=== PATIENT | male | born 1935 | race African-American/Black ===

== ENCOUNTER 2016-06-17 14:54 | Inpatient (IN) | payer OTHER ==
[2016-06-17 16:39] LABS: BASOPHIL 1.1 % (0-2.0); EOSINOPHIL 3.2 % (0-4.5); MCH 24.6 pg (25.7-33.7); MCHC 32.2 g/dl (32.0-35.9); MEAN CELL VOLUME 76.4 fl (80-96); MEAN PLT VOLUME 7.7 fl (7.5-11.1); NEUTROPHILS 73.1 % (42.8-82.8); PLATELET COUNT 545 K/MM3 (134-434); RDW 16.7 % (11.9-15.9); WHITE BLOOD COUNT 8.1 K/mm3 (4.0-10.0)
[2016-06-17 16:54] LABS: INR 1.16 (0.82-1.09); PROTHROMBIN TIME (PATIENT) 12.8 SEC (9.98-11.88)
[2016-06-17 17:12] LABS: ALBUMIN 3.1 g/dl (3.4-5.0); ANION GAP 12 (8-16); BILIRUBIN,TOTAL 0.3 mg/dL (0.2-1.0); CALCIUM 8.7 mg/dL (8.5-10.1); CO2 27 mmol/L (21-32); CREATININE 1.4 mg/dL (0.7-1.3); GLUCOSE,RANDOM 94 mg/dL (74-106); MAGNESIUM 2.4 mg/dL (1.8-2.4); SGOT/AST 18 U/L (15-37); SGPT/ALT 17 U/L (12-78); TOT PROT 7.2 g/dl (6.4-8.2)
[2016-06-17 17:15] LABS: ALK PHOS 63 U/L (45-117); TROPONIN I < 0.02 ng/ml (0.00-0.05)
[2016-06-17 18:20] LABS: URINE APPEARANCE CLEAR; URINE BILIRUBIN NEGATIVE (NEGATIVE); URINE BLOOD NEGATIVE (NEGATIVE); URINE COLOR YELLOW; URINE GLUCOSE (UA) NEGATIVE (NEGATIVE); URINE KETONE NEGATIVE (NEGATIVE); URINE LEUK ESTERASE NEGATIVE (NEGATIVE); URINE NITRITE NEGATIVE (NEGATIVE); URINE UROBILINOGEN NEGATIVE E.U./dl (0.2-1.0)
[2016-06-17 18:21] LABS: URINE PROTEIN 2+ (NEGATIVE)
[2016-06-17 18:22] LABS: URINE HYALINE CAST 46 /lpf; URINE MUCUS RARE; URINE RBC 5 /hpf (0-3); URINE WBC 1 /hpf (3-5)
--- NOTE | 2016-06-17 19:06 | PDOC ---
History of Present Illness - History of Present Illness Initial Comments: 06/17/16 19:21 The patient is an 80 year old male with a past medical hx of HTN who presents to the ED complaining of shortness of breath for a few days. The patient reports his shortness of breath is exacerbated with exertion and laying down. The patient states he was unable to lay down in bed last night secondary to his SOB and reports he felt as if he was suffocating. The patient denies any chest pain, diaphoresis, nausea, vomiting The patient denies any fever, chills, dysuria <Mirta Soliman - Last Filed: 06/17/16 19:44> <Tyra Friedman - Last Filed: 06/18/16 02:22> - General Chief Complaint: Shortness of Breath Stated Complaint: S.O.B. Time Seen by Provider: 06/17/16 16:26 Past History <Mirta Soliman - Last Filed: 06/17/16 19:44> - Past Medical History HTN: Yes Hypercholesterolemia: Yes Other medical history: prostate? - Surgical History Abdominal Surgery: Yes (inguinal hernia) - Psycho/Social/Smoking Cessation Hx Suicidal Ideation: No Smoking History: Former smoker Have you smoked in the past 12 months: Yes Information on smoking cessation initiated: No <Tyra Friedman - Last Filed: 06/18/16 02:22> - Past Medical History Allergies/Adverse Reactions: Allergies Allergy/AdvReac Type Severity Reaction Status Date / Time No Known Allergies Allergy Verified 06/17/16 15:09 Home Medications: Ambulatory Orders Amlodipine Besylate 10 mg PO DAILY 06/17/16 Hydralazine HCl [Apresoline -] 25 mg PO DAILY 06/17/16 Labetalol HCl [Normodyne -] 600 mg PO BID 06/17/16 Lisinopril [Prinivil -] 40 mg PO DAILY 06/17/16 Tamsulosin HCl 0.4 mg PO DAILY 06/17/16 Review of Systems - Review of Systems Able to Perform ROS?: Yes Comments:: 06/17/16 19:39 CONSTITUTIONAL: Absent: fever, chills, diaphoresis, generalized weakness, malaise, loss of appetite HEENT: Absent: rhinorrhea, nasal congestion, throat pain, throat swelling, difficulty swallowing, mouth swelling, ear pain, eye pain, visual Changes CARDIOVASCULAR: Absent: chest pain, syncope, palpitations, irregular heart rate, lightheadedness , peripheral edema RESPIRATORY: +Shortness of breath, dyspnea on exertion, orthopnea. Absent: cough, wheezing, stridor, hemoptysis GASTROINTESTINAL: Absent: abdominal pain, abdominal distension, nausea, vomiting, diarrhea, constipation, melena, hematochezia GENITOURINARY: Absent: dysuria, frequency, urgency, hesitancy, hematuria, flank pain, genital pain MUSCULOSKELETAL: Absent: myalgia, arthralgia, joint swelling SKIN: Absent: rash, itching, pallor HEMATOLOGIC/IMMUNOLOGIC: Absent: easy bleeding, easy bruising, lymphadenopathy, frequent infections ENDOCRINE: Absent: unexplained weight gain, unexplained weight loss, heat intolerance, cold intolerance NEUROLOGIC: Absent: headache, focal weakness or paresthesias, dizziness, unsteady gait, seizure, mental status changes, bladder or bowel incontinence PSYCHIATRIC: Absent: anxiety, depression, suicidal or homicidal ideation, hallucinations. <Mirta Soliman - Last Filed: 06/17/16 19:44> *Physical Exam - Vital Signs Last Vital Signs Temp Pulse Resp BP Pulse Ox 98.3 F 85 17 160/94 98 06/17/16 15:09 06/17/16 18:14 06/17/16 18:14 06/17/16 18:14 06/17/16 18:14 - Physical Exam Comments: 06/17/16 19:39 GENERAL: Well developed, well nourished. Awake and alert. No acute distress. HEENT: Normocephalic, atraumatic. PERRLA, EOMI. No conjunctival pallor. Sclera are non- icteric. Moist mucous membranes. Oropharynx is clear. NECK: Supple. Full ROM. No JVD. Carotid pulses 2+ and symmetric, without bruits. No thyromegaly. No lymphadenopathy. CARDIOVASCULAR: Regular rate and rhythm. No murmurs, rubs, or gallops. Distal pulses are 2+ and symmetric. PULMONARY: No evidence of respiratory distress. Lungs clear to auscultation bilaterally. No wheezing, rales or rhonchi. ABDOMINAL: Soft. Non-tender. Non-distended. No rebound or guarding. No organomegaly. Normoactive bowel sounds. MUSCULOSKELETAL Normal range of motion at all joints. No bony deformities or tenderness. No CVA tenderness. EXTREMITIES: +Minimal bilateral lower extremity pitting edema. No cyanosis. No clubbing. No calf tenderness. SKIN: Warm and dry. Normal capillary refill. No rashes. No jaundice. NEUROLOGICAL: Alert, awake, appropriate. Cranial nerves 2-12 intact. No deficits to light touch and temperature in face, upper extremities and lower extremities. PSYCHIATRIC: Cooperative. Good eye contact. Appropriate mood and affect. <Mirta Soliman - Last Filed: 06/17/16 19:44> - Vital Signs Last Vital Signs Temp Pulse Resp BP Pulse Ox 98.3 F 85 17 160/94 98 06/17/16 15:09 06/17/16 18:14 06/17/16 18:14 06/17/16 18:14 06/17/16 18:14 <Tyra Friedman - Last Filed: 06/18/16 02:22> Heart Score/ECG Review - ECG Impressions Comment:: 06/17/16 19:[address] Friedman NSR at a rate of 89 bpm Normal EKG <Mirta Soliman - Last Filed: 06/17/16 19:44> - History History: Slightly suspicious - Electrocardiogram EKG: Normal - Age Age: >/= 65 - Risk Factors Risk Factors Heart Score: Yes Hx Hypertension, Yes Smoking History Based on the list above the patient has:: 1-2 risk factors - Troponin Troponin: </= normal limit - Score Heart Score - Total: 3 - ECG Intrepretation Rhythm: Regular Rhythm <Tyra Friedman - Last Filed: 06/18/16 02:22> ED Treatment Course - LABORATORY CBC & Chemistry Diagram: 06/17/16 15:56 06/17/16 15:56 - ADDITIONAL ORDERS Additional order review: Laboratory Results 06/17/16 06/17/16 06/17/16 18:00 16:22 15:56 INR 1.16 H Sodium 141 Potassium 3.8 Chloride 102 Carbon Dioxide 27 Anion Gap 12 BUN 21 H Creatinine 1.4 H Creat Clearance w eGFR 48.76 Random Glucose 94 Calcium 8.7 Magnesium 2.4 Total Bilirubin 0.3 AST 18 ALT 17 Alkaline Phosphatase 63 Creatine Kinase 116 Troponin I < 0.02 B-Natriuretic Peptide 96.77 Total Protein 7.2 Albumin 3.1 L Urine Color Yellow Urine Appearance Clear Urine pH 5.0 Ur Specific [place] 1.020 Urine Protein 2+ H Urine Glucose (UA) Negative Urine Ketones Negative Urine Blood Negative Urine Nitrite Negative Urine Bilirubin Negative Urine Urobilinogen Negative Ur Leukocyte Esterase Negative Urine RBC 5 Urine WBC 1 Hyaline Casts 46 Urine Mucus Rare 06/17/16 15:56 RBC 4.23 MCV 76.4 L MCHC 32.2 RDW 16.7 H MPV 7.7 Neutrophils % 73.1 Lymphocytes % 12.1 Monocytes % 10.5 H Eosinophils % 3.2 Basophils % 1.1 - RADIOLOGY Radiograph Interpretation: 06/17/16 19:44 RAD/CHEST X-RAY PORTABLE* Chest: Chest pain. Infiltrate There are no prior studies for comparison. There is a right effusion with right base infiltrate / atelectasis and fluid tracking in the horizontal fissure. There is an elevated right hemidiaphragm. There is a large heart and unfolded aorta. The left lung is clear. There is no sign of infiltrate on the left. There may be a granuloma the left upper lobe. The bones and soft tissues are intact. IMPRESSION: Large heart. Right fluid with infiltrate / atelectasis. Elevated right hemidiaphragm. Reported By: Percy Lui MD 06/17/16 1618 <Mirta Soliman - Last Filed: 06/17/16 19:44> - LABORATORY CBC & Chemistry Diagram: 06/17/16 15:56 06/17/16 15:56 - ADDITIONAL ORDERS Additional order review: Laboratory Results 06/17/16 06/17/16 06/17/16 18:00 16:22 15:56 INR 1.16 H Sodium 141 Potassium 3.8 Chloride 102 Carbon Dioxide 27 Anion Gap 12 BUN 21 H Creatinine 1.4 H Creat Clearance w eGFR 48.76 Random Glucose 94 Calcium 8.7 Magnesium 2.4 Total Bilirubin 0.3 AST 18 ALT 17 Alkaline Phosphatase 63 Creatine Kinase 116 Troponin I < 0.02 B-Natriuretic Peptide 96.77 Total Protein 7.2 Albumin 3.1 L Urine Color Yellow Urine Appearance Clear Urine pH 5.0 Ur Specific [place] 1.020 Urine Protein 2+ H Urine Glucose (UA) Negative Urine Ketones Negative Urine Blood Negative Urine Nitrite Negative Urine Bilirubin Negative Urine Urobilinogen Negative Ur Leukocyte Esterase Negative Urine RBC 5 Urine WBC 1 Hyaline Casts 46 Urine Mucus Rare 06/17/16 15:56 RBC 4.23 MCV 76.4 L MCHC 32.2 RDW 16.7 H MPV 7.7 Neutrophils % 73.1 Lymphocytes % 12.1 Monocytes % 10.5 H Eosinophils % 3.2 Basophils % 1.1 <Tyra Friedman - Last Filed: 06/18/16 02:22> Medical Decision Making - Medical Decision Making 06/17/16 19:[address] Hernandez at 19:12, awaiting call back Dr. Hernandez called back at 19:16, patients case was discussed. He agrees to Tele admission and requests to call Dr. Rooney from Cardiology. Paged Dr. Rooney at 19:20, awaiting call back. Dr. Rooney called back at 19:26. Patients case was discussed. He reports the patient can be admitted to Med Surg. <Mirta Soliman - Last Filed: 06/17/16 19:44> *DC/Admit/Observation/Transfer - Attestations Scribe Attestion: 06/17/16 19:40 Documentation prepared by Mirta Soliman, acting as medical radiation tech for Tyra Friedman MD/DO. <Mirta Soliman - Last Filed: 06/17/16 19:44> - Discharge Dispostion Admit: Yes <Tyra Friedman - Last Filed: 06/18/16 02:22> Diagnosis at time of Disposition: Exertional dyspnea, Pleural effusion, Cardiomegaly Hypertension Qualifiers: Hypertension type: essential hypertension Qualified Code(s): I10 - Essential ( primary) hypertension - Referrals
[2016-06-18] MEDS: LABETALOL HCL 200 MG TABLET (FP) PO SCH ×3 (04:05→23:20)
[2016-06-18] MEDS: amLODIPine BESYLATE 10 MG TABLET (FP) PO SCH ×2 (04:06→10:00)
[2016-06-18 04:54] VITALS: BMI 26.7
--- NOTE | 2016-06-18 08:45 | HP ---
Admitting History and Physical - Primary Care Physician PCP: Shanique Hernandez - Admission Chief Complaint: Exertional dyspnea. History of Present Illness: Progressively worsening exertional dyspnea for past 1-2 months. Unable to walk a flight of stairs without getting short of breath. Also developed pruritic rash over abdomen a month ago, topical creams did not help. History Source: Patient Limitations to Obtaining History: No Limitations - Past Medical History Cardiovascular: Yes: HTN, Hyperlipdemia Gastrointestinal: Yes: Other (colonic polyps on colonosocpy ~2008) Renal/: Yes: BPH - Past Surgical History Past Surgical History: Yes: None - Smoking History Smoking history: Former smoker (Has been a regular smoker, but stopped smoking past week due to dyspnea) Have you smoked in the past 12 months: Yes Aproximately how many cigarettes per day: 2 If you are a former smoker, when did you quit?: last week - Alcohol/Substance Use Hx Alcohol Use: No History of Substance Use: reports: None - Social History Usual Living Arrangement: Yes: Alone ADL: Independent History of Recent Travel: No Home Medications - Allergies Allergies/Adverse Reactions: Allergies Allergy/AdvReac Type Severity Reaction Status Date / Time No Known Allergies Allergy Verified 06/17/16 15:09 - Home Medications Home Medications: Ambulatory Orders Amlodipine Besylate 10 mg PO DAILY 06/17/16 Hydralazine HCl [Apresoline -] 25 mg PO DAILY 06/17/16 Labetalol HCl [Normodyne -] 600 mg PO BID 06/17/16 Lisinopril [Prinivil -] 40 mg PO DAILY 06/17/16 Tamsulosin HCl 0.4 mg PO DAILY 06/17/16 Family Disease History - Family Disease History Family Disease History: Other: Mother (HTN) Review of Systems - Review of Systems Constitutional: denies: No Symptoms Cardiovascular: denies: No Symptoms Respiratory: reports: Cough (dry), Exercise Intolerance, SOB on Exertion. denies: Hemoptysis, Wheezing Gastrointestinal: reports: Bloating. denies: Abdominal Pain, Dysphagia, Nausea , Rectal Bleeding Integumentary: denies: No Symptoms Neurological: denies: No Symptoms Endocrine: denies: No Symptoms Psychiatric: denies: No Symptoms Physical Examination Vital Signs: Vital Signs Temperature 98.4 F 06/18/16 06:00 Pulse Rate 78 06/18/16 06:00 Respiratory Rate 20 06/18/16 06:00 Blood Pressure 140/69 06/18/16 06:00 O2 Sat by Pulse Oximetry (%) 93 L 06/18/16 03:30 Constitutional: Yes: Well Nourished, Mild Distress Eyes: Yes: Conjunctiva Clear HENT: Yes: Normocephalic Neck: Yes: Trachea Midline Cardiovascular: Yes: Regular Rate and Rhythm Respiratory: Yes: Diminished (Decrease BS right side, left is clear) Gastrointestinal: Yes: Normal Bowel Sounds, Soft, Ascites Extremities: Yes: WNL Edema: No Peripheral Pulses WNL: Yes Neurological: Yes: WNL ...Motor Strength: WNL Psychiatric: Yes: WNL Labs: CBC, BMP 06/17/16 15:56 06/17/16 15:56 cardiac enzyme negative EKG wnl renal fnct just about baseline Imaging - Results Chest X-ray: Report Reviewed EKG: Report Reviewed Problem List - Problems (1) Cardiomegaly Code(s): I51.7 - CARDIOMEGALY (2) Exertional dyspnea Code(s): R06.09 - OTHER FORMS OF DYSPNEA (3) Hypertension Code(s): I10 - ESSENTIAL (PRIMARY) HYPERTENSION Qualifiers: Hypertension type: essential hypertension Qualified Code(s): I10 - Essential (primary) hypertension (4) Pleural effusion Code(s): J90 - PLEURAL EFFUSION, NOT ELSEWHERE CLASSIFIED Assessment/Plan Pleural effusion, possible ascites CT chest/abd/pelvis r/o underlying malignancy iv diuresis for now check echo for LVfnct
[2016-06-18] MEDS: TAMSULOSIN HCL 0.4 MG CAP.ER.24H (FP) PO SCH (08:55)
[2016-06-18] MEDS: LISINOPRIL 20 MG TABLET (FP) PO SCH (09:49)
[2016-06-18] MEDS: hydrALAZINE HCL 25 MG TABLET (FP) PO SCH (09:50)
[2016-06-18] MEDS: FUROSEMIDE 40 MG/4 ML INJECTABLE VIAL IVPUSH SCH (09:51)
[2016-06-18] MEDS ORDERED: ENOXAPARIN NA (PORCINE) 40 MG/0.4 ML DISP.SYRIN SQ SCH (10:00)
--- NOTE | 2016-06-18 13:21 | EKG ---
Test Reason : Blood Pressure : / mmHG Vent. Rate : 089 BPM Atrial Rate : 089 BPM P-R Int : 184 ms QRS Dur : 072 ms QT Int : 346 ms P-R-T Axes : 059 011 051 degrees QTc Int : 420 ms NORMAL SINUS RHYTHM NORMAL ECG WHEN COMPARED WITH ECG OF 12-FEB-2003 14:04, VENT. RATE HAS INCREASED BY 34 BPM Confirmed by JULISA CRANE MD ([id number]) on 06/18/2016 1:21:22 PM Referred By: Confirmed By:JULISA CRANE MD
--- NOTE | 2016-06-18 14:11 | CON.PULM ---
Consult Consult Specialty:: PULMONARY Referred by:: PMD - History of Present Illness Chief Complaint: SOB History of Present Illness: The patient is an 80 year old male with a past medical hx of HTN who presents to the ED complaining of shortness of breath beginning end of March. The patient reports his shortness of breath is exacerbated with exertion and laying down. 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 He is an active smoker approx 4-5 cigarettes per day.He served in the [employer] and was stationed [facility]. - History Source History Provided By: Patient, Medical Record Limitations to Obtaining History: No Limitations - Past Medical History [employer]: No: Alzheimer's Cardio/Vascular: Yes: HTN, Hyperlipdemia Pulmonary: No: COPD, O2 Dependent, Pulmonary Embolus Gastrointestinal: Yes: Other (colonic polyps on colonosocpy ~2008). No: Ascites Hepatobiliary: No: Cirrhosis Renal/: Yes: BPH Heme/Onc: Yes: Anemia, Other (has been in fe for 5 years) Infectious Disease: No: AIDS Psych: No: Addictions Rheumatology: No: Fibromyalgia ENT: No: Allergic Rhinitis Endocrine: No: Diabetes Mellitus - Past Surgical History Past Surgical History: Yes: Hernia Repair - Alcohol/Substance Use Hx Alcohol Use: No History of Substance Use: reports: None - Smoking History Smoking history: Current every day smoker (Has been a regular smoker, but stopped smoking past week due to dyspnea) Have you smoked in the past 12 months: Yes Aproximately how many cigarettes per day: 2 If you are a former smoker, when did you quit?: last week - Social History Usual Living Arrangement: With Spouse ADL: Independent Place of : [facility] History of Recent Travel: No Home Medications - Allergies Allergies/Adverse Reactions: Allergies Allergy/AdvReac Type Severity Reaction Status Date / Time No Known Allergies Allergy Verified 06/17/16 15:09 - Home Medications Home Medications: Ambulatory Orders Amlodipine Besylate 10 mg PO DAILY 06/17/16 Hydralazine HCl [Apresoline -] 25 mg PO DAILY 06/17/16 Labetalol HCl [Normodyne -] 600 mg PO BID 06/17/16 Lisinopril [Prinivil -] 40 mg PO DAILY 06/17/16 Tamsulosin HCl 0.4 mg PO DAILY 06/17/16 Family Disease History - Family Disease History Family Disease History: Other: Mother (HTN) Review of Systems - Review of Systems Constitutional: denies: Fever Eyes: denies: Blurred Vision HENT: denies: Difficult Swallowing Neck: denies: Decreased ROM Cardiovascular: denies: Chest Pain Respiratory: reports: Orthopnea, SOB on Exertion Gastrointestinal: reports: Abdominal Pain (lower) Genitourinary: reports: Other (nocturia) Breasts: reports: No Symptoms Reported Musculoskeletal: reports: No Symptoms Integumentary: reports: No Symptoms Neurological: reports: No Symptoms Endocrine: reports: No Symptoms Psychiatric: reports: No Symptoms Physical Exam Vital Sings: Vital Signs Temperature 98.3 F 06/18/16 13:41 Pulse Rate 63 06/18/16 13:41 Respiratory Rate 24 06/18/16 13:41 Blood Pressure 152/76 06/18/16 13:41 O2 Sat by Pulse Oximetry (%) 93 L 06/18/16 03:30 Constitutional: Yes: Calm Eyes: Yes: EOM Intact HENT: Yes: Normocephalic Neck: Yes: Trachea Midline Cardiovascular: Yes: Regular Rate and Rhythm Respiratory: Yes: Diminished (right base) Gastrointestinal: Yes: Soft, Abdomen, Obese Renal/: Yes: WNL Breast(s): Yes: WNL Musculoskeletal: Yes: WNL Extremities: Yes: WNL Edema: No Neurological: Yes: WNL ...Motor Strength: WNL Psychiatric: Yes: WNL Labs: REVIEWED Imaging - Results Chest X-ray: Image Reviewed MRI: Image Reviewed Problem List - Problems (1) Exertional dyspnea Code(s): R06.09 - OTHER FORMS OF DYSPNEA (2) Hypertension Code(s): I10 - ESSENTIAL (PRIMARY) HYPERTENSION Qualifiers: Hypertension type: essential hypertension Qualified Code(s): I10 - Essential (primary) hypertension (3) Pleural effusion Code(s): J90 - PLEURAL EFFUSION, NOT ELSEWHERE CLASSIFIED Assessment/Plan DYSPNEA ON EXERTION AND ORTHOPNEA ETIOLOGY TO BE DETERMINED MILD WEIGHT LOSS/H/O FE DEF ANEMIA AGREE WITH CT CHEST/ABD/PELVIS O2 SUPPLEMENTATION CHECK SPO2 PRE/POST MAY NEED THORACENTESIS WILL FOLLOW THANK YOU Yanci SMITH MD
[2016-06-18] MEDS: ATORVASTATIN CA 10 MG TABLET (FP) PO SCH (23:20)
[2016-06-19 08:03] LABS: EOSINOPHIL 3.6 % (0-4.5); MCH 24.7 pg (25.7-33.7); MCHC 32.4 g/dl (32.0-35.9); MEAN CELL VOLUME 76.3 fl (80-96); MEAN PLT VOLUME 7.4 fl (7.5-11.1); NEUTROPHILS 71.4 % (42.8-82.8); PLATELET COUNT 514 K/MM3 (134-434); RDW 16.4 % (11.9-15.9); WHITE BLOOD COUNT 6.6 K/mm3 (4.0-10.0)
[2016-06-19 08:51] LABS: ALBUMIN 2.8 g/dl (3.4-5.0); ALK PHOS 56 U/L (45-117); ANION GAP 9 (8-16); BILIRUBIN,TOTAL 0.3 mg/dL (0.2-1.0); CALCIUM 8.6 mg/dL (8.5-10.1); CO2 29 mmol/L (21-32); CREATININE 1.1 mg/dL (0.7-1.3); GLUCOSE,RANDOM 96 mg/dL (74-106); SGOT/AST 17 U/L (15-37); SGPT/ALT 17 U/L (12-78); TOT PROT 6.6 g/dl (6.4-8.2)
[2016-06-19] MEDS: TAMSULOSIN HCL 0.4 MG CAP.ER.24H (FP) PO SCH (08:53)
--- NOTE | 2016-06-19 09:58 | PN ---
Progress Note (short form) - Note Progress Note: PULMONARY HAVE REVIEWED CT CHEST/ABD/PELVIS LARGE VOLUME RIGHT PLEURAL EFFUSION WITH COMPRESSIVE ATELECTASIS MULTIPLE B/L NODULES WILL SPEAK WITH IR REGARDING TRANSTHORACIC LUNG BX AND DRAINAGE OF FLUID. HAVE DISCUSSED SAME WITH PHILIP SMITH MD Problem List - Problems (1) Exertional dyspnea Code(s): R06.09 - OTHER FORMS OF DYSPNEA (2) Hypertension Code(s): I10 - ESSENTIAL (PRIMARY) HYPERTENSION Qualifiers: Hypertension type: essential hypertension Qualified Code(s): I10 - Essential (primary) hypertension (3) Pleural effusion Code(s): J90 - PLEURAL EFFUSION, NOT ELSEWHERE CLASSIFIED
[2016-06-19] MEDS: LABETALOL HCL 200 MG TABLET (FP) PO SCH ×2 (10:20→21:49)
[2016-06-19] MEDS: LISINOPRIL 20 MG TABLET (FP) PO SCH (10:20)
[2016-06-19] MEDS: DOCUSATE SODIUM 100 MG CAPSULE (FP) PO SCH (10:20)
[2016-06-19] MEDS: hydrALAZINE HCL 25 MG TABLET (FP) PO SCH (10:20)
[2016-06-19] MEDS: FUROSEMIDE 40 MG/4 ML INJECTABLE VIAL IVPUSH SCH (10:20)
[2016-06-19] MEDS: amLODIPine BESYLATE 10 MG TABLET (FP) PO SCH (10:20)
--- NOTE | 2016-06-19 10:20 | PN ---
Progress Note (short form) - Note Progress Note: No new complaints. 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 Problem List - Problems (1) Cardiomegaly Code(s): I51.7 - CARDIOMEGALY (2) Exertional dyspnea Code(s): R06.09 - OTHER FORMS OF DYSPNEA (3) Hypertension Code(s): I10 - ESSENTIAL (PRIMARY) HYPERTENSION Qualifiers: Hypertension type: essential hypertension Qualified Code(s): I10 - Essential (primary) hypertension (4) Pleural effusion Code(s): J90 - PLEURAL EFFUSION, NOT ELSEWHERE CLASSIFIED
--- NOTE | 2016-06-19 12:03 | PN ---
Progress Note (short form) - Note Progress Note: No CP Or SOB. For biopsy/drainage. No acute events overnight. Intake & Output 06/16/16 06/17/16 06/18/16 06/19/16 23:59 23:59 23:59 23:59 Intake Total 790 435 Output Total 640 Balance 150 435 Weight 210 lb 197 lb 3.2 oz Last Vital Signs Temp Pulse Resp BP Pulse Ox 98.0 F 74 20 148/70 95 06/19/16 09:00 06/19/16 09:00 06/19/16 09:00 06/19/16 09:00 06/18/16 22:00 Active Medications Amlodipine Besylate (Norvasc -) 10 mg PO DAILY [facility] Last Admin: 06/19/16 10:20 Dose: 10 mg Atorvastatin Calcium (Lipitor -) 10 mg PO HS [facility] Last Admin: 06/18/16 23:20 Dose: 10 mg Docusate Sodium (Colace -) 100 mg PO DAILY [facility] Last Admin: 06/19/16 10:20 Dose: 100 mg Furosemide (Lasix Injection -) 40 mg IVPUSH DAILY [facility] Last Admin: 06/19/16 10:20 Dose: 40 mg Hydralazine HCl (Apresoline -) 25 mg PO DAILY [facility] Last Admin: 06/19/16 10:20 Dose: 25 mg Labetalol HCl (Normodyne -) 600 mg PO BID [facility] Last Admin: 06/19/16 10:20 Dose: 600 mg Lisinopril (Prinivil) 20 mg PO DAILY [facility] Last Admin: 06/19/16 10:20 Dose: 20 mg Tamsulosin HCl (Flomax -) 0.4 mg PO DAILY@0830 [facility] Last Admin: 06/19/16 08:53 Dose: 0.4 mg Constitutional: Yes: NAD Eyes: Yes: Conjunctiva Clear HENT: Yes: Normocephalic Neck: Yes: Trachea Midline Cardiovascular: Yes: Regular Rate and Rhythm Respiratory: Yes: Diminished Gastrointestinal: Yes: Normal Bowel Sounds, Soft, Ascites Extremities: Yes: WNL Edema: No Peripheral Pulses WNL: Yes Neurological: Yes: WNL ...Motor Strength: WNL Psychiatric: Yes: WNL Laboratory Results - last 24 hr 06/19/16 06/19/16 05:33 05:33 WBC 6.6 RBC 3.92 L Hgb 9.7 L Hct 29.9 L MCV 76.3 L MCHC 32.4 RDW 16.4 H Plt Count 514 H MPV 7.4 L Neutrophils % 71.4 Lymphocytes % 11.7 Monocytes % 12.3 H Eosinophils % 3.6 Basophils % 1.0 Sodium 141 Potassium 4.5 Chloride 103 Carbon Dioxide 29 Anion Gap 9 BUN 22 H Creatinine 1.1 D Creat Clearance w eGFR > 60 Random Glucose 96 Calcium 8.6 Total Bilirubin 0.3 AST 17 ALT 17 Alkaline Phosphatase 56 Total Protein 6.6 Albumin 2.8 L Problem List - Problems (1) Cardiomegaly Code(s): I51.7 - CARDIOMEGALY (2) Exertional dyspnea Code(s): R06.09 - OTHER FORMS OF DYSPNEA (3) Hypertension Code(s): I10 - ESSENTIAL (PRIMARY) HYPERTENSION Qualifiers: Hypertension type: essential hypertension Qualified Code(s): I10 - Essential (primary) hypertension (4) Pleural effusion Code(s): J90 - PLEURAL EFFUSION, NOT ELSEWHERE CLASSIFIED IMP: 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
[2016-06-19 13:11] LABS: PHOSPHOROUS 3.4 mg/dL (2.5-4.9)
[2016-06-19 13:12] LABS: GLUCOSE,PLEURAL FLUID 109.283; TOTAL PROTEIN,PLEURAL FLUID 4.474
[2016-06-19 13:13] LABS: CHLORIDE PLEURAL FLUID 107
[2016-06-19 16:09] LABS: PLEURAL FLUID SOURCE PLEURAL
[2016-06-19 16:10] LABS: PLEURAL FLUID APPEARANCE CLOUDY; PLEURAL FLUID COLOR PINK; PLEURAL FLUID LYMPHOCYTES 77 %; PLEURAL FLUID MACROPHAGES 6 %; PLEURAL FLUID NEUTROPHIL 13 %
[2016-06-19] MEDS: ATORVASTATIN CA 10 MG TABLET (FP) PO SCH (21:48)
--- NOTE | 2016-06-20 07:19 | PN ---
Progress Note (short form) - Note Progress Note: Feels better after US guided thoracentesis. 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 Tentative dc today after cytology results with close outpt f/up. Problem List - Problems (1) Cardiomegaly Code(s): I51.7 - CARDIOMEGALY (2) Exertional dyspnea Code(s): R06.09 - OTHER FORMS OF DYSPNEA (3) Hypertension Code(s): I10 - ESSENTIAL (PRIMARY) HYPERTENSION Qualifiers: Hypertension type: essential hypertension Qualified Code(s): I10 - Essential (primary) hypertension (4) Pleural effusion Code(s): J90 - PLEURAL EFFUSION, NOT ELSEWHERE CLASSIFIED
[2016-06-20 07:57] LABS: BASOPHIL 0.8 % (0-2.0); EOSINOPHIL 5.5 % (0-4.5); MCH 23.9 pg (25.7-33.7); MCHC 31.6 g/dl (32.0-35.9); MEAN CELL VOLUME 75.7 fl (80-96); MEAN PLT VOLUME 7.2 fl (7.5-11.1); NEUTROPHILS 68.9 % (42.8-82.8); PLATELET COUNT 538 K/MM3 (134-434); RDW 16.6 % (11.9-15.9); WHITE BLOOD COUNT 7.6 K/mm3 (4.0-10.0)
[2016-06-20 08:26] LABS: ALBUMIN 2.7 g/dl (3.4-5.0); CALCIUM 8.5 mg/dL (8.5-10.1); COCKROFT - GAULT 52.16; CREATININE 1.4 mg/dL (0.7-1.3)
[2016-06-20 08:29] LABS: BILIRUBIN,TOTAL 0.3 mg/dL (0.2-1.0); TOT PROT 6.4 g/dl (6.4-8.2)
[2016-06-20] MEDS: TAMSULOSIN HCL 0.4 MG CAP.ER.24H (FP) PO SCH (08:34)
--- NOTE | 2016-06-20 09:18 | CONSULT ---
Consult - text type - Consultation Consultation Note: Cardiology 81 yr old HTN, lipids, admitted with dyspnea for few months PE: vitals stable normal cardio-pulmonary exam, maybe decreased breath sounds right side abdomen soft no leg edema Impression: stable from cardiac standpoint Echocardiogram normal, TR right plural effusion, s/p thoracentesis pulm nodules, malignancy work-up to follow Rec: Further cardiac evaluation to continue as outpatient
[2016-06-20] MEDS: LABETALOL HCL 200 MG TABLET (FP) PO SCH (10:19)
[2016-06-20] MEDS: DOCUSATE SODIUM 100 MG CAPSULE (FP) PO SCH (10:20)
[2016-06-20] MEDS: hydrALAZINE HCL 25 MG TABLET (FP) PO SCH (10:20)
[2016-06-20] MEDS: amLODIPine BESYLATE 10 MG TABLET (FP) PO SCH (10:20)
[2016-06-20] MEDS: LISINOPRIL 20 MG TABLET (FP) PO SCH (10:20)
[2016-06-20] MEDS: FUROSEMIDE 40 MG/4 ML INJECTABLE VIAL IVPUSH SCH (10:20)
--- NOTE | 2016-06-20 13:20 | PATH ---
Cytology Non-Gynecological Report Patient Name: CRISTIAN ABDI [facility]. Rec. #: [id number] /Age/Gender: 1935 (Age: 80) / M Account: [id number] Location: [address] [place] [address] Taken: 06/19/2016 Received: 06/19/2016 Reported: 06/20/2016 Physicians: Shanique Hernandez M.D. Specimen(s) Received RIGHT PLEURAL FLUID Clinical History None given Final Diagnosis PLEURAL FLUID, RIGHT, THORACENTESIS: SATISFACTORY FOR EVALUATION BENIGN (NO MALIGNANT CELLS IDENTIFIED) REACTIVE MESOTHELIAL CELLS, HISTIOCYTES, LYMPHOCYTES AND NEUTROPHILS PRESENT. Comment: Recommend correlation with clinical findings and follow up as clinically indicated. Electronically Signed Kojo Reza M.D. Gross Description A. Approximately 50 cc of bloody fluid received fixed in 50% alcohol. One cytofunnel and one cellblock prepared. B. Approximately 2000 cc of bloody fluid received fresh. One cytofunnel and one cellblock prepared.
[2016-06-20 15:04] VITALS: BP 124/53; PULSE 73; TEMP 98.2
--- NOTE | 2016-06-23 08:33 | DS ---
Physical Examination Vital Signs: Vital Signs Temperature 98.2 F 06/20/16 14:02 Pulse Rate 73 06/20/16 14:02 Respiratory Rate 20 06/20/16 14:02 Blood Pressure 124/53 06/20/16 14:02 O2 Sat by Pulse Oximetry (%) 90 L 06/20/16 09:00 Constitutional: Yes: No Distress, Calm Eyes: Yes: EOM Intact Neck: Yes: Trachea Midline Cardiovascular: Yes: Regular Rate and Rhythm Respiratory: Yes: CTA Bilaterally Gastrointestinal: Yes: Soft Peripheral Pulses WNL: Yes Labs: CBC, BMP 06/20/16 07:15 06/20/16 07:15 Discharge Summary Reason For Visit: DYSPNEA ON EXERTION/CARDIOMEGALY/PLEURAL EFFUSION/ Hospital Course: Admitted for symptomatic right sided pleural effusion. Ct chest,abd,pelvis showed multiple nodules. Pleural effusion was tapped with relief of his symptoms, pathology negative for malignant cell. Mr. Regalado is medically stable to dc home and f/up as oupt for further work up, including PET scan. Condition: Fair - Instructions Diet, Activity, Other Instructions: 9 am Thursday Referrals: Shanique Hernandez MD [Primary Care Provider] - Disposition: HOME - Home Medications Comprehensive Discharge Medication List: Ambulatory Orders Amlodipine Besylate 10 mg PO DAILY 06/17/16 Labetalol HCl [Normodyne -] 600 mg PO BID 06/17/16 Lisinopril [Prinivil -] 40 mg PO DAILY 06/17/16 Tamsulosin HCl 0.4 mg PO DAILY 06/17/16 Docusate Sodium [Colace -] 100 mg PO DAILY 06/18/16 Hydrochlorothiazide [Hctz -] 25 mg PO DAILY 06/18/16 Simvastatin 20 mg PO HS 06/18/16
== END 2016-06-20 15:49 | disposition home or self-care (01) | DRG 187 ==
LOC: JER 14:54 → JERBED 19:22 → J5S 06-18 02:55
PROVIDERS: ADMIT Internal Medicine; ATTEND Internal Medicine
PROC: 0W993ZX Drainage of Right Pleural Cavity, Percutaneous Approach, Diagnostic (ICD-10-PCS; principal; 2016-06-19)
DX: J90 Pleural effusion, not elsewhere classified (principal); J98.11 Atelectasis; I10 Essential (primary) hypertension; K40.90 Unilateral inguinal hernia, without obstruction or gangrene, not specified as recurrent; E78.5 Hyperlipidemia, unspecified; N40.0 Benign prostatic hyperplasia without lower urinary tract symptoms; K63.5 Polyp of colon; I51.7 Cardiomegaly; R06.09 Other forms of dyspnea; D64.9 Anemia, unspecified; R91.8 Other nonspecific abnormal finding of lung field; M89.9 Disorder of bone, unspecified; Z87.891 Personal history of nicotine dependence
CPT/HCPCS: 36415; 71010-TC; 71020-TC; 71250-TC; 74176-TC; 76942; 80053; 81003; 81015; 82042; 82150; 82438; 82550; 82945; 83615; 83735; 83880; 84100; 84153; 84157; 84311; 84450; 84460; 84484; 85025; 85610; 87070; 87075; 87102; 87116; 87205; 87206; 87210; 88108; 88305-TC; 89051; 93005; 93010; 93306-TC; 99284-25; Q9967

== ENCOUNTER 2016-07-29 13:12 | Day surgery (SDC) | payer OTHER ==
[2016-07-28 15:02] VITALS: BMI 27.6
[2016-07-29] MEDS ORDERED: LIDOCAINE HCL/PF 2% SDV 5ML VIAL ONE (14:26)
[2016-07-29] MEDS ORDERED: PROPOFOL 20 ML ONE ×3 (14:26)
[2016-07-29] MEDS ORDERED: ceFAZolin SODIUM 1 GM VIAL ONE (14:29)
[2016-07-29] MEDS ORDERED: GLYCOPYRROLATE 0.2 MG/1 ML VIAL ONE (14:55)
[2016-07-29 15:16] VITALS: TEMP 97.6
[2016-07-29 16:00] VITALS: PULSE 73
[2016-07-29 16:01] VITALS: BP 142/72
--- NOTE | 2016-08-06 11:18 | PATH ---
Surgical Pathology Report Patient Name: CRISTIAN ABDI [facility]. Rec. #: [id number] /Age/Gender: 1935 (Age: 81) / M Account: [id number] Location: ASU-ENDOSCOPY Taken: 07/29/2016 Received: 07/30/2016 Reported: 07/31/2016 Physicians: Ric Bess M.D. Specimen(s) Received A: BX CECAL MASS B: POLYP TRANSVERSE COLON C: DESCENDING COLON POLYP Clinical History Abnormal x-ray, colon mass Severe diverticulosis and left colon, polyps, mass in cecum Final Diagnosis A. 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 Comment: DNA mismatch repair (MMR) protein analysis by IHC standing; result will be reported in an addendum. The case was discussed with Dr. Bess on 07/31/16. B. COLON, TRANSVERSE, POLYP, POLYPECTOMY: FRAGMENTS OF TUBULAR ADENOMA. C. COLON, DESCENDING, POLYP, POLYPECTOMY: FRAGMENTS OF TUBULAR ADENOMA. Electronically Signed Zach Hart M.D. Addendum Reported: 08/05/2016 Addendum Diagnosis Part A: DNA Mismatch Repair (MMR) protein expression analysis by IHC performed at the [place], [place] ([id number]) and interpreted [facility] shows the following: Results: hMLH-1 DNA Mismatch Repair Protein: Loss of nuclear expression hMSH-2 DNA Mismatch Repair Protein: Loss of nuclear expression hMSH-6 DNA Mismatch Repair Protein: Preserved nuclear expression PMS2 DNA Mismatch Repair Protein: Loss of nuclear expression Interpretation: The neoplastic material is scant. Defect in MLH-1, PMS2 and MSH-2 DNA Mismatch Repair (MMR) proteins expression are identified by IHC. This result may be seen in both sporadic MSI-H unstable tumors and in tumors associated with HNPCC (Bryan syndrome). This pattern of expression with the loss of MSH2 protein and preserved MSH6 protein is unusual; considering that the neoplastic material is scant, the test should be repeated on the excisional specimen. The follow up tests, such as BRAF mutation and MLH promoter methylation analysis, should be performed on the excisional specimen. MSH2 gene mutation testing is recommended. Zach Hart M.D. Gross Description A. Received in formalin, labeled "biopsy cecal mass" are 4 patten, irregular portions of soft tissue averaging 0.2 cm in greatest dimension. The specimens are submitted in toto in one cassette. B. Received in formalin labeled "polyp transverse colon," are 3 patten, polypoid portions of soft tissue ranging from 0.2-0.8 cm in greatest dimension. The specimens are entirely submitted in one cassette. C. Received in formalin labeled "descending colon," are 2 patten, irregular to polypoid portions of soft tissue measuring 0.3 and 0.9 cm in greatest dimension. The specimens are entirely submitted in one cassette. 07/30/201607/30/2016
== END 2016-07-29 16:10 | disposition home or self-care (01) ==
LOC: JASU-ENDO 13:12
PROVIDERS: ATTEND Internal Medicine Gastroenterology
PROC: 0DBN8ZX Excision of Sigmoid Colon, Via Natural or Artificial Opening Endoscopic, Diagnostic (ICD-10-PCS; 2016-07-29)
PROC: 0DBK8ZX Excision of Ascending Colon, Via Natural or Artificial Opening Endoscopic, Diagnostic (ICD-10-PCS; 2016-07-29)
PROC: 0DBL8ZX Excision of Transverse Colon, Via Natural or Artificial Opening Endoscopic, Diagnostic (ICD-10-PCS; principal; 2016-07-29 14:00)
DX: D50.9 Iron deficiency anemia, unspecified (principal); D12.5 Benign neoplasm of sigmoid colon; D12.3 Benign neoplasm of transverse colon; K64.8 Other hemorrhoids; D37.4 Neoplasm of uncertain behavior of colon
CPT/HCPCS: 88305-TC

== ENCOUNTER 2016-09-02 07:21 | Emergency (ER) | payer OTHER ==
[2016-09-02 07:37] VITALS: TEMP 98; BMI 27.6
[2016-09-02 08:43] LABS: URINE APPEARANCE CLEAR; URINE BILIRUBIN NEGATIVE (NEGATIVE); URINE COLOR STRAW; URINE GLUCOSE (UA) NEGATIVE (NEGATIVE); URINE KETONE NEGATIVE (NEGATIVE); URINE LEUK ESTERASE NEGATIVE (NEGATIVE); URINE NITRITE NEGATIVE (NEGATIVE); URINE PROTEIN NEGATIVE (NEGATIVE); URINE UROBILINOGEN NEGATIVE E.U./dl (0.2-1.0)
[2016-09-02 08:47] LABS: URINE BLOOD 2+ (NEGATIVE)
[2016-09-02 08:50] LABS: URINE RBC 14 /hpf (0-3); URINE WBC 1 /hpf (3-5)
--- NOTE | 2016-09-02 08:52 | PDOC ---
History of Present Illness - General Chief Complaint: Urinary Problem Stated Complaint: ABD PAIN, URINARY PROBLEM Time Seen by Provider: 09/02/16 08:02 History Source: Patient Exam Limitations: No Limitations - History of Present Illness Travel History: No Initial Comments: 09/02/16 08:47 89-year-old male presents the ED with urinary retention since last night. Patient states had a Garza catheter in until yesterday morning when Dr. Griggs his urologist removed it. Patient states history of BPH and since his colon resection last month he has had difficulty intermittently since requiring him to have a Garza catheter placed. Patient now complaining of suprapubic pressure with urinary dribbling without fever, chills, hematuria, nausea, or difficulty moving his bowels. Timing/Duration: reports: getting worse Quality: reports: moderate, fullness Abdominal Pain Onset Location: reports: suprapubic Pain Radiation: reports: no radiation Activities at Onset: reports: none Aggravating Factors: improves with: None Alleviating Factors: improves with: None Past History - Past Medical History Allergies/Adverse Reactions: Allergies Allergy/AdvReac Type Severity Reaction Status Date / Time No Known Allergies Allergy Verified 09/02/16 07:30 Home Medications: Ambulatory Orders Amlodipine Besylate 10 mg PO DAILY 06/17/16 Labetalol HCl [Normodyne -] 200 mg PO BID 06/17/16 Lisinopril [Prinivil -] 40 mg PO DAILY 06/17/16 Tamsulosin HCl 0.4 mg PO DAILY 06/17/16 Docusate Sodium [Colace -] 100 mg PO DAILY 06/18/16 Hydrochlorothiazide [Hctz -] 25 mg PO DAILY 06/18/16 Simvastatin 20 mg PO HS 06/18/16 Ascorbic Acid [Vitamin C -] 500 mg PO ASDIR 07/29/16 Glucosamine HCl/MSM [Sm Glucosamine & MSM Tablet] 1,500 tab PO BID 07/29/16 Iron 65 mg PO ASDIR 07/29/16 Multivitamins [Multivit ([facility] Formulary)] DAILY 07/29/16 Anemia: Yes Cancer: Yes (colon) COPD: Yes GI Disorders: Yes (H/O ADENOMATOUS POLYP OF COLON) HTN: Yes Hypercholesterolemia: Yes - Surgical History Abdominal Surgery: Yes (inguinal hernia, colon resection) Cholecystectomy: Yes - Psycho/Social/Smoking Cessation Hx Anxiety: No Suicidal Ideation: No Smoking History: Former smoker Have you smoked in the past 12 months: No Number of Cigarettes Smoked Daily: 2 If you are a former smoker, when did you quit?: 2017 Information on smoking cessation initiated: No Hx Alcohol Use: No Drug/Substance Use Hx: No Substance Use Type: None Hx Substance Use Treatment: No Patient Lives Alone: Yes Lives with/in: lives alone Review of Systems - Review of Systems Able to Perform ROS?: Yes Is the patient limited Nicaraguan proficient: No Constitutional: No: Symptoms Reported HEENTM: No: Symptoms Reported Cardiac (ROS): No: Symptoms Reported ABD/GI: Yes: Abdominal Distended : Yes: Frequency, Urgency Integumentary: No: Symptoms Reported Neurological: No: Symptoms reported Hematologic/Lymphatic: No: Symptoms Reported *Physical Exam - Vital Signs Last Vital Signs Temp Pulse Resp BP Pulse Ox 98.0 F 75 18 169/73 98 09/02/16 07:31 09/02/16 07:31 09/02/16 07:31 09/02/16 07:31 09/02/16 07:31 - Physical Exam General Appearance: Yes: Nourished, Appropriately Dressed, Mild Distress Respiratory/Chest: positive: Lungs Clear, Normal Breath Sounds. negative: Respiratory Distress, Accessory Muscle Use Cardiovascular: positive: Regular Rhythm, Regular Rate. negative: Murmur Gastrointestinal/Abdominal: positive: Soft, Distended (suprapubic), Tenderness ( suprapubic). negative: Other (Steri-Strips intact to periumbilical region) Male Genitalia: positive: normal genitalia. negative: testicular tenderness, epididymus tender, hernia Musculoskeletal: negative: CVA Tenderness Extremity: positive: Normal Capillary Refill. negative: Pedal Edema Integumentary: positive: Normal Color, Warm, Moist Neurologic: positive: Motor Strength 5/5 (ambulatory) Medical Decision Making - Medical Decision Making 09/02/16 08:36 Patient with complaints of urinary retention since last night. Patient states had a Garza catheter removal per his urologist Dr. Griggs in the office yesterday afternoon which he states had no difficulty with. Patient states has had Garza catheters and before secondary to BPH patient with recent colon resection positive for malignancy. Patient has an appointment with Dr. Real today at 10. Patient on exam had suprapubic distention and tenderness. Patient with clear yellow urine upon voiding measuring approximately 20 mL. #16 Garza catheter placed by me without difficulty which immediately was successful draining 600 mL of clear yellow urine into the Urine collection bag. Urinalysis urine culture ordered. Patient has no complaints presently of suprapubic pressure. spoke with Dr. Griggs who states patient may follow-up in the office tomorrow. 09/02/16 09:09 Laboratory Tests 09/02/16 08:30 Urine Ketones Negative Urine Blood 2+ H Urine Nitrite Negative Ur Leukocyte Esterase Negative Urine RBC 14 Urine WBC 1 *DC/Admit/Observation/Transfer Diagnosis at time of Disposition: Urinary retention due to benign prostatic hyperplasia, Garza catheter in place - Discharge Dispostion Disposition: HOME Condition at time of disposition: Improved - Referrals Referrals: Corazon Hawley MD [Primary Care Provider] - Percy Griggs MD [Staff Physician] - Hermes Real MD [Staff Physician] - - Patient Instructions Printed Discharge Instructions: How to Care for Your Garza Catheter -- Male, DI for Urinary Retention in Men Additional Instructions: Please keep Garza catheter secure and follow-up with Dr. Real at 10:00 today Please also follow up with Dr. Griggs tomorrow
[2016-09-02 09:25] VITALS: BP 145/68; PULSE 53
== END 2016-09-02 09:25 | disposition home or self-care (01) ==
LOC: JER 07:21
PROC: 0T9B70Z Drainage of Bladder with Drainage Device, Via Natural or Artificial Opening (ICD-10-PCS; principal; 2016-09-02)
DX: N40.1 Benign prostatic hyperplasia with lower urinary tract symptoms (principal); R33.8 Other retention of urine; Z97.8 Presence of other specified devices; I10 Essential (primary) hypertension; E78.00 Pure hypercholesterolemia, unspecified; Z85.038 Personal history of other malignant neoplasm of large intestine; J44.9 Chronic obstructive pulmonary disease, unspecified; Z87.891 Personal history of nicotine dependence
CPT/HCPCS: 51702; 81003; 81015; 87086; 99283-25

== ENCOUNTER 2016-09-09 22:07 | Emergency (ER) | payer OTHER ==
[2016-09-09 22:17] VITALS: BP 149/70; PULSE 74; TEMP 98.7; BMI 26.6
--- NOTE | 2016-09-09 22:35 | PDOC ---
History of Present Illness - General History Source: Patient <IngeMitchel - Last Filed: 09/09/16 22:42> - General History Source: Patient Exam Limitations: No Limitations - History of Present Illness Initial Comments: 09/09/16 22:50 The patient is an 81-year-old male, with a significant past medical history of HTN and hyperlipidemia , who presents to the ED with urinary retention today. Patient has an enlarged prostate and was operated on and had a daniel catheter placed. Pt visited his urologist office today due to abdominal distention and difficulty urinating. Pt was sent to the ED for further evaluation. Upon examination, daniel is not draining urine. The patient denies any dysuria, hematuria, or difficulty passing bowels. Urologist: Dr. Griggs <Geri Caldera - Last Filed: 09/09/16 22:59> - General Chief Complaint: Urinary Catheter Problem Stated Complaint: URINARY CATHATER PROBLEM Time Seen by Provider: 09/09/16 22:29 Past History - Past Medical History Anemia: Yes Cancer: Yes (colon) COPD: Yes GI Disorders: Yes (H/O ADENOMATOUS POLYP OF COLON) HTN: Yes Hypercholesterolemia: Yes - Surgical History Abdominal Surgery: Yes (inguinal hernia, colon resection) Cholecystectomy: Yes - Psycho/Social/Smoking Cessation Hx Anxiety: No Suicidal Ideation: No Smoking History: Former smoker Have you smoked in the past 12 months: No Number of Cigarettes Smoked Daily: 2 If you are a former smoker, when did you quit?: 1 Information on smoking cessation initiated: No Hx Alcohol Use: No Drug/Substance Use Hx: No Substance Use Type: None Hx Substance Use Treatment: No <Mitchel Alcazar - Last Filed: 09/09/16 22:42> <Geri Caldera - Last Filed: 09/09/16 22:59> - Past Medical History Allergies/Adverse Reactions: Allergies Allergy/AdvReac Type Severity Reaction Status Date / Time No Known Allergies Allergy Verified 09/09/16 22:14 Home Medications: Ambulatory Orders Amlodipine Besylate 10 mg PO DAILY 06/17/16 Labetalol HCl [Normodyne -] 200 mg PO BID 06/17/16 Lisinopril [Prinivil -] 40 mg PO DAILY 06/17/16 Tamsulosin HCl 0.4 mg PO DAILY 06/17/16 Docusate Sodium [Colace -] 100 mg PO DAILY 06/18/16 Hydrochlorothiazide [Hctz -] 25 mg PO DAILY 06/18/16 Simvastatin 20 mg PO HS 06/18/16 Ascorbic Acid [Vitamin C -] 500 mg PO ASDIR 07/29/16 Glucosamine HCl/MSM [Sm Glucosamine & MSM Tablet] 1,500 tab PO BID 07/29/16 Multivitamins [Multivit ([facility] Formulary)] 1 tab PO DAILY 07/29/16 Ferrous Sulfate, Dried [Iron] 64 mg PO DAILY 09/09/16 Levofloxacin [Levaquin -] 500 mg PO DAILY #4 tablet 09/09/16 Review of Systems - Review of Systems Able to Perform ROS?: Yes Comments:: 09/09/16 22:55 CONSTITUTIONAL: Absent: fever, chills, diaphoresis, generalized weakness, malaise, loss of appetite HEENT: Absent: rhinorrhea, nasal congestion, throat pain, throat swelling, difficulty swallowing, mouth swelling, ear pain, eye pain, visual Changes CARDIOVASCULAR: Absent: chest pain, syncope, palpitations, irregular heart rate, lightheadedness , peripheral edema RESPIRATORY: Absent: cough, shortness of breath, dyspnea with exertion, orthopnea, wheezing, stridor, hemoptysis GASTROINTESTINAL: Present: abdominal distension, suprapubic tenderness Absent: nausea, vomiting, diarrhea, constipation, melena, hematochezia GENITOURINARY: Present: urinary retention Absent: dysuria, frequency, urgency, hematuria, flank pain, genital pain MUSCULOSKELETAL: Absent: myalgia, arthralgia, joint swelling SKIN: Absent: rash, itching, pallor HEMATOLOGIC/IMMUNOLOGIC: Absent: easy bleeding, easy bruising, lymphadenopathy, frequent infections ENDOCRINE: Absent: unexplained weight gain, unexplained weight loss, heat intolerance, cold intolerance NEUROLOGIC: Absent: headache, focal weakness or paresthesias, dizziness, unsteady gait, seizure, mental status changes, bladder or bowel incontinence PSYCHIATRIC: Absent: anxiety, depression, suicidal or homicidal ideation, hallucinations. <Geri Caldera - Last Filed: 09/09/16 22:59> *Physical Exam - Vital Signs Last Vital Signs Temp Pulse Resp BP Pulse Ox 98.7 F 74 18 149/70 98 09/09/16 22:10 09/09/16 22:10 09/09/16 22:10 09/09/16 22:10 09/09/16 22:10 <Mitchel Alcazar - Last Filed: 09/09/16 22:42> - Vital Signs Last Vital Signs Temp Pulse Resp BP Pulse Ox 98.7 F 74 18 149/70 98 09/09/16 22:10 09/09/16 22:10 09/09/16 22:10 09/09/16 22:10 09/09/16 22:10 - Physical Exam Comments: 09/09/16 22:58 Well developed, well nourished. Awake and alert. No acute distress. HEENT: Normocephalic, atraumatic. PERRLA, EOMI. No conjunctival pallor. Sclera are non- icteric. Moist mucous membranes. Oropharynx is clear. NECK: Supple. Full ROM. No JVD. Carotid pulses 2+ and symmetric, without bruits. No thyromegaly. No lymphadenopathy. CARDIOVASCULAR: Regular rate and rhythm. No murmurs, rubs, or gallops. Distal pulses are 2+ and symmetric. PULMONARY: No evidence of respiratory distress. Lungs clear to auscultation bilaterally. No wheezing, rales or rhonchi. ABDOMINAL: Soft. No rebound or guarding. No organomegaly. Normoactive bowel sounds. + suprapubic distension with mild tenderness MUSCULOSKELETAL Normal range of motion at all joints. No bony deformities or tenderness. No CVA tenderness. EXTREMITIES: No cyanosis. No clubbing. No edema. No calf tenderness. SKIN: Warm and dry. Normal capillary refill. No rashes. No jaundice. NEUROLOGICAL: Alert, awake, appropriate. PSYCHIATRIC: Cooperative. Good eye contact. Appropriate mood and affect. <Geri Caldera - Last Filed: 09/09/16 22:59> Medical Decision Making - Medical Decision Making 09/09/16 22:40 Dr. Alcazar: The scribe's documentation has been prepared under my direction and personally reviewed by me in its entirery. I confirm that the note above accurately reflects all work, treatment, procedures, and medical decision making performed by me. Daniel catheter changes. Pt advised to follow up with Dr. Phelps. <Mitchel Alcazar - Last Filed: 09/09/16 22:42> *DC/Admit/Observation/Transfer - Discharge Dispostion Admit: No <Mitchel Alcazar - Last Filed: 09/09/16 22:42> - Attestations Scribe Attestion: 09/09/16 22:59 Documentation prepared by Geri Caldera, acting as medical center director for Mitchel Alcazar MD. <Geri Caldera - Last Filed: 09/09/16 22:59> Diagnosis at time of Disposition: Urinary retention due to benign prostatic hyperplasia - Discharge Dispostion Disposition: HOME Condition at time of disposition: Stable - Prescriptions Prescriptions: Levofloxacin [Levaquin -] 500 mg PO DAILY #4 tablet - Referrals Referrals: Percy Griggs MD [Primary Care Provider] - - Patient Instructions Printed Discharge Instructions: DI for Urinary Retention in Men Additional Instructions: Please follow up with Dr. Phelps as normally scheduled.
[2016-09-09] MEDS ORDERED: LEVOFLOXACIN 500 MG TABLET (FP) PO ONE (22:45)
[2016-09-09] MEDS ORDERED: LEVOFLOXACIN 500 MG TABLET (FP) ONE (22:59)
== END 2016-09-09 23:34 | disposition home or self-care (01) ==
LOC: JER 22:07 → SUPCPDRO 22:07 → JER 23:34
PROC: 0T2BX0Z Change Drainage Device in Bladder, External Approach (ICD-10-PCS; principal; 2016-09-09)
DX: N40.1 Benign prostatic hyperplasia with lower urinary tract symptoms (principal); R33.8 Other retention of urine; I10 Essential (primary) hypertension; E78.5 Hyperlipidemia, unspecified; J44.9 Chronic obstructive pulmonary disease, unspecified; Z85.46 Personal history of malignant neoplasm of prostate; Z85.038 Personal history of other malignant neoplasm of large intestine
CPT/HCPCS: 51702; 99282-25

== ENCOUNTER 2016-09-14 16:58 | Emergency (ER) | payer OTHER ==
[2016-09-14 17:04] VITALS: BP 143/60; PULSE 60; TEMP 98.2; BMI 25.7
--- NOTE | 2016-09-14 18:22 | PDOC ---
History of Present Illness <Dina Pizarro - Last Filed: 09/14/16 18:22> - General History Source: Patient Exam Limitations: No Limitations - History of Present Illness Initial Comments: 09/14/16 18:23 The patient is an 81-year-old male, with a significant past medical history of HTN and hyperlipidemia , who presents to the ED with a leak in his daniel catheter. Patient states there is a leak around the connection with the bag. Patient had his daniel catheter placed on August 19. He denies any fever, chills, abdominal pain, nausea, vomiting, diarrhea. He denies any dysuria, hematuria, or difficulty passing bowels. Urologist: Dr. Griggs <Singh Mullins - Last Filed: 09/14/16 18:26> - General Chief Complaint: Urinary Catheter Problem Stated Complaint: CATHETER PROBLEM Past History - Past Medical History Anemia: Yes Cancer: Yes (colon) COPD: Yes GI Disorders: Yes (H/O ADENOMATOUS POLYP OF COLON) HTN: Yes Hypercholesterolemia: Yes - Surgical History Abdominal Surgery: Yes (inguinal hernia, colon resection) Cholecystectomy: Yes - Immunization History Immunization Up to Date: No - Psycho/Social/Smoking Cessation Hx Anxiety: No Suicidal Ideation: No Smoking History: Never smoked Have you smoked in the past 12 months: No Number of Cigarettes Smoked Daily: 2 If you are a former smoker, when did you quit?: 1 Hx Alcohol Use: No Drug/Substance Use Hx: No Substance Use Type: None Hx Substance Use Treatment: No <Dina Pizarro - Last Filed: 09/14/16 18:22> <Singh Mullins - Last Filed: 09/14/16 18:26> - Past Medical History Allergies/Adverse Reactions: Allergies Allergy/AdvReac Type Severity Reaction Status Date / Time No Known Allergies Allergy Verified 09/14/16 17:04 Home Medications: Ambulatory Orders Amlodipine Besylate 10 mg PO DAILY 06/17/16 Labetalol HCl [Normodyne -] 200 mg PO BID 06/17/16 Lisinopril [Prinivil -] 40 mg PO DAILY 06/17/16 Tamsulosin HCl 0.4 mg PO DAILY 06/17/16 Docusate Sodium [Colace -] 100 mg PO DAILY 06/18/16 Hydrochlorothiazide [Hctz -] 25 mg PO DAILY 06/18/16 Simvastatin 20 mg PO HS 06/18/16 Ascorbic Acid [Vitamin C -] 500 mg PO ASDIR 07/29/16 Glucosamine HCl/MSM [Sm Glucosamine & MSM Tablet] 1,500 tab PO BID 07/29/16 Multivitamins [Multivit ([facility] Formul[facility])] 1 tab PO DAILY 07/29/16 Ferrous Sulfate, Dried [Iron] 64 mg PO DAILY 09/09/16 Levofloxacin [Levaquin -] 500 mg PO DAILY #4 tablet 09/09/16 Review of Systems - Review of Systems Able to Perform ROS?: Yes Comments:: 09/14/16 18:24 GENERAL/CONSTITUTIONAL: No fever or chills. No weakness. HEAD, EYES, EARS, NOSE AND THROAT: No change in vision. No ear pain or discharge. No sore throat. CARDIOVASCULAR: No chest pain or shortness of breath. RESPIRATORY: No cough, wheezing, or hemoptysis. GASTROINTESTINAL: No nausea, vomiting, diarrhea or constipation. GENITOURINARY: + Connection tube in daniel catheter has a small crack. No dysuria , frequency, or change in urination. MUSCULOSKELETAL: No joint or muscle swelling or pain. No neck or back pain. SKIN: No rash NEUROLOGIC: No headache, vertigo, loss of consciousness, or change in strength/ sensation. ENDOCRINE: No increased thirst. No abnormal weight change. HEMATOLOGIC/LYMPHATIC: No anemia, easy bleeding, or history of blood clots. ALLERGIC/IMMUNOLOGIC: No hives or skin allergy. <Singh Mullins - Last Filed: 09/14/16 18:26> *Physical Exam - Vital Signs Last Vital Signs Temp Pulse Resp BP Pulse Ox 98.2 F 60 20 143/60 99 09/14/16 17:01 09/14/16 17:01 09/14/16 17:01 09/14/16 17:01 09/14/16 17:01 <Dina Pizarro - Last Filed: 09/14/16 18:22> - Vital Signs Last Vital Signs Temp Pulse Resp BP Pulse Ox 98.2 F 60 20 143/60 99 09/14/16 17:01 09/14/16 17:01 09/14/16 17:01 09/14/16 17:01 09/14/16 17:01 - Physical Exam Comments: 09/14/16 18:25 GENERAL: Awake, alert, and fully oriented, in no acute distress HEAD: No signs of trauma EYES: PERRLA, EOMI, sclera anicteric, conjunctiva clear ENT: Auricles normal inspection, hearing grossly normal, nares patent, oropharynx clear without exudates. Moist mucosa NECK: Normal ROM, supple, no lymphadenopathy, JVD, or masses LUNGS: Breath sounds equal, clear to auscultation bilaterally. No wheezes, and no crackles HEART: Regular rate and rhythm, normal S1 and S2, no murmurs, rubs or gallops ABDOMEN: Daniel bag is in place draining clear urine. Connection tube has a small crack. Soft, nontender, normoactive bowel sounds. No guarding, no rebound. No masses. EXTREMITIES: Normal range of motion, no edema. No clubbing or cyanosis. No cords, erythema, or tenderness NEUROLOGICAL: Cranial nerves II through XII grossly intact. Normal speech, normal gait SKIN: Warm, Dry, normal turgor, no rashes or lesions noted. <Singh Mullins - Last Filed: 09/14/16 18:26> Medical Decision Making - Medical Decision Making 09/14/16 18:19 81 yo male with h/o colon surgery, and subsequent retention with indwelling daniel for one month, here today due to leaking around connection to leg bag. no abd pain . no fever. no problems with urine draining. no abd pain. no flank pain. has prostate surgery scheduled for September 22., with Dr. Griggs no other complaints. no hematuria. on exam lungs clear bilaterally, heart regular, abd soft NT. daniel bag in place , draining clear urine. connection tubing has small crack near connection to leg bag. plan: will adjust the connection and replace leg bag. follow up [facility] urologist outpatient. <Dina Pizarro - Last Filed: 09/14/16 18:22> *DC/Admit/Observation/Transfer - Discharge Dispostion Admit: No <Dina Pizarro - Last Filed: 09/14/16 18:22> - Attestations Scribe Attestion: 09/14/16 18:26 Documentation prepared by Singh Mullins, acting as medical research scientist for Dina Pizarro MD, MD. <Singh Mullins - Last Filed: 09/14/16 18:26> Diagnosis at time of Disposition: Daniel catheter problem - Referrals Referrals: Corazon Hawley MD [Primary Care Provider] - Percy Griggs MD [Staff Physician] - - Patient Instructions Printed Discharge Instructions: How to Care for Your Daniel Catheter -- Male Additional Instructions: follow up with Dr Griggs, call to schedule. return for any problems or concerns.
== END 2016-09-14 18:35 | disposition home or self-care (01) ==
LOC: JER 16:58
PROC: 0T2BX0Z Change Drainage Device in Bladder, External Approach (ICD-10-PCS; principal; 2016-09-14)
DX: T83.038A Leakage of other urinary catheter, initial encounter (principal); I10 Essential (primary) hypertension; E78.00 Pure hypercholesterolemia, unspecified; Z85.038 Personal history of other malignant neoplasm of large intestine
CPT/HCPCS: 51702; 99281-25

== ENCOUNTER 2016-09-18 06:00 | Day surgery (SDC) | payer OTHER ==
[2016-09-17 14:32] VITALS: BMI 26.2
[2016-09-18] MEDS ORDERED: PROPOFOL 20 ML ONE (07:45)
[2016-09-18] MEDS ORDERED: SUCCINYLCHOLINE CHLORIDE 200 MG/10 ML VIAL ONE (07:46)
[2016-09-18] MEDS ORDERED: ceFAZolin SODIUM 1 GM VIAL IVPB ONE (07:55)
[2016-09-18] MEDS ORDERED: ePHEDrine SULFATE 50 MG/1 ML AMPULE ONE (07:58)
[2016-09-18] MEDS ORDERED: GENTAMICIN SO4 80 MG/2 ML VIAL ONE (08:04)
[2016-09-18] MEDS ORDERED: GENTAMICIN SO4 80 MG/2 ML VIAL IVPB ONE (08:05)
[2016-09-18] MEDS ORDERED: ONDANSETRON 4 MG/2 ML VIAL IVPUSH PRN (09:00)
[2016-09-18] MEDS ORDERED: oxyCODONE HCL 5 MG TABLET PO PRN (09:06)
--- NOTE | 2016-09-18 09:07 | OP ---
Operative Note - Note: Operative Date: 09/18/16 Pre-Operative Diagnosis: BPH/retention Operation: cysto/bipolar TURVP Post-Operative Diagnosis: Same as Pre-op Surgeon: Percy Griggs Anesthesia: Spinal Estimated Blood Loss (mls): 10 Operative Report Dictated: Yes
[2016-09-18] MEDS ORDERED: ACETAMINOPHEN 1000 MG/100 ML VIAL (NON FORMULARY) IVPB ONE (09:13)
[2016-09-18] MEDS ORDERED: ELECTROLYTE-148 SOLN 1,000 ML IV SCH (09:15)
--- NOTE | 2016-09-18 09:50 | OP ---
DATE OF OPERATION: 09/18/2016 PREOPERATIVE DIAGNOSIS: Benign prostatic hypertrophy with urinary retention. POSTOPERATIVE DIAGNOSIS: Benign prostatic hypertrophy with urinary retention. PROCEDURE: Cystoscopy, bipolar transurethral vaporization of the prostate. SURGEON: Marbella Brumfield MD INDICATION: Patient is an 81-year-old male with history of BPH who developed recent urinary retention after colon surgery. Despite maximum medical therapy, he failed to void on his own. After reviewing treatment options, he elected to undergo TURVP, understanding the risks of bleeding, infection, impotence, incontinence, stricture formation, potential persistent urinary retention, potential need for additional procedures. DESCRIPTION OF PROCEDURE: After informed consent, the patient was taken to the OR, placed supine on the operating table. Spinal anesthetic was then given. He was prepped and draped in dorsal lithotomy position. A 26-sheath resectoscope was inserted into the urethra with the visual obturator. Anterior urethra was normal. Prostatic urethra was 4 cm and visibly occlusive with trilobar hyperplasia. The bladder was visualized. No tumors or stones noted in the bladder. Using a mushroom electrode, the median was taken down first until it was flat with the bladder neck, and then the lateral tissue was vaporized as well, creating a wide open channel. There was no vaporization within 1 cm of the verumontanum to minimize incontinence. With just past the verumontanum going towards the bladder, a wide open channel was noted. Resectoscope was then removed and 22-Danish Garza was then placed to straight drainage. [place]-tinged urine was retrieved. Patient was awoken from anesthesia and transferred to recovery room in stable condition. There were no complications. ESTIMATED BLOOD LOSS: Minimal. MARBELLA BRUMFIELD M.D. [id number]
[2016-09-18 14:04] VITALS: BP 128/63; PULSE 53; TEMP 98
== END 2016-09-18 14:09 | disposition home or self-care (01) ==
LOC: JASU-SURG 06:00
PROVIDERS: ATTEND Urology
PROC: 0V507ZZ Destruction of Prostate, Via Natural or Artificial Opening (ICD-10-PCS; principal; 2016-09-18 09:00)
DX: C67.8 Malignant neoplasm of overlapping sites of bladder (principal); N40.1 Benign prostatic hyperplasia with lower urinary tract symptoms; R33.8 Other retention of urine; I10 Essential (primary) hypertension; E78.00 Pure hypercholesterolemia, unspecified; C78.5 Secondary malignant neoplasm of large intestine and rectum
CPT/HCPCS: 94760

== ENCOUNTER 2016-11-03 09:21 | Day surgery (SDC) | payer OTHER ==
[2016-11-03 10:39] VITALS: PULSE 55
[2016-11-03 11:01] LABS: BASOPHIL 1.3 % (0-2.0); EOSINOPHIL 3.5 % (0-4.5); MCH 22.9 pg (25.7-33.7); MCHC 32.5 g/dl (32.0-35.9); MEAN CELL VOLUME 70.3 fl (80-96); MEAN PLT VOLUME 7.1 fl (7.5-11.1); NEUTROPHILS 72.2 % (42.8-82.8); PLATELET COUNT 591 K/MM3 (134-434); RDW 20.7 % (11.9-15.9); WHITE BLOOD COUNT 6.1 K/mm3 (4.0-10.0)
[2016-11-03 11:30] LABS: ALBUMIN 2.8 g/dl (3.4-5.0); ALK PHOS 70 U/L (45-117); ANION GAP 5 (8-16); BILIRUBIN,TOTAL 0.2 mg/dL (0.2-1.0); CO2 30 mmol/L (21-32); CREATININE 1.2 mg/dL (0.7-1.3); GLUCOSE,RANDOM 84 mg/dL (74-106); MAGNESIUM 2.6 mg/dL (1.8-2.4); SGOT/AST 19 U/L (15-37); SGPT/ALT 26 U/L (12-78); TOT PROT 7.2 g/dl (6.4-8.2)
[2016-11-03 11:33] LABS: BILIRUBIN,DIRECT < 0.2 mg/dL (0.0-0.2)
[2016-11-03] MEDS ORDERED: DEXAMETHASONE INJECTION 10 MG in SODIUM CHLORIDE 50 ML IVPB ONE (12:00)
[2016-11-03] MEDS ORDERED: PALONOSETRON HCL 0.25 MG in SODIUM CHLORIDE 50 ML IVPB ONE (12:00)
[2016-11-03] MEDS ORDERED: LEUCOVORIN INJECTION - 832 MG in DEXTROSE 5%-WATER - 250 ML IVPB ONE (12:30)
[2016-11-03] MEDS ORDERED: DEXTROSE 5% IV ONE (12:30)
[2016-11-03] MEDS ORDERED: WATER IV ONE (12:30)
[2016-11-03] MEDS ORDERED: OXALIPLATIN IV ONE (12:30)
[2016-11-03 12:51] LABS: ANISOCYTOSIS 1+; HYPOCHROMIA 1+; MICROCYTOSIS FEW
[2016-11-03] MEDS ORDERED: FLUOROURACIL CP ONE (14:30)
[2016-11-03] MEDS ORDERED: SODIUM CHLORIDE CP ONE (14:30)
[2016-11-03] MEDS ORDERED: PORTA CATH FLUSH 10 ML IVPUSH ONE (16:05)
[2016-11-03 19:18] VITALS: BP 167/82; TEMP 98.3
== END 2016-11-03 19:23 | disposition home or self-care (01) ==
LOC: JONCCHEMO 09:21 → J7W 12:21 → JONCCHEMO 19:23
PROVIDERS: ATTEND Internal Medicine Hematology & Oncology
DX: Z51.11 Encounter for antineoplastic chemotherapy (principal); C18.2 Malignant neoplasm of ascending colon
CPT/HCPCS: 36415; 80053; 80076; 82378; 83735; 85025; 96375; 96413; 96415; 96417; G0498; J2469; J9263

== ENCOUNTER 2016-11-05 07:42 | Day surgery (SDC) | payer OTHER | END 2016-11-05 16:03 | disposition home or self-care (01) | LOC: JONCNONCHE 07:42 → J7W 13:54 → JONCNONCHE 16:03 | PROVIDERS: ATTEND Internal Medicine Hematology & Oncology | PROC: 0JPVXVZ Removal of Infusion Pump from Upper Extremity Subcutaneous Tissue and Fascia, External Approach (ICD-10-PCS; principal; 2016-11-05) | DX: Z53.8 Procedure and treatment not carried out for other reasons (principal) ==

== ENCOUNTER 2016-11-24 07:41 | Day surgery (SDC) | payer OTHER ==
[2016-11-24] MEDS ORDERED: DEXAMETHASONE INJECTION 10 MG in SODIUM CHLORIDE 50 ML IVPB ONE (09:00)
[2016-11-24] MEDS ORDERED: PALONOSETRON HCL 0.25 MG in SODIUM CHLORIDE 50 ML IVPB ONE (09:00)
[2016-11-24] MEDS ORDERED: OXALIPLATIN IV ONE (09:30)
[2016-11-24] MEDS ORDERED: DEXTROSE 5% IV ONE (09:30)
[2016-11-24] MEDS ORDERED: WATER IV ONE (09:30)
[2016-11-24] MEDS ORDERED: LEUCOVORIN INJECTION - 832 MG in DEXTROSE 5%-WATER - 250 ML IVPB ONE (09:30)
[2016-11-24] MEDS ORDERED: SODIUM CHLORIDE CP ONE (11:30)
[2016-11-24] MEDS ORDERED: FLUOROURACIL CP ONE (11:30)
[2016-11-24 18:46] VITALS: BP 146/74; PULSE 60; TEMP 98.5
== END 2016-11-24 18:15 | disposition home or self-care (01) ==
LOC: JONCCHEMO 07:41 → J7W 14:01 → JONCCHEMO 18:15
PROVIDERS: ATTEND Internal Medicine Hematology & Oncology
DX: Z51.11 Encounter for antineoplastic chemotherapy (principal); C18.2 Malignant neoplasm of ascending colon
CPT/HCPCS: 96375; 96413; 96415; 96417; G0498; J2469; J9263

== ENCOUNTER 2016-11-26 07:41 | Day surgery (SDC) | payer OTHER ==
[2016-11-26 16:26] VITALS: TEMP 98.2
[2016-11-26 16:28] VITALS: BP 137/81; PULSE 54
== END 2016-11-26 15:15 | disposition home or self-care (01) ==
LOC: JONCCHEMO 07:41 → J7W 13:53 → JONCCHEMO 15:15
PROVIDERS: ATTEND Internal Medicine Hematology & Oncology

== ENCOUNTER 2016-12-08 07:41 | Day surgery (SDC) | payer OTHER ==
[2016-12-08] MEDS ORDERED: DEXAMETHASONE INJECTION 10 MG in SODIUM CHLORIDE 50 ML IVPB ONE (08:00)
[2016-12-08] MEDS ORDERED: PALONOSETRON HCL 0.25 MG in SODIUM CHLORIDE 50 ML IVPB ONE (08:00)
[2016-12-08] MEDS ORDERED: OXALIPLATIN IV ONE (08:30)
[2016-12-08] MEDS ORDERED: DEXTROSE 5% IV ONE (08:30)
[2016-12-08] MEDS ORDERED: LEUCOVORIN INJECTION - 832 MG in DEXTROSE 5%-WATER - 250 ML IVPB ONE (08:30)
[2016-12-08] MEDS ORDERED: WATER IV ONE (08:30)
[2016-12-08 09:24] LABS: BASOPHIL 0.8 % (0-2.0); EOSINOPHIL 3.5 % (0-4.5); MCH 23.4 pg (25.7-33.7); MCHC 32.7 g/dl (32.0-35.9); MEAN CELL VOLUME 71.8 fl (80-96); MEAN PLT VOLUME 6.9 fl (7.5-11.1); NEUTROPHILS 72.4 % (42.8-82.8); PLATELET COUNT 330 K/MM3 (134-434); RDW 25.2 % (11.9-15.9); WHITE BLOOD COUNT 6.5 K/mm3 (4.0-10.0)
[2016-12-08 09:53] LABS: ALBUMIN 2.8 g/dl (3.4-5.0); ANION GAP 4 (8-16); BILIRUBIN,DIRECT < 0.1 mg/dL (0.0-0.2); BILIRUBIN,TOTAL 0.3 mg/dL (0.2-1.0); CALCIUM 8.7 mg/dL (8.5-10.1); CO2 30 mmol/L (21-32); CREATININE 1.3 mg/dL (0.7-1.3); GLUCOSE,RANDOM 125 mg/dL (74-106); MAGNESIUM 2.4 mg/dL (1.8-2.4); SGOT/AST 24 U/L (15-37); SGPT/ALT 26 U/L (12-78); TOT PROT 6.7 g/dl (6.4-8.2)
[2016-12-08 09:54] LABS: ALK PHOS 62 U/L (45-117)
[2016-12-08 10:05] VITALS: TEMP 97.7
[2016-12-08] MEDS ORDERED: SODIUM CHLORIDE IV ONE (10:30)
[2016-12-08] MEDS ORDERED: FLUOROURACIL IV ONE (10:30)
[2016-12-08 17:41] VITALS: BP 149/79; PULSE 60
== END 2016-12-08 19:04 | disposition home or self-care (01) ==
LOC: JONCCHEMO 07:41 → J7W 10:00 → JONCCHEMO 19:04
PROVIDERS: ATTEND Internal Medicine Hematology & Oncology
DX: Z51.11 Encounter for antineoplastic chemotherapy (principal); C18.2 Malignant neoplasm of ascending colon
CPT/HCPCS: 36415; 80053; 80076; 83735; 85025; 96375; 96413; 96415; 96417; G0498; J2469; J9263

== ENCOUNTER 2016-12-10 07:38 | Day surgery (SDC) | payer OTHER ==
[2016-12-10 13:31] VITALS: BP 151/77; PULSE 55; TEMP 97.8
== END 2016-12-10 11:30 | disposition home or self-care (01) ==
LOC: JONCCHEMO 07:38 → J7W 10:51 → JONCCHEMO 11:30
PROVIDERS: ATTEND Internal Medicine Hematology & Oncology
PROC: 0JPVXVZ Removal of Infusion Pump from Upper Extremity Subcutaneous Tissue and Fascia, External Approach (ICD-10-PCS; principal; 2016-12-10)
DX: Z53.8 Procedure and treatment not carried out for other reasons (principal)

== ENCOUNTER 2016-12-22 07:28 | Day surgery (SDC) | payer OTHER ==
[2016-12-22] MEDS ORDERED: DEXAMETHASONE INJECTION 10 MG in SODIUM CHLORIDE 50 ML IVPB ONE (08:00)
[2016-12-22] MEDS ORDERED: PALONOSETRON HCL 0.25 MG in SODIUM CHLORIDE 50 ML IVPB ONE (08:00)
[2016-12-22] MEDS ORDERED: OXALIPLATIN IV ONE (08:30)
[2016-12-22] MEDS ORDERED: LEUCOVORIN INJECTION - 832 MG in DEXTROSE 5%-WATER - 250 ML IVPB ONE (08:30)
[2016-12-22] MEDS ORDERED: DEXTROSE 5% IV ONE (08:30)
[2016-12-22] MEDS ORDERED: WATER IV ONE (08:30)
[2016-12-22] MEDS ORDERED: SODIUM CHLORIDE CP ONE (10:35)
[2016-12-22] MEDS ORDERED: FLUOROURACIL CP ONE (10:35)
[2016-12-22 10:50] LABS: BASOPHIL 1.6 % (0-2.0); MCH 23.7 pg (25.7-33.7); MEAN PLT VOLUME 8.3 fl (7.5-11.1); NEUTROPHILS 67.6 % (42.8-82.8); PLATELET COUNT 300 K/MM3 (134-434); WHITE BLOOD COUNT 5.7 K/mm3 (4.0-10.0)
[2016-12-22 11:12] LABS: ALBUMIN 2.9 g/dl (3.4-5.0); ALK PHOS 65 U/L (45-117); ANION GAP 7 (8-16); BILIRUBIN,DIRECT < 0.1 mg/dL (0.0-0.2); BILIRUBIN,TOTAL 0.3 mg/dL (0.2-1.0); CALCIUM 8.6 mg/dL (8.5-10.1); CO2 29 mmol/L (21-32); CREATININE 1.3 mg/dL (0.7-1.3); GLUCOSE,RANDOM 93 mg/dL (74-106); MAGNESIUM 2.6 mg/dL (1.8-2.4); SGOT/AST 31 U/L (15-37); SGPT/ALT 36 U/L (12-78); TOT PROT 6.9 g/dl (6.4-8.2)
[2016-12-22 13:08] VITALS: TEMP 97.7
[2016-12-22 15:36] VITALS: BP 144/76; PULSE 59
== END 2016-12-22 14:55 | disposition home or self-care (01) ==
LOC: JONCCHEMO 07:28 → J7W 11:48 → JONCCHEMO 14:55
PROVIDERS: ATTEND Internal Medicine Hematology & Oncology
DX: Z51.11 Encounter for antineoplastic chemotherapy (principal); C18.2 Malignant neoplasm of ascending colon
CPT/HCPCS: 36415; 80053; 80076; 83735; 85025; 96375; 96413; 96415; 96417; G0498; J2469; J9263

== ENCOUNTER 2016-12-24 07:35 | Day surgery (SDC) | payer OTHER ==
[2016-12-24 17:33] VITALS: BP 128/70; PULSE 66; TEMP 97.9
== END 2016-12-24 14:10 | disposition home or self-care (01) ==
LOC: JONCCHEMO 07:35 → J7W 13:46 → JONCCHEMO 14:10
PROVIDERS: ATTEND Internal Medicine Hematology & Oncology

== ENCOUNTER 2017-01-12 07:05 | Day surgery (SDC) | payer OTHER ==
[2017-01-12 09:55] LABS: BASOPHIL 2.1 % (0-2.0); EOSINOPHIL 6.6 % (0-4.5); MCH 24.7 pg (25.7-33.7); MCHC 32.8 g/dl (32.0-35.9); MEAN CELL VOLUME 75.5 fl (80-96); MEAN PLT VOLUME 7.4 fl (7.5-11.1); NEUTROPHILS 56.4 % (42.8-82.8); PLATELET COUNT 360 K/MM3 (134-434); RDW 28.7 % (11.9-15.9); WHITE BLOOD COUNT 3.5 K/mm3 (4.0-10.0)
[2017-01-12] MEDS ORDERED: PALONOSETRON HCL 0.25 MG in SODIUM CHLORIDE 50 ML IVPB ONE (10:00)
[2017-01-12] MEDS ORDERED: DEXAMETHASONE INJECTION 10 MG in SODIUM CHLORIDE 50 ML IVPB ONE (10:00)
[2017-01-12 10:20] LABS: ALBUMIN 2.9 g/dl (3.4-5.0); ALK PHOS 65 U/L (45-117); ANION GAP 5 (8-16); BILIRUBIN,DIRECT < 0.1 mg/dL (0.0-0.2); BILIRUBIN,TOTAL 0.4 mg/dL (0.2-1.0); CALCIUM 8.5 mg/dL (8.5-10.1); CO2 30 mmol/L (21-32); CREATININE 1.2 mg/dL (0.7-1.3); GLUCOSE,RANDOM 89 mg/dL (74-106); MAGNESIUM 2.5 mg/dL (1.8-2.4); SGOT/AST 35 U/L (15-37); SGPT/ALT 41 U/L (12-78); TOT PROT 6.8 g/dl (6.4-8.2)
[2017-01-12] MEDS ORDERED: OXALIPLATIN IV ONE (10:30)
[2017-01-12] MEDS ORDERED: DEXTROSE 5% IV ONE (10:30)
[2017-01-12] MEDS ORDERED: WATER IV ONE (10:30)
[2017-01-12] MEDS ORDERED: LEUCOVORIN INJECTION - 832 MG in DEXTROSE 5%-WATER - 250 ML IVPB ONE (10:30)
[2017-01-12 11:58] LABS: ANISOCYTOSIS 2+; MACROCYTOSIS FEW; MICROCYTOSIS 1+
[2017-01-12 11:59] LABS: SCHISTOCYTES 3+; TARGET CELLS 2+; TEAR DROP CELLS 1+
[2017-01-12 12:15] VITALS: TEMP 97.4
[2017-01-12] MEDS ORDERED: SODIUM CHLORIDE CP ONE (12:30)
[2017-01-12] MEDS ORDERED: FLUOROURACIL CP ONE (12:30)
[2017-01-12 13:37] VITALS: BP 165/77; PULSE 58
== END 2017-01-12 13:40 | disposition home or self-care (01) ==
LOC: JONCCHEMO 07:05 → J7W 10:08 → JONCCHEMO 13:40
PROVIDERS: ATTEND Internal Medicine Hematology & Oncology
DX: Z51.11 Encounter for antineoplastic chemotherapy (principal); C18.2 Malignant neoplasm of ascending colon
CPT/HCPCS: 36415; 80048; 80076; 83735; 85025; 96375; 96413; 96415; 96417; G0498; J2469; J9263

== ENCOUNTER 2017-01-14 06:57 | Day surgery (SDC) | payer OTHER ==
[2017-01-14 13:48] VITALS: BP 155/85; PULSE 55; TEMP 97.9
[2017-01-14] MEDS ORDERED: PORTA CATH FLUSH 10 ML IVPUSH PRN (13:53)
== END 2017-01-14 12:10 | disposition home or self-care (01) ==
LOC: JONCCHEMO 06:57 → J7W 11:38 → JONCCHEMO 12:10
PROVIDERS: ATTEND Internal Medicine Hematology & Oncology
PROC: 3E033GC Introduction of Other Therapeutic Substance into Peripheral Vein, Percutaneous Approach (ICD-10-PCS; principal; 2017-01-14)
DX: Z53.8 Procedure and treatment not carried out for other reasons (principal)

== ENCOUNTER 2017-02-09 07:29 | Day surgery (SDC) | payer OTHER ==
[2017-02-09] MEDS ORDERED: DEXAMETHASONE INJECTION 10 MG in SODIUM CHLORIDE 50 ML IVPB ONE (08:00)
[2017-02-09] MEDS ORDERED: PALONOSETRON HCL 0.25 MG in SODIUM CHLORIDE 50 ML IVPB ONE (08:00)
[2017-02-09] MEDS ORDERED: LEUCOVORIN INJECTION - 832 MG in DEXTROSE 5%-WATER - 250 ML IVPB ONE (08:30)
[2017-02-09] MEDS ORDERED: OXALIPLATIN IV ONE (08:30)
[2017-02-09] MEDS ORDERED: WATER IV ONE (08:30)
[2017-02-09] MEDS ORDERED: DEXTROSE 5% IV ONE (08:30)
[2017-02-09 10:10] LABS: EOSINOPHIL 5.2 % (0-4.5); MCH 25.8 pg (25.7-33.7); MCHC 32.3 g/dl (32.0-35.9); MEAN CELL VOLUME 80.1 fl (80-96); NEUTROPHILS 58.6 % (42.8-82.8); PLATELET COUNT 316 K/MM3 (134-434); RDW 27.5 % (11.9-15.9); WHITE BLOOD COUNT 5.1 K/mm3 (4.0-10.0)
[2017-02-09] MEDS ORDERED: FLUOROURACIL IV ONE (10:30)
[2017-02-09] MEDS ORDERED: SODIUM CHLORIDE IV ONE (10:30)
[2017-02-09 10:44] LABS: ALBUMIN 2.9 g/dl (3.4-5.0); ANION GAP 4 (8-16); BILIRUBIN,DIRECT < 0.2 mg/dL (0.0-0.2); BILIRUBIN,TOTAL 0.3 mg/dL (0.2-1.0); CALCIUM 8.2 mg/dL (8.5-10.1); CO2 31 mmol/L (21-32); CREATININE 1.4 mg/dL (0.7-1.3); GLUCOSE,RANDOM 94 mg/dL (74-106); MAGNESIUM 2.3 mg/dL (1.8-2.4); SGOT/AST 41 U/L (15-37); SGPT/ALT 52 U/L (12-78); TOT PROT 6.5 g/dl (6.4-8.2)
[2017-02-09 10:45] LABS: ALK PHOS 61 U/L (45-117)
[2017-02-09 14:26] LABS: ANISOCYTOSIS 2+; HYPOCHROMIA 1+
[2017-02-09 18:33] VITALS: BP 105/64; PULSE 87; TEMP 97.6
== END 2017-02-09 14:45 | disposition home or self-care (01) ==
LOC: JONCCHEMO 07:29 → J7W 11:33 → JONCCHEMO 14:45
PROVIDERS: ATTEND Internal Medicine Hematology & Oncology
DX: Z51.11 Encounter for antineoplastic chemotherapy (principal); C18.2 Malignant neoplasm of ascending colon
CPT/HCPCS: 36415; 80053; 80076; 83735; 85025; 96375; 96413; 96415; 96417; G0498; J2469; J9263

== ENCOUNTER 2017-02-12 07:24 | Day surgery (SDC) | payer OTHER ==
[2017-02-12 12:02] VITALS: BP 145/78; PULSE 53; TEMP 98.1
[2017-02-12] MEDS ORDERED: PORTA CATH FLUSH 10 ML IVPUSH ONE (12:06)
== END 2017-02-12 10:00 | disposition home or self-care (01) ==
LOC: JONCNONCHE 07:24 → J7W 11:50
PROVIDERS: ATTEND Internal Medicine Hematology & Oncology
PROC: 0JPVXVZ Removal of Infusion Pump from Upper Extremity Subcutaneous Tissue and Fascia, External Approach (ICD-10-PCS; principal; 2017-02-12)
DX: Z53.8 Procedure and treatment not carried out for other reasons (principal)

== ENCOUNTER 2017-03-02 07:26 | Day surgery (SDC) | payer OTHER ==
[2017-03-02] MEDS ORDERED: PALONOSETRON HCL 0.25 MG in SODIUM CHLORIDE 50 ML IVPB ONE (08:00)
[2017-03-02] MEDS ORDERED: DEXAMETHASONE INJECTION 10 MG in SODIUM CHLORIDE 50 ML IVPB ONE (08:00)
[2017-03-02] MEDS ORDERED: LEUCOVORIN INJECTION - 832 MG in DEXTROSE 5%-WATER - 250 ML IVPB ONE (08:30)
[2017-03-02] MEDS ORDERED: OXALIPLATIN IV ONE (08:30)
[2017-03-02] MEDS ORDERED: DEXTROSE 5% IV ONE (08:30)
[2017-03-02] MEDS ORDERED: WATER IV ONE (08:30)
[2017-03-02] MEDS ORDERED: SODIUM CHLORIDE CP ONE (10:30)
[2017-03-02] MEDS ORDERED: FLUOROURACIL CP ONE (10:30)
[2017-03-02 10:34] LABS: BASO % 1.9 % (0-2.0); MCH 26.5 pg (25.7-33.7); MCHC 32.2 g/dl (32.0-35.9); MEAN CELL VOLUME 82.3 fl (80-96); MEAN PLT VOLUME 6.5 fl (7.5-11.1); NEUT % 55.2 % (42.8-82.8); PLATELET COUNT 330 K/MM3 (134-434); RDW 25.1 % (11.9-15.9); WHITE BLOOD COUNT 3.8 K/mm3 (4.0-10.0)
[2017-03-02 11:00] LABS: ANION GAP 6 (8-16); BILIRUBIN,DIRECT < 0.2 mg/dL (0.0-0.2); BILIRUBIN,TOTAL 0.2 mg/dL (0.2-1.0); CALCIUM 8.5 mg/dL (8.5-10.1); CO2 28 mmol/L (21-32); CREATININE 1.3 mg/dL (0.7-1.3); GLUCOSE,RANDOM 99 mg/dL (74-106); MAGNESIUM 2.5 mg/dL (1.8-2.4); SGOT/AST 39 U/L (15-37); SGPT/ALT 47 U/L (12-78); TOT PROT 6.6 g/dl (6.4-8.2)
[2017-03-02 11:01] LABS: ALK PHOS 57 U/L (45-117)
[2017-03-02 16:09] VITALS: BP 125/72; PULSE 51; TEMP 97.5
[2017-03-02] MEDS ORDERED: PORTA CATH FLUSH 10 ML IVPUSH ONE (16:09)
== END 2017-03-02 16:00 | disposition home or self-care (01) ==
LOC: JONCCHEMO 07:26 → J7W 15:02 → JONCCHEMO 16:00
PROVIDERS: ATTEND Internal Medicine Hematology & Oncology
DX: Z51.11 Encounter for antineoplastic chemotherapy (principal); C18.2 Malignant neoplasm of ascending colon
CPT/HCPCS: 36415; 80053; 80076; 83735; 85025; 96375; 96413; 96415; 96417; G0498; J2469; J9263

== ENCOUNTER 2017-03-04 07:48 | Day surgery (SDC) | payer OTHER ==
[2017-03-04 16:26] VITALS: BP 137/77; PULSE 50; TEMP 97.7
[2017-03-04] MEDS ORDERED: PORTA CATH FLUSH 10 ML IVPUSH ONE (16:32)
== END 2017-03-04 16:30 | disposition home or self-care (01) ==
LOC: JONCNONCHE 07:48 → J7W 16:00 → JONCNONCHE 16:30
PROVIDERS: ATTEND Internal Medicine Hematology & Oncology
PROC: 0JPVXVZ Removal of Infusion Pump from Upper Extremity Subcutaneous Tissue and Fascia, External Approach (ICD-10-PCS; principal; 2017-03-04)
DX: Z53.8 Procedure and treatment not carried out for other reasons (principal)

== ENCOUNTER 2017-03-05 07:28 | Day surgery (SDC) | payer OTHER ==
[2017-03-05] MEDS ORDERED: PEGFILGRASTIM 6 MG/0.6 ML DISP.SYRIN SQ ONE (09:00)
[2017-03-05 13:07] VITALS: BP 152/82; PULSE 53; TEMP 97.4
== END 2017-03-05 11:45 | disposition home or self-care (01) ==
LOC: JONCNONCHE 07:28 → J7W 11:17 → JONCNONCHE 11:45
PROVIDERS: ATTEND Internal Medicine Hematology & Oncology
PROC: 3E013GC Introduction of Other Therapeutic Substance into Subcutaneous Tissue, Percutaneous Approach (ICD-10-PCS; principal; 2017-03-05)
DX: C18.2 Malignant neoplasm of ascending colon (principal)
CPT/HCPCS: 96372; J2505

== ENCOUNTER 2017-05-11 07:26 | Day surgery (SDC) | payer OTHER ==
[2017-05-11 09:12] LABS: BASO % 1.2 % (0-2.0); EOS % 3.8 % (0-4.5); HEMATOCRIT 37.2 % (35.4-49); HEMOGLOBIN 11.8 GM/dL (11.7-16.9); LYMPH % 18.2 % (8-40); MCH 27.2 pg (25.7-33.7); MCHC 31.6 g/dl (32.0-35.9); MEAN CELL VOLUME 86.1 fl (80-96); MONO % 14.2 % (3.8-10.2); NEUT % 62.6 % (42.8-82.8); PLATELET COUNT 303 K/MM3 (134-434); RBC 4.32 M/mm3 (4.00-5.60); RDW 15.6 % (11.9-15.9); WHITE BLOOD COUNT 5.3 K/mm3 (4.0-10.0)
[2017-05-11 09:30] LABS: ALBUMIN 3.2 g/dl (3.4-5.0); ALK PHOS 64 U/L (45-117); ANION GAP 5 (8-16); BILIRUBIN,DIRECT < 0.2 mg/dL (0.0-0.2); BILIRUBIN,TOTAL 0.3 mg/dL (0.2-1.0); BLOOD UREA NITROGEN 19 mg/dL (7-18); CALCIUM 8.1 mg/dL (8.5-10.1); CHLORIDE 107 mmol/L (98-107); CO2 28 mmol/L (21-32); CREATININE 1.3 mg/dL (0.7-1.3); GLUCOSE,RANDOM 98 mg/dL (74-106); MAGNESIUM 2.3 mg/dL (1.8-2.4); POTASSIUM 4.2 mmol/L (3.5-5.1); SGOT/AST 45 U/L (15-37); SGPT/ALT 66 U/L (12-78); SODIUM 140 mmol/L (136-145); TOT PROT 6.9 g/dl (6.4-8.2)
[2017-05-11] MEDS ORDERED: DEXAMETHASONE SOD PHOSPHATE 10 MG/1 ML VIAL IVPUSH ONE (10:00)
[2017-05-11] MEDS ORDERED: PALONOSETRON HCL 0.25 MG/5 ML VIAL IVPUSH ONE (10:00)
[2017-05-11] MEDS ORDERED: BEVACIZUMAB IV ONE (10:30)
[2017-05-11] MEDS ORDERED: SODIUM CHLORIDE IV ONE (10:30)
[2017-05-11] MEDS ORDERED: DEXTROSE 5% IV ONE (11:00)
[2017-05-11] MEDS ORDERED: WATER IV ONE (11:00)
[2017-05-11] MEDS ORDERED: OXALIPLATIN IV ONE (11:00)
[2017-05-11] MEDS ORDERED: LEUCOVORIN INJECTION - 832 MG in DEXTROSE 5%-WATER - 250 ML IVPB ONE (11:00)
[2017-05-11] MEDS ORDERED: SODIUM CHLORIDE CP ONE (13:00)
[2017-05-11] MEDS ORDERED: FLUOROURACIL CP ONE (13:00)
[2017-05-11 14:59] VITALS: PULSE 52
[2017-05-11 15:35] VITALS: BP 150/76
[2017-05-11] MEDS ORDERED: PORTA CATH FLUSH 10 ML IVPUSH ONE (15:35)
[2017-05-11 15:36] VITALS: TEMP 98.1
== END 2017-05-11 15:00 | disposition home or self-care (01) ==
LOC: JONCCHEMO 07:26 → J7W 10:13 → JONCCHEMO 15:00
PROVIDERS: ATTEND Internal Medicine Hematology & Oncology
DX: Z51.11 Encounter for antineoplastic chemotherapy (principal); C18.2 Malignant neoplasm of ascending colon
CPT/HCPCS: 36415; 80053; 80076; 83735; 85025; 96367; 96375; 96413; 96415; 96417; G0498; J1100; J2469; J9035; J9263

== ENCOUNTER 2017-05-13 07:35 | Day surgery (SDC) | payer OTHER ==
[2017-05-13 19:09] VITALS: BP 147/72; PULSE 54; TEMP 97.9
[2017-05-13] MEDS ORDERED: PORTA CATH FLUSH 10 ML IVPUSH ONE (19:11)
== END 2017-05-13 11:00 | disposition home or self-care (01) ==
LOC: JONCNONCHE 07:35
PROVIDERS: ATTEND Internal Medicine Hematology & Oncology
PROC: 0JPVXVZ Removal of Infusion Pump from Upper Extremity Subcutaneous Tissue and Fascia, External Approach (ICD-10-PCS; principal; 2017-05-13)
DX: Z53.8 Procedure and treatment not carried out for other reasons (principal)

== ENCOUNTER 2017-06-01 07:20 | Day surgery (SDC) | payer OTHER ==
[2017-06-01] MEDS ORDERED: PALONOSETRON HCL 0.25 MG/5 ML VIAL IVPUSH ONE (08:00)
[2017-06-01] MEDS ORDERED: DEXAMETHASONE SOD PHOSPHATE 10 MG/1 ML VIAL IVPUSH ONE (08:00)
[2017-06-01] MEDS ORDERED: BEVACIZUMAB IV ONE (08:30)
[2017-06-01] MEDS ORDERED: SODIUM CHLORIDE IV ONE ×2 (08:30→11:00)
[2017-06-01] MEDS ORDERED: LEUCOVORIN INJECTION - 832 MG in DEXTROSE 5%-WATER - 250 ML IVPB ONE (09:00)
[2017-06-01] MEDS ORDERED: WATER IV ONE (09:00)
[2017-06-01] MEDS ORDERED: OXALIPLATIN IV ONE (09:00)
[2017-06-01] MEDS ORDERED: DEXTROSE 5% IV ONE (09:00)
[2017-06-01 10:56] LABS: BASO % 1.1 % (0-2.0); HEMATOCRIT 36.4 % (35.4-49); HEMOGLOBIN 11.8 GM/dL (11.7-16.9); LYMPH % 20.6 % (8-40); MCH 27.7 pg (25.7-33.7); MCHC 32.5 g/dl (32.0-35.9); MEAN CELL VOLUME 85.2 fl (80-96); MEAN PLT VOLUME 7.5 fl (7.5-11.1); MONO % 15.3 % (3.8-10.2); PLATELET COUNT 312 K/MM3 (134-434); RBC 4.27 M/mm3 (4.00-5.60); RDW 15.1 % (11.9-15.9); WHITE BLOOD COUNT 4.6 K/mm3 (4.0-10.0)
[2017-06-01] MEDS ORDERED: FLUOROURACIL IV ONE (11:00)
[2017-06-01 11:18] LABS: ALBUMIN 3.2 g/dl (3.4-5.0); ALK PHOS 62 U/L (45-117); ANION GAP 5 (8-16); BILIRUBIN,TOTAL 0.2 mg/dL (0.2-1.0); BLOOD UREA NITROGEN 26 mg/dL (7-18); CALCIUM 8.2 mg/dL (8.5-10.1); CHLORIDE 106 mmol/L (98-107); CO2 30 mmol/L (21-32); CREATININE 1.2 mg/dL (0.7-1.3); GLUCOSE,RANDOM 90 mg/dL (74-106); POTASSIUM 4.1 mmol/L (3.5-5.1); SGOT/AST 57 U/L (15-37); SGPT/ALT 74 U/L (12-78); SODIUM 141 mmol/L (136-145); TOT PROT 6.7 g/dl (6.4-8.2)
[2017-06-01 12:06] LABS: BILIRUBIN,DIRECT < 0.2 mg/dL (0.0-0.2); MAGNESIUM 2.3 mg/dL (1.8-2.4)
[2017-06-01] MEDS ORDERED: amLODIPine BESYLATE 5 MG TABLET (FP) PO ONE (13:30)
[2017-06-01 18:59] VITALS: BP 162/76; PULSE 76; TEMP 97.9
== END 2017-06-01 16:45 | disposition home or self-care (01) ==
LOC: JONCCHEMO 07:20 → J7W 11:51 → JONCCHEMO 16:45
PROVIDERS: ATTEND Internal Medicine Hematology & Oncology
DX: Z51.11 Encounter for antineoplastic chemotherapy (principal); C18.2 Malignant neoplasm of ascending colon
CPT/HCPCS: 36415; 80053; 80076; 83735; 85025; 96366; 96367; 96375; 96413; 96415; 96417; G0498; J1100; J2469; J9035; J9263

== ENCOUNTER 2017-06-03 07:06 | Day surgery (SDC) | payer OTHER ==
[2017-06-03 14:45] VITALS: BP 160/84; PULSE 48; TEMP 97.8
[2017-06-03] MEDS ORDERED: PORTA CATH FLUSH 10 ML IVPUSH ONE (14:47)
== END 2017-06-03 13:25 | disposition home or self-care (01) ==
LOC: JONCNONCHE 07:06
PROVIDERS: ATTEND Internal Medicine Hematology & Oncology
PROC: 0JPVXVZ Removal of Infusion Pump from Upper Extremity Subcutaneous Tissue and Fascia, External Approach (ICD-10-PCS; principal; 2017-06-03)
DX: Z53.8 Procedure and treatment not carried out for other reasons (principal)

== ENCOUNTER 2017-06-22 07:14 | Day surgery (SDC) | payer OTHER ==
[2017-06-22] MEDS ORDERED: PALONOSETRON HCL 0.25 MG/5 ML VIAL IVPUSH ONE (08:00)
[2017-06-22] MEDS ORDERED: DEXAMETHASONE SOD PHOSPHATE 10 MG/1 ML VIAL IVPUSH ONE (08:00)
[2017-06-22] MEDS ORDERED: BEVACIZUMAB IV ONE (08:30)
[2017-06-22] MEDS ORDERED: SODIUM CHLORIDE IV ONE ×2 (08:30→11:00)
[2017-06-22] MEDS ORDERED: LEUCOVORIN INJECTION - 832 MG in DEXTROSE 5%-WATER - 250 ML IVPB ONE (09:00)
[2017-06-22] MEDS ORDERED: WATER IV ONE (09:00)
[2017-06-22] MEDS ORDERED: OXALIPLATIN IV ONE (09:00)
[2017-06-22] MEDS ORDERED: DEXTROSE 5% IV ONE (09:00)
[2017-06-22 10:28] LABS: BASO % 1.3 % (0-2.0); HEMATOCRIT 36.6 % (35.4-49); HEMOGLOBIN 12.2 GM/dL (11.7-16.9); LYMPH % 20.1 % (8-40); MCH 28.1 pg (25.7-33.7); MCHC 33.2 g/dl (32.0-35.9); MEAN CELL VOLUME 84.7 fl (80-96); MEAN PLT VOLUME 7.3 fl (7.5-11.1); MONO % 17.2 % (3.8-10.2); NEUT % 56.4 % (42.8-82.8); PLATELET COUNT 303 K/MM3 (134-434); RBC 4.32 M/mm3 (4.00-5.60); RDW 15.6 % (11.9-15.9)
[2017-06-22 10:49] LABS: ALBUMIN 3.1 g/dl (3.4-5.0); ANION GAP 6 (8-16); BILIRUBIN,DIRECT < 0.2 mg/dL (0.0-0.2); BLOOD UREA NITROGEN 23 mg/dL (7-18); CALCIUM 8.8 mg/dL (8.5-10.1); CHLORIDE 107 mmol/L (98-107); CO2 30 mmol/L (21-32); GLUCOSE,RANDOM 95 mg/dL (74-106); MAGNESIUM 2.3 mg/dL (1.8-2.4); POTASSIUM 4.1 mmol/L (3.5-5.1); SODIUM 143 mmol/L (136-145)
[2017-06-22 10:52] LABS: ALK PHOS 61 U/L (45-117); BILIRUBIN,TOTAL 0.3 mg/dL (0.2-1.0); CREATININE 1.2 mg/dL (0.7-1.3); SGOT/AST 58 U/L (15-37); SGPT/ALT 79 U/L (12-78); TOT PROT 6.8 g/dl (6.4-8.2)
[2017-06-22] MEDS ORDERED: FLUOROURACIL IV ONE (11:00)
[2017-06-22 16:06] VITALS: TEMP 97.9
[2017-06-22 16:12] VITALS: BP 187/89; PULSE 53
== END 2017-06-22 14:45 | disposition home or self-care (01) ==
LOC: JONCCHEMO 07:14 → J7W 10:45 → JONCCHEMO 14:45
PROVIDERS: ATTEND Internal Medicine Hematology & Oncology
DX: Z51.11 Encounter for antineoplastic chemotherapy (principal); C18.2 Malignant neoplasm of ascending colon
CPT/HCPCS: 36415; 80053; 80076; 83735; 85025; 96366; 96367; 96375; 96413; 96415; 96417; G0498; J1100; J2469; J9035; J9263

== ENCOUNTER 2017-07-13 07:37 | Day surgery (SDC) | payer OTHER ==
[2017-07-13] MEDS ORDERED: DEXAMETHASONE INJECTION 10 MG in SODIUM CHLORIDE 50 ML IVPB ONE (10:00)
[2017-07-13] MEDS ORDERED: PALONOSETRON HCL 0.25 MG/5 ML VIAL IVPUSH ONE (10:00)
[2017-07-13] MEDS ORDERED: BEVACIZUMAB IV ONE (10:30)
[2017-07-13] MEDS ORDERED: SODIUM CHLORIDE IV ONE ×2 (10:30→13:00)
[2017-07-13] MEDS ORDERED: OXALIPLATIN IV ONE (11:00)
[2017-07-13] MEDS ORDERED: WATER IV ONE (11:00)
[2017-07-13] MEDS ORDERED: LEUCOVORIN INJECTION - 832 MG in DEXTROSE 5%-WATER - 250 ML IVPB ONE (11:00)
[2017-07-13] MEDS ORDERED: DEXTROSE 5% IV ONE (11:00)
[2017-07-13 11:08] LABS: BASO % 3.6 % (0-2.0); EOS % 5.7 % (0-4.5); HEMATOCRIT 35.1 % (35.4-49); HEMOGLOBIN 11.7 GM/dL (11.7-16.9); LYMPH % 22.2 % (8-40); MCH 28.4 pg (25.7-33.7); MCHC 33.5 g/dl (32.0-35.9); MEAN CELL VOLUME 84.7 fl (80-96); MEAN PLT VOLUME 7.6 fl (7.5-11.1); MONO % 19.3 % (3.8-10.2); NEUT % 49.2 % (42.8-82.8); PLATELET COUNT 307 K/MM3 (134-434); RBC 4.14 M/mm3 (4.00-5.60); WHITE BLOOD COUNT 3.7 K/mm3 (4.0-10.0)
[2017-07-13 11:43] LABS: ALBUMIN 3.1 g/dl (3.4-5.0); ANION GAP 6 (8-16); BILIRUBIN,DIRECT < 0.2 mg/dL (0.0-0.2); BLOOD UREA NITROGEN 23 mg/dL (7-18); CALCIUM 8.6 mg/dL (8.5-10.1); CHLORIDE 104 mmol/L (98-107); CO2 31 mmol/L (21-32); CREATININE 1.2 mg/dL (0.7-1.3); GLUCOSE,RANDOM 92 mg/dL (74-106); MAGNESIUM 2.4 mg/dL (1.8-2.4); POTASSIUM 4.4 mmol/L (3.5-5.1); SGOT/AST 62 U/L (15-37); SGPT/ALT 78 U/L (12-78); SODIUM 141 mmol/L (136-145)
[2017-07-13 11:45] LABS: ALK PHOS 54 U/L (45-117); BILIRUBIN,TOTAL 0.4 mg/dL (0.2-1.0); TOT PROT 6.6 g/dl (6.4-8.2)
[2017-07-13] MEDS ORDERED: FLUOROURACIL IV ONE (13:00)
[2017-07-13 17:19] VITALS: BP 160/80; PULSE 50; TEMP 98.2
== END 2017-07-13 15:40 | disposition home or self-care (01) ==
LOC: JONCCHEMO 07:37 → J7W 11:44 → JONCCHEMO 15:40
PROVIDERS: ATTEND Internal Medicine Hematology & Oncology
DX: Z51.11 Encounter for antineoplastic chemotherapy (principal); C18.2 Malignant neoplasm of ascending colon
CPT/HCPCS: 36415; 80048; 80076; 82378; 83735; 85025; 96366; 96367; 96375; 96413; 96415; 96417; G0498; J1100; J2469; J9035; J9263

== ENCOUNTER 2017-07-15 07:28 | Day surgery (SDC) | payer OTHER ==
[2017-07-15 16:41] VITALS: BP 137/81; PULSE 52; TEMP 97.9
[2017-07-15] MEDS ORDERED: PORTA CATH FLUSH 10 ML IVPUSH ONE (16:45)
== END 2017-07-15 13:30 | disposition home or self-care (01) ==
LOC: JONCNONCHE 07:28
PROVIDERS: ATTEND Internal Medicine Hematology & Oncology
DX: Z51.11 Encounter for antineoplastic chemotherapy (principal); C18.2 Malignant neoplasm of ascending colon; I10 Essential (primary) hypertension; E78.00 Pure hypercholesterolemia, unspecified; N40.0 Benign prostatic hyperplasia without lower urinary tract symptoms

== ENCOUNTER 2017-07-16 09:17 | Day surgery (SDC) | payer OTHER ==
[2017-07-16] MEDS ORDERED: TBO-FILGRASTIM 480 MCG/0.8 ML DISP.SYRIN SQ ONE (10:00)
[2017-07-16 18:32] VITALS: BP 153/97; PULSE 59; TEMP 97.7
== END 2017-07-16 12:15 | disposition home or self-care (01) ==
LOC: JONCNONCHE 09:17 → J7W 11:42 → JONCNONCHE 12:15
PROVIDERS: ATTEND Internal Medicine Hematology & Oncology
PROC: 3E013GC Introduction of Other Therapeutic Substance into Subcutaneous Tissue, Percutaneous Approach (ICD-10-PCS; principal; 2017-07-16)
DX: C18.2 Malignant neoplasm of ascending colon (principal); I10 Essential (primary) hypertension; N40.0 Benign prostatic hyperplasia without lower urinary tract symptoms; E78.00 Pure hypercholesterolemia, unspecified
CPT/HCPCS: 96372; J1447

== ENCOUNTER 2017-08-24 07:24 | Day surgery (SDC) | payer OTHER ==
[2017-08-24] MEDS ORDERED: DEXAMETHASONE INJECTION 10 MG in SODIUM CHLORIDE 50 ML IVPB ONE (10:00)
[2017-08-24] MEDS ORDERED: PALONOSETRON HCL 0.25 MG/5 ML VIAL IVPUSH ONE (10:00)
[2017-08-24 10:05] LABS: BASO % 1.1 % (0-2.0); HEMATOCRIT 36.8 % (35.4-49); HEMOGLOBIN 12.2 GM/dL (11.7-16.9); LYMPH % 15.6 % (8-40); MCH 28.2 pg (25.7-33.7); MCHC 33.2 g/dl (32.0-35.9); MEAN CELL VOLUME 84.8 fl (80-96); MONO % 13.8 % (3.8-10.2); NEUT % 61.5 % (42.8-82.8); PLATELET COUNT 264 K/MM3 (134-434); RBC 4.34 M/mm3 (4.00-5.60); RDW 17.6 % (11.9-15.9); WHITE BLOOD COUNT 5.3 K/mm3 (4.0-10.0)
[2017-08-24] MEDS ORDERED: SODIUM CHLORIDE IV ONE (10:30)
[2017-08-24] MEDS ORDERED: BEVACIZUMAB IV ONE (10:30)
[2017-08-24 10:58] LABS: ALBUMIN 3.2 g/dl (3.4-5.0); ANION GAP 5 (8-16); BLOOD UREA NITROGEN 25 mg/dL (7-18); CALCIUM 8.7 mg/dL (8.5-10.1); CHLORIDE 104 mmol/L (98-107); CO2 31 mmol/L (21-32); GLUCOSE,RANDOM 91 mg/dL (74-106); MAGNESIUM 2.5 mg/dL (1.8-2.4); POTASSIUM 4.4 mmol/L (3.5-5.1); SODIUM 140 mmol/L (136-145)
[2017-08-24] MEDS ORDERED: OXALIPLATIN 175 MG in DEXTROSE 5%-WATER - 500 ML IV ONE (11:00)
[2017-08-24] MEDS ORDERED: LEUCOVORIN INJECTION - 832 MG in DEXTROSE 5%-WATER - 250 ML IVPB ONE (11:00)
[2017-08-24 11:02] LABS: ALK PHOS 62 U/L (45-117); BILIRUBIN,DIRECT < 0.2 mg/dL (0.0-0.2); BILIRUBIN,TOTAL 0.4 mg/dL (0.2-1.0); CREATININE 1.4 mg/dL (0.7-1.3); SGOT/AST 82 U/L (15-37); SGPT/ALT 95 U/L (12-78)
[2017-08-24] MEDS ORDERED: SODIUM CHLORIDE CP ONE (13:00)
[2017-08-24] MEDS ORDERED: FLUOROURACIL CP ONE (13:00)
[2017-08-24 16:22] VITALS: TEMP 97.4
[2017-08-24 16:26] VITALS: BP 157/67; PULSE 46
== END 2017-08-24 15:30 | disposition home or self-care (01) ==
LOC: JONCCHEMO 07:24 → J7W 11:31 → JONCCHEMO 15:30
PROVIDERS: ATTEND Internal Medicine Hematology & Oncology
DX: Z51.11 Encounter for antineoplastic chemotherapy (principal); C18.2 Malignant neoplasm of ascending colon
CPT/HCPCS: 36415; 80048; 80076; 83735; 85025; 96366; 96367; 96375; 96413; 96415; 96417; G0498; J1100; J2469; J9035; J9263

== ENCOUNTER 2017-09-23 07:38 | Day surgery (SDC) | payer OTHER ==
[2017-09-23] MEDS ORDERED: PORTA CATH FLUSH 10 ML IVPUSH ONE (14:22)
[2017-09-23 14:23] VITALS: BP 149/85; PULSE 62; TEMP 97.9
== END 2017-09-23 11:50 | disposition home or self-care (01) ==
LOC: JONCCHEMO 07:38
PROVIDERS: ATTEND Internal Medicine Hematology & Oncology
PROC: 0JPVXVZ Removal of Infusion Pump from Upper Extremity Subcutaneous Tissue and Fascia, External Approach (ICD-10-PCS; principal; 2017-09-23)
DX: Z53.8 Procedure and treatment not carried out for other reasons (principal)

== ENCOUNTER 2017-11-02 07:27 | Day surgery (SDC) | payer OTHER ==
[2017-11-02 08:50] LABS: BASO % 0.5 % (0-2.0); EOS % 7.6 % (0-4.5); HEMATOCRIT 34.5 % (35.4-49); HEMOGLOBIN 11.8 GM/dL (11.7-16.9); LYMPH % 15.5 % (8-40); MCH 29.6 pg (25.7-33.7); MCHC 34.2 g/dl (32.0-35.9); MEAN CELL VOLUME 86.6 fl (80-96); MEAN PLT VOLUME 7.5 fl (7.5-11.1); MONO % 4.3 % (3.8-10.2); NEUT % 72.1 % (42.8-82.8); PLATELET COUNT 221 K/MM3 (134-434); RBC 3.98 M/mm3 (4.00-5.60); WHITE BLOOD COUNT 4.7 K/mm3 (4.0-10.0)
[2017-11-02 09:18] LABS: ALBUMIN 3.5 g/dl (3.4-5.0); ANION GAP 4 (8-16); BILIRUBIN,DIRECT < 0.2 mg/dL (0.0-0.2); BILIRUBIN,TOTAL 0.4 mg/dL (0.2-1.0); BLOOD UREA NITROGEN 25 mg/dL (7-18); CALCIUM 8.5 mg/dL (8.5-10.1); CHLORIDE 106 mmol/L (98-107); CO2 31 mmol/L (21-32); CREATININE 1.2 mg/dL (0.7-1.3); GLUCOSE,RANDOM 102 mg/dL (74-106); MAGNESIUM 2.1 mg/dL (1.8-2.4); POTASSIUM 4.1 mmol/L (3.5-5.1); SGOT/AST 80 U/L (15-37); SGPT/ALT 123 U/L (12-78); SODIUM 141 mmol/L (136-145); TOT PROT 7.1 g/dl (6.4-8.2)
[2017-11-02 09:19] LABS: ALK PHOS 55 U/L (45-117)
[2017-11-02] MEDS ORDERED: DEXAMETHASONE INJECTION 10 MG, ONDANSETRON INJECTION 8 MG in SODIUM CHLORIDE 100 ML IVPB ONE (10:00)
[2017-11-02] MEDS ORDERED: SODIUM CHLORIDE IV ONE (10:30)
[2017-11-02] MEDS ORDERED: BEVACIZUMAB IV ONE (10:30)
[2017-11-02] MEDS ORDERED: amLODIPine BESYLATE 5 MG TABLET (FP) PO ONE (10:45)
[2017-11-02] MEDS ORDERED: LEUCOVORIN IVPB ONE (11:00)
[2017-11-02] MEDS ORDERED: WATER IVPB ONE (11:00)
[2017-11-02] MEDS ORDERED: DEXTROSE 5% IVPB ONE (11:00)
[2017-11-02 11:22] LABS: URINE APPEARANCE SLCLOUDY; URINE BILIRUBIN NEGATIVE (<2.0 mg/dL); URINE COLOR YELLOW; URINE GLUCOSE (UA) NEGATIVE (NEGATIVE); URINE KETONE NEGATIVE (NEGATIVE); URINE LEUK ESTERASE NEGATIVE (NEGATIVE); URINE NITRITE NEGATIVE (NEGATIVE); URINE UROBILINOGEN NEGATIVE mg/dL (0.2-1.0)
[2017-11-02 11:25] LABS: URINE PROTEIN 2+ (NEGATIVE)
[2017-11-02 11:46] LABS: EPI CELLS RARE /HPF (FEW); URINE HYALINE CAST 5 /lpf; URINE MUCUS RARE
[2017-11-02] MEDS ORDERED: FLUOROURACIL 500 MG/10 ML VIAL IVPUSH ONE (12:00)
[2017-11-02] MEDS ORDERED: SODIUM CHLORIDE 250 ML IV ONE (13:00)
[2017-11-02 16:42] VITALS: TEMP 98
[2017-11-02] MEDS ORDERED: PORTA CATH FLUSH 10 ML IVPUSH ONE (16:42)
[2017-11-02 16:45] VITALS: BP 152/76; PULSE 52
== END 2017-11-02 15:20 | disposition home or self-care (01) ==
LOC: JONCCHEMO 07:27 → J7W 10:18 → JONCCHEMO 15:20
PROVIDERS: ATTEND Internal Medicine Hematology & Oncology
DX: Z51.11 Encounter for antineoplastic chemotherapy (principal); C18.2 Malignant neoplasm of ascending colon
CPT/HCPCS: 36415; 80048; 80076; 81003; 81015; 83735; 85025; 96361; 96367; 96375; 96409; 96413; 96415; 96417; J1100; J9035; J9190

== ENCOUNTER 2017-11-14 21:52 | Observation (INO) | payer OTHER ==
[2017-11-14] MEDS ORDERED: SODIUM CHLORIDE 1,000 ML IV STA (22:51)
[2017-11-14] MEDS ORDERED: DEXTROSE 5%-NORMAL SALINE 1,000 ML IV ONE (22:52)
[2017-11-14] MEDS ORDERED: PANTOPRAZOLE 40 MG TABLET (FP) PO ONE (22:52)
[2017-11-14] MEDS ORDERED: ONDANSETRON 4 MG/2 ML VIAL IVPB ONE (22:52)
--- NOTE | 2017-11-14 22:53 | PDOC ---
Attending Attestation - HPI HPI: 11/14/17 23:24 The patient is a 82 year old male with a significant PMH of colon ca (2016), metastatic colon ca (2017)who presents to the emergency department with weakness for several days. The patient reports that he started a new luis schedule where he has been going everyday for the past 3 days. He reports decrease in PO intake and some associated diarrhea. The patient states that he has 4-5 bowel movements a day. He denies any blood in his stool or urine. He states that he is only able to intake liquids. He denies any other symptoms. He denies any fever, chills, nausea, vomit, constipation or urinary symptoms. He denies any chest pain, shortness of breath, headache and dizziness. The patient denies any other complaints. PCP: Dr. Rush - Physicial Exam PE: 11/14/17 23:24 GENERAL: Awake, alert, and fully oriented, in no acute distress HEAD: No signs of trauma EYES: PERRLA, EOMI, sclera anicteric, conjunctiva clear ENT: Auricles normal inspection, hearing grossly normal, nares patent, oropharynx clear without exudates. Moist mucosa NECK: Normal ROM, supple, no lymphadenopathy, JVD, or masses LUNGS: Breath sounds equal, clear to auscultation bilaterally. No wheezes, and no crackles HEART: Regular rate and rhythm, normal S1 and S2, no murmurs, rubs or gallops ABDOMEN: Soft, nontender, normoactive bowel sounds. No guarding, no rebound. No masses EXTREMITIES: Normal range of motion, no edema. No clubbing or cyanosis. No cords, erythema, or tenderness NEUROLOGICAL: Cranial nerves II through XII grossly intact. Normal speech, normal gait SKIN: Warm, Dry, normal turgor, no rashes or lesions noted. Documentation prepared by Lorena Patton, acting as medical office receptionist assistant for Carolyn Bustillo MD. <Lorena Patton - Last Filed: 11/14/17 23:24> - Resident Resident Name: Gigi Bailey - ED Attending Attestation I have performed the following: I have examined & evaluated the patient, The case was reviewed & discussed with the resident, I agree w/resident's findings & plan - Medical Decision Making 11/15/17 00:36 CXR pleural effusion on the right. Cardiomegaly EKG sinus bradycardia 11/15/17 00:[address] Ortega Real, oncology who wants pt admitted to obs for his neutropenia. Pt will be admitted to his PMD Vish <Carolyn Bustillo - Last Filed: 11/15/17 00:38> Heart Score/ECG Review - ECG Intrepretation Rhythm: Regular Rhythm - Secretary Secretary: Normal - ST and T Early Repolarization: No Non Specific ST-T Wave changes: No Flattened T Waves: No Prolonged Q-T Interval: No - ECG Impressions Normal ECG: Yes Non-specific ST Elevation: No Bradycardia: Yes <Carolyn Bustillo - Last Filed: 11/15/17 00:38>
--- NOTE | 2017-11-14 22:56 | PDOC ---
History of Present Illness - General Chief Complaint: Weakness Stated Complaint: Weakness Time Seen by Provider: 11/14/17 22:24 History Source: Patient Exam Limitations: No Limitations - History of Present Illness Initial Comments: 11/14/17 22:54 82 y/o male with PMH of metastatic ca colon s/p resection in september 2016 came to hospital because of generalize weakness, dizziness and poor oral intake. patient states that he got chemo on november 02 and since the he is feeling weak and is unable to eat because of nausea. He also states that he feels lightheaded. Patient also states that he has diarrhoea from last 2 days, has 4- 5 movements every day, no blood and mucus in stool. Denies eating from outside, no sick contact. No recent use of antibiotics. Denies headache, chest pain, sob , palpitations, cough, fever, chills, burning micturation and change in frequency of micturation. He states that his chemo has been changed 3 week ago and he is getting chemo every week. Since he is on new chemo he started feeling week and its gradually progressing. 11/14/17 23:15 Past History - Past Medical History Allergies/Adverse Reactions: Allergies Allergy/AdvReac Type Severity Reaction Status Date / Time No Known Allergies Allergy Verified 11/14/17 21:59 Home Medications: Ambulatory Orders Amlodipine Besylate 10 mg PO DAILY 06/17/16 Labetalol HCl [Normodyne -] 200 mg PO BID 06/17/16 Lisinopril [Prinivil -] 40 mg PO DAILY 06/17/16 Tamsulosin HCl 0.4 mg PO HS 06/17/16 Docusate Sodium [Colace -] 100 mg PO DAILY 06/18/16 Hydrochlorothiazide [Hctz -] 25 mg PO DAILY 06/18/16 Simvastatin 20 mg PO HS 06/18/16 Ascorbic Acid [Vitamin C -] 500 mg PO ASDIR 07/29/16 Glucosamine/Methylsulfonylmeth [Sm Glucosamine & MSM Tablet] 1,500 tab PO BID Multivitamins [Multivit ([facility] Formul[facility])] 1 tab PO DAILY 07/29/16 Ferrous Sulfate, Dried [Iron] 64 mg PO DAILY 09/09/16 Aspirin Coated [Ecotrin -] 81 mg PO DAILY 09/17/16 Loperamide HCl [Imodium -] 2 mg PO Q6H PRN capsule 11/17/17 Anemia: Yes Cancer: Yes (colon) COPD: Yes GI Disorders: Yes (H/O ADENOMATOUS POLYP OF COLON) HTN: Yes Hypercholesterolemia: Yes - Surgical History Abdominal Surgery: Yes (inguinal hernia, colon resection) Cholecystectomy: Yes - Immunization History Immunization Up to Date: No - Suicide/Smoking/Psychosocial Hx Smoking History: Never smoked Have you smoked in the past 12 months: Yes Number of Cigarettes Smoked Daily: 2 If you are a former smoker, when did you quit?: 5MONTHS AGO Information on smoking cessation initiated: No Hx Alcohol Use: No Drug/Substance Use Hx: No Substance Use Type: Alcohol Hx Substance Use Treatment: No Review of Systems - Review of Systems Constitutional: Yes: Loss of Appetite, Weakness. No: Chills, Diaphoresis, Fever HEENTM: No: Blurred Vision, Double Vision, Tinnitus Respiratory: No: Cough, Shortness of Breath, SOB at Rest, Wheezing, Productive cough Cardiac (ROS): Yes: Lightheadedness. No: Chest Pain, Irregular Heart Rate, Palpitations, Syncope, Chest Tightness ABD/GI: Yes: Diarrhea, Nausea, Indigestion. No: Abdominal Distended, Constipated, Rectal Bleeding, Vomiting : No: Burning, Dysuria, Discharge, Frequency Musculoskeletal: No: Back Pain Neurological: No: Headache, Numbness *Physical Exam - Vital Signs Last Vital Signs Temp Pulse Resp BP Pulse Ox 98.1 F 60 20 128/57 99 11/14/17 21:57 11/14/17 21:57 11/14/17 21:57 11/14/17 21:57 11/14/17 21:57 - Physical Exam General Appearance: Yes: Appropriately Dressed HEENT: positive: EOMI, Normal Voice, Symmetrical. negative: Pharyngeal Erythema , Thrush Neck: positive: Supple. negative: Tender, Lymphadenopathy (R) Respiratory/Chest: positive: Lungs Clear, Normal Breath Sounds, Other (chemo port present). negative: Respiratory Distress, Accessory Muscle Use, Rhonchi, Stridor, Wheezing Cardiovascular: positive: Regular Rhythm, Regular Rate, S1, S2. negative: Edema , Murmur Gastrointestinal/Abdominal: positive: Normal Bowel Sounds, Flat, Soft, Other ( mid line scar melissa present ). negative: Tender, Distended, Rebound, Tenderness , Mass Male Genitalia: negative: testicular tenderness, testicular mass Lymphatic: negative: Adenopathy Extremity: positive: Other (dry skin ). negative: Pedal Edema Neurologic: positive: Fully Oriented, Alert, Normal Mood/Affect ED Treatment Course - LABORATORY CBC & Chemistry Diagram: 11/17/17 06:00 11/17/17 06:00 - RADIOLOGY Radiology Studies Ordered: Category Date Time Status CHEST - PA [RAD] Stat Radiology 11/14/17 22:34 Ordered Medical Decision Making - Medical Decision Making 11/14/17 23:07 82 y/o male with PMH of metastatic ca colon s/p resection in september 2016 came to hospital because of generalize weakness, dizziness and poor oral intake. Also reports diarrhoea from 2 days. Received chemo on november 02 we will get cbc, cmp, mag, phos, cxr , ekg and ua We will get stool for ova and parasite, wbc and gram stain, culture We will him IV fluid D%NS. Labs done on 11/11 shows Na of 146 and cr i 1.6. We will give him one time zofran and pantoprazole. 11/14/17 23:14 11/14/17 23:52 Labs reviewed absolute neutrophil 1497. 11/15/17 00:03 CMP reviewed; creatinine improved, Na 144. 11/15/17 00:[address] dong, we will send blood culture and urine culture. And keep him for observation we will him imodium for diarrhoea 11/15/17 00:[address] Hawley Discussed with dr vila we will keep him for observation. *DC/Admit/Observation/Transfer Diagnosis at time of Disposition: Acute diarrhea - Discharge Dispostion Disposition: HOME Condition at time of disposition: Fair - Referrals - Patient Instructions - Post Discharge Activity
[2017-11-14] MEDS ORDERED: DEXTROSE 5%-0.45% SALINE 1,000 ML IV SCH (23:00)
[2017-11-14] MEDS ORDERED: PANTOPRAZOLE 40 MG TABLET (FP) ONE (23:35)
[2017-11-14] MEDS ORDERED: ONDANSETRON 4 MG/2 ML VIAL ONE (23:35)
[2017-11-14 23:39] LABS: BASO % 1.4 % (0-2.0); EOS % 8.9 % (0-4.5); HEMATOCRIT 31.4 % (35.4-49); HEMOGLOBIN 10.5 GM/dL (11.7-16.9); LYMPH % 21.9 % (8-40); MCH 29.1 pg (25.7-33.7); MCHC 33.4 g/dl (32.0-35.9); MEAN PLT VOLUME 7.8 fl (7.5-11.1); MONO % 19.5 % (3.8-10.2); NEUT % 48.3 % (42.8-82.8); PLATELET COUNT 246 K/MM3 (134-434); RBC 3.61 M/mm3 (4.00-5.60); RDW 15.2 % (11.9-15.9); WHITE BLOOD COUNT 3.1 K/mm3 (4.0-10.0)
[2017-11-14 23:59] LABS: ALBUMIN 2.8 g/dl (3.4-5.0); ALK PHOS 42 U/L (45-117); ANION GAP 9 MMOL/L (8-16); BILIRUBIN,TOTAL 0.2 mg/dL (0.2-1.0); BLOOD UREA NITROGEN 37 mg/dL (7-18); CHLORIDE 111 mmol/L (98-107); CO2 24 mmol/L (21-32); CREATININE 1.6 mg/dL (0.7-1.3); GLUCOSE,RANDOM 94 mg/dL (74-106); PHOSPHOROUS 3.6 mg/dL (2.5-4.9); POTASSIUM 4.1 mmol/L (3.5-5.1); SGOT/AST 34 U/L (15-37); SGPT/ALT 42 U/L (12-78); SODIUM 144 mmol/L (136-145); TOT PROT 6.2 g/dl (6.4-8.2)
[2017-11-15] MEDS ORDERED: LOPERAMIDE HCL 2 MG CAPSULE PO ONE (00:22)
[2017-11-15] MEDS ORDERED: DEXTROSE 5%-NORMAL SALINE 1,000 ML IV SCH (00:45)
[2017-11-15] MEDS ORDERED: LOPERAMIDE HCL 2 MG CAPSULE ONE (01:48)
[2017-11-15] MEDS: SODIUM CHLORIDE 1,000 ML IV SCH (02:27)
[2017-11-15 03:03] LABS: URINE APPEARANCE CLEAR; URINE BILIRUBIN NEGATIVE (<2.0 mg/dL); URINE COLOR LTYELLOW; URINE GLUCOSE (UA) NEGATIVE (NEGATIVE); URINE KETONE NEGATIVE (NEGATIVE); URINE LEUK ESTERASE NEGATIVE (NEGATIVE); URINE NITRITE NEGATIVE (NEGATIVE); URINE UROBILINOGEN NEGATIVE mg/dL (0.2-1.0)
[2017-11-15 03:06] LABS: URINE PROTEIN 1+ (NEGATIVE)
[2017-11-15 03:09] LABS: EPI CELLS RARE /HPF (FEW); URINE HYALINE CAST 1 /lpf
[2017-11-15 04:04] VITALS: BMI 23.1
[2017-11-15 07:48] LABS: HEMATOCRIT 28.4 % (35.4-49); HEMOGLOBIN 9.5 GM/dL (11.7-16.9); MCH 29.1 pg (25.7-33.7); MCHC 33.5 g/dl (32.0-35.9); MEAN CELL VOLUME 86.8 fl (80-96); MEAN PLT VOLUME 7.8 fl (7.5-11.1); PLATELET COUNT 213 K/MM3 (134-434); RBC 3.27 M/mm3 (4.00-5.60); RDW 14.7 % (11.9-15.9); WHITE BLOOD COUNT 3.1 K/mm3 (4.0-10.0)
[2017-11-15 08:35] LABS: ANION GAP 10 MMOL/L (8-16); BLOOD UREA NITROGEN 29 mg/dL (7-18); CHLORIDE 112 mmol/L (98-107); CO2 24 mmol/L (21-32); CREATININE 1.3 mg/dL (0.7-1.3); GLUCOSE,RANDOM 76 mg/dL (74-106); POTASSIUM 3.5 mmol/L (3.5-5.1); SODIUM 146 mmol/L (136-145)
[2017-11-15] MEDS: MULTIVITAMINS (DAILY MVI) TABLET (FP) PO SCH (09:44)
[2017-11-15] MEDS: FERROUS SO4 325 MG TABLET (FP) PO SCH (09:44)
[2017-11-15] MEDS: amLODIPine BESYLATE 10 MG TABLET (FP) PO SCH (09:44)
[2017-11-15] MEDS: ASCORBIC ACID 500 MG TABLET (FP) PO SCH (09:44)
[2017-11-15] MEDS: LABETALOL HCL 200 MG TABLET (FP) PO SCH ×2 (09:44→22:05)
[2017-11-15] MEDS: ASPIRIN COATED 81 MG TABLET.EC PO SCH (09:44)
[2017-11-15] MEDS: LISINOPRIL 20 MG TABLET (FP) PO SCH (09:45)
--- NOTE | 2017-11-15 12:18 | HP ---
DATE OF ADMISSION: 11/15/2017 CHIEF COMPLAINT: Diarrhea. This 82-year-old male with a past medical history of metastatic colon cancer who recently started a different chemotherapy regimen and has been receiving this chemotherapy with increasing incidence of diarrhea over the last 3 to 4 days. The patient has 5 to 6 loose stools daily. The patient also reports decreased appetite, no other associated complaints. The symptoms worsened with food and are relieved somewhat by an empty stomach. PAST MEDICAL HISTORY: Hypertension, colon cancer with metastases, hyperlipidemia, COPD, BPH, and anemia. PAST SURGICAL HISTORY: Colectomy, inguinal hernia repair, and cholecystectomy. FAMILY HISTORY: Unremarkable. SOCIAL HISTORY: Past smoker. No significant alcohol or drug use. REVIEW OF SYSTEMS: Unremarkable except for presenting complaints. PHYSICAL EXAMINATION: General: This is an elderly male in no acute distress. Vital Signs: Temperature on admission 98.1 degrees Fahrenheit, pulse 60/min and regular, respiratory rate 18 per minute, blood pressure 148/57, and oxygen saturation 99%. HEENT: Within normal limits. Neck: Supple with no JVD. Chest: Clear to auscultation. Heart: Rate and rhythm regular. S1, S2 heard. Abdomen: Soft, nontender and nondistended with hyperactive bowel sounds. No rebound or rigidity. Extremities: No edema. Neurologic: The patient is awake, alert, and oriented x2 with no gross focal neurological deficits. LABORATORY EXAMINATION: WBC count 3.1, hemoglobin 10.5, hematocrit 31.4, and platelet count 246. Sodium 144, potassium 4.1, BUN 37, and creatinine 1.6. Bedside glucose was 94. A chest x-ray did not show any acute infiltrates or effusions. IMPRESSION: 1. Diarrhea. 2. History of colon cancer with metastases. 3. History of hypertension, 4. Chronic obstructive pulmonary disease. 5. Hyperlipidemia. 6. Anemia. 7. Dehydration and acute renal failure on this admission. PLAN: The patient will be admitted and will be hydrated. He will be treated symptomatically. Stool studies and cultures have been sent. The patient will be seen by Oncology and Gastroenterology consultation will be requested if necessary. Further management will be according to the results of these interventions. Nidhi [id number]
--- NOTE | 2017-11-15 21:34 | CONSULT ---
Consult - text type - Consultation Consultation Note: 82 y/o male with PMH of metastatic ca colon s/p resection in September 2016 came to hospital because of generalized weakness, dizziness and poor oral intake. patient received 5- FU/bevacizumab on november 02 and comes in with diarrhefor 3 days. No bleeding/cramping/fever/vomiting. Currently with weakness and bloating. No pain. Passing gas. No diarrhea today. Denies headache, chest pain, sob, palpitations, cough, fever, chills, burning micturation and change in frequency of micturation. - Past Medical History Allergies/Adverse Reactions: Allergies Allergy/AdvReac Type Severity Reaction Status Date / Time No Known Allergies Allergy Verified 11/14/17 21:59 Home Medications: Ambulatory Orders Amlodipine Besylate 10 mg PO DAILY 06/17/16 Labetalol HCl [Normodyne -] 200 mg PO BID 06/17/16 Lisinopril [Prinivil -] 40 mg PO DAILY 06/17/16 Tamsulosin HCl 0.4 mg PO HS 06/17/16 Docusate Sodium [Colace -] 100 mg PO DAILY 06/18/16 Hydrochlorothiazide [Hctz -] 25 mg PO DAILY 06/18/16 Simvastatin 20 mg PO HS 06/18/16 Ascorbic Acid [Vitamin C -] 500 mg PO ASDIR 07/29/16 Glucosamine/Methylsulfonylmeth [Sm Glucosamine & MSM Tablet] 1,500 tab PO BID Multivitamins [Multivit ([facility] Formul[facility])] 1 tab PO DAILY 07/29/16 Ferrous Sulfate, Dried [Iron] 64 mg PO DAILY 09/09/16 Aspirin Coated [Ecotrin -] 81 mg PO DAILY 09/17/16 PMH Anemia: Yes Cancer: Yes (colon) COPD: Yes GI Disorders: Yes (H/O ADENOMATOUS POLYP OF COLON) HTN: Yes Hypercholesterolemia: Yes - Surgical History Abdominal Surgery: Yes (inguinal hernia, colon resection) Cholecystectomy: Yes - Suicide/Smoking/Psychosocial Hx Smoking History: Never smoked Have you smoked in the past 12 months: Yes - Vital Signs Last Vital Signs Temp Pulse Resp BP Pulse Ox 98.1 F 60 20 128/57 99 11/14/17 21:57 11/14/17 21:57 11/14/17 21:57 11/14/17 21:57 11/14/17 21:57 - Physical Exam HEENT: AMBER, EOM Intact Oropharynx: No thrush, No mucositis Cor: RSR, No murmurs, No gallops Lungs: Clear to P&A Abd: Soft, Normal bowel sounds, No organomegaly Ext:No significant edema A/P 82 y/o male with PMH of metastatic ca colon s/p resection in september 2016 came to hospital because of generalized weakness, dizziness and poor oral intake. Last received 5-FU/avastin comes in with diarrhe for 2-3 days last week. Now with bloating and passing gas. Feels weak . Will check stool for c.diff/o and P check bloodurine cultures IV fluid hydration immodium follow clinical course
[2017-11-15] MEDS ORDERED: LOPERAMIDE HCL 2 MG CAPSULE PO PRN (21:37)
[2017-11-15] MEDS: ATORVASTATIN CA 10 MG TABLET (FP) PO SCH (22:05)
[2017-11-15] MEDS: TAMSULOSIN HCL 0.4 MG CAP.ER.24H (FP) PO SCH (22:05)
[2017-11-16] MEDS: SODIUM CHLORIDE 1,000 ML IV SCH (04:19)
[2017-11-16 08:41] LABS: HEMOGLOBIN 9.3 GM/dL (11.7-16.9); MCH 28.6 pg (25.7-33.7); MCHC 33.1 g/dl (32.0-35.9); MEAN CELL VOLUME 86.4 fl (80-96); MEAN PLT VOLUME 7.5 fl (7.5-11.1); PLATELET COUNT 217 K/MM3 (134-434); RBC 3.24 M/mm3 (4.00-5.60); RDW 14.9 % (11.9-15.9); WHITE BLOOD COUNT 2.9 K/mm3 (4.0-10.0)
[2017-11-16 08:52] LABS: ANION GAP 7 MMOL/L (8-16); BLOOD UREA NITROGEN 18 mg/dL (7-18); CALCIUM 7.8 mg/dL (8.5-10.1); CHLORIDE 110 mmol/L (98-107); CO2 26 mmol/L (21-32); CREATININE 0.9 mg/dL (0.7-1.3); GLUCOSE,RANDOM 83 mg/dL (74-106); POTASSIUM 3.6 mmol/L (3.5-5.1); SODIUM 143 mmol/L (136-145)
[2017-11-16] MEDS: MULTIVITAMINS (DAILY MVI) TABLET (FP) PO SCH (09:54)
[2017-11-16] MEDS: ASPIRIN COATED 81 MG TABLET.EC PO SCH (09:55)
[2017-11-16] MEDS: FERROUS SO4 325 MG TABLET (FP) PO SCH (09:55)
[2017-11-16] MEDS: amLODIPine BESYLATE 10 MG TABLET (FP) PO SCH (09:55)
[2017-11-16] MEDS: ASCORBIC ACID 500 MG TABLET (FP) PO SCH (09:55)
[2017-11-16] MEDS: LISINOPRIL 20 MG TABLET (FP) PO SCH (09:55)
[2017-11-16] MEDS: LABETALOL HCL 200 MG TABLET (FP) PO SCH ×2 (09:55→23:08)
--- NOTE | 2017-11-16 12:03 | PN ---
Progress Note, Physician Chief Complaint: No diarrhea - Current Medication List Current Medications: Active Medications Amlodipine Besylate (Norvasc -) 10 mg PO DAILY [facility] Last Admin: 11/16/17 09:55 Dose: 10 mg Ascorbic Acid (Vitamin C -) 500 mg PO DAILY [facility] Last Admin: 11/16/17 09:55 Dose: 500 mg Aspirin (Ecotrin -) 81 mg PO DAILY [facility] Last Admin: 11/16/17 09:55 Dose: 81 mg Atorvastatin Calcium (Lipitor -) 10 mg PO [facility] Last Admin: 11/15/17 22:05 Dose: 10 mg Ferrous Sulfate (Feosol -) 325 mg PO DAILY [facility] Last Admin: 11/16/17 09:55 Dose: 325 mg Sodium Chloride (Normal Saline -) 1,000 mls @ 75 mls/hr IV ASDIR [facility] Last Admin: 11/16/17 04:19 Dose: 75 mls/hr Labetalol HCl (Normodyne -) 200 mg PO BID [facility] Last Admin: 11/16/17 09:55 Dose: 200 mg Lisinopril (Prinivil) 40 mg PO DAILY [facility] Last Admin: 11/16/17 09:55 Dose: 40 mg Loperamide HCl (Imodium -) 2 mg PO Q6H PRN PRN Reason: DIARRHEA Multivitamins/Minerals/Vitamin C (Tab-A-Vit -) 1 tab PO DAILY [facility] Last Admin: 11/16/17 09:54 Dose: 1 tab Tamsulosin HCl (Flomax -) 0.4 mg PO [facility] Last Admin: 11/15/17 22:05 Dose: 0.4 mg - Objective Vital Signs: Vital Signs Temperature 98.4 F 11/16/17 09:23 Pulse Rate 53 L 11/16/17 09:23 Respiratory Rate 18 11/16/17 09:23 Blood Pressure 141/69 11/16/17 09:23 O2 Sat by Pulse Oximetry (%) 99 11/16/17 09:00 Constitutional: Yes: No Distress Neck: Yes: Supple Cardiovascular: Yes: Regular Rate and Rhythm, S1, S2 Respiratory: Yes: CTA Bilaterally Gastrointestinal: Yes: Soft, Hyperactive Bowel Sounds Neurological: Yes: Alert, Oriented. No: Loss of Sensation Labs: CBC, BMP 11/16/17 07:45 11/16/17 07:45 Problem List - Problems (1) Diarrhea Assessment/Plan: Symptoms better. C. diff negative, culture pending. Code(s): R19.7 - DIARRHEA, UNSPECIFIED Qualifiers: Diarrhea type: unspecified type Qualified Code(s): R19.7 - Diarrhea, unspecified (2) ARF (acute renal failure) Assessment/Plan: Resolved with hydration, will stop IV fluids. Code(s): N17.9 - ACUTE KIDNEY FAILURE, UNSPECIFIED Qualifiers: Acute renal failure type: unspecified Qualified Code(s): N17.9 - Acute kidney failure, unspecified
--- NOTE | 2017-11-16 13:38 | EKG ---
Test Reason : Blood Pressure : / mmHG Vent. Rate : 052 BPM Atrial Rate : 052 BPM P-R Int : 202 ms QRS Dur : 088 ms QT Int : 442 ms P-R-T Axes : 071 039 055 degrees QTc Int : 411 ms SINUS BRADYCARDIA OTHERWISE NORMAL ECG WHEN COMPARED WITH ECG OF 17-JUN-2016 16:19, VENT. RATE HAS DECREASED BY 37 BPM Confirmed by ESTEVAN ARANA MD ([id number]) on 11/16/2017 1:38:23 PM Referred By: Confirmed By:ESTEVAN ARANA MD
--- NOTE | 2017-11-16 20:58 | PN ---
Progress Note (short form) - Note Progress Note: Patient seen and examined feels better 1 regular BM today Last Vital Signs Temp Pulse Resp BP Pulse Ox 98.3 F 58 L 18 150/74 99 11/16/17 17:04 11/16/17 17:04 11/16/17 17:04 11/16/17 17:04 11/16/17 09:00 Cor: RSR, No murmurs, No gallops Lungs: Clear to P&A Abd: Soft, Normal bowel sounds, No organomegaly Ext:No significant edema Abnormal Lab Results 11/16/17 11/16/17 07:45 07:45 WBC 2.9 L RBC 3.24 L Hgb 9.3 L Hct 28.0 L Chloride 110 H Anion Gap 7 L Calcium 7.8 L Abnormal Lab Results 11/16/17 11/16/17 07:45 07:45 WBC 2.9 L RBC 3.24 L Hgb 9.3 L Hct 28.0 L Chloride 110 H Anion Gap 7 L Calcium 7.8 L A/P 82 y/o male with PMH of metastatic ca colon s/p resection in september 2016 came to hospital because of generalized weakness, dizziness and poor oral intake. Last received 5-FU/avastin comes in with diarrhe for 2-3 days last week. Now with bloating and passing gas. Feels weak . f/u stool for c.diff/o and P f/u blood/urine cultures IV fluid hydration immodium follow CBC, course
[2017-11-16] MEDS: ATORVASTATIN CA 10 MG TABLET (FP) PO SCH (23:08)
[2017-11-16] MEDS: TAMSULOSIN HCL 0.4 MG CAP.ER.24H (FP) PO SCH (23:08)
[2017-11-17 07:31] LABS: HEMOGLOBIN 10.1 GM/dL (11.7-16.9); MCH 28.9 pg (25.7-33.7); MCHC 33.7 g/dl (32.0-35.9); MEAN CELL VOLUME 85.8 fl (80-96); MEAN PLT VOLUME 7.7 fl (7.5-11.1); PLATELET COUNT 246 K/MM3 (134-434); RBC 3.49 M/mm3 (4.00-5.60); RDW 15.6 % (11.9-15.9); WHITE BLOOD COUNT 4.1 K/mm3 (4.0-10.0)
[2017-11-17 07:49] LABS: ANION GAP 11 MMOL/L (8-16); BLOOD UREA NITROGEN 13 mg/dL (7-18); CALCIUM 7.9 mg/dL (8.5-10.1); CHLORIDE 107 mmol/L (98-107); CO2 25 mmol/L (21-32); GLUCOSE,RANDOM 87 mg/dL (74-106); POTASSIUM 3.6 mmol/L (3.5-5.1); SODIUM 143 mmol/L (136-145)
[2017-11-17 07:51] LABS: CREATININE 0.9 mg/dL (0.7-1.3)
[2017-11-17] MEDS: amLODIPine BESYLATE 10 MG TABLET (FP) PO SCH (09:24)
[2017-11-17] MEDS: ASCORBIC ACID 500 MG TABLET (FP) PO SCH (09:24)
[2017-11-17] MEDS: LISINOPRIL 20 MG TABLET (FP) PO SCH (09:24)
[2017-11-17] MEDS: LABETALOL HCL 200 MG TABLET (FP) PO SCH (09:24)
[2017-11-17] MEDS: FERROUS SO4 325 MG TABLET (FP) PO SCH (09:24)
[2017-11-17] MEDS: ASPIRIN COATED 81 MG TABLET.EC PO SCH (09:24)
[2017-11-17] MEDS: MULTIVITAMINS (DAILY MVI) TABLET (FP) PO SCH (10:03)
--- NOTE | 2017-11-17 11:11 | DS ---
Physical Examination Vital Signs: Vital Signs Temperature 98.3 F 11/17/17 10:00 Pulse Rate 78 11/17/17 10:00 Respiratory Rate 18 11/17/17 10:00 Blood Pressure 151/76 11/17/17 10:00 O2 Sat by Pulse Oximetry (%) 99 11/17/17 09:00 Constitutional: Yes: No Distress, Calm Eyes: Yes: EOM Intact HENT: Yes: Normocephalic Neck: Yes: Trachea Midline Cardiovascular: Yes: Regular Rate and Rhythm Respiratory: Yes: CTA Bilaterally Gastrointestinal: Yes: Normal Bowel Sounds, Soft. No: Ascites, Distention, Tenderness Musculoskeletal: Yes: WNL Edema: No Peripheral Pulses WNL: Yes Neurological: Yes: WNL Labs: CBC, BMP 11/17/17 06:00 11/17/17 06:00 Discharge Summary Reason For Visit: ACUTE DIARRHEA Current Active Problems ARF (acute renal failure) (Acute) Diarrhea (Acute) Hospital Course: admitted for diarrhea 5-6 times daily for 3 days following recenlty changed chemo regimen. diarrhea resolved after admission, iv hydrtaion and supportive care. c.diff, blood cultures negative, vital signs and labs are within normal medically stable to sc home with outpt oncology follow up. Will follow stool cultures. Condition: Fair - Instructions Referrals: Corazon Hawley MD [Primary Care Provider] - Hermes Real MD [Staff Physician] - Disposition: HOME - Home Medications Comprehensive Discharge Medication List: Ambulatory Orders Amlodipine Besylate 10 mg PO DAILY 06/17/16 Labetalol HCl [Normodyne -] 200 mg PO BID 06/17/16 Lisinopril [Prinivil -] 40 mg PO DAILY 06/17/16 Tamsulosin HCl 0.4 mg PO HS 06/17/16 Docusate Sodium [Colace -] 100 mg PO DAILY 06/18/16 Hydrochlorothiazide [Hctz -] 25 mg PO DAILY 06/18/16 Simvastatin 20 mg PO HS 06/18/16 Ascorbic Acid [Vitamin C -] 500 mg PO ASDIR 07/29/16 Glucosamine/Methylsulfonylmeth [Sm Glucosamine & MSM Tablet] 1,500 tab PO BID Multivitamins [Multivit ([facility] Formul[facility])] 1 tab PO DAILY 07/29/16 Ferrous Sulfate, Dried [Iron] 64 mg PO DAILY 09/09/16 Aspirin Coated [Ecotrin -] 81 mg PO DAILY 09/17/16
[2017-11-17 14:27] VITALS: BP 135/69; PULSE 87; TEMP 98.4
--- NOTE | 2017-11-17 15:38 | PN ---
Progress Note (short form) - Note Progress Note: Patient seen and examined No diarrhea x 36 hours. No bowel movements today C. diff cultures- negative . Salmonella and shigella cultures pending Last Vital Signs Temp Pulse Resp BP Pulse Ox 98.4 F 87 18 135/69 99 11/17/17 14:26 11/17/17 14:26 11/17/17 14:26 11/17/17 14:26 11/17/17 09:00 HEENT: AMBER, EOM Intact Oropharynx: No thrush, No mucositis Cor: RSR, No murmurs, No gallops Lungs: Clear to P&A Abd: Soft, Normal bowel sounds, No organomegaly Ext:No significant edema Skin: No rashes, Integument intact CBC, BMP 11/17/17 06:00 11/17/17 06:00 Current Medications Generic Name Dose Route Start Last Admin Trade Name Freq PRN Reason Stop Dose Admin Amlodipine Besylate 10 mg 11/15/17 10:00 11/17/17 09:24 Norvasc - PO 10 mg DAILY [facility] Administration Ascorbic Acid 500 mg 11/15/17 10:00 11/17/17 09:24 Vitamin C - PO 500 mg DAILY SYDNEY Administration Aspirin 81 mg 11/15/17 10:00 11/17/17 09:24 Ecotrin - PO 81 mg DAILY YSDNEY Administration Atorvastatin Calcium 10 mg 11/15/17 22:00 11/16/17 23:08 Lipitor - PO 10 mg HS SYDNEY Administration Ferrous Sulfate 325 mg 11/15/17 10:00 11/17/17 09:24 Feosol - PO 325 mg DAILY SYDNEY Administration Labetalol HCl 200 mg 11/15/17 10:00 11/17/17 09:24 Normodyne - PO 200 mg BID SYDNEY Administration Lisinopril 40 mg 11/15/17 10:00 11/17/17 09:24 Prinivil PO 40 mg DAILY SYDNEY Administration Loperamide HCl 2 mg 11/15/17 21:37 Imodium - PO Q6H PRN DIARRHEA Multivitamins/Minerals/Vitamin C 1 tab 11/15/17 10:00 11/17/17 10:03 Tab-A-Vit - PO 1 tab DAILY [facility] Administration Tamsulosin HCl 0.4 mg 11/15/17 22:00 11/16/17 23:08 Flomax - PO 0.4 mg HS SYDNEY Administration Impression: Metastatic colon ca to lungs diarrhea- resolved Cultures for salmonella and shigella pending Pending above - for discharge -with out patient follow up.
--- NOTE | 2017-11-17 15:49 | PN ---
Progress Note (short form) - Note Progress Note: Spoke with I.D. - in view of improved state - can follow up stool as outpatient Spoke with PCP.
== END 2017-11-17 16:41 | disposition home or self-care (01) ==
LOC: JER 21:52 → UNDOADMOB 11-15 00:33 → JERBED 11-15 00:33 → INTOOBSV 11-15 01:49 → OBSVTOIN 11-15 01:49 → JERBED 11-15 03:13 → J7W 11-15 03:13
PROVIDERS: ADMIT Internal Medicine; ATTEND Internal Medicine
PROC: 3E0337Z Introduction of Electrolytic and Water Balance Substance into Peripheral Vein, Percutaneous Approach (ICD-10-PCS; principal; 2017-11-15)
PROC: 3E033GC Introduction of Other Therapeutic Substance into Peripheral Vein, Percutaneous Approach (ICD-10-PCS; 2017-11-15)
DX: R19.7 Diarrhea, unspecified (principal); N17.9 Acute kidney failure, unspecified; E86.0 Dehydration; I10 Essential (primary) hypertension; E78.5 Hyperlipidemia, unspecified; D64.9 Anemia, unspecified; J44.9 Chronic obstructive pulmonary disease, unspecified; N40.0 Benign prostatic hyperplasia without lower urinary tract symptoms; C18.9 Malignant neoplasm of colon, unspecified; C78.00 Secondary malignant neoplasm of unspecified lung; Z92.21 Personal history of antineoplastic chemotherapy; Z87.891 Personal history of nicotine dependence
CPT/HCPCS: 36415; 71045-TC-FY; 80048; 80053; 81003; 81015; 83735; 84100; 85025; 85027; 87040; 87045; 87046; 87086; 87177; 87186; 87209; 87324; 87449; 93005; 93010; 96361; 96374; 99284-25; G0378; J7030

== ENCOUNTER 2017-11-24 07:28 | Day surgery (SDC) | payer OTHER ==
[2017-11-24] MEDS ORDERED: DEXAMETHASONE INJECTION 10 MG, ONDANSETRON INJECTION 8 MG in SODIUM CHLORIDE 100 ML IVPB ONE (08:00)
[2017-11-24] MEDS ORDERED: WATER IVPB ONE (08:30)
[2017-11-24] MEDS ORDERED: DEXTROSE 5% IVPB ONE (08:30)
[2017-11-24] MEDS ORDERED: LEUCOVORIN IVPB ONE (08:30)
[2017-11-24 09:16] VITALS: BP 134/65; PULSE 50; TEMP 98
[2017-11-24] MEDS ORDERED: FLUOROURACIL 2,500 MG/50 ML VIAL IVPUSH ONE (09:30)
[2017-11-24 09:32] LABS: BASO % 1.7 % (0-2.0); EOS % 2.8 % (0-4.5); HEMATOCRIT 31.9 % (35.4-49); HEMOGLOBIN 10.3 GM/dL (11.7-16.9); LYMPH % 15.2 % (8-40); MCH 28.1 pg (25.7-33.7); MCHC 32.4 g/dl (32.0-35.9); MEAN CELL VOLUME 86.7 fl (80-96); MEAN PLT VOLUME 7.2 fl (7.5-11.1); NEUT % 67.3 % (42.8-82.8); PLATELET COUNT 361 K/MM3 (134-434); RBC 3.68 M/mm3 (4.00-5.60); RDW 16.4 % (11.9-15.9); WHITE BLOOD COUNT 5.3 K/mm3 (4.0-10.0)
[2017-11-24 10:10] LABS: ALBUMIN 2.9 g/dl (3.4-5.0); ANION GAP 5 MMOL/L (8-16); BILIRUBIN,TOTAL 0.2 mg/dL (0.2-1.0); BLOOD UREA NITROGEN 23 mg/dL (7-18); CALCIUM 8.9 mg/dL (8.5-10.1); CHLORIDE 107 mmol/L (98-107); CO2 28 mmol/L (21-32); CREATININE 1.3 mg/dL (0.7-1.3); GLUCOSE,RANDOM 82 mg/dL (74-106); POTASSIUM 4.6 mmol/L (3.5-5.1); SGOT/AST 27 U/L (15-37); SGPT/ALT 32 U/L (12-78); SODIUM 140 mmol/L (136-145)
[2017-11-24 10:11] LABS: ALK PHOS 47 U/L (45-117)
[2017-11-24 10:23] LABS: ALBUMIN 2.8 g/dl (3.4-5.0); BILIRUBIN,DIRECT < 0.2 mg/dL (0.0-0.2); BILIRUBIN,TOTAL 0.2 mg/dL (0.2-1.0); MAGNESIUM 2.1 mg/dL (1.8-2.4); SGOT/AST 31 U/L (15-37); SGPT/ALT 31 U/L (12-78)
[2017-11-24 10:24] LABS: ALK PHOS 46 U/L (45-117)
[2017-11-24] MEDS ORDERED: SODIUM CHLORIDE 250 ML IV ONE (10:30)
== END 2017-11-24 10:16 | disposition home or self-care (01) ==
LOC: JONCCHEMO 07:28
PROVIDERS: ATTEND Internal Medicine Hematology & Oncology
PROC: 3E033GC Introduction of Other Therapeutic Substance into Peripheral Vein, Percutaneous Approach (ICD-10-PCS; principal; 2017-11-24)
DX: Z53.8 Procedure and treatment not carried out for other reasons (principal)
CPT/HCPCS: 36415; 80053; 80076; 83735; 85025

== ENCOUNTER 2017-12-01 07:31 | Day surgery (SDC) | payer OTHER ==
[2017-12-01] MEDS ORDERED: DEXAMETHASONE INJECTION 10 MG, ONDANSETRON INJECTION 8 MG in SODIUM CHLORIDE 100 ML IVPB ONE (08:00)
[2017-12-01] MEDS ORDERED: BEVACIZUMAB IV ONE (08:30)
[2017-12-01] MEDS ORDERED: SODIUM CHLORIDE IV ONE (08:30)
[2017-12-01] MEDS ORDERED: WATER IVPB ONE (09:00)
[2017-12-01] MEDS ORDERED: DEXTROSE 5% IVPB ONE (09:00)
[2017-12-01] MEDS ORDERED: LEUCOVORIN IVPB ONE (09:00)
[2017-12-01 09:13] LABS: BASO % 1.9 % (0-2.0); EOS % 2.7 % (0-4.5); HEMATOCRIT 31.3 % (35.4-49); HEMOGLOBIN 10.3 GM/dL (11.7-16.9); LYMPH % 18.8 % (8-40); MCH 28.4 pg (25.7-33.7); MCHC 32.8 g/dl (32.0-35.9); MEAN CELL VOLUME 86.5 fl (80-96); MEAN PLT VOLUME 7.6 fl (7.5-11.1); MONO % 12.5 % (3.8-10.2); NEUT % 64.1 % (42.8-82.8); PLATELET COUNT 308 K/MM3 (134-434); RBC 3.62 M/mm3 (4.00-5.60); WHITE BLOOD COUNT 4.6 K/mm3 (4.0-10.0)
[2017-12-01 09:43] LABS: ALBUMIN 2.8 g/dl (3.4-5.0); ANION GAP 8 MMOL/L (8-16); BILIRUBIN,TOTAL 0.3 mg/dL (0.2-1); BLOOD UREA NITROGEN 26 mg/dL (7-18); CALCIUM 8.7 mg/dL (8.5-10.1); CHLORIDE 108 mmol/L (98-107); CO2 28 mmol/L (21-32); CREATININE 1.3 mg/dL (0.55-1.3); GLUCOSE,RANDOM 94 mg/dL (74-106); POTASSIUM 4.3 mmol/L (3.5-5.1); SGOT/AST 40 U/L (15-37); SGPT/ALT 44 U/L (13-61); SODIUM 144 mmol/L (136-145); TOT PROT 6.3 g/dl (6.4-8.2)
[2017-12-01 09:44] LABS: ALK PHOS 49 U/L (45-117); BILIRUBIN,DIRECT < 0.2 mg/dL (0.0-0.2); BILIRUBIN,TOTAL 0.3 mg/dL (0.2-1); MAGNESIUM 2.1 mg/dL (1.8-2.4); SGOT/AST 41 U/L (15-37); SGPT/ALT 43 U/L (13-61)
[2017-12-01 09:45] LABS: ALK PHOS 46 U/L (45-117); TOT PROT 6.2 g/dl (6.4-8.2)
[2017-12-01] MEDS ORDERED: FLUOROURACIL 2,500 MG/50 ML VIAL IVPUSH ONE (10:00)
[2017-12-01] MEDS ORDERED: SODIUM CHLORIDE 250 ML IV ONE (11:00)
[2017-12-01 13:01] LABS: URINE APPEARANCE CLEAR; URINE BILIRUBIN NEGATIVE (<2.0 mg/dL); URINE COLOR YELLOW; URINE GLUCOSE (UA) NEGATIVE (NEGATIVE); URINE KETONE NEGATIVE (NEGATIVE); URINE LEUK ESTERASE NEGATIVE (NEGATIVE); URINE NITRITE NEGATIVE (NEGATIVE); URINE UROBILINOGEN NEGATIVE mg/dL (0.2-1.0)
[2017-12-01 13:12] LABS: URINE PROTEIN 2+ (NEGATIVE)
[2017-12-01 13:19] LABS: EPI CELLS RARE /HPF (FEW); URINE HYALINE CAST 21 /lpf; URINE MUCUS RARE
[2017-12-01 13:30] LABS: RATIO URIN PROTEIN/URIN CREAT 0.33 MG/DL
[2017-12-01 14:48] VITALS: TEMP 97.5
[2017-12-01] MEDS ORDERED: PORTA CATH FLUSH 10 ML IVPUSH ONE ×2 (14:48→16:45)
[2017-12-01 16:45] VITALS: BP 150/80; PULSE 76
== END 2017-12-01 15:30 | disposition home or self-care (01) ==
LOC: JONCCHEMO 07:31 → J7W 10:09 → JONCCHEMO 15:30
PROVIDERS: ATTEND Internal Medicine Hematology & Oncology
DX: Z51.11 Encounter for antineoplastic chemotherapy (principal); C18.2 Malignant neoplasm of ascending colon
CPT/HCPCS: 36415; 80053; 80076; 81003; 81015; 82570; 83735; 84156; 85025; 96361; 96366; 96367; 96375; 96409; 96411; 96413; 96415; 96417; J1100; J2405; J9035

== ENCOUNTER 2017-12-08 07:44 | Day surgery (SDC) | payer OTHER ==
[2017-12-08] MEDS ORDERED: DEXAMETHASONE INJECTION 10 MG, ONDANSETRON INJECTION 8 MG in SODIUM CHLORIDE 100 ML IVPB ONE (08:00)
[2017-12-08] MEDS ORDERED: LEUCOVORIN IVPB ONE (08:30)
[2017-12-08] MEDS ORDERED: DEXTROSE 5% IVPB ONE (08:30)
[2017-12-08] MEDS ORDERED: WATER IVPB ONE (08:30)
[2017-12-08] MEDS ORDERED: FLUOROURACIL 2,500 MG/50 ML VIAL IVPUSH ONE (09:30)
[2017-12-08 09:32] LABS: BASO % 1.2 % (0-2.0); EOS % 5.6 % (0-4.5); HEMATOCRIT 33.4 % (35.4-49); HEMOGLOBIN 10.8 GM/dL (11.7-16.9); MCHC 32.4 g/dl (32.0-35.9); MEAN CELL VOLUME 86.3 fl (80-96); MEAN PLT VOLUME 7.6 fl (7.5-11.1); MONO % 10.8 % (3.8-10.2); NEUT % 64.4 % (42.8-82.8); PLATELET COUNT 277 K/MM3 (134-434); RBC 3.86 M/mm3 (4.00-5.60); RDW 17.7 % (11.9-15.9); WHITE BLOOD COUNT 6.3 K/mm3 (4.0-10.0)
[2017-12-08 10:14] LABS: ALBUMIN 3.2 g/dl (3.4-5.0); ALK PHOS 47 U/L (45-117); ANION GAP 8 MMOL/L (8-16); BILIRUBIN,TOTAL 0.3 mg/dL (0.2-1); BLOOD UREA NITROGEN 23 mg/dL (7-18); CALCIUM 9.2 mg/dL (8.5-10.1); CHLORIDE 107 mmol/L (98-107); CO2 27 mmol/L (21-32); CREATININE 1.3 mg/dL (0.55-1.3); GLUCOSE,RANDOM 105 mg/dL (74-106); POTASSIUM 4.6 mmol/L (3.5-5.1); SGOT/AST 44 U/L (15-37); SGPT/ALT 58 U/L (13-61); SODIUM 141 mmol/L (136-145); TOT PROT 6.5 g/dl (6.4-8.2)
[2017-12-08 10:16] LABS: ALBUMIN 3.2 g/dl (3.4-5.0); ALK PHOS 47 U/L (45-117); BILIRUBIN,DIRECT < 0.2 mg/dL (0.0-0.2); BILIRUBIN,TOTAL 0.3 mg/dL (0.2-1); MAGNESIUM 2.1 mg/dL (1.8-2.4); SGOT/AST 45 U/L (15-37); SGPT/ALT 59 U/L (13-61); TOT PROT 6.5 g/dl (6.4-8.2)
[2017-12-08] MEDS ORDERED: SODIUM CHLORIDE 250 ML IV ONE (10:30)
[2017-12-08 17:54] VITALS: BP 185/83; PULSE 58; TEMP 97.7
[2017-12-08] MEDS ORDERED: PORTA CATH FLUSH 10 ML IVPUSH ONE (17:54)
== END 2017-12-08 15:48 | disposition home or self-care (01) ==
LOC: JONCCHEMO 07:44 → J7W 10:09 → JONCCHEMO 15:48
PROVIDERS: ATTEND Internal Medicine Hematology & Oncology
PROC: 3E04305 Introduction of Other Antineoplastic into Central Vein, Percutaneous Approach (ICD-10-PCS; principal; 2017-12-08)
PROC: 3E043GC Introduction of Other Therapeutic Substance into Central Vein, Percutaneous Approach (ICD-10-PCS; 2017-12-08)
PROC: 3E0437Z Introduction of Electrolytic and Water Balance Substance into Central Vein, Percutaneous Approach (ICD-10-PCS; 2017-12-08)
DX: Z51.11 Encounter for antineoplastic chemotherapy (principal); C18.2 Malignant neoplasm of ascending colon
CPT/HCPCS: 36415; 80053; 80076; 83735; 85025; 96361; 96365; 96366; 96367; 96375; 96409; 96415; 96417; J1100; J2405

== ENCOUNTER 2017-12-15 07:26 | Day surgery (SDC) | payer OTHER ==
[2017-12-15 09:58] LABS: BASO % 1.1 % (0-2.0); EOS % 4.9 % (0-4.5); HEMATOCRIT 30.7 % (35.4-49); HEMOGLOBIN 10.1 GM/dL (11.7-16.9); LYMPH % 14.5 % (8-40); MCH 28.6 pg (25.7-33.7); MCHC 32.9 g/dl (32.0-35.9); MEAN PLT VOLUME 8.3 fl (7.5-11.1); MONO % 7.7 % (3.8-10.2); NEUT % 71.8 % (42.8-82.8); PLATELET COUNT 261 K/MM3 (134-434); RBC 3.53 M/mm3 (4.00-5.60); RDW 18.2 % (11.9-15.9); WHITE BLOOD COUNT 6.1 K/mm3 (4.0-10.0)
[2017-12-15] MEDS ORDERED: DEXAMETHASONE INJECTION 10 MG, ONDANSETRON INJECTION 8 MG in SODIUM CHLORIDE 100 ML IVPB ONE (10:00)
[2017-12-15 10:15] LABS: ALK PHOS 43 U/L (45-117); BILIRUBIN,DIRECT < 0.2 mg/dL (0.0-0.2); BILIRUBIN,TOTAL 0.4 mg/dL (0.2-1); MAGNESIUM 1.9 mg/dL (1.8-2.4); SGOT/AST 38 U/L (15-37); SGPT/ALT 66 U/L (13-61); TOT PROT 6.1 g/dl (6.4-8.2)
[2017-12-15 10:16] LABS: ALBUMIN 3.1 g/dl (3.4-5.0); ALK PHOS 41 U/L (45-117); ANION GAP 8 MMOL/L (8-16); BILIRUBIN,TOTAL 0.4 mg/dL (0.2-1); BLOOD UREA NITROGEN 27 mg/dL (7-18); CALCIUM 8.8 mg/dL (8.5-10.1); CHLORIDE 108 mmol/L (98-107); CO2 26 mmol/L (21-32); CREATININE 1.2 mg/dL (0.55-1.3); GLUCOSE,RANDOM 90 mg/dL (74-106); POTASSIUM 4.1 mmol/L (3.5-5.1); SGOT/AST 40 U/L (15-37); SGPT/ALT 66 U/L (13-61); SODIUM 141 mmol/L (136-145); TOT PROT 6.2 g/dl (6.4-8.2)
[2017-12-15] MEDS ORDERED: BEVACIZUMAB IV ONE (10:30)
[2017-12-15] MEDS ORDERED: SODIUM CHLORIDE IV ONE (10:30)
[2017-12-15] MEDS ORDERED: WATER IVPB ONE (11:00)
[2017-12-15] MEDS ORDERED: DEXTROSE 5% IVPB ONE (11:00)
[2017-12-15] MEDS ORDERED: LEUCOVORIN IVPB ONE (11:00)
[2017-12-15] MEDS ORDERED: FLUOROURACIL 500 MG/10 ML VIAL IVPUSH ONE (12:00)
[2017-12-15] MEDS ORDERED: SODIUM CHLORIDE 250 ML IV ONE (13:00)
[2017-12-15 15:22] VITALS: TEMP 98.1
[2017-12-15] MEDS ORDERED: PORTA CATH FLUSH 10 ML IVPUSH ONE ×2 (15:22→15:51)
[2017-12-15 15:51] VITALS: BP 132/72; PULSE 55
== END 2017-12-15 15:52 | disposition home or self-care (01) ==
LOC: JONCCHEMO 07:26 → J7W 11:03 → JONCCHEMO 15:52
PROVIDERS: ATTEND Internal Medicine Hematology & Oncology
PROC: 3E033GC Introduction of Other Therapeutic Substance into Peripheral Vein, Percutaneous Approach (ICD-10-PCS; principal; 2017-12-15)
PROC: 3E0337Z Introduction of Electrolytic and Water Balance Substance into Peripheral Vein, Percutaneous Approach (ICD-10-PCS; 2017-12-15)
DX: Z76.89 Persons encountering health services in other specified circumstances (principal); C18.2 Malignant neoplasm of ascending colon; I10 Essential (primary) hypertension; N40.0 Benign prostatic hyperplasia without lower urinary tract symptoms; E78.00 Pure hypercholesterolemia, unspecified
CPT/HCPCS: 36415; 80053; 80076; 83735; 85025; 96361; 96365; 96366; 96367; 96375; 96409; 96413; 96415; 96417; J1100; J9035; J9190

== ENCOUNTER 2017-12-29 07:44 | Day surgery (SDC) | payer OTHER ==
[2017-12-29] MEDS ORDERED: DEXAMETHASONE INJECTION 20 MG, ONDANSETRON INJECTION 8 MG in SODIUM CHLORIDE 100 ML IVPB ONE (08:00)
[2017-12-29] MEDS ORDERED: BEVACIZUMAB IV ONE (08:30)
[2017-12-29] MEDS ORDERED: SODIUM CHLORIDE IV ONE (08:30)
[2017-12-29] MEDS ORDERED: LEUCOVORIN IVPB ONE (09:00)
[2017-12-29] MEDS ORDERED: DEXTROSE 5% IVPB ONE (09:00)
[2017-12-29] MEDS ORDERED: WATER IVPB ONE (09:00)
[2017-12-29] MEDS ORDERED: FLUOROURACIL 2,500 MG/50 ML VIAL IVPUSH ONE (10:00)
[2017-12-29 10:51] LABS: BASO % 1.7 % (0-2.0); EOS % 6.8 % (0-4.5); HEMATOCRIT 31.9 % (35.4-49); HEMOGLOBIN 10.8 GM/dL (11.7-16.9); LYMPH % 22.6 % (8-40); MCH 29.8 pg (25.7-33.7); MCHC 33.9 g/dl (32.0-35.9); MEAN CELL VOLUME 87.9 fl (80-96); MEAN PLT VOLUME 7.7 fl (7.5-11.1); MONO % 12.3 % (3.8-10.2); NEUT % 56.6 % (42.8-82.8); PLATELET COUNT 232 K/MM3 (134-434); RBC 3.63 M/mm3 (4.00-5.60); RDW 20.9 % (11.9-15.9)
[2017-12-29] MEDS ORDERED: SODIUM CHLORIDE 250 ML IV ONE (11:00)
[2017-12-29 11:15] LABS: ALBUMIN 3.2 g/dl (3.4-5.0); BILIRUBIN,DIRECT 0.1 mg/dL (0.0-0.2); BILIRUBIN,TOTAL 0.3 mg/dL (0.2-1); TOT PROT 6.5 g/dl (6.4-8.2)
[2017-12-29 11:19] LABS: ALBUMIN 3.2 g/dl (3.4-5.0); ALK PHOS 49 U/L (45-117); ANION GAP 3 MMOL/L (8-16); BILIRUBIN,TOTAL 0.4 mg/dL (0.2-1); BLOOD UREA NITROGEN 26 mg/dL (7-18); CALCIUM 8.7 mg/dL (8.5-10.1); CHLORIDE 108 mmol/L (98-107); CO2 27 mmol/L (21-32); CREATININE 1.3 mg/dL (0.55-1.3); GLUCOSE,RANDOM 82 mg/dL (74-106); POTASSIUM 4.1 mmol/L (3.5-5.1); SGOT/AST 25 U/L (15-37); SGPT/ALT 36 U/L (13-61); SODIUM 139 mmol/L (136-145); TOT PROT 6.5 g/dl (6.4-8.2)
[2017-12-29 12:09] LABS: ANISOCYTOSIS 1+; MACROCYTOSIS 1+; OVALOCYTE 1+; TARGET CELLS 1+
[2017-12-29 16:52] LABS: URINE APPEARANCE CLEAR; URINE BILIRUBIN NEGATIVE (<2.0 mg/dL); URINE COLOR YELLOW; URINE GLUCOSE (UA) NEGATIVE (NEGATIVE); URINE KETONE NEGATIVE (NEGATIVE); URINE LEUK ESTERASE NEGATIVE (NEGATIVE); URINE NITRITE NEGATIVE (NEGATIVE); URINE PROTEIN 2+ (NEGATIVE); URINE UROBILINOGEN NEGATIVE mg/dL (0.2-1.0)
[2017-12-29 17:17] LABS: EPI CELLS RARE /HPF (FEW)
[2017-12-29 18:10] VITALS: PULSE 49; TEMP 97
[2017-12-29] MEDS ORDERED: PORTA CATH FLUSH 10 ML IVPUSH ONE (18:10)
[2017-12-29 18:30] VITALS: BP 140/50
== END 2017-12-29 17:30 | disposition home or self-care (01) ==
LOC: JONCCHEMO 07:44 → J7W 12:28 → JONCCHEMO 17:30
PROVIDERS: ATTEND Internal Medicine Hematology & Oncology
DX: Z51.11 Encounter for antineoplastic chemotherapy (principal); C18.2 Malignant neoplasm of ascending colon
CPT/HCPCS: 36415; 80053; 80076; 81003; 81015; 83735; 85025; 96361; 96366; 96367; 96375; 96413; 96415; 96417; J1100; J2405; J9035

== ENCOUNTER 2018-01-05 07:14 | Day surgery (SDC) | payer OTHER ==
[2018-01-05] MEDS ORDERED: DEXAMETHASONE INJECTION 10 MG, ONDANSETRON INJECTION 8 MG in SODIUM CHLORIDE 100 ML IVPB ONE (10:00)
[2018-01-05] MEDS ORDERED: WATER IVPB ONE (10:30)
[2018-01-05] MEDS ORDERED: LEUCOVORIN IVPB ONE (10:30)
[2018-01-05] MEDS ORDERED: DEXTROSE 5% IVPB ONE (10:30)
[2018-01-05 10:31] LABS: BASO % 1.4 % (0-2.0); EOS % 5.2 % (0-4.5); HEMATOCRIT 32.2 % (35.4-49); HEMOGLOBIN 10.7 GM/dL (11.7-16.9); LYMPH % 16.9 % (8-40); MCH 29.4 pg (25.7-33.7); MCHC 33.2 g/dl (32.0-35.9); MEAN CELL VOLUME 88.4 fl (80-96); MEAN PLT VOLUME 8.1 fl (7.5-11.1); MONO % 10.8 % (3.8-10.2); NEUT % 65.7 % (42.8-82.8); PLATELET COUNT 251 K/MM3 (134-434); RBC 3.64 M/mm3 (4.00-5.60); RDW 20.6 % (11.9-15.9); WHITE BLOOD COUNT 4.6 K/mm3 (4.0-10.0)
[2018-01-05 11:13] LABS: ALBUMIN 3.3 g/dl (3.4-5.0); ALK PHOS 51 U/L (45-117); ANION GAP 6 MMOL/L (8-16); BILIRUBIN,DIRECT 0.1 mg/dL (0.0-0.2); BILIRUBIN,TOTAL 0.3 mg/dL (0.2-1); BLOOD UREA NITROGEN 30 mg/dL (7-18); CALCIUM 8.3 mg/dL (8.5-10.1); CHLORIDE 108 mmol/L (98-107); CO2 28 mmol/L (21-32); CREATININE 1.5 mg/dL (0.55-1.3); GLUCOSE,RANDOM 90 mg/dL (74-106); MAGNESIUM 1.9 mg/dL (1.8-2.4); POTASSIUM 4.1 mmol/L (3.5-5.1); SGOT/AST 27 U/L (15-37); SGPT/ALT 37 U/L (13-61); SODIUM 143 mmol/L (136-145); TOT PROT 6.5 g/dl (6.4-8.2)
[2018-01-05] MEDS ORDERED: FLUOROURACIL 500 MG/10 ML VIAL IVPUSH ONE (11:30)
[2018-01-05 12:15] LABS: ANISOCYTOSIS 2+; HELMET CELLS 1+; MACROCYTOSIS 0; PLATELET ESTIMATE NORMAL; TARGET CELLS 1+
[2018-01-05] MEDS ORDERED: SODIUM CHLORIDE 500 ML IV STA (14:01)
[2018-01-05] MEDS: SODIUM CHLORIDE 250 ML IV ONE ×2 (14:31→15:38)
[2018-01-05 14:39] VITALS: TEMP 97.4
[2018-01-05] MEDS ORDERED: PORTA CATH FLUSH 10 ML IVPUSH ONE (14:39)
[2018-01-05 16:29] VITALS: BP 143/55; PULSE 55
== END 2018-01-05 16:40 | disposition home or self-care (01) ==
LOC: JONCCHEMO 07:14 → J7W 11:12 → JONCCHEMO 16:40
PROVIDERS: ATTEND Internal Medicine Hematology & Oncology
PROC: 3E04305 Introduction of Other Antineoplastic into Central Vein, Percutaneous Approach (ICD-10-PCS; principal; 2018-01-05)
PROC: 3E043GC Introduction of Other Therapeutic Substance into Central Vein, Percutaneous Approach (ICD-10-PCS; 2018-01-05)
PROC: 3E043GC Introduction of Other Therapeutic Substance into Central Vein, Percutaneous Approach (ICD-10-PCS; 2018-01-05)
DX: Z51.11 Encounter for antineoplastic chemotherapy (principal); C18.2 Malignant neoplasm of ascending colon
CPT/HCPCS: 36415; 80053; 80076; 83735; 85025; 96361; 96365; 96366; 96367; 96375; 96409; 96415; 96417; J1100; J9190

== ENCOUNTER 2018-01-12 07:48 | Day surgery (SDC) | payer OTHER ==
[2018-01-12] MEDS ORDERED: DEXAMETHASONE INJECTION 10 MG, ONDANSETRON INJECTION 8 MG in SODIUM CHLORIDE 100 ML IVPB ONE (08:00)
[2018-01-12] MEDS ORDERED: BEVACIZUMAB IV ONE (08:30)
[2018-01-12] MEDS ORDERED: SODIUM CHLORIDE IV ONE (08:30)
[2018-01-12] MEDS ORDERED: DEXTROSE 5% IVPB ONE (09:00)
[2018-01-12] MEDS ORDERED: WATER IVPB ONE (09:00)
[2018-01-12] MEDS ORDERED: LEUCOVORIN IVPB ONE (09:00)
[2018-01-12] MEDS ORDERED: FLUOROURACIL 2,500 MG/50 ML VIAL IVPUSH ONE (10:00)
[2018-01-12 10:26] LABS: EOS % 4.7 % (0-4.5); LYMPH % 14.8 % (8-40); MCH 29.4 pg (25.7-33.7); MCHC 33.3 g/dl (32.0-35.9); MEAN CELL VOLUME 88.4 fl (80-96); MEAN PLT VOLUME 8.3 fl (7.5-11.1); MONO % 8.2 % (3.8-10.2); NEUT % 71.3 % (42.8-82.8); PLATELET COUNT 237 K/MM3 (134-434); WHITE BLOOD COUNT 5.3 K/mm3 (4.0-10.0)
[2018-01-12 10:52] LABS: ALBUMIN 3.2 g/dl (3.4-5.0); ALK PHOS 50 U/L (45-117); ANION GAP 9 MMOL/L (8-16); BILIRUBIN,DIRECT 0.1 mg/dL (0.0-0.2); BILIRUBIN,TOTAL 0.4 mg/dL (0.2-1); BLOOD UREA NITROGEN 28 mg/dL (7-18); CHLORIDE 109 mmol/L (98-107); CO2 28 mmol/L (21-32); CREATININE 1.2 mg/dL (0.55-1.3); GLUCOSE,RANDOM 77 mg/dL (74-106); MAGNESIUM 1.8 mg/dL (1.8-2.4); POTASSIUM 4.4 mmol/L (3.5-5.1); SGOT/AST 24 U/L (15-37); SGPT/ALT 39 U/L (13-61); SODIUM 146 mmol/L (136-145); TOT PROT 6.3 g/dl (6.4-8.2)
[2018-01-12] MEDS ORDERED: SODIUM CHLORIDE 250 ML IV ONE (11:00)
[2018-01-12] MEDS ORDERED: amLODIPine BESYLATE 5 MG TABLET (FP) PO ONE (11:45)
[2018-01-12 11:54] LABS: ANISOCYTOSIS 1+; MACROCYTOSIS 1+; OVALOCYTE 1+; PLATELET ESTIMATE NORMAL; TARGET CELLS 1+
[2018-01-12] MEDS ORDERED: SODIUM CHLORIDE 0.45% 250 ML IVPB SCH (13:15)
[2018-01-12 16:23] VITALS: TEMP 97.3
[2018-01-12] MEDS ORDERED: PORTA CATH FLUSH 10 ML IVPUSH ONE (16:31)
[2018-01-12 16:32] VITALS: BP 125/73; PULSE 61
== END 2018-01-12 16:15 | disposition home or self-care (01) ==
LOC: JONCCHEMO 07:48 → J7W 11:14 → JONCCHEMO 16:15
PROVIDERS: ATTEND Internal Medicine Hematology & Oncology
DX: Z51.11 Encounter for antineoplastic chemotherapy (principal); C18.2 Malignant neoplasm of ascending colon
CPT/HCPCS: 36415; 80053; 80076; 83735; 85025; 96361; 96367; 96375; 96409; 96411; 96413; 96415; 96417; J1100; J2405

== ENCOUNTER 2018-02-02 07:33 | Day surgery (SDC) | payer OTHER ==
[2018-02-02 09:36] LABS: BASO % 1.4 % (0-2.0); EOS % 7.6 % (0-4.5); HEMATOCRIT 30.3 % (35.4-49); HEMOGLOBIN 10.3 GM/dL (11.7-16.9); LYMPH % 16.2 % (8-40); MCH 30.2 pg (25.7-33.7); MCHC 34.1 g/dl (32.0-35.9); MEAN CELL VOLUME 88.6 fl (80-96); MEAN PLT VOLUME 7.8 fl (7.5-11.1); MONO % 16.5 % (3.8-10.2); NEUT % 58.3 % (42.8-82.8); PLATELET COUNT 289 K/MM3 (134-434); RBC 3.42 M/mm3 (4.00-5.60); RDW 22.1 % (11.9-15.9); WHITE BLOOD COUNT 5.1 K/mm3 (4.0-10.0)
[2018-02-02] MEDS ORDERED: DEXAMETHASONE INJECTION 10 MG, ONDANSETRON INJECTION 8 MG in SODIUM CHLORIDE 100 ML IVPB ONE (10:00)
[2018-02-02 10:08] LABS: ALBUMIN 3.1 g/dl (3.4-5.0); ALK PHOS 59 U/L (45-117); ANION GAP 7 MMOL/L (8-16); BILIRUBIN,DIRECT 0.1 mg/dL (0.0-0.2); BILIRUBIN,TOTAL 0.3 mg/dL (0.2-1); BLOOD UREA NITROGEN 30 mg/dL (7-18); CALCIUM 8.4 mg/dL (8.5-10.1); CHLORIDE 106 mmol/L (98-107); CO2 28 mmol/L (21-32); CREATININE 1.4 mg/dL (0.55-1.3); GLUCOSE,RANDOM 108 mg/dL (74-106); MAGNESIUM 2.3 mg/dL (1.8-2.4); POTASSIUM 4.3 mmol/L (3.5-5.1); SGOT/AST 27 U/L (15-37); SGPT/ALT 27 U/L (13-61); SODIUM 141 mmol/L (136-145); TOT PROT 6.4 g/dl (6.4-8.2)
[2018-02-02] MEDS ORDERED: BEVACIZUMAB IV ONE (10:30)
[2018-02-02] MEDS ORDERED: SODIUM CHLORIDE IV ONE (10:30)
[2018-02-02] MEDS ORDERED: DEXTROSE 5% IVPB ONE (11:00)
[2018-02-02] MEDS ORDERED: LEUCOVORIN IVPB ONE (11:00)
[2018-02-02] MEDS ORDERED: WATER IVPB ONE (11:00)
[2018-02-02] MEDS ORDERED: FLUOROURACIL 500 MG/10 ML VIAL IVPUSH ONE (12:00)
[2018-02-02] MEDS ORDERED: SODIUM CHLORIDE 250 ML IV ONE (13:00)
[2018-02-02 16:56] VITALS: TEMP 98
[2018-02-02 17:11] VITALS: BP 129/64; PULSE 56
[2018-02-02] MEDS ORDERED: PORTA CATH FLUSH 10 ML IVPUSH ONE (17:11)
== END 2018-02-02 14:30 | disposition home or self-care (01) ==
LOC: JONCCHEMO 07:33 → J7W 10:26 → JONCCHEMO 14:30
PROVIDERS: ATTEND Internal Medicine Hematology & Oncology
DX: Z51.11 Encounter for antineoplastic chemotherapy (principal); C18.2 Malignant neoplasm of ascending colon
CPT/HCPCS: 36415; 80053; 80076; 82378; 83735; 85025; 96361; 96409; 96411; 96415; 96417; J1100; J9190

== ENCOUNTER 2018-02-09 07:23 | Day surgery (SDC) | payer OTHER ==
[2018-02-09 09:31] LABS: EOS % 5.9 % (0-4.5); HEMATOCRIT 29.9 % (35.4-49); HEMOGLOBIN 10.5 GM/dL (11.7-16.9); LYMPH % 13.4 % (8-40); MCH 30.8 pg (25.7-33.7); MEAN PLT VOLUME 7.6 fl (7.5-11.1); MONO % 11.8 % (3.8-10.2); NEUT % 67.9 % (42.8-82.8); PLATELET COUNT 268 K/MM3 (134-434); RDW 21.3 % (11.9-15.9); WHITE BLOOD COUNT 7.3 K/mm3 (4.0-10.0)
[2018-02-09] MEDS ORDERED: DEXAMETHASONE INJECTION 10 MG, ONDANSETRON INJECTION 8 MG in SODIUM CHLORIDE 100 ML IVPB ONE (10:00)
[2018-02-09 10:02] LABS: ALBUMIN 3.2 g/dl (3.4-5.0); ALK PHOS 57 U/L (45-117); ANION GAP 7 MMOL/L (8-16); BILIRUBIN,DIRECT 0.1 mg/dL (0.0-0.2); BILIRUBIN,TOTAL 0.3 mg/dL (0.2-1); BLOOD UREA NITROGEN 28 mg/dL (7-18); CALCIUM 8.9 mg/dL (8.5-10.1); CHLORIDE 105 mmol/L (98-107); CO2 29 mmol/L (21-32); CREATININE 1.4 mg/dL (0.55-1.3); GLUCOSE,RANDOM 92 mg/dL (74-106); MAGNESIUM 2.1 mg/dL (1.8-2.4); POTASSIUM 4.3 mmol/L (3.5-5.1); SGOT/AST 28 U/L (15-37); SGPT/ALT 35 U/L (13-61); SODIUM 141 mmol/L (136-145); TOT PROT 6.6 g/dl (6.4-8.2)
[2018-02-09] MEDS ORDERED: LEUCOVORIN IVPB ONE (10:30)
[2018-02-09] MEDS ORDERED: DEXTROSE 5% IVPB ONE (10:30)
[2018-02-09] MEDS ORDERED: WATER IVPB ONE (10:30)
[2018-02-09] MEDS ORDERED: FLUOROURACIL 500 MG/10 ML VIAL IVPUSH ONE (11:30)
[2018-02-09] MEDS ORDERED: SODIUM CHLORIDE 250 ML IV ONE (12:30)
[2018-02-09 15:48] VITALS: TEMP 97.7
[2018-02-09 15:57] VITALS: BP 168/75; PULSE 51
== END 2018-02-09 14:10 | disposition home or self-care (01) ==
LOC: JONCCHEMO 07:23 → J7W 10:19 → JONCCHEMO 14:10
PROVIDERS: ATTEND Internal Medicine Hematology & Oncology
PROC: 3E04305 Introduction of Other Antineoplastic into Central Vein, Percutaneous Approach (ICD-10-PCS; principal; 2018-02-09)
PROC: 3E043GC Introduction of Other Therapeutic Substance into Central Vein, Percutaneous Approach (ICD-10-PCS; 2018-02-09)
PROC: 3E0437Z Introduction of Electrolytic and Water Balance Substance into Central Vein, Percutaneous Approach (ICD-10-PCS; 2018-02-09)
DX: Z51.11 Encounter for antineoplastic chemotherapy (principal); C18.2 Malignant neoplasm of ascending colon; I10 Essential (primary) hypertension; E78.00 Pure hypercholesterolemia, unspecified; N40.0 Benign prostatic hyperplasia without lower urinary tract symptoms
CPT/HCPCS: 36415; 80053; 80076; 83735; 85025; 96361; 96367; 96375; 96409; 96413; 96415; 96417; J1100; J9190

== ENCOUNTER 2018-02-16 07:26 | Day surgery (SDC) | payer OTHER ==
[2018-02-16 08:40] VITALS: TEMP 97.7
[2018-02-16 08:55] LABS: BASO % 0.8 % (0-2.0); EOS % 4.1 % (0-4.5); HEMATOCRIT 31.1 % (35.4-49); HEMOGLOBIN 10.7 GM/dL (11.7-16.9); LYMPH % 11.1 % (8-40); MCH 30.6 pg (25.7-33.7); MCHC 34.5 g/dl (32.0-35.9); MEAN CELL VOLUME 88.6 fl (80-96); MEAN PLT VOLUME 7.6 fl (7.5-11.1); MONO % 8.4 % (3.8-10.2); NEUT % 75.6 % (42.8-82.8); PLATELET COUNT 259 K/MM3 (134-434); RBC 3.51 M/mm3 (4.00-5.60); RDW 21.8 % (11.9-15.9); WHITE BLOOD COUNT 8.6 K/mm3 (4.0-10.0)
[2018-02-16 09:23] LABS: ALBUMIN 3.3 g/dl (3.4-5.0); ALK PHOS 53 U/L (45-117); ANION GAP 9 MMOL/L (8-16); BILIRUBIN,DIRECT 0.1 mg/dL (0.0-0.2); BILIRUBIN,TOTAL 0.4 mg/dL (0.2-1); BLOOD UREA NITROGEN 30 mg/dL (7-18); CALCIUM 8.3 mg/dL (8.5-10.1); CHLORIDE 106 mmol/L (98-107); CO2 28 mmol/L (21-32); CREATININE 1.4 mg/dL (0.55-1.3); GLUCOSE,RANDOM 103 mg/dL (74-106); MAGNESIUM 1.8 mg/dL (1.8-2.4); POTASSIUM 3.8 mmol/L (3.5-5.1); SGOT/AST 21 U/L (15-37); SGPT/ALT 32 U/L (13-61); SODIUM 143 mmol/L (136-145); TOT PROT 6.5 g/dl (6.4-8.2)
[2018-02-16] MEDS ORDERED: DEXAMETHASONE SODIUM PHOSPHATE 10 MG, ONDANSETRON INJECTION 8 MG in SODIUM CHLORIDE 100 ML IVPB ONE (10:00)
[2018-02-16] MEDS ORDERED: DEXTROSE 5% IVPB ONE (10:30)
[2018-02-16] MEDS ORDERED: LEUCOVORIN IVPB ONE (10:30)
[2018-02-16] MEDS ORDERED: WATER IVPB ONE (10:30)
[2018-02-16] MEDS ORDERED: FLUOROURACIL 500 MG/10 ML VIAL IVPUSH ONE (11:30)
[2018-02-16] MEDS ORDERED: SODIUM CHLORIDE 250 ML IV ONE (12:30)
[2018-02-16] MEDS ORDERED: PORTA CATH FLUSH 10 ML IVPUSH ONE (12:43)
[2018-02-16 13:06] LABS: ANISOCYTOSIS 1+; MACROCYTOSIS 1+; OVALOCYTE 1+; TARGET CELLS 1+
[2018-02-16 16:00] VITALS: BP 123/66; PULSE 61
== END 2018-02-16 14:15 | disposition home or self-care (01) ==
LOC: JONCCHEMO 07:26 → J7W 09:52 → JONCCHEMO 14:15
PROVIDERS: ATTEND Internal Medicine Hematology & Oncology
DX: Z51.11 Encounter for antineoplastic chemotherapy (principal); C18.2 Malignant neoplasm of ascending colon
CPT/HCPCS: 36415; 80053; 80076; 83735; 85025; 96361; 96366; 96367; 96375; 96409; 96411; 96413; 96415; 96417; J9190

== ENCOUNTER 2018-03-02 05:37 | Day surgery (SDC) | payer OTHER ==
[2018-03-02 09:00] LABS: EOS % 5.3 % (0-4.5); HEMATOCRIT 30.9 % (35.4-49); HEMOGLOBIN 10.6 GM/dL (11.7-16.9); LYMPH % 16.3 % (8-40); MCHC 34.2 g/dl (32.0-35.9); MEAN CELL VOLUME 90.5 fl (80-96); MEAN PLT VOLUME 7.8 fl (7.5-11.1); MONO % 14.7 % (3.8-10.2); NEUT % 61.7 % (42.8-82.8); PLATELET COUNT 286 K/MM3 (134-434); RBC 3.42 M/mm3 (4.00-5.60); RDW 21.6 % (11.9-15.9); WHITE BLOOD COUNT 4.5 K/mm3 (4.0-10.0)
[2018-03-02 09:28] LABS: ALBUMIN 3.2 g/dl (3.4-5.0); BILIRUBIN,DIRECT 0.1 mg/dL (0.0-0.2); BILIRUBIN,TOTAL 0.4 mg/dL (0.2-1); TOT PROT 6.4 g/dl (6.4-8.2)
[2018-03-02 09:42] LABS: ALBUMIN 3.2 g/dl (3.4-5.0); ALK PHOS 50 U/L (45-117); ANION GAP 5 MMOL/L (8-16); BILIRUBIN,TOTAL 0.4 mg/dL (0.2-1); BLOOD UREA NITROGEN 27 mg/dL (7-18); CALCIUM 8.5 mg/dL (8.5-10.1); CHLORIDE 113 mmol/L (98-107); CO2 25 mmol/L (21-32); CREATININE 1.4 mg/dL (0.55-1.3); GLUCOSE,RANDOM 93 mg/dL (74-106); SGOT/AST 19 U/L (15-37); SGPT/ALT 28 U/L (13-61); SODIUM 143 mmol/L (136-145); TOT PROT 6.3 g/dl (6.4-8.2)
[2018-03-02] MEDS ORDERED: SODIUM CHLORIDE IV ONE (10:00)
[2018-03-02] MEDS ORDERED: DEXAMETHASONE SODIUM PHOSPHATE 20 MG, ONDANSETRON INJECTION 8 MG in SODIUM CHLORIDE 100 ML IVPB ONE (10:00)
[2018-03-02] MEDS ORDERED: BEVACIZUMAB IV ONE (10:00)
[2018-03-02] MEDS ORDERED: LEUCOVORIN IVPB ONE (10:30)
[2018-03-02] MEDS ORDERED: DEXTROSE 5% IVPB ONE (10:30)
[2018-03-02] MEDS ORDERED: WATER IVPB ONE (10:30)
[2018-03-02 11:06] LABS: ANISOCYTOSIS 1+; MACROCYTOSIS 0; PLATELET ESTIMATE NORMAL; TARGET CELLS 1+
[2018-03-02] MEDS ORDERED: FLUOROURACIL 500 MG/10 ML VIAL IVPUSH ONE (11:30)
[2018-03-02 11:40] LABS: OVALOCYTE 1+
[2018-03-02] MEDS ORDERED: SODIUM CHLORIDE 250 ML IV ONE (12:30)
[2018-03-02 14:15] VITALS: BP 147/69; PULSE 52; TEMP 97.7
== END 2018-03-02 14:17 | disposition home or self-care (01) ==
LOC: JONCCHEMO 05:37 → J7W 09:17 → JONCCHEMO 14:17
PROVIDERS: ATTEND Internal Medicine Hematology & Oncology
PROC: 3E04305 Introduction of Other Antineoplastic into Central Vein, Percutaneous Approach (ICD-10-PCS; principal; 2018-03-02)
PROC: 3E043GC Introduction of Other Therapeutic Substance into Central Vein, Percutaneous Approach (ICD-10-PCS; 2018-03-02)
PROC: 3E0437Z Introduction of Electrolytic and Water Balance Substance into Central Vein, Percutaneous Approach (ICD-10-PCS; 2018-03-02)
DX: Z51.11 Encounter for antineoplastic chemotherapy (principal); C18.2 Malignant neoplasm of ascending colon; I10 Essential (primary) hypertension; E78.00 Pure hypercholesterolemia, unspecified; N40.0 Benign prostatic hyperplasia without lower urinary tract symptoms
CPT/HCPCS: 36415; 80053; 80076; 82378; 83735; 85025; 96361; 96367; 96368; 96375; 96409; 96413; 96415; 96417; J9035; J9190

== ENCOUNTER 2018-03-18 07:20 | Day surgery (SDC) | payer OTHER ==
[2018-03-18] MEDS ORDERED: DEXAMETHASONE SODIUM PHOSPHATE 10 MG, ONDANSETRON INJECTION 8 MG in SODIUM CHLORIDE 100 ML IVPB ONE (08:00)
[2018-03-18] MEDS ORDERED: LEUCOVORIN IVPB ONE (09:00)
[2018-03-18] MEDS ORDERED: DEXTROSE 5% IVPB ONE (09:00)
[2018-03-18] MEDS ORDERED: WATER IVPB ONE (09:00)
[2018-03-18 09:29] LABS: BASO % 1.5 % (0-2.0); EOS % 3.6 % (0-4.5); HEMATOCRIT 32.1 % (35.4-49); HEMOGLOBIN 11.1 GM/dL (11.7-16.9); LYMPH % 17.9 % (8-40); MCH 30.9 pg (25.7-33.7); MCHC 34.6 g/dl (32.0-35.9); MEAN CELL VOLUME 89.2 fl (80-96); MEAN PLT VOLUME 8.1 fl (7.5-11.1); MONO % 13.1 % (3.8-10.2); NEUT % 63.9 % (42.8-82.8); PLATELET COUNT 242 K/MM3 (134-434); RDW 20.5 % (11.9-15.9); WHITE BLOOD COUNT 5.2 K/mm3 (4.0-10.0)
[2018-03-18 09:56] LABS: ALBUMIN 3.2 g/dl (3.4-5.0); ALK PHOS 53 U/L (45-117); ANION GAP 7 MMOL/L (8-16); BILIRUBIN,DIRECT 0.1 mg/dL (0.0-0.2); BILIRUBIN,TOTAL 0.3 mg/dL (0.2-1); BLOOD UREA NITROGEN 31 mg/dL (7-18); CALCIUM 8.4 mg/dL (8.5-10.1); CHLORIDE 108 mmol/L (98-107); CO2 26 mmol/L (21-32); CREATININE 1.5 mg/dL (0.55-1.3); GLUCOSE,RANDOM 94 mg/dL (74-106); MAGNESIUM 2.3 mg/dL (1.8-2.4); SGOT/AST 35 U/L (15-37); SGPT/ALT 40 U/L (13-61); SODIUM 142 mmol/L (136-145); TOT PROT 6.3 g/dl (6.4-8.2)
[2018-03-18] MEDS ORDERED: FLUOROURACIL 2,500 MG/50 ML VIAL IVPUSH ONE (10:00)
[2018-03-18] MEDS ORDERED: SODIUM CHLORIDE 250 ML IV ONE (11:00)
[2018-03-18 11:24] VITALS: TEMP 97.3
[2018-03-18] MEDS ORDERED: PORTA CATH FLUSH 10 ML IVPUSH ONE ×2 (11:25→14:35)
[2018-03-18 11:42] LABS: ANISOCYTOSIS 1+; MACROCYTOSIS 1+; PLATELET ESTIMATE NORMAL; TARGET CELLS 1+
[2018-03-18 14:44] VITALS: BP 105/69; PULSE 50
== END 2018-03-18 14:45 | disposition home or self-care (01) ==
LOC: JONCCHEMO 07:20 → J7W 10:50 → JONCCHEMO 14:45
PROVIDERS: ATTEND Internal Medicine Hematology & Oncology
PROC: 3E04305 Introduction of Other Antineoplastic into Central Vein, Percutaneous Approach (ICD-10-PCS; principal; 2018-03-18)
PROC: 3E043GC Introduction of Other Therapeutic Substance into Central Vein, Percutaneous Approach (ICD-10-PCS; 2018-03-18)
PROC: 3E043GC Introduction of Other Therapeutic Substance into Central Vein, Percutaneous Approach (ICD-10-PCS; 2018-03-18)
DX: Z51.11 Encounter for antineoplastic chemotherapy (principal); C18.2 Malignant neoplasm of ascending colon
CPT/HCPCS: 36415; 80048; 80076; 82378; 83735; 85025; 96361; 96365; 96366; 96367; 96375; 96409; 96415; 96417; J2405

== ENCOUNTER 2018-03-25 05:17 | Day surgery (SDC) | payer OTHER ==
[2018-03-25] MEDS ORDERED: DEXAMETHASONE SODIUM PHOSPHATE 10 MG, ONDANSETRON INJECTION 8 MG in SODIUM CHLORIDE 100 ML IVPB ONE (08:00)
[2018-03-25] MEDS ORDERED: SODIUM CHLORIDE IV ONE (08:30)
[2018-03-25] MEDS ORDERED: BEVACIZUMAB IV ONE (08:30)
[2018-03-25] MEDS ORDERED: WATER IVPB ONE (09:00)
[2018-03-25] MEDS ORDERED: DEXTROSE 5% IVPB ONE (09:00)
[2018-03-25] MEDS ORDERED: LEUCOVORIN IVPB ONE (09:00)
[2018-03-25] MEDS ORDERED: FLUOROURACIL 2,500 MG/50 ML VIAL IVPUSH ONE (10:00)
[2018-03-25 10:48] LABS: BASO % 0.9 % (0-2.0); EOS % 3.5 % (0-4.5); HEMATOCRIT 34.3 % (35.4-49); HEMOGLOBIN 10.8 GM/dL (11.7-16.9); LYMPH % 17.9 % (8-40); MCH 28.7 pg (25.7-33.7); MCHC 31.6 g/dl (32.0-35.9); MEAN CELL VOLUME 90.9 fl (80-96); MEAN PLT VOLUME 8.1 fl (7.5-11.1); NEUT % 66.7 % (42.8-82.8); PLATELET COUNT 264 K/MM3 (134-434); RBC 3.78 M/mm3 (4.00-5.60); RDW 19.7 % (11.9-15.9); WHITE BLOOD COUNT 5.4 K/mm3 (4.0-10.0)
[2018-03-25] MEDS ORDERED: SODIUM CHLORIDE 250 ML IV ONE (11:00)
[2018-03-25 11:34] LABS: ALBUMIN 3.3 g/dl (3.4-5.0); ALK PHOS 49 U/L (45-117); ANION GAP 7 MMOL/L (8-16); BILIRUBIN,DIRECT 0.1 mg/dL (0.0-0.2); BILIRUBIN,TOTAL 0.4 mg/dL (0.2-1); BLOOD UREA NITROGEN 31 mg/dL (7-18); CALCIUM 8.8 mg/dL (8.5-10.1); CHLORIDE 104 mmol/L (98-107); CO2 27 mmol/L (21-32); CREATININE 1.5 mg/dL (0.55-1.3); GLUCOSE,RANDOM 88 mg/dL (74-106); MAGNESIUM 2.3 mg/dL (1.8-2.4); POTASSIUM 4.2 mmol/L (3.5-5.1); SGOT/AST 23 U/L (15-37); SGPT/ALT 38 U/L (13-61); SODIUM 138 mmol/L (136-145); TOT PROT 6.3 g/dl (6.4-8.2)
[2018-03-25 16:23] VITALS: TEMP 97.6
[2018-03-25] MEDS ORDERED: PORTA CATH FLUSH 10 ML IVPUSH ONE (16:23)
[2018-03-25 16:24] VITALS: BP 138/70; PULSE 55
== END 2018-03-25 15:30 | disposition home or self-care (01) ==
LOC: JONCCHEMO 05:17 → J7W 10:58 → JONCCHEMO 15:30
PROVIDERS: ATTEND Internal Medicine Hematology & Oncology
DX: Z51.11 Encounter for antineoplastic chemotherapy (principal); C18.2 Malignant neoplasm of ascending colon
CPT/HCPCS: 36415; 80048; 80076; 83735; 85025; 96361; 96366; 96367; 96375; 96409; 96413; 96415; 96417; J2405; J9035

== ENCOUNTER 2018-04-06 07:08 | Day surgery (SDC) | payer OTHER ==
[2018-04-06 09:13] LABS: BASO % 1.4 % (0-2.0); EOS % 4.1 % (0-4.5); HEMATOCRIT 34.4 % (35.4-49); HEMOGLOBIN 11.3 GM/dL (11.7-16.9); LYMPH % 17.4 % (8-40); MCH 29.7 pg (25.7-33.7); MEAN CELL VOLUME 89.9 fl (80-96); MEAN PLT VOLUME 7.7 fl (7.5-11.1); MONO % 11.9 % (3.8-10.2); NEUT % 65.2 % (42.8-82.8); PLATELET COUNT 314 K/MM3 (134-434); RBC 3.82 M/mm3 (4.00-5.60); RDW 20.4 % (11.9-15.9); WHITE BLOOD COUNT 4.7 K/mm3 (4.0-10.0)
[2018-04-06 09:48] LABS: ALBUMIN 3.1 g/dl (3.4-5.0); ALK PHOS 49 U/L (45-117); ANION GAP 9 MMOL/L (8-16); BILIRUBIN,DIRECT 0.1 mg/dL (0.0-0.2); BILIRUBIN,TOTAL 0.2 mg/dL (0.2-1); BLOOD UREA NITROGEN 37 mg/dL (7-18); CALCIUM 8.6 mg/dL (8.5-10.1); CHLORIDE 106 mmol/L (98-107); CO2 27 mmol/L (21-32); CREATININE 1.5 mg/dL (0.55-1.3); GLUCOSE,RANDOM 121 mg/dL (74-106); MAGNESIUM 1.9 mg/dL (1.8-2.4); SGOT/AST 23 U/L (15-37); SGPT/ALT 30 U/L (13-61); SODIUM 142 mmol/L (136-145); TOT PROT 6.3 g/dl (6.4-8.2)
[2018-04-06] MEDS ORDERED: DEXAMETHASONE SODIUM PHOSPHATE 10 MG, ONDANSETRON INJECTION 8 MG in SODIUM CHLORIDE 100 ML IVPB ONE (10:00)
[2018-04-06] MEDS ORDERED: BEVACIZUMAB IV ONE (10:30)
[2018-04-06] MEDS ORDERED: SODIUM CHLORIDE IV ONE (10:30)
[2018-04-06] MEDS ORDERED: LEUCOVORIN IVPB ONE (11:00)
[2018-04-06] MEDS ORDERED: WATER IVPB ONE (11:00)
[2018-04-06] MEDS ORDERED: DEXTROSE 5% IVPB ONE (11:00)
[2018-04-06] MEDS ORDERED: FLUOROURACIL 2,500 MG/50 ML VIAL IVPUSH ONE (11:30)
[2018-04-06] MEDS ORDERED: SODIUM CHLORIDE 250 ML IV ONE (12:30)
[2018-04-06 15:40] VITALS: TEMP 97.6
[2018-04-06 16:10] VITALS: BP 138/68; PULSE 54
[2018-04-06] MEDS ORDERED: PORTA CATH FLUSH 10 ML IVPUSH ONE (16:10)
== END 2018-04-06 15:00 | disposition home or self-care (01) ==
LOC: JONCCHEMO 07:08 → J7W 09:58 → JONCCHEMO 15:00
PROVIDERS: ATTEND Internal Medicine Hematology & Oncology
DX: Z51.11 Encounter for antineoplastic chemotherapy (principal); C18.2 Malignant neoplasm of ascending colon
CPT/HCPCS: 36415; 80048; 80076; 83735; 85025; 96361; 96366; 96367; 96375; 96409; 96411; 96413; 96415; 96417; J2405; J9035

== ENCOUNTER 2018-04-13 07:05 | Day surgery (SDC) | payer OTHER ==
[2018-04-13 09:17] LABS: BASO % 1.6 % (0-2.0); EOS % 5.1 % (0-4.5); HEMATOCRIT 33.8 % (35.4-49); HEMOGLOBIN 11.2 GM/dL (11.7-16.9); LYMPH % 19.3 % (8-40); MCH 30.1 pg (25.7-33.7); MCHC 33.2 g/dl (32.0-35.9); MEAN CELL VOLUME 90.5 fl (80-96); MEAN PLT VOLUME 7.3 fl (7.5-11.1); MONO % 10.4 % (3.8-10.2); NEUT % 63.6 % (42.8-82.8); PLATELET COUNT 273 K/MM3 (134-434); RBC 3.73 M/mm3 (4.00-5.60); RDW 20.5 % (11.9-15.9); WHITE BLOOD COUNT 4.9 K/mm3 (4.0-10.0)
[2018-04-13 09:54] LABS: ALBUMIN 3.2 g/dl (3.4-5.0); ALK PHOS 47 U/L (45-117); ANION GAP 4 MMOL/L (8-16); BILIRUBIN,DIRECT 0.1 mg/dL (0.0-0.2); BILIRUBIN,TOTAL 0.2 mg/dL (0.2-1); BLOOD UREA NITROGEN 29 mg/dL (7-18); CALCIUM 8.2 mg/dL (8.5-10.1); CHLORIDE 107 mmol/L (98-107); CO2 30 mmol/L (21-32); CREATININE 1.3 mg/dL (0.55-1.3); GLUCOSE,RANDOM 90 mg/dL (74-106); MAGNESIUM 2.2 mg/dL (1.8-2.4); POTASSIUM 4.2 mmol/L (3.5-5.1); SGOT/AST 36 U/L (15-37); SGPT/ALT 46 U/L (13-61); SODIUM 141 mmol/L (136-145); TOT PROT 6.4 g/dl (6.4-8.2)
[2018-04-13] MEDS ORDERED: DEXAMETHASONE SODIUM PHOSPHATE 10 MG, ONDANSETRON INJECTION 8 MG in SODIUM CHLORIDE 100 ML IVPB ONE (10:00)
[2018-04-13] MEDS ORDERED: DEXTROSE 5% IVPB ONE (10:30)
[2018-04-13] MEDS ORDERED: WATER IVPB ONE (10:30)
[2018-04-13] MEDS ORDERED: LEUCOVORIN IVPB ONE (10:30)
[2018-04-13 11:25] LABS: ANISOCYTOSIS 1+; MACROCYTOSIS 0; PLATELET ESTIMATE NORMAL
[2018-04-13] MEDS ORDERED: FLUOROURACIL 2,500 MG/50 ML VIAL IVPUSH ONE (11:30)
[2018-04-13] MEDS ORDERED: SODIUM CHLORIDE 250 ML IV ONE (12:30)
[2018-04-13 15:58] VITALS: TEMP 97.4
[2018-04-13 16:05] VITALS: BP 121/85; PULSE 72
[2018-04-13] MEDS ORDERED: PORTA CATH FLUSH 10 ML IVPUSH ONE (16:05)
== END 2018-04-13 14:30 | disposition home or self-care (01) ==
LOC: JONCCHEMO 07:05 → J7W 08:16 → JONCCHEMO 14:30
PROVIDERS: ATTEND Internal Medicine Hematology & Oncology
PROC: 3E04305 Introduction of Other Antineoplastic into Central Vein, Percutaneous Approach (ICD-10-PCS; principal; 2018-04-13)
PROC: 3E043GC Introduction of Other Therapeutic Substance into Central Vein, Percutaneous Approach (ICD-10-PCS; 2018-04-13)
PROC: 3E043GC Introduction of Other Therapeutic Substance into Central Vein, Percutaneous Approach (ICD-10-PCS; 2018-04-13)
DX: Z51.11 Encounter for antineoplastic chemotherapy (principal); C18.2 Malignant neoplasm of ascending colon
CPT/HCPCS: 36415; 80048; 80076; 83735; 85025; 96361; 96365; 96366; 96367; 96375; 96409; 96415; 96417

== ENCOUNTER 2018-04-20 06:25 | Day surgery (SDC) | payer OTHER ==
[2018-04-20 08:54] LABS: BASO % 1.6 % (0-2.0); EOS % 4.2 % (0-4.5); HEMATOCRIT 32.1 % (35.4-49); HEMOGLOBIN 10.9 GM/dL (11.7-16.9); LYMPH % 13.5 % (8-40); MEAN PLT VOLUME 7.7 fl (7.5-11.1); MONO % 7.8 % (3.8-10.2); NEUT % 72.9 % (42.8-82.8); PLATELET COUNT 229 K/MM3 (134-434); RBC 3.52 M/mm3 (4.00-5.60); RDW 20.7 % (11.9-15.9); WHITE BLOOD COUNT 5.9 K/mm3 (4.0-10.0)
[2018-04-20 09:30] LABS: ALK PHOS 41 U/L (45-117); ANION GAP 4 MMOL/L (8-16); BILIRUBIN,DIRECT 0.1 mg/dL (0.0-0.2); BILIRUBIN,TOTAL 0.3 mg/dL (0.2-1); BLOOD UREA NITROGEN 30 mg/dL (7-18); CALCIUM 7.8 mg/dL (8.5-10.1); CHLORIDE 109 mmol/L (98-107); CO2 30 mmol/L (21-32); CREATININE 1.6 mg/dL (0.55-1.3); GLUCOSE,RANDOM 106 mg/dL (74-106); MAGNESIUM 1.8 mg/dL (1.8-2.4); POTASSIUM 3.8 mmol/L (3.5-5.1); SGOT/AST 29 U/L (15-37); SGPT/ALT 37 U/L (13-61); SODIUM 142 mmol/L (136-145); TOT PROT 5.8 g/dl (6.4-8.2)
[2018-04-20] MEDS ORDERED: DEXAMETHASONE SODIUM PHOSPHATE 10 MG, ONDANSETRON INJECTION 8 MG in SODIUM CHLORIDE 100 ML IVPB ONE (10:00)
[2018-04-20] MEDS ORDERED: LEUCOVORIN IVPB ONE (10:30)
[2018-04-20] MEDS ORDERED: DEXTROSE 5% IVPB ONE (10:30)
[2018-04-20] MEDS ORDERED: WATER IVPB ONE (10:30)
[2018-04-20] MEDS ORDERED: FLUOROURACIL 2,500 MG/50 ML VIAL IVPUSH ONE (11:30)
[2018-04-20] MEDS ORDERED: SODIUM CHLORIDE 250 ML IV ONE (12:30)
[2018-04-20 14:39] VITALS: PULSE 52; TEMP 97
[2018-04-20] MEDS ORDERED: PORTA CATH FLUSH 10 ML IVPUSH ONE (14:41)
[2018-04-20 15:20] LABS: ANISOCYTOSIS 1+; MACROCYTOSIS 1+
[2018-04-20 15:30] VITALS: BP 140/68
== END 2018-04-20 15:35 | disposition home or self-care (01) ==
LOC: JONCCHEMO 06:25 → J7W 10:16 → JONCCHEMO 15:35
PROVIDERS: ATTEND Internal Medicine Hematology & Oncology
PROC: 3E04305 Introduction of Other Antineoplastic into Central Vein, Percutaneous Approach (ICD-10-PCS; principal; 2018-04-20)
PROC: 3E043GC Introduction of Other Therapeutic Substance into Central Vein, Percutaneous Approach (ICD-10-PCS; 2018-04-20)
PROC: 3E013GC Introduction of Other Therapeutic Substance into Subcutaneous Tissue, Percutaneous Approach (ICD-10-PCS; 2018-04-20)
DX: Z51.11 Encounter for antineoplastic chemotherapy (principal); C18.2 Malignant neoplasm of ascending colon
CPT/HCPCS: 36415; 80048; 80076; 83735; 85025; 96361; 96365; 96366; 96367; 96375; 96409; 96415; 96417; J2405

== ENCOUNTER 2018-05-11 07:20 | Day surgery (SDC) | payer OTHER ==
[2018-05-11] MEDS ORDERED: DEXAMETHASONE SODIUM PHOSPHATE 20 MG, ONDANSETRON INJECTION 8 MG in SODIUM CHLORIDE 100 ML IVPB ONE (08:00)
[2018-05-11] MEDS ORDERED: SODIUM CHLORIDE IV ONE (08:30)
[2018-05-11] MEDS ORDERED: BEVACIZUMAB IV ONE (08:30)
[2018-05-11] MEDS ORDERED: WATER IVPB ONE (09:00)
[2018-05-11] MEDS ORDERED: LEUCOVORIN IVPB ONE (09:00)
[2018-05-11] MEDS ORDERED: DEXTROSE 5% IVPB ONE (09:00)
[2018-05-11 09:28] LABS: BASO % 1.6 % (0-2.0); EOS % 5.9 % (0-4.5); HEMOGLOBIN 11.8 GM/dL (11.7-16.9); LYMPH % 19.9 % (8-40); MCH 30.9 pg (25.7-33.7); MCHC 33.8 g/dl (32.0-35.9); MEAN CELL VOLUME 91.3 fl (80-96); MEAN PLT VOLUME 7.8 fl (7.5-11.1); MONO % 14.3 % (3.8-10.2); NEUT % 58.3 % (42.8-82.8); PLATELET COUNT 239 K/MM3 (134-434); RBC 3.83 M/mm3 (4.00-5.60); RDW 20.3 % (11.9-15.9); WHITE BLOOD COUNT 4.6 K/mm3 (4.0-10.0)
[2018-05-11 09:55] LABS: ALBUMIN 3.2 g/dl (3.4-5.0); ALK PHOS 47 U/L (45-117); ANION GAP 7 MMOL/L (8-16); BILIRUBIN,TOTAL 0.3 mg/dL (0.2-1); BLOOD UREA NITROGEN 24 mg/dL (7-18); CALCIUM 8.3 mg/dL (8.5-10.1); CHLORIDE 105 mmol/L (98-107); CO2 30 mmol/L (21-32); CREATININE 1.5 mg/dL (0.55-1.3); GLUCOSE,RANDOM 116 mg/dL (74-106); POTASSIUM 4.3 mmol/L (3.5-5.1); SGOT/AST 28 U/L (15-37); SGPT/ALT 32 U/L (13-61); SODIUM 141 mmol/L (136-145); TOT PROT 6.4 g/dl (6.4-8.2)
[2018-05-11 09:56] LABS: ALBUMIN 3.2 g/dl (3.4-5.0); BILIRUBIN,DIRECT 0.1 mg/dL (0.0-0.2); BILIRUBIN,TOTAL 0.4 mg/dL (0.2-1); MAGNESIUM 2.3 mg/dL (1.8-2.4); TOT PROT 6.4 g/dl (6.4-8.2)
[2018-05-11] MEDS ORDERED: FLUOROURACIL 2,500 MG/50 ML VIAL IVPUSH ONE (10:00)
[2018-05-11] MEDS ORDERED: SODIUM CHLORIDE 250 ML IV ONE (11:00)
[2018-05-11 16:24] VITALS: TEMP 97.6
[2018-05-11] MEDS ORDERED: PORTA CATH FLUSH 10 ML IVPUSH ONE (16:24)
[2018-05-11 16:26] VITALS: BP 136/88; PULSE 48
== END 2018-05-11 16:00 | disposition home or self-care (01) ==
LOC: JONCCHEMO 07:20 → J7W 11:13 → JONCCHEMO 16:00
PROVIDERS: ATTEND Internal Medicine Hematology & Oncology
DX: Z51.11 Encounter for antineoplastic chemotherapy (principal); C18.2 Malignant neoplasm of ascending colon
CPT/HCPCS: 36415; 80053; 80076; 82378; 83735; 85025; 96361; 96366; 96367; 96375; 96409; 96413; 96415; 96417; J2405; J9035

== ENCOUNTER 2018-05-18 07:11 | Day surgery (SDC) | payer OTHER ==
[2018-05-18] MEDS ORDERED: DEXAMETHASONE SODIUM PHOSPHATE 10 MG, ONDANSETRON INJECTION 8 MG in SODIUM CHLORIDE 100 ML IVPB ONE (08:00)
[2018-05-18] MEDS ORDERED: WATER IVPB ONE (08:30)
[2018-05-18] MEDS ORDERED: LEUCOVORIN IVPB ONE (08:30)
[2018-05-18] MEDS ORDERED: DEXTROSE 5% IVPB ONE (08:30)
[2018-05-18 09:18] VITALS: PULSE 51
[2018-05-18] MEDS ORDERED: FLUOROURACIL 2,500 MG/50 ML VIAL IVPUSH ONE (09:30)
[2018-05-18 09:41] LABS: BASO % 1.3 % (0-2.0); EOS % 5.1 % (0-4.5); HEMATOCRIT 34.7 % (35.4-49); HEMOGLOBIN 11.8 GM/dL (11.7-16.9); LYMPH % 15.6 % (8-40); MCH 30.7 pg (25.7-33.7); MCHC 33.9 g/dl (32.0-35.9); MEAN CELL VOLUME 90.5 fl (80-96); MEAN PLT VOLUME 7.7 fl (7.5-11.1); PLATELET COUNT 237 K/MM3 (134-434); RBC 3.83 M/mm3 (4.00-5.60); RDW 19.9 % (11.9-15.9); WHITE BLOOD COUNT 6.2 K/mm3 (4.0-10.0)
[2018-05-18 10:10] LABS: ALBUMIN 3.2 g/dl (3.4-5.0); ALK PHOS 48 U/L (45-117); ANION GAP 5 MMOL/L (8-16); BILIRUBIN,TOTAL 0.3 mg/dL (0.2-1); BLOOD UREA NITROGEN 25 mg/dL (7-18); CALCIUM 8.8 mg/dL (8.5-10.1); CHLORIDE 104 mmol/L (98-107); CO2 31 mmol/L (21-32); CREATININE 1.5 mg/dL (0.55-1.3); GLUCOSE,RANDOM 119 mg/dL (74-106); POTASSIUM 4.2 mmol/L (3.5-5.1); SGOT/AST 30 U/L (15-37); SGPT/ALT 41 U/L (13-61); SODIUM 139 mmol/L (136-145); TOT PROT 6.3 g/dl (6.4-8.2)
[2018-05-18 10:28] LABS: BILIRUBIN,DIRECT 0.1 mg/dL (0.0-0.2); BILIRUBIN,TOTAL 0.3 mg/dL (0.2-1); TOT PROT 5.1 g/dl (6.4-8.2)
[2018-05-18] MEDS ORDERED: SODIUM CHLORIDE 250 ML IV ONE (10:30)
[2018-05-18 15:51] VITALS: TEMP 97.3
[2018-05-18] MEDS ORDERED: PORTA CATH FLUSH 10 ML IVPUSH ONE (15:51)
[2018-05-18 15:55] VITALS: BP 121/59
== END 2018-05-18 15:10 | disposition home or self-care (01) ==
LOC: JONCCHEMO 07:11 → J7W 10:50 → JONCCHEMO 15:10
PROVIDERS: ATTEND Internal Medicine Hematology & Oncology
PROC: 3E04305 Introduction of Other Antineoplastic into Central Vein, Percutaneous Approach (ICD-10-PCS; principal; 2018-05-18)
PROC: 3E0437Z Introduction of Electrolytic and Water Balance Substance into Central Vein, Percutaneous Approach (ICD-10-PCS; 2018-05-18)
PROC: 3E043GC Introduction of Other Therapeutic Substance into Central Vein, Percutaneous Approach (ICD-10-PCS; 2018-05-18)
DX: Z51.11 Encounter for antineoplastic chemotherapy (principal); C18.2 Malignant neoplasm of ascending colon
CPT/HCPCS: 36415; 80053; 80076; 83735; 85025; 96361; 96365; 96366; 96367; 96375; 96409; 96415; 96417; J2405

== ENCOUNTER → 2018-06-01 | Day surgery (SDC) | payer OTHER | LOC: JONCCHEMO 06:00 ==

== ENCOUNTER 2018-06-08 07:10 | Day surgery (SDC) | payer OTHER ==
[2018-06-08 08:55] LABS: BASO % 1.3 % (0-2.0); EOS % 5.1 % (0-4.5); HEMATOCRIT 33.9 % (35.4-49); HEMOGLOBIN 11.3 GM/dL (11.7-16.9); LYMPH % 20.1 % (8-40); MCH 29.8 pg (25.7-33.7); MCHC 33.4 g/dl (32.0-35.9); MEAN CELL VOLUME 89.3 fl (80-96); MEAN PLT VOLUME 7.4 fl (7.5-11.1); MONO % 13.3 % (3.8-10.2); NEUT % 60.2 % (42.8-82.8); PLATELET COUNT 291 K/MM3 (134-434); WHITE BLOOD COUNT 4.7 K/mm3 (4.0-10.0)
[2018-06-08 09:33] LABS: ALK PHOS 49 U/L (45-117); ANION GAP 6 MMOL/L (8-16); BILIRUBIN,DIRECT 0.1 mg/dL (0.0-0.2); BILIRUBIN,TOTAL 0.2 mg/dL (0.2-1); BLOOD UREA NITROGEN 26 mg/dL (7-18); CALCIUM 8.2 mg/dL (8.5-10.1); CHLORIDE 107 mmol/L (98-107); CO2 28 mmol/L (21-32); CREATININE 1.4 mg/dL (0.55-1.3); GLUCOSE,RANDOM 103 mg/dL (74-106); POTASSIUM 4.1 mmol/L (3.5-5.1); SGOT/AST 28 U/L (15-37); SGPT/ALT 38 U/L (13-61); SODIUM 140 mmol/L (136-145); TOT PROT 6.1 g/dl (6.4-8.2)
[2018-06-08] MEDS ORDERED: DEXAMETHASONE SODIUM PHOSPHATE 10 MG, ONDANSETRON INJECTION 8 MG in SODIUM CHLORIDE 100 ML IVPB ONE (10:00)
[2018-06-08] MEDS ORDERED: SODIUM CHLORIDE IV ONE (10:30)
[2018-06-08] MEDS ORDERED: BEVACIZUMAB IV ONE (10:30)
[2018-06-08] MEDS ORDERED: LEUCOVORIN IVPB ONE (11:00)
[2018-06-08] MEDS ORDERED: DEXTROSE 5% IVPB ONE (11:00)
[2018-06-08] MEDS ORDERED: WATER IVPB ONE (11:00)
[2018-06-08] MEDS ORDERED: FLUOROURACIL 2,500 MG/50 ML VIAL IVPUSH ONE (12:00)
[2018-06-08] MEDS ORDERED: SODIUM CHLORIDE 250 ML IV ONE (13:00)
[2018-06-08 15:40] VITALS: BP 136/74; PULSE 60; TEMP 97.8
== END 2018-06-08 15:20 | disposition home or self-care (01) ==
LOC: JONCCHEMO 07:10 → J7W 09:46 → JONCCHEMO 15:20
PROVIDERS: ATTEND Internal Medicine Hematology & Oncology
DX: Z51.11 Encounter for antineoplastic chemotherapy (principal); C18.2 Malignant neoplasm of ascending colon
CPT/HCPCS: 36415; 80053; 80076; 82378; 85025; 96361; 96366; 96367; 96375; 96409; 96411; 96413; 96415; 96417; J2405; J9035

== ENCOUNTER 2018-06-15 07:09 | Day surgery (SDC) | payer OTHER ==
[2018-06-15 08:52] LABS: BASO % 1.7 % (0-2.0); HEMATOCRIT 36.4 % (35.4-49); HEMOGLOBIN 11.9 GM/dL (11.7-16.9); LYMPH % 17.1 % (8-40); MCH 29.6 pg (25.7-33.7); MCHC 32.8 g/dl (32.0-35.9); MEAN CELL VOLUME 90.4 fl (80-96); MEAN PLT VOLUME 7.7 fl (7.5-11.1); MONO % 9.4 % (3.8-10.2); NEUT % 66.8 % (42.8-82.8); PLATELET COUNT 308 K/MM3 (134-434); RBC 4.02 M/mm3 (4.00-5.60); RDW 19.6 % (11.9-15.9); WHITE BLOOD COUNT 6.8 K/mm3 (4.0-10.0)
[2018-06-15 09:27] LABS: ALBUMIN 3.1 g/dl (3.4-5.0); BILIRUBIN,DIRECT 0.1 mg/dL (0.0-0.2); BILIRUBIN,TOTAL 0.3 mg/dL (0.2-1); MAGNESIUM 2.2 mg/dL (1.8-2.4); TOT PROT 6.4 g/dl (6.4-8.2)
[2018-06-15 09:28] LABS: ALBUMIN 3.1 g/dl (3.4-5.0); ALK PHOS 52 U/L (45-117); ANION GAP 4 MMOL/L (8-16); BILIRUBIN,TOTAL 0.4 mg/dL (0.2-1); BLOOD UREA NITROGEN 29 mg/dL (7-18); CALCIUM 8.6 mg/dL (8.5-10.1); CHLORIDE 104 mmol/L (98-107); CO2 30 mmol/L (21-32); CREATININE 1.4 mg/dL (0.55-1.3); GLUCOSE,RANDOM 122 mg/dL (74-106); SGOT/AST 35 U/L (15-37); SGPT/ALT 44 U/L (13-61); SODIUM 138 mmol/L (136-145); TOT PROT 6.5 g/dl (6.4-8.2)
[2018-06-15] MEDS ORDERED: DEXAMETHASONE SODIUM PHOSPHATE 10 MG, ONDANSETRON INJECTION 8 MG in SODIUM CHLORIDE 100 ML IVPB ONE (10:00)
[2018-06-15] MEDS ORDERED: LEUCOVORIN IVPB ONE (10:30)
[2018-06-15] MEDS ORDERED: WATER IVPB ONE (10:30)
[2018-06-15] MEDS ORDERED: DEXTROSE 5% IVPB ONE (10:30)
[2018-06-15] MEDS ORDERED: FLUOROURACIL 2,500 MG/50 ML VIAL IVPUSH ONE (11:30)
[2018-06-15] MEDS ORDERED: SODIUM CHLORIDE 250 ML IV ONE (12:30)
[2018-06-15 16:09] VITALS: PULSE 54
[2018-06-15] MEDS ORDERED: PORTA CATH FLUSH 10 ML IVPUSH ONE (16:09)
[2018-06-15 16:17] VITALS: BP 134/75; TEMP 98
== END 2018-06-15 15:30 | disposition home or self-care (01) ==
LOC: JONCCHEMO 07:09 → J7W 10:13 → JONCCHEMO 15:30
PROVIDERS: ATTEND Internal Medicine Hematology & Oncology
PROC: 3E04305 Introduction of Other Antineoplastic into Central Vein, Percutaneous Approach (ICD-10-PCS; principal; 2018-06-15)
PROC: 3E043GC Introduction of Other Therapeutic Substance into Central Vein, Percutaneous Approach (ICD-10-PCS; 2018-06-15)
PROC: 3E043GC Introduction of Other Therapeutic Substance into Central Vein, Percutaneous Approach (ICD-10-PCS; 2018-06-15)
DX: Z51.11 Encounter for antineoplastic chemotherapy (principal); C18.2 Malignant neoplasm of ascending colon
CPT/HCPCS: 36415; 80053; 80076; 82140; 83735; 85025; 96361; 96365; 96366; 96367; 96375; 96409; 96415; 96417

== ENCOUNTER 2018-06-29 07:08 | Day surgery (SDC) | payer OTHER ==
[2018-06-29] MEDS ORDERED: DEXAMETHASONE SODIUM PHOSPHATE 10 MG, ONDANSETRON INJECTION 8 MG in SODIUM CHLORIDE 100 ML IVPB ONE (08:00)
[2018-06-29] MEDS ORDERED: BEVACIZUMAB IV ONE (08:30)
[2018-06-29] MEDS ORDERED: SODIUM CHLORIDE IV ONE (08:30)
[2018-06-29 08:57] LABS: BASO % 1.2 % (0-2.0); EOS % 5.7 % (0-4.5); HEMATOCRIT 31.9 % (35.4-49); HEMOGLOBIN 10.7 GM/dL (11.7-16.9); LYMPH % 15.2 % (8-40); MCHC 33.5 g/dl (32.0-35.9); MEAN CELL VOLUME 89.7 fl (80-96); MEAN PLT VOLUME 7.7 fl (7.5-11.1); MONO % 10.3 % (3.8-10.2); NEUT % 67.6 % (42.8-82.8); PLATELET COUNT 264 K/MM3 (134-434); RBC 3.56 M/mm3 (4.00-5.60); RDW 19.8 % (11.9-15.9); WHITE BLOOD COUNT 5.7 K/mm3 (4.0-10.0)
[2018-06-29] MEDS ORDERED: LEUCOVORIN IVPB ONE (09:00)
[2018-06-29] MEDS ORDERED: WATER IVPB ONE (09:00)
[2018-06-29] MEDS ORDERED: DEXTROSE 5% IVPB ONE (09:00)
[2018-06-29 09:57] LABS: ALBUMIN 2.8 g/dl (3.4-5.0); ALK PHOS 56 U/L (45-117); ANION GAP 3 MMOL/L (8-16); BILIRUBIN,DIRECT 0.1 mg/dL (0.0-0.2); BILIRUBIN,TOTAL 0.2 mg/dL (0.2-1); BLOOD UREA NITROGEN 24 mg/dL (7-18); CALCIUM 8.1 mg/dL (8.5-10.1); CHLORIDE 108 mmol/L (98-107); CO2 28 mmol/L (21-32); CREATININE 1.3 mg/dL (0.55-1.3); GLUCOSE,RANDOM 121 mg/dL (74-106); MAGNESIUM 1.9 mg/dL (1.8-2.4); POTASSIUM 4.1 mmol/L (3.5-5.1); SGOT/AST 40 U/L (15-37); SGPT/ALT 48 U/L (13-61); SODIUM 138 mmol/L (136-145); TOT PROT 6.1 g/dl (6.4-8.2)
[2018-06-29] MEDS ORDERED: FLUOROURACIL 2,500 MG/50 ML VIAL IVPUSH ONE (10:00)
[2018-06-29] MEDS ORDERED: amLODIPine BESYLATE 5 MG TABLET (FP) PO ONE (10:45)
[2018-06-29] MEDS ORDERED: SODIUM CHLORIDE 250 ML IV ONE (11:00)
[2018-06-29 18:07] VITALS: BP 143/91; PULSE 75
[2018-06-29] MEDS ORDERED: PORTA CATH FLUSH 10 ML IVPUSH ONE (18:07)
[2018-06-29 18:08] VITALS: TEMP 98.3
== END 2018-06-29 16:10 | disposition home or self-care (01) ==
LOC: JONCCHEMO 07:08 → J7W 10:24 → JONCCHEMO 16:10
PROVIDERS: ATTEND Internal Medicine Hematology & Oncology
DX: Z51.11 Encounter for antineoplastic chemotherapy (principal); C18.2 Malignant neoplasm of ascending colon
CPT/HCPCS: 36415; 80048; 80076; 83735; 85025; 96361; 96366; 96367; 96375; 96409; 96411; 96413; 96415; 96417; J2405; J9035

== ENCOUNTER 2018-07-06 07:03 | Day surgery (SDC) | payer OTHER ==
[2018-07-06] MEDS ORDERED: DEXAMETHASONE SODIUM PHOSPHATE 10 MG, ONDANSETRON INJECTION 8 MG in SODIUM CHLORIDE 100 ML IVPB ONE (08:00)
[2018-07-06] MEDS ORDERED: WATER IVPB ONE (08:30)
[2018-07-06] MEDS ORDERED: DEXTROSE 5% IVPB ONE (08:30)
[2018-07-06] MEDS ORDERED: LEUCOVORIN IVPB ONE (08:30)
[2018-07-06] MEDS ORDERED: FLUOROURACIL 2,500 MG/50 ML VIAL IVPUSH ONE (09:30)
[2018-07-06 09:38] LABS: BASO % 1.1 % (0-2.0); EOS % 4.8 % (0-4.5); HEMATOCRIT 32.7 % (35.4-49); LYMPH % 14.2 % (8-40); MCH 30.1 pg (25.7-33.7); MCHC 33.6 g/dl (32.0-35.9); MEAN CELL VOLUME 89.4 fl (80-96); MEAN PLT VOLUME 7.9 fl (7.5-11.1); MONO % 12.2 % (3.8-10.2); NEUT % 67.7 % (42.8-82.8); PLATELET COUNT 279 K/MM3 (134-434); RBC 3.66 M/mm3 (4.00-5.60); RDW 19.3 % (11.9-15.9); WHITE BLOOD COUNT 5.8 K/mm3 (4.0-10.0)
[2018-07-06 10:11] LABS: ALK PHOS 47 U/L (45-117); ANION GAP 7 MMOL/L (8-16); BILIRUBIN,DIRECT 0.1 mg/dL (0.0-0.2); BILIRUBIN,TOTAL 0.3 mg/dL (0.2-1); BLOOD UREA NITROGEN 32 mg/dL (7-18); CALCIUM 8.8 mg/dL (8.5-10.1); CHLORIDE 107 mmol/L (98-107); CO2 28 mmol/L (21-32); CREATININE 1.4 mg/dL (0.55-1.3); GLUCOSE,RANDOM 131 mg/dL (74-106); MAGNESIUM 1.8 mg/dL (1.8-2.4); SGOT/AST 31 U/L (15-37); SGPT/ALT 36 U/L (13-61); SODIUM 142 mmol/L (136-145)
[2018-07-06] MEDS ORDERED: SODIUM CHLORIDE 250 ML IV ONE (10:30)
[2018-07-06 15:51] VITALS: TEMP 97.9
[2018-07-06 16:03] VITALS: BP 166/81; PULSE 80
[2018-07-06] MEDS ORDERED: PORTA CATH FLUSH 10 ML IVPUSH ONE (16:03)
== END 2018-07-06 14:40 | disposition home or self-care (01) ==
LOC: JONCCHEMO 07:03 → J7W 10:19 → JONCCHEMO 14:40
PROVIDERS: ATTEND Internal Medicine Hematology & Oncology
DX: Z51.11 Encounter for antineoplastic chemotherapy (principal); C18.2 Malignant neoplasm of ascending colon
CPT/HCPCS: 36415; 80048; 80076; 83735; 85025; 96361; 96367; 96375; 96409; 96411; 96413; 96415; 96417; J2405

== ENCOUNTER 2018-07-13 07:07 | Day surgery (SDC) | payer OTHER ==
[2018-07-13] MEDS ORDERED: DEXAMETHASONE SODIUM PHOSPHATE 10 MG, ONDANSETRON INJECTION 8 MG in SODIUM CHLORIDE 100 ML IVPB ONE (08:00)
[2018-07-13] MEDS ORDERED: SODIUM CHLORIDE IV ONE (08:30)
[2018-07-13] MEDS ORDERED: BEVACIZUMAB IV ONE (08:30)
[2018-07-13] MEDS ORDERED: LEUCOVORIN IVPB ONE (09:00)
[2018-07-13] MEDS ORDERED: WATER IVPB ONE (09:00)
[2018-07-13] MEDS ORDERED: DEXTROSE 5% IVPB ONE (09:00)
[2018-07-13] MEDS ORDERED: FLUOROURACIL 2,500 MG/50 ML VIAL IVPUSH ONE (10:00)
[2018-07-13 10:09] LABS: BASO % 1.2 % (0-2.0); EOS % 4.3 % (0-4.5); HEMATOCRIT 33.7 % (35.4-49); HEMOGLOBIN 11.1 GM/dL (11.7-16.9); MCH 29.5 pg (25.7-33.7); MCHC 32.9 g/dl (32.0-35.9); MEAN CELL VOLUME 89.9 fl (80-96); MEAN PLT VOLUME 7.6 fl (7.5-11.1); MONO % 8.4 % (3.8-10.2); NEUT % 71.1 % (42.8-82.8); PLATELET COUNT 256 K/MM3 (134-434); RBC 3.75 M/mm3 (4.00-5.60); RDW 20.1 % (11.9-15.9)
[2018-07-13] MEDS ORDERED: SODIUM CHLORIDE 250 ML IV ONE (11:00)
[2018-07-13 11:38] LABS: ALK PHOS 47 U/L (45-117); ANION GAP 7 MMOL/L (8-16); BILIRUBIN,DIRECT 0.1 mg/dL (0.0-0.2); BILIRUBIN,TOTAL 0.2 mg/dL (0.2-1); BLOOD UREA NITROGEN 28 mg/dL (7-18); CHLORIDE 108 mmol/L (98-107); CO2 27 mmol/L (21-32); CREATININE 1.4 mg/dL (0.55-1.3); GLUCOSE,RANDOM 92 mg/dL (74-106); MAGNESIUM 1.9 mg/dL (1.8-2.4); POTASSIUM 4.2 mmol/L (3.5-5.1); SGOT/AST 36 U/L (15-37); SGPT/ALT 42 U/L (13-61); SODIUM 141 mmol/L (136-145); TOT PROT 5.9 g/dl (6.4-8.2)
[2018-07-13 12:08] LABS: PREALBUMIN 29.6 mg/dl (20-40)
[2018-07-13 16:27] VITALS: TEMP 98.1
[2018-07-13 16:33] VITALS: BP 138/71; PULSE 60
[2018-07-13] MEDS ORDERED: PORTA CATH FLUSH 10 ML IVPUSH ONE (16:33)
== END 2018-07-13 16:10 | disposition home or self-care (01) ==
LOC: JONCCHEMO 07:07 → J7W 08:40 → JONCCHEMO 16:10
PROVIDERS: ATTEND Internal Medicine Hematology & Oncology
DX: Z51.11 Encounter for antineoplastic chemotherapy (principal); C18.2 Malignant neoplasm of ascending colon
CPT/HCPCS: 36415; 80048; 80053; 80076; 83735; 84134; 85025; 96361; 96366; 96367; 96375; 96409; 96411; 96413; 96415; 96417; J2405; J9035

== ENCOUNTER 2018-07-27 07:12 | Day surgery (SDC) | payer OTHER ==
[2018-07-27 08:55] LABS: BASO % 1.4 % (0-2.0); EOS % 4.5 % (0-4.5); HEMATOCRIT 34.2 % (35.4-49); HEMOGLOBIN 11.1 GM/dL (11.7-16.9); LYMPH % 16.5 % (8-40); MCH 29.6 pg (25.7-33.7); MCHC 32.3 g/dl (32.0-35.9); MEAN CELL VOLUME 91.4 fl (80-96); MEAN PLT VOLUME 7.9 fl (7.5-11.1); MONO % 12.7 % (3.8-10.2); NEUT % 64.9 % (42.8-82.8); PLATELET COUNT 280 K/MM3 (134-434); RBC 3.74 M/mm3 (4.00-5.60); RDW 20.3 % (11.9-15.9); WHITE BLOOD COUNT 4.8 K/mm3 (4.0-10.0)
[2018-07-27 09:22] LABS: BILIRUBIN,TOTAL 0.3 mg/dL (0.2-1); CALCIUM 8.6 mg/dL (8.5-10.1); CREATININE 1.3 mg/dL (0.55-1.3); MAGNESIUM 2.1 mg/dL (1.8-2.4)
[2018-07-27] MEDS ORDERED: DEXAMETHASONE SODIUM PHOSPHATE 20 MG, ONDANSETRON INJECTION 8 MG in SODIUM CHLORIDE 100 ML IVPB ONE (10:00)
[2018-07-27] MEDS ORDERED: BEVACIZUMAB IV ONE (10:30)
[2018-07-27] MEDS ORDERED: SODIUM CHLORIDE IV ONE (10:30)
[2018-07-27] MEDS ORDERED: LEUCOVORIN IVPB ONE (11:00)
[2018-07-27] MEDS ORDERED: DEXTROSE 5% IVPB ONE (11:00)
[2018-07-27] MEDS ORDERED: WATER IVPB ONE (11:00)
[2018-07-27] MEDS ORDERED: FLUOROURACIL 500 MG/10 ML VIAL IVPUSH ONE (12:00)
[2018-07-27] MEDS ORDERED: SODIUM CHLORIDE 250 ML IV ONE (13:00)
[2018-07-27 17:20] VITALS: BP 158/56; PULSE 79; TEMP 97.5
[2018-07-27] MEDS ORDERED: PORTA CATH FLUSH 10 ML IVPUSH ONE (17:20)
[2018-07-30 15:14] LABS: TOTAL PROTEIN, URINE 224.7 mg/dL (Not Estab.)
== END 2018-07-27 15:15 | disposition home or self-care (01) ==
LOC: JONCCHEMO 07:12 → J7W 10:21 → JONCCHEMO 15:15
PROVIDERS: ATTEND Internal Medicine Hematology & Oncology
PROC: 3E04305 Introduction of Other Antineoplastic into Central Vein, Percutaneous Approach (ICD-10-PCS; principal; 2018-07-27)
PROC: 3E043GC Introduction of Other Therapeutic Substance into Central Vein, Percutaneous Approach (ICD-10-PCS; 2018-07-27)
PROC: 3E0437Z Introduction of Electrolytic and Water Balance Substance into Central Vein, Percutaneous Approach (ICD-10-PCS; 2018-07-27)
DX: Z51.11 Encounter for antineoplastic chemotherapy (principal); C18.2 Malignant neoplasm of ascending colon; I10 Essential (primary) hypertension
CPT/HCPCS: 36415; 80053; 83735; 84156; 84157; 85025; 96361; 96366; 96367; 96375; 96409; 96413; 96415; 96417; J2405; J9035; J9190

== ENCOUNTER 2018-08-03 07:16 | Day surgery (SDC) | payer OTHER ==
[2018-08-03 09:00] LABS: BASO % 1.6 % (0-2.0); EOS % 4.3 % (0-4.5); HEMOGLOBIN 11.1 GM/dL (11.7-16.9); LYMPH % 16.9 % (8-40); MCH 29.8 pg (25.7-33.7); MCHC 32.6 g/dl (32.0-35.9); MEAN CELL VOLUME 91.3 fl (80-96); MEAN PLT VOLUME 7.7 fl (7.5-11.1); MONO % 12.9 % (3.8-10.2); NEUT % 64.3 % (42.8-82.8); PLATELET COUNT 263 K/MM3 (134-434); RBC 3.73 M/mm3 (4.00-5.60); RDW 19.3 % (11.9-15.9); WHITE BLOOD COUNT 5.1 K/mm3 (4.0-10.0)
[2018-08-03 09:24] LABS: ALBUMIN 3.1 g/dl (3.4-5.0); BILIRUBIN,DIRECT 0.1 mg/dL (0.0-0.2); BILIRUBIN,TOTAL 0.3 mg/dL (0.2-1); CALCIUM 8.3 mg/dL (8.5-10.1); CREATININE 1.6 mg/dL (0.55-1.3); MAGNESIUM 2.2 mg/dL (1.8-2.4); POTASSIUM 4.4 mmol/L (3.5-5.1); TOT PROT 5.9 g/dl (6.4-8.2)
[2018-08-03] MEDS ORDERED: DEXAMETHASONE SODIUM PHOSPHATE 10 MG, ONDANSETRON INJECTION 8 MG in SODIUM CHLORIDE 100 ML IVPB ONE (10:00)
[2018-08-03] MEDS ORDERED: DEXTROSE 5% IVPB ONE (10:30)
[2018-08-03] MEDS ORDERED: WATER IVPB ONE (10:30)
[2018-08-03] MEDS ORDERED: LEUCOVORIN IVPB ONE (10:30)
[2018-08-03] MEDS ORDERED: FLUOROURACIL 2,500 MG/50 ML VIAL IVPUSH ONE (11:30)
[2018-08-03] MEDS ORDERED: SODIUM CHLORIDE 250 ML IV ONE ×2 (12:30→17:00)
[2018-08-03 16:36] VITALS: TEMP 97.5
[2018-08-03 16:49] VITALS: BP 134/77; PULSE 64
[2018-08-03] MEDS ORDERED: PORTA CATH FLUSH 10 ML IVPUSH ONE (16:49)
== END 2018-08-03 15:20 | disposition home or self-care (01) ==
LOC: JONCCHEMO 07:16 → J7W 10:20 → JONCCHEMO 15:20
PROVIDERS: ATTEND Internal Medicine Hematology & Oncology
PROC: 3E033GC Introduction of Other Therapeutic Substance into Peripheral Vein, Percutaneous Approach (ICD-10-PCS; principal; 2018-08-03)
PROC: 3E0337Z Introduction of Electrolytic and Water Balance Substance into Peripheral Vein, Percutaneous Approach (ICD-10-PCS; 2018-08-03)
DX: C18.2 Malignant neoplasm of ascending colon (principal); I10 Essential (primary) hypertension; E78.00 Pure hypercholesterolemia, unspecified; N40.0 Benign prostatic hyperplasia without lower urinary tract symptoms
CPT/HCPCS: 36415; 80048; 80076; 83735; 85025; 96361; 96365; 96366; 96367; 96375; 96409; 96415; 96417; J2405

== ENCOUNTER 2018-08-10 07:24 | Day surgery (SDC) | payer OTHER ==
[2018-08-10 08:58] LABS: BASO % 0.8 % (0-2.0); EOS % 3.9 % (0-4.5); HEMATOCRIT 33.6 % (35.4-49); HEMOGLOBIN 10.8 GM/dL (11.7-16.9); LYMPH % 12.9 % (8-40); MCH 29.4 pg (25.7-33.7); MCHC 32.1 g/dl (32.0-35.9); MEAN CELL VOLUME 91.7 fl (80-96); MEAN PLT VOLUME 7.5 fl (7.5-11.1); MONO % 9.8 % (3.8-10.2); NEUT % 72.6 % (42.8-82.8); PLATELET COUNT 242 K/MM3 (134-434); RBC 3.67 M/mm3 (4.00-5.60); RDW 20.4 % (11.9-15.9)
[2018-08-10 09:18] LABS: BILIRUBIN,DIRECT 0.1 mg/dL (0.0-0.2); BILIRUBIN,TOTAL 0.4 mg/dL (0.2-1); CALCIUM 8.3 mg/dL (8.5-10.1); CREATININE 1.5 mg/dL (0.55-1.3); MAGNESIUM 1.9 mg/dL (1.8-2.4); POTASSIUM 4.1 mmol/L (3.5-5.1); TOT PROT 5.9 g/dl (6.4-8.2)
[2018-08-10] MEDS ORDERED: DEXAMETHASONE SODIUM PHOSPHATE 10 MG, ONDANSETRON INJECTION 8 MG in SODIUM CHLORIDE 100 ML IVPB ONE (10:00)
[2018-08-10] MEDS ORDERED: SODIUM CHLORIDE IV ONE (10:30)
[2018-08-10] MEDS ORDERED: BEVACIZUMAB IV ONE (10:30)
[2018-08-10] MEDS ORDERED: amLODIPine BESYLATE 5 MG TABLET (FP) PO ONE (10:45)
[2018-08-10] MEDS ORDERED: LEUCOVORIN IVPB ONE (11:00)
[2018-08-10] MEDS ORDERED: WATER IVPB ONE (11:00)
[2018-08-10] MEDS ORDERED: DEXTROSE 5% IVPB ONE (11:00)
[2018-08-10] MEDS ORDERED: FLUOROURACIL 2,500 MG/50 ML VIAL IVPUSH ONE (12:00)
[2018-08-10] MEDS ORDERED: SODIUM CHLORIDE 250 ML IV ONE (13:00)
[2018-08-10 18:06] VITALS: TEMP 97.4
[2018-08-10] MEDS ORDERED: PORTA CATH FLUSH 10 ML IVPUSH ONE (18:06)
[2018-08-10 18:07] VITALS: BP 159/67; PULSE 72
[2018-08-10 19:00] LABS: EPI CELLS 0.4 /HPF (0-5/HPF); HYALINE CASTS 2 /lpf (0-8); URINE APPEARANCE CLEAR; URINE BACTERIA 1.5 /hpf (NEGATIVE); URINE BILIRUBIN NEGATIVE (NEGATIVE); URINE COLOR YELLOW; URINE GLUCOSE (UA) NEGATIVE (NEGATIVE); URINE KETONE NEGATIVE (NEGATIVE); URINE LEUK ESTERASE NEGATIVE (NEGATIVE); URINE NITRITE NEGATIVE (NEGATIVE); URINE PROTEIN 3+ (NEGATIVE); URINE RBC 1 /hpf (0-4); URINE UROBILINOGEN 0.2 mg/dL (0.2-1.0); URINE WBC 1 /hpf (0-5)
== END 2018-08-10 15:10 | disposition home or self-care (01) ==
LOC: JONCCHEMO 07:24 → J7W 10:30 → JONCCHEMO 15:10
PROVIDERS: ATTEND Internal Medicine Hematology & Oncology
DX: Z51.11 Encounter for antineoplastic chemotherapy (principal); C18.2 Malignant neoplasm of ascending colon
CPT/HCPCS: 36415; 80048; 80076; 81003; 83735; 84156; 84157; 85025; 96361; 96367; 96375; 96409; 96411; 96413; 96415; 96417; J2405; J9035

== ENCOUNTER 2018-08-14 11:49 | Emergency (ER) | payer OTHER ==
[2018-08-14 12:06] VITALS: TEMP 98.1; BMI 25.1
--- NOTE | 2018-08-14 12:09 | PDOC ---
History of Present Illness - General Chief Complaint: Diarrhea Stated Complaint: DEHYDRATION - History of Present Illness Initial Comments: The pt is an 83M w/ a history of HTN, HLD, and metastatic colon cancer, last CTX 08/10/18, who presents for evaluation of three days of NBNB diarrhea w/o associated N/V or abdominal pain. He states that 3 days ago he began to have 3 episodes of NBNB per night, he does not usually have any noticeable s/p CTX, but his also noted that he appeared to be a little shaky when getting in to the car and encouraged him to present for evaluation. He denies blood in his stool, dysuria, hematuria, lethargy, lightheadedness/ dizziness, fevers/chills, new/suspicious foods, or sick contacts 08/14/18 12:28 Past History - Past Medical History Allergies/Adverse Reactions: Allergies Allergy/AdvReac Type Severity Reaction Status Date / Time No Known Allergies Allergy Verified 08/14/18 11:55 Home Medications: Ambulatory Orders Amlodipine Besylate 10 mg PO DAILY 06/17/16 Labetalol HCl [Normodyne -] 200 mg PO BID 06/17/16 Lisinopril [Prinivil -] 40 mg PO DAILY 06/17/16 Tamsulosin HCl 0.4 mg PO HS 06/17/16 Docusate Sodium [Colace -] 100 mg PO DAILY 06/18/16 Hydrochlorothiazide [Hctz -] 25 mg PO DAILY 06/18/16 Simvastatin 20 mg PO HS 06/18/16 Ascorbic Acid [Vitamin C -] 500 mg PO ASDIR 07/29/16 Glucosamine/Methylsulfonylmeth [Sm Glucosamine & MSM Tablet] 1,500 tab PO BID Multivitamins [Multivit ([facility] Formul[facility])] 1 tab PO DAILY 07/29/16 Ferrous Sulfate, Dried [Iron] 64 mg PO DAILY 09/09/16 Aspirin Coated [Ecotrin -] 81 mg PO DAILY 09/17/16 Anemia: Yes Cancer: Yes (colon) COPD: Yes GI Disorders: Yes (H/O ADENOMATOUS POLYP OF COLON) HTN: Yes Hypercholesterolemia: Yes - Surgical History Abdominal Surgery: Yes (inguinal hernia, colon resection) Cholecystectomy: Yes - Immunization History Immunization Up to Date: No - Suicide/Smoking/Psychosocial Hx Smoking History: Unknown if ever smoked Have you smoked in the past 12 months: Yes Number of Cigarettes Smoked Daily: 2 If you are a former smoker, when did you quit?: 5MONTHS AGO Hx Alcohol Use: No Drug/Substance Use Hx: No Substance Use Type: Alcohol Hx Substance Use Treatment: No Review of Systems - Review of Systems Able to Perform ROS?: Yes Comments:: GENERAL/CONSTITUTIONAL: No fever or chills. No weakness HEAD, EYES, EARS, NOSE AND THROAT: No change in vision. No ear pain or discharge. No sore throat CARDIOVASCULAR: No chest pain or shortness of breath RESPIRATORY: Denies cough, hemoptysis GASTROINTESTINAL: Denies nausea, vomiting, or blood in his stool GENITOURINARY: No dysuria, frequency, or change in urination MUSCULOSKELETAL: No joint or muscle swelling or pain. No neck or back pain SKIN: No rash NEUROLOGIC: No headache, vertigo, loss of consciousness, or change in strength/ sensation ENDOCRINE: No increased thirst. No recent unintentional weight change HEMATOLOGIC/LYMPHATIC: No easy bleeding or history of blood clots ALLERGIC/IMMUNOLOGIC: No hives or skin allergy 08/14/18 12:08 Is the patient limited Greenlandic proficient: No *Physical Exam - Vital Signs Last Vital Signs Temp Pulse Resp BP Pulse Ox 98.1 F 59 L 16 142/62 100 08/14/18 11:58 08/14/18 11:58 08/14/18 11:58 08/14/18 11:58 08/14/18 11:58 - Physical Exam Comments: GENERAL: Awake, alert, and oriented to person/place/time, in no acute distress HEAD: No signs of trauma, normocephalic, atraumatic EYES: PERRLA, EOMI, sclera anicteric, conjunctiva clear ENT: Hearing grossly normal, nares patent, oropharynx clear without exudates LUNGS: No distress, speaks full sentences, clear to auscultation bilaterally HEART: Regular rate and rhythm, normal S1 and S2, no murmurs appreciated, peripheral pulses normal and equal bilaterally ABDOMEN: Soft, nontender, normoactive bowel sounds. No guarding, no rebound EXTREMITIES: Normal inspection, Normal range of motion, no edema. No clubbing or cyanosis NEUROLOGICAL: Cranial nerves II through XII grossly intact. Normal speech, normal gait, no focal sensorimotor deficits SKIN: Warm, Dry 08/14/18 12:08 ED Treatment Course - LABORATORY CBC & Chemistry Diagram: 08/14/18 12:25 08/14/18 13:22 Medical Decision Making - Medical Decision Making The pt is an 83M w/ a history of HTN, HLD, colon cancer w/ mets on CTX, last on 08/10/18, who presents with 3 days of NBNB diarrhea Ddx: medication side affects, enteritis, infection ED Course CMP, CBC 1L NS 08/14/18 12:47 No leukocytosis Mild anemia, at baseline 08/14/18 13:40 Lytes wnl LFTs unremarkable Cr at baseline Pt reports feeling at his baseline. He is ambulating with steady gait Case discussed w/ Oncology group Plan for D/C w/ PCP/Onc f/u Discharge instructions and return precautions given Pt in agreement and verbalized understanding Dispo: home 08/14/18 17:50 *DC/Admit/Observation/Transfer Diagnosis at time of Disposition: Diarrhea Qualifiers: Diarrhea type: unspecified type Qualified Code(s): R19.7 - Diarrhea, unspecified Colon cancer Qualifiers: Colon location: ascending Qualified Code(s): C18.2 - Malignant neoplasm of ascending colon Hypertension Qualifiers: Hypertension type: unspecified Qualified Code(s): I10 - Essential (primary) hypertension - Discharge Dispostion Disposition: HOME Condition at time of disposition: Stable Decision to Admit order: No - Referrals Referrals: Corazon Hawley MD [Primary Care Provider] - Hermes Real MD [Staff Physician] - - Patient Instructions Printed Discharge Instructions: Diarrhea Additional Instructions: You were seen in the Emergency Department for evaluation of diarrhea. Your labs were unremarkable and you were given a liter of IV fluid. Review the handout provided at discharge. For the duration of your diarrhea, you should increase your fluid intake. You may drink gatorade mixed with water to approximate how much your are losing. Maintain your follow up with Dr. Real and your primary care provider Return to the Emergency Department if you develop fevers/chills, nausea/vomiting , abdominal pain, blood in your stool, worsening symptoms, lightheadedness/ dizziness, or any new/concerning symptoms. - Post Discharge Activity
[2018-08-14] MEDS ORDERED: SODIUM CHLORIDE 0.9% 500 ML INFUS.BAG IV ONE (12:28)
[2018-08-14 13:00] LABS: BASO % 1.1 % (0-2.0); EOS % 2.7 % (0-4.5); HEMATOCRIT 33.1 % (35.4-49); HEMOGLOBIN 10.7 GM/dL (11.7-16.9); LYMPH % 13.2 % (8-40); MCH 29.8 pg (25.7-33.7); MCHC 32.3 g/dl (32.0-35.9); MEAN CELL VOLUME 92.4 fl (80-96); MEAN PLT VOLUME 8.1 fl (7.5-11.1); MONO % 10.7 % (3.8-10.2); NEUT % 72.3 % (42.8-82.8); PLATELET COUNT 240 K/MM3 (134-434); RBC 3.59 M/mm3 (4.00-5.60); RDW 20.6 % (11.9-15.9); WHITE BLOOD COUNT 5.2 K/mm3 (4.0-10.0)
--- NOTE | 2018-08-14 13:12 | PDOC ---
Documentation entered by Kirti Arriaga SCRIBE, acting as scribe for Carmen Simpson MD. Carmen Simpson MD: This documentation has been prepared by the scribe, Kirti Arriaga SCRIBE, under my direction and personally reviewed by me in its entirety. I confirm that the documentation accurately reflects all work, treatment, procedures, and medical decision making performed by me. Attending Attestation - Resident Resident Name: LaurajeradGui - ED Attending Attestation I have performed the following: I have examined & evaluated the patient, The case was reviewed & discussed with the resident, I agree w/resident's findings & plan, Exceptions are as noted - HPI HPI: 08/14/18 13:00 The patient is an 83-year-old male with a past medical history significant for HTN, HLD, and Metastatic Colon Ca (on chemo, last chemo 08/[address] Real) presents to the emergency department with diarrhea. The patient reports since , hes been having 3 episodes of soft, watery diarrhea, every day since. Denies hematochezia or melena. Denies abdominal pain or malaise. The patient reports he usually doesnt have side effects following chemo. Per niece at the bedside, she noticed the patient was shaking while trying to get in the car, and decided to bring the patient in for evaluation. Denies fever, chills. Denies sick contact or intake of unusual food. Allergies: NKDA Social history: Former smoker, no alcohol or recreational drug use reported Surgical history: TURVP, colon resection and inguinal hernia. PCP: Dr. Rush Oncologist: Dr. Real Urologist: Dr. Griggs. - Physicial Exam PE: GENERAL: Awake, alert, and fully oriented, in no acute distress HEAD: No signs of trauma EYES: PERRLA, EOMI, sclera anicteric, conjunctiva clear ENT: Auricles normal inspection, hearing grossly normal, nares patent, oropharynx clear without exudates. Dry mucosa NECK: Normal ROM, supple, no lymphadenopathy, JVD, or masses LUNGS: Breath sounds equal, clear to auscultation bilaterally. No wheezes, and no crackles HEART: Regular rate and rhythm, normal S1 and S2, no murmurs, rubs or gallops ABDOMEN: Soft, nontender, normoactive bowel sounds. No guarding, no rebound. No masses EXTREMITIES: Normal range of motion, no edema. No clubbing or cyanosis. No cords, erythema, or tenderness NEUROLOGICAL: Cranial nerves II through XII grossly intact. Normal speech, normal gait. Motor and sensation intact SKIN: Warm, Dry, normal turgor, no rashes or lesions noted. - Medical Decision Making Pt appears well, nontoxic. Meds reviewed, and 2 of his chemo medications can cause severe diarrhea and dehydration. Will check labs to check electrolytes, will d/w Dr. Real. IV fluids in the meantime to rehydrate.
[2018-08-14 14:21] LABS: ALBUMIN 2.7 g/dl (3.4-5.0); BILIRUBIN,TOTAL 0.5 mg/dL (0.2-1); CALCIUM 8.4 mg/dL (8.5-10.1); CREATININE 1.4 mg/dL (0.55-1.3); POTASSIUM 3.7 mmol/L (3.5-5.1); TOT PROT 5.1 g/dl (6.4-8.2)
[2018-08-14 15:12] LABS: ANISOCYTOSIS 1+; MACROCYTOSIS 1+; OVALOCYTE 1+; TARGET CELLS 1+
[2018-08-14 15:26] VITALS: BP 168/79; PULSE 64
== END 2018-08-14 15:29 | disposition home or self-care (01) ==
LOC: JER 11:49
PROC: 3E0337Z Introduction of Electrolytic and Water Balance Substance into Peripheral Vein, Percutaneous Approach (ICD-10-PCS; principal; 2018-08-14)
DX: R19.7 Diarrhea, unspecified (principal); C18.2 Malignant neoplasm of ascending colon; I11.0 Hypertensive heart disease with heart failure; E78.5 Hyperlipidemia, unspecified
CPT/HCPCS: 36415; 80053; 85025; 96360; 99283-25

== ENCOUNTER 2018-08-24 07:05 | Day surgery (SDC) | payer OTHER | END 2018-08-24 14:30 | disposition home or self-care (01) | LOC: JONCCHEMO 07:05 → J7W 09:34 → JONCCHEMO 14:30 ==

== ENCOUNTER 2018-09-07 07:06 | Day surgery (SDC) | payer OTHER ==
[2018-09-07 08:55] LABS: BASO % 1.4 % (0-2.0); EOS % 4.2 % (0-4.5); HEMATOCRIT 32.4 % (35.4-49); HEMOGLOBIN 10.6 GM/dL (11.7-16.9); LYMPH % 15.8 % (8-40); MCHC 32.8 g/dl (32.0-35.9); MEAN CELL VOLUME 91.3 fl (80-96); MEAN PLT VOLUME 7.3 fl (7.5-11.1); MONO % 12.5 % (3.8-10.2); NEUT % 66.1 % (42.8-82.8); PLATELET COUNT 266 K/MM3 (134-434); RBC 3.55 M/mm3 (4.00-5.60); WHITE BLOOD COUNT 5.4 K/mm3 (4.0-10.0)
[2018-09-07] MEDS ORDERED: DEXAMETHASONE SODIUM PHOSPHATE 10 MG, ONDANSETRON INJECTION 8 MG in SODIUM CHLORIDE 100 ML IVPB ONE (09:00)
[2018-09-07 09:29] LABS: BILIRUBIN,DIRECT 0.1 mg/dL (0.0-0.2); BILIRUBIN,TOTAL 0.3 mg/dL (0.2-1); BLOOD UREA NITROGEN 22.2 mg/dL (7-18); CALCIUM 8.6 mg/dL (8.5-10.1); CREATININE 1.7 mg/dL (0.55-1.3); MAGNESIUM 2.1 mg/dL (1.8-2.4); POTASSIUM 4.6 mmol/L (3.5-5.1); TOT PROT 5.9 g/dl (6.4-8.2)
[2018-09-07] MEDS ORDERED: WATER IVPB ONE (09:30)
[2018-09-07] MEDS ORDERED: LEUCOVORIN IVPB ONE (09:30)
[2018-09-07] MEDS ORDERED: DEXTROSE 5% IVPB ONE (09:30)
[2018-09-07] MEDS ORDERED: FLUOROURACIL 2,500 MG/50 ML VIAL IVPUSH ONE (10:30)
[2018-09-07] MEDS ORDERED: SODIUM CHLORIDE 250 ML IV ONE (11:30)
[2018-09-07 13:14] LABS: ANISOCYTOSIS 2+; MACROCYTOSIS 0; PLATELET ESTIMATE NORMAL; TARGET CELLS 1+
[2018-09-07 16:49] VITALS: TEMP 97.9
[2018-09-07] MEDS ORDERED: PORTA CATH FLUSH 10 ML IVPUSH ONE (16:49)
[2018-09-07 16:50] VITALS: BP 121/61; PULSE 49
== END 2018-09-07 13:30 | disposition home or self-care (01) ==
LOC: JONCCHEMO 07:06 → J7W 09:52 → JONCCHEMO 13:30
PROVIDERS: ATTEND Internal Medicine Hematology & Oncology
PROC: 3E04305 Introduction of Other Antineoplastic into Central Vein, Percutaneous Approach (ICD-10-PCS; principal; 2018-09-07)
PROC: 3E043GC Introduction of Other Therapeutic Substance into Central Vein, Percutaneous Approach (ICD-10-PCS; 2018-09-07)
PROC: 3E043GC Introduction of Other Therapeutic Substance into Central Vein, Percutaneous Approach (ICD-10-PCS; 2018-09-07)
DX: Z51.11 Encounter for antineoplastic chemotherapy (principal); C18.2 Malignant neoplasm of ascending colon
CPT/HCPCS: 36415; 80048; 80076; 83735; 85025; 96361; 96365; 96366; 96367; 96375; 96409; 96415; 96417; J2405

== ENCOUNTER 2018-09-14 06:04 | Day surgery (SDC) | payer OTHER ==
[2018-09-14 08:52] LABS: BASO % 1.4 % (0-2.0); EOS % 5.8 % (0-4.5); HEMATOCRIT 32.2 % (35.4-49); HEMOGLOBIN 10.6 GM/dL (11.7-16.9); LYMPH % 19.8 % (8-40); MCHC 32.8 g/dl (32.0-35.9); MEAN CELL VOLUME 91.3 fl (80-96); MEAN PLT VOLUME 7.4 fl (7.5-11.1); MONO % 12.2 % (3.8-10.2); NEUT % 60.8 % (42.8-82.8); PLATELET COUNT 244 K/MM3 (134-434); RBC 3.52 M/mm3 (4.00-5.60); RDW 20.5 % (11.9-15.9); WHITE BLOOD COUNT 5.1 K/mm3 (4.0-10.0)
[2018-09-14] MEDS ORDERED: DEXAMETHASONE SODIUM PHOSPHATE 10 MG, ONDANSETRON INJECTION 8 MG in SODIUM CHLORIDE 100 ML IVPB ONE (09:00)
[2018-09-14 09:29] LABS: ALBUMIN 2.9 g/dl (3.4-5.0); BILIRUBIN,DIRECT 0.1 mg/dL (0.0-0.2); BILIRUBIN,TOTAL 0.3 mg/dL (0.2-1); BLOOD UREA NITROGEN 31.4 mg/dL (7-18); CREATININE 1.8 mg/dL (0.55-1.3); MAGNESIUM 1.9 mg/dL (1.8-2.4); POTASSIUM 4.1 mmol/L (3.5-5.1); TOT PROT 5.7 g/dl (6.4-8.2)
[2018-09-14] MEDS ORDERED: WATER IVPB ONE (09:30)
[2018-09-14] MEDS ORDERED: DEXTROSE 5% IVPB ONE (09:30)
[2018-09-14] MEDS ORDERED: LEUCOVORIN IVPB ONE (09:30)
[2018-09-14] MEDS ORDERED: FLUOROURACIL 2,500 MG/50 ML VIAL IVPUSH ONE (10:30)
[2018-09-14] MEDS ORDERED: SODIUM CHLORIDE IV ONE (11:30)
[2018-09-14] MEDS ORDERED: BEVACIZUMAB IV ONE (11:30)
[2018-09-14] MEDS ORDERED: SODIUM CHLORIDE 250 ML IV ONE (12:00)
[2018-09-14 13:24] LABS: ANISOCYTOSIS 1+; MACROCYTOSIS 1+; PLATELET ESTIMATE NORMAL
[2018-09-14 17:51] VITALS: TEMP 97.9
[2018-09-14 18:07] VITALS: BP 139/73; PULSE 53
[2018-09-14] MEDS ORDERED: PORTA CATH FLUSH 10 ML IVPUSH ONE (18:20)
== END 2018-09-14 17:00 | disposition home or self-care (01) ==
LOC: JONCCHEMO 06:04 → J7W 10:17 → JONCCHEMO 17:00
PROVIDERS: ATTEND Internal Medicine Hematology & Oncology
PROC: 3E04305 Introduction of Other Antineoplastic into Central Vein, Percutaneous Approach (ICD-10-PCS; principal; 2018-09-14)
PROC: 3E043GC Introduction of Other Therapeutic Substance into Central Vein, Percutaneous Approach (ICD-10-PCS; 2018-09-14)
PROC: 3E043GC Introduction of Other Therapeutic Substance into Central Vein, Percutaneous Approach (ICD-10-PCS; 2018-09-14)
DX: Z51.11 Encounter for antineoplastic chemotherapy (principal); C18.2 Malignant neoplasm of ascending colon
CPT/HCPCS: 36415; 80048; 80076; 83735; 85025; 96361; 96365; 96366; 96367; 96375; 96409; 96415; 96417; J2405

== ENCOUNTER 2018-09-28 07:05 | Day surgery (SDC) | payer OTHER ==
[~2018-09-28 07:05] MED LIST: BEVACIZUMAB IV ONE; SODIUM CHLORIDE 250 ML IV ONE; SODIUM CHLORIDE IV ONE
[2018-09-28 08:42] LABS: BASO % 1.2 % (0-2.0); EOS % 4.6 % (0-4.5); HEMATOCRIT 31.8 % (35.4-49); HEMOGLOBIN 10.5 GM/dL (11.7-16.9); LYMPH % 19.2 % (8-40); MCH 30.2 pg (25.7-33.7); MCHC 33.1 g/dl (32.0-35.9); MEAN CELL VOLUME 91.3 fl (80-96); MEAN PLT VOLUME 7.3 fl (7.5-11.1); MONO % 12.2 % (3.8-10.2); NEUT % 62.8 % (42.8-82.8); PLATELET COUNT 261 K/MM3 (134-434); RBC 3.48 M/mm3 (4.00-5.60); RDW 21.4 % (11.9-15.9); WHITE BLOOD COUNT 4.4 K/mm3 (4.0-10.0)
[2018-09-28 09:15] LABS: ALBUMIN 3.1 g/dl (3.4-5.0); BILIRUBIN,DIRECT 0.1 mg/dL (0.0-0.2); BILIRUBIN,TOTAL 0.3 mg/dL (0.2-1); BLOOD UREA NITROGEN 26.1 mg/dL (7-18); CALCIUM 8.6 mg/dL (8.5-10.1); CREATININE 1.7 mg/dL (0.55-1.3)
[2018-09-28] MEDS ORDERED: DEXAMETHASONE SODIUM PHOSPHATE 20 MG, ONDANSETRON INJECTION 8 MG in SODIUM CHLORIDE 100 ML IVPB ONE (10:00)
[2018-09-28 10:03] LABS: ANISOCYTOSIS 0; MACROCYTOSIS 0; PLATELET ESTIMATE NORMAL; TARGET CELLS 1+
[2018-09-28] MEDS ORDERED: SODIUM CHLORIDE 250 ML IV ONE ×2 (10:30→11:00)
[2018-09-28] MEDS ORDERED: BEVACIZUMAB IV ONE (10:30)
[2018-09-28] MEDS ORDERED: SODIUM CHLORIDE IV ONE (10:30)
[2018-09-28] MEDS ORDERED: LEUCOVORIN IVPB ONE (11:00)
[2018-09-28] MEDS ORDERED: WATER IVPB ONE (11:00)
[2018-09-28] MEDS ORDERED: DEXTROSE 5% IVPB ONE (11:00)
[2018-09-28] MEDS ORDERED: FLUOROURACIL 500 MG/10 ML VIAL IVPUSH ONE (12:00)
[2018-09-28] MEDS ORDERED: PORTA CATH FLUSH 10 ML IVPUSH ONE (15:30)
[2018-09-28 15:31] VITALS: PULSE 74
[2018-09-28 15:36] VITALS: BP 141/70; TEMP 97
== END 2018-09-28 15:30 | disposition home or self-care (01) ==
LOC: JONCCHEMO 07:05 → J7W 10:10 → JONCCHEMO 15:30
PROVIDERS: ATTEND Internal Medicine Hematology & Oncology
DX: Z51.11 Encounter for antineoplastic chemotherapy (principal); C18.2 Malignant neoplasm of ascending colon
CPT/HCPCS: 36415; 80048; 80076; 83735; 84156; 85025; 96361; 96366; 96367; 96375; 96409; 96411; 96413; 96415; 96417; J9035; J9190

== ENCOUNTER 2018-10-05 06:50 | Day surgery (SDC) | payer OTHER ==
[2018-10-05 08:46] LABS: BASO % 0.9 % (0-2.0); EOS % 5.8 % (0-4.5); HEMATOCRIT 32.2 % (35.4-49); HEMOGLOBIN 10.6 GM/dL (11.7-16.9); LYMPH % 16.7 % (8-40); MCHC 32.8 g/dl (32.0-35.9); MEAN CELL VOLUME 91.5 fl (80-96); MEAN PLT VOLUME 7.5 fl (7.5-11.1); NEUT % 63.6 % (42.8-82.8); PLATELET COUNT 258 K/MM3 (134-434); RBC 3.52 M/mm3 (4.00-5.60); RDW 20.6 % (11.9-15.9); WHITE BLOOD COUNT 4.5 K/mm3 (4.0-10.0)
[2018-10-05 09:07] LABS: BILIRUBIN,DIRECT 0.1 mg/dL (0.0-0.2); BILIRUBIN,TOTAL 0.4 mg/dL (0.2-1); BLOOD UREA NITROGEN 29.7 mg/dL (7-18); CALCIUM 8.5 mg/dL (8.5-10.1); CREATININE 1.5 mg/dL (0.55-1.3); POTASSIUM 4.2 mmol/L (3.5-5.1); TOT PROT 5.8 g/dl (6.4-8.2)
[2018-10-05] MEDS ORDERED: SODIUM CHLORIDE 250 ML IV ONE (10:00)
[2018-10-05] MEDS ORDERED: DEXAMETHASONE SODIUM PHOSPHATE 10 MG, ONDANSETRON INJECTION 8 MG in SODIUM CHLORIDE 100 ML IVPB ONE (10:00)
[2018-10-05] MEDS ORDERED: DEXTROSE 5% IVPB ONE (10:30)
[2018-10-05] MEDS ORDERED: LEUCOVORIN IVPB ONE (10:30)
[2018-10-05] MEDS ORDERED: WATER IVPB ONE (10:30)
[2018-10-05] MEDS ORDERED: FLUOROURACIL 500 MG/10 ML VIAL IVPUSH ONE (11:30)
[2018-10-05 12:52] LABS: ANISOCYTOSIS 1+; MACROCYTOSIS 1+; OVALOCYTE 1+
[2018-10-05] MEDS ORDERED: PORTA CATH FLUSH 10 ML IVPUSH ONE (14:30)
[2018-10-05 17:18] VITALS: TEMP 98.3
[2018-10-05 17:27] VITALS: BP 144/77; PULSE 70
== END 2018-10-05 14:30 | disposition home or self-care (01) ==
LOC: JONCCHEMO 06:50 → J7W 09:40 → JONCCHEMO 14:30
PROVIDERS: ATTEND Internal Medicine Hematology & Oncology
PROC: 3E04305 Introduction of Other Antineoplastic into Central Vein, Percutaneous Approach (ICD-10-PCS; principal; 2018-10-05)
PROC: 3E043GC Introduction of Other Therapeutic Substance into Central Vein, Percutaneous Approach (ICD-10-PCS; 2018-10-05)
PROC: 3E043GC Introduction of Other Therapeutic Substance into Central Vein, Percutaneous Approach (ICD-10-PCS; 2018-10-05)
DX: Z51.11 Encounter for antineoplastic chemotherapy (principal); C18.2 Malignant neoplasm of ascending colon
CPT/HCPCS: 36415; 80048; 80076; 83735; 85025; 96361; 96367; 96375; 96409; 96415; 96417; J9190

== ENCOUNTER 2018-10-12 05:49 | Day surgery (SDC) | payer OTHER ==
[2018-10-12 09:18] LABS: BASO % 1.2 % (0-2.0); EOS % 4.1 % (0-4.5); HEMATOCRIT 31.4 % (35.4-49); HEMOGLOBIN 10.4 GM/dL (11.7-16.9); LYMPH % 15.2 % (8-40); MCH 30.6 pg (25.7-33.7); MCHC 33.3 g/dl (32.0-35.9); MEAN PLT VOLUME 7.5 fl (7.5-11.1); MONO % 9.5 % (3.8-10.2); PLATELET COUNT 253 K/MM3 (134-434); RBC 3.41 M/mm3 (4.00-5.60); WHITE BLOOD COUNT 6.2 K/mm3 (4.0-10.0)
[2018-10-12 09:53] LABS: ALBUMIN 3.1 g/dl (3.4-5.0); BILIRUBIN,DIRECT 0.1 mg/dL (0.0-0.2); BILIRUBIN,TOTAL 0.3 mg/dL (0.2-1); BLOOD UREA NITROGEN 32.3 mg/dL (7-18); CALCIUM 8.4 mg/dL (8.5-10.1); CREATININE 1.7 mg/dL (0.55-1.3); MAGNESIUM 1.8 mg/dL (1.8-2.4); TOT PROT 5.8 g/dl (6.4-8.2)
[2018-10-12] MEDS ORDERED: DEXAMETHASONE SODIUM PHOSPHATE 10 MG, ONDANSETRON INJECTION 8 MG in SODIUM CHLORIDE 100 ML IVPB ONE (10:00)
[2018-10-12] MEDS ORDERED: WATER IVPB ONE (10:30)
[2018-10-12] MEDS ORDERED: DEXTROSE 5% IVPB ONE (10:30)
[2018-10-12] MEDS ORDERED: LEUCOVORIN IVPB ONE (10:30)
[2018-10-12] MEDS ORDERED: FLUOROURACIL 2,500 MG/50 ML VIAL IVPUSH ONE (11:30)
[2018-10-12 12:24] LABS: ANISOCYTOSIS 1+; MACROCYTOSIS 1+; OVALOCYTE 1+; PLATELET ESTIMATE NORMAL; TARGET CELLS 1+
[2018-10-12] MEDS ORDERED: SODIUM CHLORIDE 250 ML IV ONE (12:30)
[2018-10-12 17:12] VITALS: BP 138/69; PULSE 53; TEMP 97.8
[2018-10-12] MEDS ORDERED: PORTA CATH FLUSH 10 ML IVPUSH ONE (17:12)
== END 2018-10-12 16:15 | disposition home or self-care (01) ==
LOC: JONCCHEMO 05:49 → J7W 10:36 → JONCCHEMO 16:15
PROVIDERS: ATTEND Internal Medicine Hematology & Oncology
PROC: 3E043GC Introduction of Other Therapeutic Substance into Central Vein, Percutaneous Approach (ICD-10-PCS; principal; 2018-10-12)
PROC: 3E0437Z Introduction of Electrolytic and Water Balance Substance into Central Vein, Percutaneous Approach (ICD-10-PCS; 2018-10-12)
DX: C18.2 Malignant neoplasm of ascending colon (principal); Z76.89 Persons encountering health services in other specified circumstances; I10 Essential (primary) hypertension; E78.00 Pure hypercholesterolemia, unspecified; N40.0 Benign prostatic hyperplasia without lower urinary tract symptoms
CPT/HCPCS: 36415; 80048; 80076; 83735; 85025; 96361; 96365; 96366; 96367; 96375; 96409; 96415; 96417

== ENCOUNTER 2018-10-26 07:13 | Day surgery (SDC) | payer OTHER ==
[2018-10-26 08:46] LABS: BASO % 0.6 % (0-2.0); EOS % 6.6 % (0-4.5); HEMATOCRIT 31.3 % (35.4-49); HEMOGLOBIN 10.3 GM/dL (11.7-16.9); LYMPH % 19.4 % (8-40); MCH 30.6 pg (25.7-33.7); MCHC 32.9 g/dl (32.0-35.9); MEAN PLT VOLUME 7.6 fl (7.5-11.1); MONO % 13.2 % (3.8-10.2); NEUT % 60.2 % (42.8-82.8); PLATELET COUNT 251 K/MM3 (134-434); RBC 3.36 M/mm3 (4.00-5.60); RDW 21.5 % (11.9-15.9); WHITE BLOOD COUNT 4.9 K/mm3 (4.0-10.0)
[2018-10-26 09:07] LABS: ALBUMIN 3.1 g/dl (3.4-5.0); BILIRUBIN,DIRECT 0.2 mg/dL (0.0-0.2); BILIRUBIN,TOTAL 0.4 mg/dL (0.2-1); BLOOD UREA NITROGEN 26.2 mg/dL (7-18); CALCIUM 8.7 mg/dL (8.5-10.1); CREATININE 1.8 mg/dL (0.55-1.3); MAGNESIUM 1.9 mg/dL (1.8-2.4); POTASSIUM 4.1 mmol/L (3.5-5.1)
[2018-10-26] MEDS ORDERED: DEXAMETHASONE SODIUM PHOSPHATE 10 MG, ONDANSETRON INJECTION 8 MG in SODIUM CHLORIDE 100 ML IVPB ONE (09:30)
[2018-10-26] MEDS ORDERED: WATER IVPB ONE (10:00)
[2018-10-26] MEDS ORDERED: LEUCOVORIN IVPB ONE (10:00)
[2018-10-26] MEDS ORDERED: DEXTROSE 5% IVPB ONE (10:00)
[2018-10-26] MEDS ORDERED: FLUOROURACIL 500 MG/10 ML VIAL IVPUSH ONE (11:00)
[2018-10-26] MEDS ORDERED: SODIUM CHLORIDE 250 ML IV ONE (12:00)
[2018-10-26 13:58] LABS: ANISOCYTOSIS 1+; MACROCYTOSIS 1+; OVALOCYTE 1+; PLATELET ESTIMATE NORMAL; TARGET CELLS 1+
[2018-10-26 16:10] VITALS: BP 132/64; TEMP 98
[2018-10-26] MEDS ORDERED: PORTA CATH FLUSH 10 ML IVPUSH ONE (16:10)
[2018-10-26 16:12] VITALS: PULSE 52
== END 2018-10-26 15:17 | disposition home or self-care (01) ==
LOC: JONCCHEMO 07:13 → J7W 10:38 → JONCCHEMO 15:17
PROVIDERS: ATTEND Internal Medicine Hematology & Oncology
PROC: 3E04305 Introduction of Other Antineoplastic into Central Vein, Percutaneous Approach (ICD-10-PCS; principal; 2018-10-26)
PROC: 3E043GC Introduction of Other Therapeutic Substance into Central Vein, Percutaneous Approach (ICD-10-PCS; 2018-10-26)
PROC: 3E043GC Introduction of Other Therapeutic Substance into Central Vein, Percutaneous Approach (ICD-10-PCS; 2018-10-26)
DX: Z51.11 Encounter for antineoplastic chemotherapy (principal); C18.2 Malignant neoplasm of ascending colon
CPT/HCPCS: 36415; 80048; 80076; 83735; 85025; 96361; 96365; 96366; 96367; 96375; 96409; 96415; 96417; J2405; J9190

== ENCOUNTER 2018-11-02 07:03 | Day surgery (SDC) | payer OTHER ==
[2018-11-02 09:13] LABS: HEMATOCRIT 30.8 % (35.4-49); HEMOGLOBIN 10.2 GM/dL (11.7-16.9); MCH 30.7 pg (25.7-33.7); MCHC 33.3 g/dl (32.0-35.9); MEAN CELL VOLUME 92.1 fl (80-96); MEAN PLT VOLUME 7.6 fl (7.5-11.1); PLATELET COUNT 274 K/MM3 (134-434); RBC 3.34 M/mm3 (4.00-5.60); RDW 20.6 % (11.9-15.9)
[2018-11-02] MEDS ORDERED: DEXAMETHASONE SODIUM PHOSPHATE 10 MG, ONDANSETRON INJECTION 8 MG in SODIUM CHLORIDE 100 ML IVPB ONE (09:30)
[2018-11-02 09:46] LABS: ALBUMIN 3.2 g/dl (3.4-5.0); BILIRUBIN,DIRECT 0.1 mg/dL (0.0-0.2); BILIRUBIN,TOTAL 0.4 mg/dL (0.2-1); BLOOD UREA NITROGEN 36.1 mg/dL (7-18); CALCIUM 8.4 mg/dL (8.5-10.1); CREATININE 1.9 mg/dL (0.55-1.3)
[2018-11-02] MEDS ORDERED: DEXTROSE 5% IVPB ONE (10:00)
[2018-11-02] MEDS ORDERED: LEUCOVORIN IVPB ONE (10:00)
[2018-11-02] MEDS ORDERED: WATER IVPB ONE (10:00)
[2018-11-02] MEDS ORDERED: FLUOROURACIL 2,500 MG/50 ML VIAL IVPUSH ONE (11:00)
[2018-11-02] MEDS ORDERED: SODIUM CHLORIDE 250 ML IV ONE (12:00)
[2018-11-02 15:58] LABS: TARGET CELLS 1+
[2018-11-02 18:22] VITALS: TEMP 97.9
[2018-11-02 18:56] VITALS: BP 136/54; PULSE 52
[2018-11-02] MEDS ORDERED: PORTA CATH FLUSH 10 ML IVPUSH ONE (18:56)
== END 2018-11-02 15:55 | disposition home or self-care (01) ==
LOC: JONCCHEMO 07:03 → J7W 10:32 → JONCCHEMO 15:55
PROVIDERS: ATTEND Internal Medicine Hematology & Oncology
PROC: 3E04305 Introduction of Other Antineoplastic into Central Vein, Percutaneous Approach (ICD-10-PCS; principal; 2018-11-02)
PROC: 3E043GC Introduction of Other Therapeutic Substance into Central Vein, Percutaneous Approach (ICD-10-PCS; 2018-11-02)
PROC: 3E043GC Introduction of Other Therapeutic Substance into Central Vein, Percutaneous Approach (ICD-10-PCS; 2018-11-02)
DX: Z51.11 Encounter for antineoplastic chemotherapy (principal); C18.2 Malignant neoplasm of ascending colon
CPT/HCPCS: 36415; 80048; 80076; 83735; 85025; 96361; 96365; 96366; 96367; 96375; 96409; 96415; 96417; J2405

== ENCOUNTER 2018-11-09 07:08 | Day surgery (SDC) | payer OTHER ==
[2018-11-09 08:57] LABS: BASO % 0.7 % (0-2.0); EOS % 3.6 % (0-4.5); HEMATOCRIT 32.7 % (35.4-49); HEMOGLOBIN 10.9 GM/dL (11.7-16.9); LYMPH % 20.7 % (8-40); MCHC 33.4 g/dl (32.0-35.9); MEAN CELL VOLUME 92.8 fl (80-96); MEAN PLT VOLUME 7.7 fl (7.5-11.1); MONO % 7.2 % (3.8-10.2); NEUT % 67.8 % (42.8-82.8); PLATELET COUNT 266 K/MM3 (134-434); RBC 3.52 M/mm3 (4.00-5.60); RDW 20.9 % (11.9-15.9); WHITE BLOOD COUNT 6.2 K/mm3 (4.0-10.0)
[2018-11-09 09:27] LABS: ALBUMIN 3.3 g/dl (3.4-5.0); BILIRUBIN,DIRECT 0.1 mg/dL (0.0-0.2); BILIRUBIN,TOTAL 0.5 mg/dL (0.2-1); BLOOD UREA NITROGEN 30.3 mg/dL (7-18); CALCIUM 8.6 mg/dL (8.5-10.1); CREATININE 1.5 mg/dL (0.55-1.3); MAGNESIUM 1.8 mg/dL (1.8-2.4); POTASSIUM 4.2 mmol/L (3.5-5.1); TOT PROT 6.2 g/dl (6.4-8.2)
[2018-11-09] MEDS ORDERED: DEXAMETHASONE SODIUM PHOSPHATE 10 MG, ONDANSETRON INJECTION 8 MG in SODIUM CHLORIDE 100 ML IVPB ONE (09:30)
[2018-11-09] MEDS ORDERED: DEXTROSE 5% IVPB ONE (10:00)
[2018-11-09] MEDS ORDERED: LEUCOVORIN IVPB ONE (10:00)
[2018-11-09] MEDS ORDERED: WATER IVPB ONE (10:00)
[2018-11-09] MEDS ORDERED: FLUOROURACIL 500 MG/10 ML VIAL IVPUSH ONE (11:00)
[2018-11-09] MEDS ORDERED: SODIUM CHLORIDE 250 ML IV ONE (12:00)
[2018-11-09 14:28] LABS: ANISOCYTOSIS 1+; MACROCYTOSIS 1+; OVALOCYTE 1+; PLATELET ESTIMATE NORMAL; TARGET CELLS 1+
[2018-11-09 17:15] VITALS: BP 144/79; PULSE 58; TEMP 97.7
[2018-11-09] MEDS ORDERED: PORTA CATH FLUSH 10 ML IVPUSH ONE (17:15)
== END 2018-11-09 15:50 | disposition home or self-care (01) ==
LOC: JONCCHEMO 07:08 → JERBED 11:04 → J7W 11:09 → JONCCHEMO 15:50
PROVIDERS: ATTEND Internal Medicine Hematology & Oncology
PROC: 3E04305 Introduction of Other Antineoplastic into Central Vein, Percutaneous Approach (ICD-10-PCS; principal; 2018-11-09)
PROC: 3E043GC Introduction of Other Therapeutic Substance into Central Vein, Percutaneous Approach (ICD-10-PCS; 2018-11-09)
PROC: 3E043GC Introduction of Other Therapeutic Substance into Central Vein, Percutaneous Approach (ICD-10-PCS; 2018-11-09)
DX: Z51.11 Encounter for antineoplastic chemotherapy (principal); C18.2 Malignant neoplasm of ascending colon
CPT/HCPCS: 36415; 80048; 80076; 83735; 85025; 96361; 96365; 96366; 96367; 96375; 96409; 96415; 96417; J2405; J9190

== ENCOUNTER 2018-11-16 21:56 | Inpatient (IN) | payer OTHER ==
[2018-11-16 22:10] VITALS: BMI 27.2
--- NOTE | 2018-11-16 22:34 | PDOC ---
Attending Attestation - Resident Resident Name: Bethany Giraldo - ED Attending Attestation I have performed the following: I have examined & evaluated the patient, The case was reviewed & discussed with the resident, I agree w/resident's findings & plan - HPI HPI: 11/17/18 03:01 see resident hpi - Physicial Exam PE: 11/17/18 03:02 agree with resident exam - Medical Decision Making 11/17/18 03:02 83 yo male currently on chemotherapy for colon cancer with dyspnea troponin mildly elevated plan for CTA, admit for further eval to medical service
--- NOTE | 2018-11-16 22:57 | PDOC ---
History of Present Illness - General Chief Complaint: Shortness of Breath Stated Complaint: SOB Time Seen by Provider: 11/16/18 22:33 - History of Present Illness Initial Comments: 11/16/18 22:56 83 y/o male with a PMH of Colon CA (currently undergoing chemotherapy, last treatment last week), HTN, HLD presents with weakness and increasing shortness of breath. Niece @ bedside assists in history. States patient has c/o increasing PADILLA for the last one month and his PMD, Dr. Craven sent him for an echocardiogram last Thursday. Patient denies any chest pain, lightheadedness, palpitation, nausea, diaphoresis. NKDA Surgical: Colescetomy Social: 63 pack year history of cigarettes (quit 3 years previous) PMD: Dr. Bryson Past History - Past Medical History Allergies/Adverse Reactions: Allergies Allergy/AdvReac Type Severity Reaction Status Date / Time No Known Allergies Allergy Verified 08/14/18 11:55 Home Medications: Ambulatory Orders Amlodipine Besylate 10 mg PO DAILY 06/17/16 Labetalol HCl [Normodyne -] 200 mg PO BID 06/17/16 Lisinopril [Prinivil -] 40 mg PO DAILY 06/17/16 Tamsulosin HCl 0.4 mg PO HS 06/17/16 Docusate Sodium [Colace -] 100 mg PO DAILY 06/18/16 Hydrochlorothiazide [Hctz -] 25 mg PO DAILY 06/18/16 Simvastatin 20 mg PO HS 06/18/16 Ascorbic Acid [Vitamin C -] 500 mg PO ASDIR 07/29/16 Glucosamine/Methylsulfonylmeth [Sm Glucosamine & MSM Tablet] 1,500 tab PO BID Multivitamins [Multivit ([facility] Formul[facility])] 1 tab PO DAILY 07/29/16 Ferrous Sulfate, Dried [Iron] 64 mg PO DAILY 09/09/16 Anemia: Yes Cancer: Yes (colon) COPD: Yes GI Disorders: Yes (H/O ADENOMATOUS POLYP OF COLON) HTN: Yes Hypercholesterolemia: Yes - Surgical History Abdominal Surgery: Yes (inguinal hernia, colon resection) Cholecystectomy: Yes - Immunization History Immunization Up to Date: No - Suicide/Smoking/Psychosocial Hx Smoking History: Unknown if ever smoked Have you smoked in the past 12 months: No Number of Cigarettes Smoked Daily: 2 If you are a former smoker, when did you quit?: 5MONTHS AGO Information on smoking cessation initiated: No Hx Alcohol Use: No Drug/Substance Use Hx: No Substance Use Type: Alcohol Hx Substance Use Treatment: No Review of Systems - Review of Systems Constitutional: No: Chills, Fever Respiratory: Yes: Shortness of Breath. No: Wheezing, Productive cough Cardiac (ROS): No: Chest Pain, Lightheadedness, Palpitations, Syncope ABD/GI: No: Constipated, Diarrhea : No: Burning, Dysuria *Physical Exam - Vital Signs Last Vital Signs Temp Pulse Resp BP Pulse Ox 97.8 F 62 16 106/48 L 90 L 11/16/18 22:08 11/16/18 22:08 11/16/18 22:08 11/16/18 22:08 11/16/18 22:08 - Physical Exam Comments: 11/17/18 22:58 Triage VS reviewed General: awake, alert, mild intercostal muscle use, speaking full sentences, overall non-toxic appearing Respiratory: bibasilar crackles, expiratory wheezes CV: S1, S2, RRR Abdomen: soft, non-tender (+) bowel sounds Neuro: A&O x3, CN II-XII intact Heart Score/ECG Review - ECG Impressions Comment:: 11/18/18 01:48 Sinus Rhythm w/1st AV block ED Treatment Course - LABORATORY CBC & Chemistry Diagram: 11/17/18 09:55 11/17/18 09:55 - RADIOLOGY Radiology Studies Ordered: Category Date Time Status CHEST CTA [CT] Stat CT Scan 11/16/18 22:54 Ordered Medical Decision Making - Medical Decision Making 11/16/18 22:57 83 y/o male with PADILLA. Hypoxic (SpO2 85% on RA) at presentation. Other VS unremarkable Alert, speaking full sentences. NC --> NRB H/o malignancy and current chemo CTA to r/o PE, also consider COPD exacerbation, PNA, r/o ACS 11/17/18 01:35 CTA pending Patient breathing comfortably on NRB 11/17/18 03:31 Call received from Michael Fraser, Imaging field application engineer: Multiple PE, no saddle embolus LL infiltrate R heart Strain 11/17/18 03:43 PT/PTT INR pending Patient on Heparin Drip, admitted to inpatient Med/Surg. Clinical Impression: Pulmonary Embolism *DC/Admit/Observation/Transfer Diagnosis at time of Disposition: Pulmonary embolism - Discharge Dispostion Condition at time of disposition: Fair Decision to Admit order: Yes - Referrals - Patient Instructions - Post Discharge Activity
[2018-11-16 23:29] LABS: BASO % 1.4 % (0-2.0); EOS % 2.9 % (0-4.5); HEMATOCRIT 31.8 % (35.4-49); HEMOGLOBIN 10.4 GM/dL (11.7-16.9); MCH 30.8 pg (25.7-33.7); MCHC 32.8 g/dl (32.0-35.9); MEAN CELL VOLUME 93.9 fl (80-96); MEAN PLT VOLUME 7.9 fl (7.5-11.1); MONO % 10.5 % (3.8-10.2); NEUT % 77.2 % (42.8-82.8); PLATELET COUNT 210 K/MM3 (134-434); RBC 3.39 M/mm3 (4.00-5.60); RDW 21.7 % (11.9-15.9); WHITE BLOOD COUNT 9.5 K/mm3 (4.0-10.0)
[2018-11-16] MEDS ORDERED: ALBUTEROL SO4 2.5/IPRATROPIUM 0.5 INH SOL 3 ML VIAL.NEB. NEB ONE (23:39)
[2018-11-17 00:07] LABS: BILIRUBIN,TOTAL 0.5 mg/dL (0.2-1); CALCIUM 8.2 mg/dL (8.5-10.1); CREATININE 1.4 mg/dL (0.55-1.3); POTASSIUM 4.2 mmol/L (3.5-5.1)
[2018-11-17] MEDS ORDERED: ALBUTEROL SO4 2.5/IPRATROPIUM 0.5 INH SOL 3 ML VIAL.NEB. NEB ONE (00:08)
[2018-11-17 04:38] LABS: INR 1.36 (0.83-1.09); PROTHROMBIN TIME (PATIENT) 16.1 SEC (9.7-13.0)
[2018-11-17] MEDS ORDERED: HEPARIN NA (PORCINE) 5,000 UNITS/ML 1ML VIAL IVPUSH ONE (05:07)
[2018-11-17] MEDS ORDERED: HEPARIN NA (PORCINE) 5,000 UNITS/ML 1ML VIAL IVPUSH PRN ×2 (05:11)
--- NOTE | 2018-11-17 05:13 | PN ---
Teaching Attending Note Name of Resident: Gloria Georges ATTENDING PHYSICIAN STATEMENT I saw and evaluated the patient. I reviewed the resident's note and discussed the case with the resident. I agree with the resident's findings and plan as documented. SUBJECTIVE: Patient is an 83 year old man with a PMH of Colon cancer (currently undergoing chemotherapy, got treatment last week), HTN, HLD and BPH who presents with weakness and increasing shortness of breath. Niece at bedside assists in history. States patient has complaint of increasing PADILLA for the last one month and his PCP sent him for an Echocardiogram last Thursday. Patient denies any chest pain, lightheadedness, palpitation, nausea, diaphoresis, vomiting, dysuria or hematuria. Denies recent travel or sick contacts. Ex heavy smoker. Denies illicit drug use or alcohol abuse. OBJECTIVE: Alert Vital Signs Period Temp Pulse Resp BP Sys/Rodriguez Pulse Ox Last 24 Hr 97.8 F 62 16 106/48 90 HEENT: No Jaundice, eye redness or discharge, PERRLA, EOMI. Normocephalic, atraumatic. External ears are normal and hearing is grossly intact. No nasal discharge. Neck: Supple, nontender. No palpable adenopathy or thyromegaly. No JVD Chest: Good effort. Clear to auscultation and percussion. Heart: Regular. No S3, rub or murmur Abdomen: Not distended, soft, nontender and no HSM. No rebound or guarding. Normal bowel sounds. Ext: Peripheral pulses intact. No leg edema. Skin: Warm and dry. No petechiae, rash or ecchymosis. Neuro: Alert. Oriented x3. CN 2-12 grossly intact. Sensation grossly intact in all four extremities and DTR are symmetric. Psych: Appropriate mood and affect. Good insight. Current Medications Generic Name Dose Route Start Last Admin Trade Name Freq PRN Reason Stop Dose Admin Heparin Sodium (Porcine) 1,000 unit 11/17/18 05:11 Heparin - IVPUSH PRN PRN Heparin Heparin Sodium (Porcine) 5,000 unit 11/17/18 05:11 Heparin - IVPUSH PRN PRN Heparin Heparin Sodium (Porcine) 25, 500 mls @ 20 mls/hr 11/17/18 05:15 000 unit/ Sodium Chloride IV TITR SYDNEY Protocol 1,000 UNIT/HR Home Medications Medication Instructions Recorded Amlodipine Besylate 10 mg PO DAILY 06/17/16 Labetalol HCl [Normodyne -] 200 mg PO BID 06/17/16 Lisinopril [Prinivil -] 40 mg PO DAILY 06/17/16 Tamsulosin HCl 0.4 mg PO HS 06/17/16 Docusate Sodium [Colace -] 100 mg PO DAILY 06/18/16 Hydrochlorothiazide [Hctz -] 25 mg PO DAILY 06/18/16 Simvastatin 20 mg PO HS 06/18/16 Ascorbic Acid [Vitamin C -] 500 mg PO ASDIR 07/29/16 Glucosamine/Methylsulfonylmeth [Sm 1,500 tab PO BID 07/29/16 Glucosamine & MSM Tablet] Multivitamins [Multivit ([facility] 1 tab PO DAILY 07/29/16 Formulary)] Ferrous Sulfate, Dried [Iron] 64 mg PO DAILY 09/09/16 Abnormal Lab Results 11/16/18 11/16/18 11/17/18 23:20 23:20 03:45 RBC 3.39 L Hgb 10.4 L Hct 31.8 L RDW 21.7 H Monocytes % 10.5 H PT with INR 16.10 H INR 1.36 H Sodium 147 H Chloride 109 H BUN 23.0 H Creatinine 1.4 H Random Glucose 116 H Calcium 8.2 L Alkaline Phosphatase 40 L Troponin I 0.06 H Total Protein 6.0 L Albumin 3.0 L ASSESSMENT AND PLAN: 1. Pulmonary embolism - Chest CTA revealed LLL and RLL infiltrates and bilateral pumonary emboli. He was started on IV heparin drip in the ER. Will get ECHO. Consult Pulmonary and oncology and switch to a DOAC tomorrow. Elevated troponin is likely due to demand ischemia. EKG shows NSR with 1o Av block and PACs. Will trend troponin to rule out ACS. Will continue comprehensive care of all his comorbid conditions. Liaise with his oncologist for colon cancer management. 2. Hypoalbuminemia - Possibly due to combined effects of malnutrition and inflammation associated with comorbid chronic conditions. Will ensure adequate dietary protein intake and also consult neon light installer. 3. CKD - Has risk factors for CKD. Will encourage liberal fluids to correct any superimposed dehydration. Will consult nephrology and avoid nephrotoxic agents such as NSAIDS, aminoglycosides, contrast dyes and certain Alternative medicine products. 4. Anemia -Do basic anemia work up including serial stool guaiacs, reticulocyte count and iron studies. Would benefit from Procrit therapy once iron replete. 5. Hypertension - BP is low normal. Will restart suitable outpatient antihypertensive drugs only when clinically appropriate. Nonpharmacologic measures to control hypertension like weight loss, salt restriction and exercise discussed. Importance of adherence to treatment regimen and attainment of normotension emphasized. 6. DVT prophylaxis - On full dose heparin drip for PE. 7. Advance directives - Full code
[2018-11-17] MEDS ORDERED: HEPARIN - 25,000 UNIT in SODIUM CHLORIDE 495 ML IV SCH (05:15)
[2018-11-17] MEDS ORDERED: HEPARIN INFUSION - 25,000 UNITS/500 ML INFUS.BAG IVPB ONE (05:17)
[2018-11-17] MEDS ORDERED: HEPARIN NA (PORCINE) 5,000 UNITS/ML 1ML VIAL ONE (05:23)
--- NOTE | 2018-11-17 05:41 | HP ---
CHIEF COMPLAINT: shortness of breath PCP: Dr. 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 The patient stated that the shortness of breath was over the course of a month and was mainly dyspnea on exertion however has gotten progressively worse over the last 4 days. Additionally, the patient stated that he has been experiencing weakness over the last 4 days as well. His regular chemotherapy session was 1 week ago. The patient recently had an echocardiogram done here at [place] showing EF 60- 65%, normal LV function, elevated RV systolic pressures, impaired LV relaxation. The patient had more weakness and shortness of breath on this current day of admission which prompted him to present to the emergency room. Currently denies chest pain, fever, chills, peripheral edema, calf pain, pain while walking, numbness, tingling, headaches, syncope, falls, abdominal pain, nausea, vomiting, dysuria, hematuria, frequency. Denies history of PE/DVT. Upon presentation had O2 sats at 85% on RA and placed on NC and later non- rebreather with good effect. CTA done at the hospital showed multiple bilateral acute emboli involving vessels to all lobes, questionable pulmonary infarct in the LLL, RLL infiltrates with mass like appearance present, 1.5cm pulmonary mass in RML. ER course was notable for: (1) CTA results as above (2) given Duonebs (3) troponins 0.06, CRE 1.4 (at baseline), anemia 10.4 (at baseline) Recent Travel: denies PAST MEDICAL HISTORY: as above PAST SURGICAL HISTORY: colon surgery inguinal hernia repair Social History: Smoking: former smoker 30 pack year history, quit 4 years ago Alcohol: socially Drugs: denies Family History: denies significant family history Allergies No Known Allergies Allergy (Verified 08/14/18 11:55) HOME MEDICATIONS: Home Medications Medication Instructions Recorded Amlodipine Besylate 10 mg PO DAILY 06/17/16 Labetalol HCl [Normodyne -] 200 mg PO BID 06/17/16 Lisinopril [Prinivil -] 40 mg PO DAILY 06/17/16 Tamsulosin HCl 0.4 mg PO HS 06/17/16 Docusate Sodium [Colace -] 100 mg PO DAILY 06/18/16 Hydrochlorothiazide [Hctz -] 25 mg PO DAILY 06/18/16 Simvastatin 20 mg PO HS 06/18/16 Ascorbic Acid [Vitamin C -] 500 mg PO ASDIR 07/29/16 Glucosamine/Methylsulfonylmeth [Sm 1,500 tab PO BID 07/29/16 Glucosamine & MSM Tablet] Multivitamins [Multivit ([facility] 1 tab PO DAILY 07/29/16 Formulary)] Ferrous Sulfate, Dried [Iron] 64 mg PO DAILY 09/09/16 REVIEW OF SYSTEMS CONSTITUTIONAL: generalized weakness Absent: fever, chills, diaphoresis, malaise, loss of appetite, weight change HEENT: Absent: rhinorrhea, nasal congestion, throat pain, throat swelling, visual changes CARDIOVASCULAR: Absent: chest pain, syncope, palpitations, irregular heart rate, lightheadedness , peripheral edema RESPIRATORY: shortness of breath, dyspnea with exertion, orthopnea Absent: cough, wheezing, stridor, hemoptysis GASTROINTESTINAL: Absent: abdominal pain, abdominal distension, nausea, vomiting, diarrhea, constipation, melena, hematochezia GENITOURINARY: Absent: dysuria, frequency, urgency, hesitancy, hematuria, flank pain, genital pain MUSCULOSKELETAL: Absent: myalgia, arthralgia, joint swelling, back pain, neck pain SKIN: Absent: rash, itching, pallor HEMATOLOGIC/IMMUNOLOGIC: Absent: easy bleeding, easy bruising, lymphadenopathy, frequent infections ENDOCRINE: Absent: unexplained weight gain, unexplained weight loss, heat intolerance, cold intolerance NEUROLOGIC: Absent: headache, focal weakness or paresthesias, dizziness, unsteady gait, seizure, mental status changes, bladder or bowel incontinence PSYCHIATRIC: Absent: anxiety, depression, suicidal or homicidal ideation, hallucinations. PHYSICAL EXAMINATION Vital Signs - 24 hr 11/16/18 22:08 Temperature 97.8 F Pulse Rate 62 Respiratory 16 Rate Blood Pressure 106/48 L O2 Sat by Pulse 90 L Oximetry (%) GENERAL: Awake, alert, and fully oriented, in no acute distress. HEAD: Normal with no signs of trauma. EYES: Pupils equal, round and reactive to light, extraocular movements intact, conjunctival injection. EARS, NOSE, THROAT: Ears normal, nares patent, oropharynx clear without exudates. Moist mucous membranes. NECK: Normal range of motion, supple without lymphadenopathy, JVD, or masses. LUNGS: Breath sounds equal, crackles heard in L lower lobe and R lower lobe. Expiratory wheezing heard throughout. No accessory muscle use. HEART: Regular rate and rhythm, normal S1 and S2 without murmur, rub or gallop. ABDOMEN: Soft, nontender, not distended, normoactive bowel sounds, no guarding, no rebound, no masses. MUSCULOSKELETAL: Normal range of motion at all joints. No bony deformities or tenderness. UPPER EXTREMITIES: 2+ pulses, warm, well-perfused. No cyanosis. No clubbing. No peripheral edema. LOWER EXTREMITIES: 2+ pulses, warm, well-perfused. No calf tenderness. No peripheral edema. NEUROLOGICAL: Cranial nerves II-XII intact. 5/5 muscle strength bilaterally upper and lower extremities. PSYCHIATRIC: Cooperative. Good eye contact. Appropriate mood and affect. SKIN: Warm, dry, normal turgor, no rashes or lesions noted, normal capillary refill. Laboratory Results - last 24 hr 11/16/18 11/16/18 11/16/18 23:20 23:20 23:20 WBC 9.5 RBC 3.39 L Hgb 10.4 L Hct 31.8 L MCV 93.9 MCH 30.8 MCHC 32.8 RDW 21.7 H Plt Count 210 D MPV 7.9 Absolute Neuts (auto) 7.3 Neutrophils % 77.2 Lymphocytes % 8.0 D Monocytes % 10.5 H Eosinophils % 2.9 Basophils % 1.4 Nucleated RBC % 0 PT with INR INR PTT (Actin FS) Sodium 147 H Potassium 4.2 Chloride 109 H Carbon Dioxide 26 Anion Gap 12 BUN 23.0 H Creatinine 1.4 H Est GFR (CKD-EPI)AfAm 53.47 Est GFR (CKD-EPI)NonAf 46.13 Random Glucose 116 H Calcium 8.2 L Total Bilirubin 0.5 AST 25 ALT 17 Alkaline Phosphatase 40 L Creatine Kinase 108 Troponin I 0.06 H B-Natriuretic Peptide 350.6 Total Protein 6.0 L Albumin 3.0 L 11/17/18 11/17/18 03:45 03:45 WBC RBC Hgb Hct MCV MCH MCHC RDW Plt Count MPV Absolute Neuts (auto) Neutrophils % Lymphocytes % Monocytes % Eosinophils % Basophils % Nucleated RBC % PT with INR 16.10 H INR 1.36 H PTT (Actin FS) 33.2 Sodium Potassium Chloride Carbon Dioxide Anion Gap BUN Creatinine Est GFR (CKD-EPI)AfAm Est GFR (CKD-EPI)NonAf Random Glucose Calcium Total Bilirubin AST ALT Alkaline Phosphatase Creatine Kinase Troponin I B-Natriuretic Peptide Total Protein Albumin EKG--> sinus with 1st degree AV block and premature atrial complexes, no ST segment changes, QTc 431 ASSESSMENT/PLAN: Juan Regalado is an 83 year old male with a past medical history of 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 Pulmonary Emboli Troponemia HTN Anemia CKD Pulmonary Emboli - presenting with emboli and has major risk factor of malignancy, no prior history of DVT/PE, risk factor of inactivity or recent surgery - CT results as above - continuous cardiac monitoring - vitals q2h - O2 as needed, titrate down as tolerated - heparin drip protocol started - monitor PTT and fibrinogen - no standing fluids, can start if becomes hypotensive - will require transitioning to oral AC, may start Eliquis as patient has renal function impairment, currently CRE 1.4 at baseline - Pulmonology and oncology consulted Troponemia - elevated at 0.06 - repeat troponin - likely demand ischemia, must r/o ACS - no EKG changes - recent echo as above HTN - can hold antihypertensive in setting of low to normal BP - can resume when BP improves and upon discharge Anemia - Hgb 10.4, chronic - likely in setting of malignancy and impaired renal function - iron studies can be considered - may benefit from iron supplementation CKD - encourage PO intake - if TIM develops, can start fluids FEN - no standing fluids, can consider if patient becomes hypotensive - continue to monitor electrolytes and replete as necessary - sodium/cholesterol controlled diet Prophylaxis - on heparin drip, can transition to oral AC Code - full code MARBELLA KELSEY DO - PGY-1 Visit type - Emergency Visit Emergency Visit: Yes ED Registration Date: 11/17/18 Care time: The patient presented to the Emergency Department on the above date and was hospitalized for further evaluation of their emergent condition. - New Patient This patient is new to me today: Yes Date on this admission: 11/17/18 - Critical Care Critical Care patient: No
--- NOTE | 2018-11-17 09:01 | EKG ---
Test Reason : Blood Pressure : / mmHG Vent. Rate : 066 BPM Atrial Rate : 066 BPM P-R Int : 226 ms QRS Dur : 082 ms QT Int : 412 ms P-R-T Axes : 060 052 071 degrees QTc Int : 431 ms SINUS RHYTHM WITH 1ST DEGREE A-V BLOCK WITH PREMATURE ATRIAL COMPLEXES IN A PATTERN OF BIGEMINY OTHERWISE NORMAL ECG WHEN COMPARED WITH ECG OF 14-NOV-2017 23:35, PREMATURE ATRIAL COMPLEXES ARE NOW PRESENT Confirmed by ROSA MARIA DAO, JULISA ([id number]) on 11/17/2018 9:01:28 AM Referred By: Confirmed By:JULISA CRANE MD
--- NOTE | 2018-11-17 09:42 | CONSULT ---
Consultation: Hematology/Oncology Consultation REQUESTING PROVIDER: Dr. Ortega CONSULT REQUEST: We have been asked to medically evaluate this patient for pulmonary embolism, anticoagulation HISTORY OF PRESENT ILLNESS: 83 year old male with a history of metastatic colon cancer to liver, lung and paraortic lymph nodes, on active chemotherapy, COPD, hypertension, hyperlipidemia, and iron-deficiency anemia presented to the hospital for 4 days of dyspnea on exertion and weakness. Reports that for the past several days, he was having difficulty standing up from a sitting position and walking without becoming short of breath. Endorses generalized shortness of breath worse than baseline for the past month. Reports that this has never happened to him in the past. Denied chest pain, cough, fevers, chills, dyspnea at rest, peripheral edema, calf pain/tenderness, bowel or bladder problems. Denies any recent travel or sick contacts. Last chemo appointment was last week with Dr. Real. In the ED, a CTA was performed that revealed bilateral pulmonary segmental pulmonary emboli. 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 Family History: denies any family history of cancer, bleeding or clotting disorders Oncologic History -07/29/16: colonoscopy for abnormal PET scan of ascending colon/hepatic flexure : half circumferential mass in ascending colon, severe diverticulosis, several polyps were noted s/p polypectomy -07/31/16: pathology of mass: 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; Defect in MLH-1, PMS-2, and MSH-2 DNA mismatch repair (MMR) proteins; consistent with MSI instability -08/19/16: R colectomy at [facility], CEA [id number] -10/31/16: port placed in R chest wall -11/03/16: began FOLFOX, received 8 cycles until 03/02/17 -04/2017: PET scan showed persistent disease in R lung and pleural surface -05/11/2017: Resumed FOLFOX and added bevacizumab, received 14 cycles until 2017 -10/20/2017: Changed to 5FU + Leucovorin + bevacizumab -08/2018: bevacizumab held due to proteinuria, continued on 5FU and Leucovorin -11/09/2018: latest dose of 5FU and leucovorin -11/17/2018: hospital admission for b/l upper and lower lobe pulmonary emboli, masslike opacity in the right lower lobe (2.7 x 2.5 x 4.8cm), 1.5cm R middle lobe nodules with additional left upper lobe nodules REVIEW OF SYSTEMS: CONSTITUTIONAL: generalized weakness Absent: fever, chills, diaphoresis, malaise, loss of appetite, weight change HEENT: Absent: rhinorrhea, nasal congestion, throat pain, throat swelling, difficulty swallowing, mouth swelling, ear pain, eye pain, visual changes CARDIOVASCULAR: Absent: chest pain, syncope, palpitations, irregular heart rate, lightheadedness , peripheral edema RESPIRATORY: Absent: cough, shortness of breath, dyspnea with exertion, orthopnea, wheezing, stridor, hemoptysis GASTROINTESTINAL: Absent: abdominal pain, abdominal distension, nausea, vomiting, diarrhea, constipation, melena, hematochezia GENITOURINARY: Absent: dysuria, frequency, urgency, hesitancy, hematuria, flank pain, genital pain MUSCULOSKELETAL: Absent: myalgia, arthralgia, joint swelling, back pain, neck pain SKIN: Absent: rash, itching, pallor HEMATOLOGIC/IMMUNOLOGIC: Absent: easy bleeding, easy bruising, lymphadenopathy, frequent infections ENDOCRINE: Absent: unexplained weight gain, unexplained weight loss, heat intolerance, cold intolerance NEUROLOGIC: Absent: headache, focal weakness or paresthesias, dizziness, unsteady gait, seizure, mental status changes, bladder or bowel incontinence PSYCHIATRIC: Absent: anxiety, depression, suicidal or homicidal ideation, hallucinations. PHYSICAL EXAMINATION Vital Signs - 24 hr 11/16/18 11/16/18 11/17/18 22:08 22:30 05:50 Temperature 97.8 F Pulse Rate 62 Pulse Rate [ 76 Apical] Respiratory 16 20 Rate Blood Pressure 106/48 L Blood Pressure 139/83 [Left Arm] O2 Sat by Pulse 90 L 100 100 Oximetry (%) GENERAL: A&Ox3, no acute distress EYES: PERRLA, EOMI ENT: Moist mucus membranes NECK: No JVD, no lymphadenopathy LUNGS: CTA, no wheezes BREAST: no masses or nodules noted CHEST: R port in place HEART: RRR, no murmurs ABDOMEN: Soft, nontender, BS present, well-healed surgical scars noted MUSCULOSKELETAL: No CVA Tenderness EXTREMITIES: 2+ pulses, no edema. No calf tenderness. NEUROLOGICAL: Cranial nerves II-XII intact. No focal deficits. GENITOURINARY: no nodules of masses noted on testicular exam Laboratory Results - last 24 hr 11/16/18 11/16/18 11/16/18 23:20 23:20 23:20 WBC 9.5 RBC 3.39 L Hgb 10.4 L Hct 31.8 L MCV 93.9 MCH 30.8 MCHC 32.8 RDW 21.7 H Plt Count 210 D MPV 7.9 Absolute Neuts (auto) 7.3 Neutrophils % 77.2 Lymphocytes % 8.0 D Monocytes % 10.5 H Eosinophils % 2.9 Basophils % 1.4 Nucleated RBC % 0 PT with INR INR PTT (Actin FS) Sodium 147 H Potassium 4.2 Chloride 109 H Carbon Dioxide 26 Anion Gap 12 BUN 23.0 H Creatinine 1.4 H Est GFR (CKD-EPI)AfAm 53.47 Est GFR (CKD-EPI)NonAf 46.13 Random Glucose 116 H Calcium 8.2 L Total Bilirubin 0.5 AST 25 ALT 17 Alkaline Phosphatase 40 L Creatine Kinase 108 Troponin I 0.06 H B-Natriuretic Peptide 350.6 Total Protein 6.0 L Albumin 3.0 L 11/17/18 11/17/18 03:45 03:45 WBC RBC Hgb Hct MCV MCH MCHC RDW Plt Count MPV Absolute Neuts (auto) Neutrophils % Lymphocytes % Monocytes % Eosinophils % Basophils % Nucleated RBC % PT with INR 16.10 H INR 1.36 H PTT (Actin FS) 33.2 Sodium Potassium Chloride Carbon Dioxide Anion Gap BUN Creatinine Est GFR (CKD-EPI)AfAm Est GFR (CKD-EPI)NonAf Random Glucose Calcium Total Bilirubin AST ALT Alkaline Phosphatase Creatine Kinase Troponin I B-Natriuretic Peptide Total Protein Albumin Active Medications Generic Name Dose Route Start Last Admin Trade Name Freq PRN Reason Stop Dose Admin Heparin Sodium (Porcine) 1,000 unit 11/17/18 05:11 Heparin - IVPUSH PRN PRN Heparin Heparin Sodium (Porcine) 5,000 unit 11/17/18 05:11 Heparin - IVPUSH PRN PRN Heparin Heparin Sodium (Porcine) 25, 500 mls @ 20 mls/hr 11/17/18 05:15 11/17/18 05: 36 000 unit/ Sodium Chloride IV 1,000 unit/hr TITR SYDNEY 20 mls/hr Administration Protocol 1,000 UNIT/HR ASSESSMENT/PLAN: 83 year old male with a history of metastatic colon cancer to liver, lung and paraortic lymph nodes, on active chemotherapy, COPD, hypertension, hyperlipidemia, and iron-deficiency anemia presented to the hospital for 4 days of dyspnea on exertion and weakness, found to have multiple bilateral pulmonary emboli #Bilateral Pulmonary Emboli: patient is hemodynamically stable and in no acute distress, currently on heparin ggt, PESI score 133 = very high risk (10-24% 30- day mortality) -due to this being a high-risk pulmonary embolism in the setting of malignancy and active chemotherapy, would recommend to observe this patient in the inpatient setting -will assess duplex US b/l lower extremities to assess additional peripheral clot burden -in patients with VTE and malignancy, first-line initial anticoagulation therapy is therapeutic lovenox, will start weight-based lovenox 90mg subq BID in place of heparin infusion. Should be continued for 5 days in the acute setting. -following 5 days of initial lovenox therapy, if creatinine clearance is > 30 can continue either lovenox (preferred in gastrointestinal cancers) or start the DOAC edoxaban for outpatient treatment -recurrence rate for pulmonary embolism in patients with active cancer is 10-20% , and thus a longer duration of continued anticoagulation is preferred, will need to re-assess benefits vs risks in the office after 6 months to 1 year of treatment #Troponinemia: likely related to pulmonary embolism, increased from 0.06 to 0.9 , will add CK-MB to morning labs -trend trops -repeat an EKG -on therapeutic lovenox -consult cardiology Percy Bustillos D.O., PGY-[address] Real Visit type - Emergency Visit Emergency Visit: Yes ED Registration Date: 11/17/18 Care time: The patient presented to the Emergency Department on the above date and was hospitalized for further evaluation of their emergent condition. - New Patient This patient is new to me today: Yes Date on this admission: 11/17/18 - Critical Care Critical Care patient: No ATTENDING PHYSICIAN STATEMENT I saw and evaluated the patient. I reviewed the resident's note and discussed the case with the resident. I agree with the resident's findings and plan as documented. SUBJECTIVE: OBJECTIVE: ASSESSMENT AND PLAN:
--- NOTE | 2018-11-17 10:00 | ECHO ---
Name: CRISTIAN ABDI Exam:Adult Echocardiogram Study Date: 11/17/2018 07:50 AM Age: 83 yrs Reason For Study: pulmonary emboli Height: 70 in Weight: 190 lb BSA: 2.0 m2 Procedure The study was technically difficult with many images being suboptimal in quality. A limited two-dimen sional transthoracic echocardiogram was performed (2D). Left Ventricle The left ventricular size, thickness and function are normal. The left ventricle is not well visualiz ed. The left ventricular ejection fraction is normal. E/A reversal consistent with but not diagnostic of poor LV compliance. Regional wall motion abnormalities cannot be excluded due to limited visualization. Right Ventricle The right ventricle is not well visualized. The right ventricle is moderately dilated. The right vent ricular systolic function is mild to moderately reduced. Atria Normal left and right atrial size and function. Mitral Valve The mitral valve is not well visualized. There is no mitral valve stenosis. There is mild mitral regurgitation. Tricuspid Valve There is mild tricuspid valve thickening. There is no tricuspid stenosis. There is Trace to mild tric uspid regurgitation. Right ventricular systolic pressure is elevated at 50-60mmHg. Aortic Valve The aortic valve is not well visualized. No hemodynamically significant valvular aortic stenosis. No aortic regurgitation is present. Pulmonic Valve The pulmonic valve is not well visualized. Great Vessels The aortic root is not well visualized. Pericardium/Pleura There is no pericardial effusion. Interpretation Summary The study was technically difficult with many images being suboptimal in quality. A limited two-dimensional transthoracic echocardiogram was performed (2D). The left ventricular size, thickness and function are normal The left ventricular ejection fraction is normal. There is Trace to mild tricuspid regurgitation. The left ventricle is not well visualized. Regional wall motion abnormalities cannot be excluded due to limited visualization. The right ventricle is not well visualized. The right ventricle is moderately dilated. The right ventricular systolic function is mild to moderately reduced. Right ventricular systolic pressure is elevated at 50-60mmHg. E/A reversal consistent with but not diagnostic of poor LV compliance There is mild mitral regurgitation. MD Dustin Bradley 11/17/2018 10:00 AM
[2018-11-17 10:16] LABS: BASO % 1.1 % (0-2.0); EOS % 1.2 % (0-4.5); HEMATOCRIT 33.1 % (35.4-49); LYMPH % 12.3 % (8-40); MCHC 33.2 g/dl (32.0-35.9); MEAN CELL VOLUME 93.3 fl (80-96); MEAN PLT VOLUME 8.3 fl (7.5-11.1); MONO % 7.7 % (3.8-10.2); NEUT % 77.7 % (42.8-82.8); PLATELET COUNT 223 K/MM3 (134-434); RBC 3.55 M/mm3 (4.00-5.60); RDW 20.8 % (11.9-15.9); WHITE BLOOD COUNT 8.9 K/mm3 (4.0-10.0)
[2018-11-17 10:57] LABS: ALBUMIN 3.1 g/dl (3.4-5.0); BILIRUBIN,TOTAL 0.5 mg/dL (0.2-1); CALCIUM 8.5 mg/dL (8.5-10.1); CREATININE 1.1 mg/dL (0.55-1.3); MAGNESIUM 1.7 mg/dL (1.8-2.4); POTASSIUM 3.8 mmol/L (3.5-5.1); TOT PROT 6.3 g/dl (6.4-8.2)
[2018-11-17] MEDS: ENOXAPARIN NA (PORCINE) 100 MG/1 ML DISP.SYRIN SQ SCH ×2 (13:03→21:27)
--- NOTE | 2018-11-17 13:11 | CON.PULM ---
Consult Consult Specialty:: PULMONARY Referred by:: Dr Harden Reason for Consultation:: PE - History of Present Illness Chief Complaint: shortness of breath History of Present Illness: 83yo male with h/o HTN, hyperlipidemia, COPD, metastatic colon ca s/p resection , last chemotherapy with known lung mets last week who was admitted with acute onset of shortness of breath x 3 days. Denies chest pain or palpitations. No fevers, chills or sweats. No cough or wheezing. Found to have multiple bilateral pulmonary emboli, started on heparin gtt. - History Source History Provided By: Patient, Family Member, Medical Record Limitations to Obtaining History: No Limitations - Past Medical History Cardio/Vascular: Yes: HTN, Hyperlipdemia Gastrointestinal: Yes: Other (colonic polyps on colonosocpy ~2008). No: Ascites Renal/: Yes: BPH - Past Surgical History Past Surgical History: Yes: Hernia Repair - Alcohol/Substance Use Hx Alcohol Use: No History of Substance Use: reports: None - Smoking History Smoking history: Unknown if ever smoked Have you smoked in the past 12 months: No Aproximately how many cigarettes per day: 2 If you are a former smoker, when did you quit?: 5MONTHS AGO - Social History Usual Living Arrangement: With Spouse ADL: Independent History of Recent Travel: No Home Medications - Allergies Allergies/Adverse Reactions: Allergies Allergy/AdvReac Type Severity Reaction Status Date / Time No Known Allergies Allergy Verified 08/14/18 11:55 - Home Medications Home Medications: Ambulatory Orders Amlodipine Besylate 10 mg PO DAILY 06/17/16 Labetalol HCl [Normodyne -] 200 mg PO BID 06/17/16 Lisinopril [Prinivil -] 40 mg PO DAILY 06/17/16 Tamsulosin HCl 0.4 mg PO HS 06/17/16 Docusate Sodium [Colace -] 100 mg PO DAILY 06/18/16 Hydrochlorothiazide [Hctz -] 25 mg PO DAILY 06/18/16 Simvastatin 20 mg PO HS 06/18/16 Ascorbic Acid [Vitamin C -] 500 mg PO ASDIR 07/29/16 Glucosamine/Methylsulfonylmeth [Sm Glucosamine & MSM Tablet] 1,500 tab PO BID Multivitamins [Multivit ([facility] Formulary)] 1 tab PO DAILY 07/29/16 Ferrous Sulfate, Dried [Iron] 64 mg PO DAILY 09/09/16 Family Disease History - Family Disease History Family Disease History: Other: Mother (HTN) Review of Systems - Review of Systems Constitutional: reports: Weakness. denies: Chills, Fever Eyes: denies: Recent Change in Vision HENT: denies: Nasal Congestion, Throat Pain Neck: denies: Stiffness, Tenderness Cardiovascular: reports: Shortness of Breath. denies: Chest Pain, Edema, Palpitations Respiratory: reports: Exercise Intolerance, SOB, SOB on Exertion. denies: Cough , Hemoptysis, Wheezing Gastrointestinal: denies: Abdominal Pain, Nausea, Vomiting Genitourinary: denies: Dysuria, Hematuria Neurological: denies: Dizziness, Headache Endocrine: denies: Unexplained Weight Loss Physical Exam Vital Sings: Vital Signs Temperature 97.1 F L 11/17/18 12:40 Pulse Rate 73 11/17/18 12:40 Respiratory Rate 20 11/17/18 12:40 Blood Pressure 147/81 11/17/18 12:40 O2 Sat by Pulse Oximetry (%) 100 11/17/18 05:50 Constitutional: Yes: Mild Distress Eyes: Yes: Conjunctiva Clear, EOM Intact HENT: Yes: Atraumatic, Normocephalic Neck: Yes: Supple, Trachea Midline Cardiovascular: Yes: Regular Rate and Rhythm Respiratory: Yes: Diminished (decreased breath sounds at the bases) ...Clubbing: No Gastrointestinal: Yes: Normal Bowel Sounds, Soft. No: Tenderness Edema: No Neurological: Yes: Alert, Oriented Labs: CBC, BMP 11/17/18 09:55 11/17/18 09:55 Imaging - Results Chest X-ray: Report Reviewed, Image Reviewed Cat Scan: Report Reviewed, Image Reviewed (bilateral PE, RLL mass, RML nodule, LLL infiltrate) Assessment/Plan Acute Pulmonary Emboli Metastatic Colon Ca with known lung mets +Troponins likely from above HTN Anemia Acute on CKD - continue anticoagulation, agree with LMWH - pt prefers DOAC, will d/w hematology given current clinical trials - O2 to keep SpO2 >90% - echocardiogram to assess RV - trend cardiac enzymes until peak - LE dopplers to assess residual clot burden Thank you for this consult Kojo Juárez MD
--- NOTE | 2018-11-17 14:37 | PN ---
Progress Note (short form) - Note Progress Note: 1 month h/o mild dyspnea and edema, better with BP control and salt restriction. now with 3 days of progressively worsening severe dyspnea CTA chest showing blateral upper and lower lobe PE with rll, rml mass and several nodules suspicious for metastatic ds. CBC, BMP 11/17/18 09:55 11/17/18 09:55 Vital Signs Period Temp Pulse Resp BP Sys/Rodriguez Pulse Ox Last 24 Hr 97.1 F-98.3 F 62-76 16-20 106-147/48-83 90-100 s1s2 rrr lungs cta abd soft nt tr ankle edema aaox3 nonfocal acute pulmonary embolism metastatic adenoca of colon since 2017, s/p debulking and still on chemotherapy htn controlled LMWH O2 us negatiove for DVT +troponin likely cardiac strain due to acute pe-will trend consults greatly appreciated
--- NOTE | 2018-11-17 15:29 | CON.CARD ---
Consult Consult Specialty:: Cardiology Referred by:: nini Ortega Reason for Consultation:: +troponin - History of Present Illness Chief Complaint: SOB History of Present Illness: 83 year old male with a pmhx of htn, hld, copd, metastatic colon ca s/p resection on chemo with known lung mets presents with sob and dizziness for 4 days. No chest pain or palpitations. No le edema. No pnd, orthopnea, or edema. CT chest with multiple b/l PE EKG: sinus rhythm at 66bpm, pac's, nl st segments Echocardiogram: nl lvef, mod RV dil/hypo, RVSP 50-60 - History Source History Provided By: Patient, Medical Record - Past Medical History Cardio/Vascular: Yes: HTN, Hyperlipdemia Gastrointestinal: Yes: Other (colonic polyps on colonosocpy ~2008). No: Ascites Renal/: Yes: BPH - Past Surgical History Past Surgical History: Yes: Hernia Repair - Alcohol/Substance Use Hx Alcohol Use: No History of Substance Use: reports: None - Smoking History Smoking history: Unknown if ever smoked Have you smoked in the past 12 months: No Aproximately how many cigarettes per day: 2 If you are a former smoker, when did you quit?: 5MONTHS AGO - Social History Usual Living Arrangement: With Spouse ADL: Independent History of Recent Travel: No Home Medications - Allergies Allergies/Adverse Reactions: Allergies Allergy/AdvReac Type Severity Reaction Status Date / Time No Known Allergies Allergy Verified 08/14/18 11:55 - Home Medications Home Medications: Ambulatory Orders Amlodipine Besylate 10 mg PO DAILY 06/17/16 Labetalol HCl [Normodyne -] 200 mg PO BID 06/17/16 Lisinopril [Prinivil -] 40 mg PO DAILY 06/17/16 Tamsulosin HCl 0.4 mg PO HS 06/17/16 Docusate Sodium [Colace -] 100 mg PO DAILY 06/18/16 Hydrochlorothiazide [Hctz -] 25 mg PO DAILY 06/18/16 Simvastatin 20 mg PO HS 06/18/16 Ascorbic Acid [Vitamin C -] 500 mg PO ASDIR 07/29/16 Glucosamine/Methylsulfonylmeth [Sm Glucosamine & MSM Tablet] 1,500 tab PO BID Multivitamins [Multivit ([facility] Formulary)] 1 tab PO DAILY 07/29/16 Ferrous Sulfate, Dried [Iron] 64 mg PO DAILY 09/09/16 Family Disease History - Family Disease History Family Disease History: Other: Mother (HTN) Vital Signs: Vital Signs Temperature 97.1 F L 11/17/18 12:40 Pulse Rate 73 11/17/18 12:40 Respiratory Rate 20 11/17/18 12:40 Blood Pressure 147/81 11/17/18 12:40 O2 Sat by Pulse Oximetry (%) 100 11/17/18 05:50 Constitutional: Yes: No Distress Neck: Yes: Supple Respiratory: Yes: Rales Gastrointestinal: Yes: Soft Cardiovascular: Yes: Regular Rate and Rhythm JVD: No Carotid Bruit: No PMI: Non-Displaced Heart Sounds: Yes: S1, S2 Murmur: No: Systolic Murmur Edema: No - Other Data Labs, Other Data: CBC, BMP 11/17/18 09:55 11/17/18 09:55 INR, PTT INR 1.36 (0.83-1.09) H 11/17/18 03:45 Fibrinogen 453.0 mg/dL (238-498) 11/17/18 11:51 Troponin, BNP 11/16/18 11/16/18 11/17/18 23:20 23:20 09:55 Troponin I 0.06 H 0.95 H* B-Natriuretic Peptide 350.6 Troponin, BNP 11/16/18 11/16/18 11/17/18 23:20 23:20 09:55 Troponin I 0.06 H 0.95 H* B-Natriuretic Peptide 350.6 Imaging - Results Cat Scan: Report Reviewed EKG: Image Reviewed Problem List - Problems (1) Pulmonary embolism Code(s): I26.99 - OTHER PULMONARY EMBOLISM WITHOUT ACUTE COR PULMONALE Assessment/Plan 83 year old male with a pmhx of htn, hld, copd, metastatic colon ca s/p resection on chemo with known lung mets presents with sob and dizziness for 4 days. No chest pain or palpitations. No le edema. No pnd, orthopnea, or edema. CT chest with multiple b/l PE EKG: sinus rhythm at 66bpm, pac's, nl st segments Echocardiogram: nl lvef, mod RV dil/hypo, RVSP 50-60 1) PE -SOB due to b/l PE in setting of metastatic cancer. Troponin leak likely due to PE and right heart strain. No chest pain and no ischemic ekg changes. Treat for PE with anticoagulation. Currently on LMWH. F/u with heme regarding oral agents in setting of malignancy. -If sats decrease or clinical course changes at all low threshold to contact ICU team.
--- NOTE | 2018-11-17 20:09 | PN ---
Teaching Attending Note Name of Resident: Percy Bustillos ATTENDING PHYSICIAN STATEMENT I saw and evaluated the patient. I reviewed the resident's note and discussed the case with the resident. I agree with the resident's findings and plan as documented. SUBJECTIVE: Patient seen and examined 83 year old with metastatic colon ca on chemotherapy. S/P colon resection followed by FOLFOX chemotherapy and then FOLFOX + Avastin for lung, liver and loretta mets. 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 Switched to [place] regimen of infusional 5FU/ leucovorum. Tolerating well to date. Developed rather acute progressive SOB and dyspnea and presented with bilateral segmental pulmonary emboli. Last Vital Signs Temp Pulse Resp BP Pulse Ox 98.5 F 73 20 160/72 100 11/17/18 18:55 11/17/18 18:55 11/17/18 18:55 11/17/18 18:55 11/17/18 05:50 HEENT: AMBER, EOM Intact Oropharynx: No thrush, No mucositis, dentures Neck: Supple Cor: RSR, No murmurs, No gallops Lungs: Clear to P&A Abd: Soft, Normal bowel sounds, No organomegaly Ext:No significant edema Skin: No rashes, Integument intact CBC, BMP 11/17/18 09:55 11/17/18 09:55 Current Medications Generic Name Dose Route Start Last Admin Trade Name Freq PRN Reason Stop Dose Admin Atorvastatin Calcium 10 mg 11/17/18 22:00 Lipitor - PO HS SYDNEY Enoxaparin Sodium 90 mg 11/17/18 11:30 11/17/18 13:03 Lovenox - SQ 90 mg BID SYDNEY Administration Labetalol HCl 200 mg 11/17/18 22:00 Normodyne - PO BID SYDNEY Tamsulosin HCl 0.4 mg 11/17/18 22:00 Flomax - PO HS SYDNEY impression: Bilateral segmental pulmonary emboli Metastatic colon ca undergoing chemotherapy with 5FU/leucovorum. CLOT study suggests lovenox better than coumadin for malignancy related VTE . [place] study involving 1050 patient showed benefit of initial 5 days of lovenox followed by DOAC - edoxaban at 1 year. This would be a reasonable approach if drug and costs are not prohibitive. OBJECTIVE: ASSESSMENT AND PLAN:
[2018-11-17] MEDS: LABETALOL HCL 200 MG TABLET (FP) PO SCH (21:28)
[2018-11-17] MEDS: TAMSULOSIN HCL 0.4 MG CAP PO SCH (21:28)
[2018-11-17] MEDS: ATORVASTATIN CA 10 MG TABLET (FP) PO SCH (21:28)
[2018-11-18 07:38] LABS: BASO % 0.6 % (0-2.0); EOS % 3.4 % (0-4.5); HEMATOCRIT 29.4 % (35.4-49); HEMOGLOBIN 9.9 GM/dL (11.7-16.9); LYMPH % 15.6 % (8-40); MCH 31.3 pg (25.7-33.7); MCHC 33.5 g/dl (32.0-35.9); MEAN CELL VOLUME 93.3 fl (80-96); MEAN PLT VOLUME 8.6 fl (7.5-11.1); MONO % 12.6 % (3.8-10.2); NEUT % 67.8 % (42.8-82.8); PLATELET COUNT 213 K/MM3 (134-434); RBC 3.15 M/mm3 (4.00-5.60); WHITE BLOOD COUNT 8.1 K/mm3 (4.0-10.0)
[2018-11-18 08:12] LABS: ALBUMIN 2.7 g/dl (3.4-5.0); BILIRUBIN,TOTAL 0.4 mg/dL (0.2-1); CALCIUM 8.2 mg/dL (8.5-10.1); CREATININE 1.2 mg/dL (0.55-1.3); POTASSIUM 3.6 mmol/L (3.5-5.1); TOT PROT 5.2 g/dl (6.4-8.2)
--- NOTE | 2018-11-18 08:24 | PN ---
Progress Note (short form) - Note Progress Note: no events overnight walked to bathroom off of o2 without issues CBC, BMP 11/18/18 05:18 11/18/18 05:18 3rd trop 0.8 downward trend Vital Signs Period Temp Pulse Resp BP Sys/Rodriguez Pulse Ox Last 24 Hr 97.1 F-98.5 F 69-85 18-20 135-160/72-82 100 s1s2 rrr lungs cta abd soft nt no edema aaox3 nonfocal acute pulmonary embolism metastatic adenoca of colon since 2016, s/p debulking and still on chemotherapy htn controlled LMWHx5 days will call pharmacy for drug coverage for edoxaban pt eval pre and post o2 eval resume lowered dose amlodipine for bp
[2018-11-18] MEDS ORDERED: amLODIPine BESYLATE 10 MG TABLET (FP) PO SCH ×2 (10:00)
--- NOTE | 2018-11-18 11:05 | PN ---
Progress Note, Physician History of Present Illness: pulmonary alert,sitting up in bed ,sob improving - Current Medication List Current Medications: Active Medications Amlodipine Besylate (Norvasc -) 5 mg PO DAILY [facility] Atorvastatin Calcium (Lipitor -) 10 mg PO [facility] Last Admin: 11/17/18 21:28 Dose: 10 mg Enoxaparin Sodium (Lovenox -) 90 mg SQ BID [facility] Last Admin: 11/17/18 21:27 Dose: 90 mg Labetalol HCl (Normodyne -) 200 mg PO BID [facility] Last Admin: 11/17/18 21:28 Dose: 200 mg Tamsulosin HCl (Flomax -) 0.4 mg PO [facility] Last Admin: 11/17/18 21:28 Dose: 0.4 mg - Objective Vital Signs: Vital Signs Temperature 97.9 F 11/18/18 06:40 Pulse Rate 110 H 11/18/18 10:18 Respiratory Rate 20 11/18/18 06:40 Blood Pressure 150/78 11/18/18 06:40 O2 Sat by Pulse Oximetry (%) 92 L 11/18/18 10:18 Constitutional: Yes: Well Nourished, Calm Eyes: Yes: WNL HENT: Yes: WNL Neck: Yes: WNL Cardiovascular: Yes: Regular Rate and Rhythm, S1, S2 Respiratory: Yes: CTA Bilaterally Gastrointestinal: Yes: Normal Bowel Sounds, Soft Extremities: Yes: WNL Edema: No Labs: CBC, BMP 11/18/18 05:18 11/18/18 05:18 INR, PTT INR 1.36 (0.83-1.09) H 11/17/18 03:45 Fibrinogen 453.0 mg/dL (238-498) 11/17/18 11:51 - ....Imaging Other: Report Reviewed (echo mild-moderate reduced rv function,pulmonary htn rvsp 50-60) Problem List - Problems (1) Pulmonary embolism Code(s): I26.99 - OTHER PULMONARY EMBOLISM WITHOUT ACUTE COR PULMONALE (2) ARF (acute renal failure) Code(s): N17.9 - ACUTE KIDNEY FAILURE, UNSPECIFIED Qualifiers: Acute renal failure type: unspecified Qualified Code(s): N17.9 - Acute kidney failure, unspecified (3) Colon cancer Code(s): C18.9 - MALIGNANT NEOPLASM OF COLON, UNSPECIFIED Qualifiers: Colon location: ascending Qualified Code(s): C18.2 - Malignant neoplasm of ascending colon (4) Exertional dyspnea Code(s): R06.09 - OTHER FORMS OF DYSPNEA (5) Hypertension Code(s): I10 - ESSENTIAL (PRIMARY) HYPERTENSION Qualifiers: Hypertension type: unspecified Qualified Code(s): I10 - Essential (primary ) hypertension Assessment/Plan Assessment/Plan Acute Pulmonary Emboli Metastatic Colon Ca with known lung mets +Troponins likely from above HTN Anemia Acute on CKD improving - continue Lovenox - pt prefers DOAC, d/w hematology given current clinical trials - O2 to keep SpO2 >90% - trend cardiac enzymes until peak - f/u echo outpatient DR POTTER
[2018-11-18] MEDS: LABETALOL HCL 200 MG TABLET (FP) PO SCH ×2 (11:08→21:47)
[2018-11-18] MEDS: ENOXAPARIN NA (PORCINE) 100 MG/1 ML DISP.SYRIN SQ SCH ×2 (11:08→21:48)
--- NOTE | 2018-11-18 14:51 | PN ---
Progress Note, Physician Chief Complaint: Feels much better today Ambulated in hallway Sinus on tele with no arrhythmias History of Present Illness: 83 year old male with a pmhx of htn, hld, copd, metastatic colon ca s/p resection on chemo with known lung mets presents with sob and dizziness for 4 days. No chest pain or palpitations. No le edema. No pnd, orthopnea, or edema. CT chest with multiple b/l PE EKG: sinus rhythm at 66bpm, pac's, nl st segments Echocardiogram: nl lvef, mod RV dil/hypo, RVSP 50-60 - Current Medication List Current Medications: Active Medications Amlodipine Besylate (Norvasc -) 5 mg PO DAILY [facility] Last Admin: 11/18/18 11:09 Dose: 5 mg Atorvastatin Calcium (Lipitor -) 10 mg PO [facility] Last Admin: 11/17/18 21:28 Dose: 10 mg Enoxaparin Sodium (Lovenox -) 90 mg SQ BID [facility] Last Admin: 11/18/18 11:08 Dose: 90 mg Labetalol HCl (Normodyne -) 200 mg PO BID [facility] Last Admin: 11/18/18 11:08 Dose: 200 mg Tamsulosin HCl (Flomax -) 0.4 mg PO [facility] Last Admin: 11/17/18 21:28 Dose: 0.4 mg - Objective Vital Signs: Vital Signs Temperature 97.9 F 11/18/18 06:40 Pulse Rate 110 H 11/18/18 10:18 Respiratory Rate 20 11/18/18 06:40 Blood Pressure 150/78 11/18/18 06:40 O2 Sat by Pulse Oximetry (%) 92 L 11/18/18 10:18 Constitutional: Yes: No Distress Neck: Yes: Supple Cardiovascular: Yes: Regular Rate and Rhythm, S1, S2. No: JVD, Murmur Respiratory: Yes: CTA Bilaterally Gastrointestinal: Yes: Soft Edema: No Labs: CBC, BMP 11/18/18 05:18 11/18/18 05:18 INR, PTT INR 1.36 (0.83-1.09) H 11/17/18 03:45 Fibrinogen 453.0 mg/dL (238-498) 11/17/18 11:51 Problem List - Problems (1) Pulmonary embolism Code(s): I26.99 - OTHER PULMONARY EMBOLISM WITHOUT ACUTE COR PULMONALE Assessment/Plan 83 year old male with a pmhx of htn, hld, copd, metastatic colon ca s/p resection on chemo with known lung mets presents with sob and dizziness for 4 days. No chest pain or palpitations. No le edema. No pnd, orthopnea, or edema. CT chest with multiple b/l PE EKG: sinus rhythm at 66bpm, pac's, nl st segments Echocardiogram: nl lvef, mod RV dil/hypo, RVSP 50-60 1) PE -SOB due to b/l PE in setting of metastatic cancer. Troponin leak likely due to PE and right heart strain. No chest pain and no ischemic ekg changes. Treat for PE with anticoagulation. Follow up hematology for AC guidelines Will sign off at this time Follow up with Dr. Bailey as an outpatient [phone]
[2018-11-18] MEDS: TAMSULOSIN HCL 0.4 MG CAP PO SCH (21:47)
[2018-11-18] MEDS: ATORVASTATIN CA 10 MG TABLET (FP) PO SCH (21:47)
[2018-11-19 06:49] LABS: BASO % 0.8 % (0-2.0); EOS % 4.6 % (0-4.5); HEMATOCRIT 28.6 % (35.4-49); HEMOGLOBIN 9.4 GM/dL (11.7-16.9); MCH 30.9 pg (25.7-33.7); MEAN CELL VOLUME 93.6 fl (80-96); MEAN PLT VOLUME 8.5 fl (7.5-11.1); MONO % 13.9 % (3.8-10.2); NEUT % 62.7 % (42.8-82.8); PLATELET COUNT 224 K/MM3 (134-434); RBC 3.05 M/mm3 (4.00-5.60); RDW 21.4 % (11.9-15.9)
[2018-11-19 07:40] LABS: ALBUMIN 2.6 g/dl (3.4-5.0); BILIRUBIN,TOTAL 0.4 mg/dL (0.2-1); BLOOD UREA NITROGEN 26.6 mg/dL (7-18); CALCIUM 7.8 mg/dL (8.5-10.1); CREATININE 1.2 mg/dL (0.55-1.3); POTASSIUM 3.4 mmol/L (3.5-5.1); TOT PROT 5.1 g/dl (6.4-8.2)
--- NOTE | 2018-11-19 08:06 | PN ---
Progress Note (short form) - Note Progress Note: feels much better, had a large diarrheal BM this am, non bloody CBC, BMP 11/19/18 05:15 11/19/18 05:15 Vital Signs Period Temp Pulse Resp BP Sys/Rodriguez Pulse Ox Last 24 Hr 97.6 F-98.6 F 54-74 18-20 140-167/64-80 95-95 s1s2 rrr lungs cta abd soft nt no edema aaox3 nonfocal acute pulmonary embolism metastatic adenoca of colon since 2016, s/p debulking and still on chemotherapy htn controlled mild hypokalemia LMWHx5 days prior auth was initiated for edoxaban anticipate dc home tomorrow with outpt follow up replete k
--- NOTE | 2018-11-19 10:39 | PN ---
Progress Note (short form) - Note Progress Note: PULMONARY AWAKE/LYING IN BED LOOKS COMFORTABLE/DENIES CHEST PAIN, SOB VSS/AFEBRILE Constitutional: Yes: Well Nourished, Calm Eyes: Yes: WNL HENT: Yes: WNL Neck: Yes: WNL Cardiovascular: Yes: Regular Rate and Rhythm, S1, S2 Respiratory: Yes: CTA Bilaterally Gastrointestinal: Yes: Normal Bowel Sounds, Soft Extremities: Yes: WNL Edema: No Labs/images/meds/notes: reviewed Acute Pulmonary Emboli Metastatic Colon Ca with known lung mets +Troponins likely from above HTN Anemia Acute on CKD improving - continue Lovenox - outpatient a/c - O2 to keep SpO2 >90% - trend cardiac enzymes until peak - f/u echo outpatient Yanci SMITH MD
[2018-11-19] MEDS: amLODIPine BESYLATE 10 MG TABLET (FP) PO SCH (10:41)
[2018-11-19] MEDS: ENOXAPARIN NA (PORCINE) 100 MG/1 ML DISP.SYRIN SQ SCH ×2 (10:41→21:57)
[2018-11-19] MEDS: LABETALOL HCL 200 MG TABLET (FP) PO SCH ×2 (10:41→21:57)
[2018-11-19] MEDS: POTASSIUM CHLORIDE TABS 10 MEQ TABLET.ER (FP) PO SCH (10:41)
--- NOTE | 2018-11-19 20:52 | PN ---
Progress Note (short form) - Note Progress Note: PAtient seen and examined Feels well. Denies any complaints Last Vital Signs Temp Pulse Resp BP Pulse Ox 98.8 F 84 19 135/76 95 11/19/18 14:00 11/19/18 14:00 11/19/18 09:00 11/19/18 14:00 11/19/18 09:00 Cor: RSR, No murmurs, No gallops Lungs: Clear to P&A Abd: Soft, Normal bowel sounds, No organomegaly Ext:No significant edema Skin: No rashes, Integument intact Abnormal Lab Results 11/19/18 11/19/18 05:15 05:15 RBC 3.05 L Hgb 9.4 L Hct 28.6 L RDW 21.4 H Monocytes % 13.9 H Eosinophils % 4.6 H Potassium 3.4 L Chloride 109 H BUN 26.6 H Calcium 7.8 L Alkaline Phosphatase 39 L Total Protein 5.1 L Albumin 2.6 L Active Medications Generic Name Dose Route Start Last Admin Trade Name Josueq PRN Reason Stop Dose Admin Amlodipine Besylate 10 mg 11/19/18 08:05 11/19/18 10:41 Norvasc - PO 10 mg DAILY SYDNEY Administration Atorvastatin Calcium 10 mg 11/17/18 22:00 11/18/18 21:47 Lipitor - PO 10 mg HS SYDNEY Administration Enoxaparin Sodium 90 mg 11/17/18 11:30 11/19/18 10:41 Lovenox - SQ 90 mg BID SYDNEY Administration Labetalol HCl 200 mg 11/17/18 22:00 11/19/18 10:41 Normodyne - PO 200 mg BID SYDNEY Administration Potassium Chloride 20 meq 11/19/18 10:00 11/19/18 10:41 K-Dur - PO 20 meq DAILY SYDNEY Administration Tamsulosin HCl 0.4 mg 11/17/18 22:00 11/18/18 21:47 Flomax - PO 0.4 mg HS SYDNEY Administration a/p Bilateral segmental pulmonary emboli Metastatic colon ca undergoing chemotherapy with 5FU/leucovorum. on lovenox
[2018-11-19] MEDS: ATORVASTATIN CA 10 MG TABLET (FP) PO SCH (21:57)
[2018-11-19] MEDS: TAMSULOSIN HCL 0.4 MG CAP PO SCH (21:57)
[2018-11-20 07:09] LABS: BASO % 0.8 % (0-2.0); EOS % 5.8 % (0-4.5); HEMATOCRIT 27.8 % (35.4-49); HEMOGLOBIN 9.4 GM/dL (11.7-16.9); LYMPH % 20.9 % (8-40); MCH 31.4 pg (25.7-33.7); MCHC 33.7 g/dl (32.0-35.9); MEAN CELL VOLUME 93.3 fl (80-96); MEAN PLT VOLUME 8.4 fl (7.5-11.1); MONO % 15.2 % (3.8-10.2); NEUT % 57.3 % (42.8-82.8); PLATELET COUNT 236 K/MM3 (134-434); RBC 2.98 M/mm3 (4.00-5.60); RDW 20.8 % (11.9-15.9); WHITE BLOOD COUNT 6.2 K/mm3 (4.0-10.0)
[2018-11-20 07:27] LABS: ALBUMIN 2.6 g/dl (3.4-5.0); BILIRUBIN,TOTAL 0.4 mg/dL (0.2-1); CALCIUM 7.8 mg/dL (8.5-10.1); CREATININE 1.2 mg/dL (0.55-1.3); POTASSIUM 3.9 mmol/L (3.5-5.1); TOT PROT 5.1 g/dl (6.4-8.2)
--- NOTE | 2018-11-20 09:01 | DS ---
Physical Examination Vital Signs: Vital Signs Temperature 98.3 F 11/20/18 06:00 Pulse Rate 58 L 11/20/18 06:00 Respiratory Rate 17 11/20/18 06:00 Blood Pressure 147/67 11/20/18 06:00 O2 Sat by Pulse Oximetry (%) 99 11/19/18 21:00 Constitutional: Yes: No Distress, Calm Eyes: Yes: EOM Intact HENT: Yes: Normocephalic Neck: Yes: Trachea Midline Cardiovascular: Yes: Regular Rate and Rhythm Respiratory: Yes: CTA Bilaterally Gastrointestinal: Yes: Normal Bowel Sounds, Soft Musculoskeletal: Yes: WNL Extremities: Yes: WNL Edema: No Peripheral Pulses WNL: Yes Integumentary: Yes: WNL Neurological: Yes: WNL Labs: CBC, BMP 11/20/18 05:24 11/20/18 05:24 Discharge Summary Reason For Visit: PULMONARY EMBOLISM Current Active Problems Pulmonary embolism (Acute) Hospital Course: 83 yo man with acute pulmonary embolism, PMH of metastatic adenoca of colon since 2016, s/p debulking and still on chemotherapy 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 will dc home to complete 5 more doses on lovenox and then start oral anticoagulant. bleeding precautions d/w patient and niece at length. Condition: Fair - Instructions - Home Medications Comprehensive Discharge Medication List: Ambulatory Orders Amlodipine Besylate 10 mg PO DAILY 06/17/16 Labetalol HCl [Normodyne -] 200 mg PO BID 06/17/16 Tamsulosin HCl 0.4 mg PO HS 06/17/16 Simvastatin 20 mg PO HS 06/18/16 Ascorbic Acid [Vitamin C -] 500 mg PO ASDIR 07/29/16 Glucosamine/Methylsulfonylmeth [Sm Glucosamine & MSM Tablet] 1,500 tab PO BID Multivitamins [Multivit ([facility] Formulary)] 1 tab PO DAILY 07/29/16 Ferrous Sulfate, Dried [Iron] 64 mg PO DAILY 09/09/16 lovenox 90 mg sc q12h now and start edoxaban 60 mg po daily on thursday at the time of and instead of the next lovenox dose
[2018-11-20] MEDS: POTASSIUM CHLORIDE TABS 10 MEQ TABLET.ER (FP) PO SCH (09:09)
[2018-11-20] MEDS: amLODIPine BESYLATE 10 MG TABLET (FP) PO SCH (09:09)
[2018-11-20] MEDS: LABETALOL HCL 200 MG TABLET (FP) PO SCH (09:10)
[2018-11-20] MEDS: ENOXAPARIN NA (PORCINE) 100 MG/1 ML DISP.SYRIN SQ SCH (09:10)
[2018-11-20 10:40] LABS: ANISOCYTOSIS 1+; MACROCYTOSIS 1+; OVALOCYTE 1+; PLATELET ESTIMATE NORMAL; TARGET CELLS 2+
--- NOTE | 2018-11-20 10:45 | PN ---
Progress Note (short form) - Note Progress Note: PULMONARY LYING IN BED LOOKS COMFORTABLE VSS/AFEBRILE Constitutional: Yes: Well Nourished, Calm Eyes: Yes: WNL HENT: Yes: WNL Neck: Yes: WNL Cardiovascular: Yes: Regular Rate and Rhythm, S1, S2 Respiratory: Yes: CTA Bilaterally Gastrointestinal: Yes: Normal Bowel Sounds, Soft Extremities: Yes: WNL Edema: No Labs/images/meds/notes: reviewed Echo results noted Acute Pulmonary Emboli Metastatic Colon Ca with known lung mets +Troponins likely from above HTN Anemia Acute on CKD improving - continue Lovenox until discharge - outpatient a/c DOAC as per PMD - O2 to keep SpO2 >90% - f/u as outpatient Yanci SMITH MD
[2018-11-20 10:54] VITALS: BP 131/76; PULSE 59; TEMP 98.5
== END 2018-11-20 14:41 | disposition home or self-care (01) | DRG 176 ==
LOC: JER 21:56 → JERBED 11-17 05:12 → UNDOADMIN 11-17 05:12 → J4W 11-17 17:36
PROVIDERS: ADMIT Internal Medicine; ATTEND Internal Medicine
DX: I26.99 Other pulmonary embolism without acute cor pulmonale (principal); I24.8 Other forms of acute ischemic heart disease; C78.00 Secondary malignant neoplasm of unspecified lung; C18.2 Malignant neoplasm of ascending colon; N18.9 Chronic kidney disease, unspecified; E88.09 Other disorders of plasma-protein metabolism, not elsewhere classified; D63.0 Anemia in neoplastic disease; I12.9 Hypertensive chronic kidney disease with stage 1 through stage 4 chronic kidney disease, or unspecified chronic kidney disease; E87.6 Hypokalemia; E78.5 Hyperlipidemia, unspecified
CPT/HCPCS: 36415; 71275-TC; 80053; 82465; 82550; 83735; 83880; 84484; 85025; 85384; 85610; 85730; 93005; 93010; 93306-TC; 93970-TC; 94761; 97116-GP; 97162-GP; 99283-25; J1644

== ENCOUNTER → 2018-11-30 | Day surgery (SDC) | payer OTHER | LOC: JONCCHEMO 06:00 ==

== ENCOUNTER 2018-12-07 05:35 | Day surgery (SDC) | payer OTHER ==
[2018-12-07 08:40] LABS: BASO % 2.3 % (0-2.0); EOS % 6.3 % (0-4.5); HEMATOCRIT 31.2 % (35.4-49); LYMPH % 12.1 % (8-40); MCH 29.6 pg (25.7-33.7); MEAN CELL VOLUME 92.4 fl (80-96); MEAN PLT VOLUME 7.2 fl (7.5-11.1); MONO % 13.6 % (3.8-10.2); NEUT % 65.7 % (42.8-82.8); PLATELET COUNT 344 K/MM3 (134-434); RBC 3.38 M/mm3 (4.00-5.60); RDW 19.6 % (11.9-15.9); WHITE BLOOD COUNT 6.1 K/mm3 (4.0-10.0)
[2018-12-07 09:53] LABS: ALBUMIN 3.1 g/dl (3.4-5.0); BILIRUBIN,DIRECT 0.1 mg/dL (0.0-0.2); BILIRUBIN,TOTAL 0.3 mg/dL (0.2-1); BLOOD UREA NITROGEN 22.9 mg/dL (7-18); CALCIUM 8.9 mg/dL (8.5-10.1); CREATININE 1.6 mg/dL (0.55-1.3); MAGNESIUM 2.2 mg/dL (1.8-2.4); POTASSIUM 4.3 mmol/L (3.5-5.1)
[2018-12-07] MEDS ORDERED: DEXAMETHASONE SODIUM PHOSPHATE 20 MG, ONDANSETRON INJECTION 8 MG in SODIUM CHLORIDE 100 ML IVPB ONE (10:00)
[2018-12-07] MEDS ORDERED: LEUCOVORIN IVPB ONE (10:30)
[2018-12-07] MEDS ORDERED: DEXTROSE 5% IVPB ONE (10:30)
[2018-12-07] MEDS ORDERED: WATER IVPB ONE (10:30)
[2018-12-07] MEDS ORDERED: PORTA CATH FLUSH 10 ML IVPUSH ONE (11:16)
[2018-12-07] MEDS ORDERED: FLUOROURACIL 2,500 MG/50 ML VIAL IVPUSH ONE (11:30)
[2018-12-07] MEDS ORDERED: SODIUM CHLORIDE 250 ML IV ONE (12:30)
[2018-12-07] MEDS ORDERED: SODIUM CHLORIDE 500 ML IV ONE (12:30)
[2018-12-07 16:20] VITALS: BP 138/97; PULSE 53
[2018-12-07 16:21] VITALS: TEMP 97.7
== END 2018-12-07 15:45 | disposition home or self-care (01) ==
LOC: JONCCHEMO 05:35 → J7W 09:27 → JONCCHEMO 15:45
PROVIDERS: ATTEND Internal Medicine Hematology & Oncology
PROC: 3E04305 Introduction of Other Antineoplastic into Central Vein, Percutaneous Approach (ICD-10-PCS; principal; 2018-12-07)
PROC: 3E043GC Introduction of Other Therapeutic Substance into Central Vein, Percutaneous Approach (ICD-10-PCS; 2018-12-07)
PROC: 3E043GC Introduction of Other Therapeutic Substance into Central Vein, Percutaneous Approach (ICD-10-PCS; 2018-12-07)
DX: Z51.11 Encounter for antineoplastic chemotherapy (principal); C18.2 Malignant neoplasm of ascending colon
CPT/HCPCS: 36415; 80048; 80076; 82378; 83735; 85025; 96361; 96365; 96367; 96375; 96409; 96415; 96417

== ENCOUNTER 2018-12-14 05:32 | Day surgery (SDC) | payer OTHER ==
[2018-12-14 09:00] LABS: BASO % 0.7 % (0-2.0); EOS % 6.9 % (0-4.5); HEMATOCRIT 32.5 % (35.4-49); HEMOGLOBIN 10.6 GM/dL (11.7-16.9); LYMPH % 10.7 % (8-40); MCH 29.8 pg (25.7-33.7); MCHC 32.7 g/dl (32.0-35.9); MEAN CELL VOLUME 91.2 fl (80-96); MEAN PLT VOLUME 7.7 fl (7.5-11.1); MONO % 8.1 % (3.8-10.2); NEUT % 73.6 % (42.8-82.8); PLATELET COUNT 340 K/MM3 (134-434); RBC 3.56 M/mm3 (4.00-5.60); RDW 19.4 % (11.9-15.9); WHITE BLOOD COUNT 7.9 K/mm3 (4.0-10.0)
[2018-12-14 09:28] LABS: ALBUMIN 3.2 g/dl (3.4-5.0); BILIRUBIN,DIRECT 0.1 mg/dL (0.0-0.2); BILIRUBIN,TOTAL 0.3 mg/dL (0.2-1); CALCIUM 8.5 mg/dL (8.5-10.1); CREATININE 1.3 mg/dL (0.55-1.3); POTASSIUM 4.1 mmol/L (3.5-5.1); TOT PROT 6.3 g/dl (6.4-8.2)
[2018-12-14] MEDS ORDERED: DEXAMETHASONE SODIUM PHOSPHATE 10 MG, ONDANSETRON INJECTION 8 MG in SODIUM CHLORIDE 100 ML IVPB ONE (09:30)
[2018-12-14] MEDS ORDERED: WATER IVPB ONE (10:00)
[2018-12-14] MEDS ORDERED: LEUCOVORIN IVPB ONE (10:00)
[2018-12-14] MEDS ORDERED: DEXTROSE 5% IVPB ONE (10:00)
[2018-12-14] MEDS ORDERED: FLUOROURACIL 500 MG/10 ML VIAL IVPUSH ONE ×2 (11:00→11:45)
[2018-12-14 11:18] VITALS: TEMP 98
[2018-12-14] MEDS ORDERED: PORTA CATH FLUSH 10 ML IVPUSH ONE (11:26)
[2018-12-14] MEDS ORDERED: SODIUM CHLORIDE 250 ML IV ONE (12:00)
[2018-12-14 16:14] VITALS: BP 139/88; PULSE 78
== END 2018-12-14 15:10 | disposition home or self-care (01) ==
LOC: JONCCHEMO 05:32 → J7W 08:23 → JONCCHEMO 15:10
PROVIDERS: ATTEND Internal Medicine Hematology & Oncology
PROC: 3E04305 Introduction of Other Antineoplastic into Central Vein, Percutaneous Approach (ICD-10-PCS; principal; 2018-12-14)
PROC: 3E043GC Introduction of Other Therapeutic Substance into Central Vein, Percutaneous Approach (ICD-10-PCS; 2018-12-14)
PROC: 3E043GC Introduction of Other Therapeutic Substance into Central Vein, Percutaneous Approach (ICD-10-PCS; 2018-12-14)
DX: Z51.11 Encounter for antineoplastic chemotherapy (principal); C18.2 Malignant neoplasm of ascending colon
CPT/HCPCS: 36415; 80048; 80076; 83735; 85025; 96361; 96365; 96366; 96367; 96375; 96409; 96415; 96417; J2405; J9190

== ENCOUNTER 2018-12-21 07:13 | Day surgery (SDC) | payer OTHER ==
[2018-12-21 09:01] LABS: BASO % 1.7 % (0-2.0); EOS % 5.3 % (0-4.5); HEMATOCRIT 28.5 % (35.4-49); HEMOGLOBIN 9.5 GM/dL (11.7-16.9); MCH 30.1 pg (25.7-33.7); MCHC 33.3 g/dl (32.0-35.9); MEAN CELL VOLUME 90.2 fl (80-96); MEAN PLT VOLUME 7.8 fl (7.5-11.1); MONO % 8.4 % (3.8-10.2); NEUT % 69.6 % (42.8-82.8); PLATELET COUNT 292 K/MM3 (134-434); RBC 3.16 M/mm3 (4.00-5.60); RDW 20.5 % (11.9-15.9); WHITE BLOOD COUNT 6.2 K/mm3 (4.0-10.0)
[2018-12-21] MEDS ORDERED: DEXAMETHASONE SODIUM PHOSPHATE 10 MG, ONDANSETRON INJECTION 8 MG in SODIUM CHLORIDE 100 ML IVPB ONE (09:30)
[2018-12-21 09:50] LABS: BILIRUBIN,TOTAL 0.3 mg/dL (0.2-1); BLOOD UREA NITROGEN 32.8 mg/dL (7-18); CALCIUM 8.2 mg/dL (8.5-10.1); CREATININE 1.6 mg/dL (0.55-1.3); MAGNESIUM 1.7 mg/dL (1.8-2.4); POTASSIUM 3.8 mmol/L (3.5-5.1); TOT PROT 5.7 g/dl (6.4-8.2)
[2018-12-21] MEDS ORDERED: MAGNESIUM OXIDE 400 MG TABLET (FP) PO ONE (09:57)
[2018-12-21] MEDS ORDERED: WATER IVPB ONE (10:00)
[2018-12-21] MEDS ORDERED: LEUCOVORIN IVPB ONE (10:00)
[2018-12-21] MEDS ORDERED: DEXTROSE 5% IVPB ONE (10:00)
[2018-12-21] MEDS ORDERED: FLUOROURACIL 2,500 MG/50 ML VIAL IVPUSH ONE (11:00)
[2018-12-21] MEDS ORDERED: SODIUM CHLORIDE 250 ML IV ONE (12:00)
[2018-12-21 14:01] LABS: HELMET CELLS 1+; OVALOCYTE 1+; TARGET CELLS 1+
[2018-12-21 15:48] VITALS: TEMP 98.8
[2018-12-21 15:49] VITALS: BP 117/79; PULSE 69
== END 2018-12-21 13:00 | disposition home or self-care (01) ==
LOC: JONCCHEMO 07:13 → J7W 09:49 → JONCCHEMO 13:00
PROVIDERS: ATTEND Internal Medicine Hematology & Oncology
PROC: 3E043GC Introduction of Other Therapeutic Substance into Central Vein, Percutaneous Approach (ICD-10-PCS; principal; 2018-12-21)
PROC: 3E043GC Introduction of Other Therapeutic Substance into Central Vein, Percutaneous Approach (ICD-10-PCS; 2018-12-21)
DX: C18.2 Malignant neoplasm of ascending colon (principal); Z76.89 Persons encountering health services in other specified circumstances
CPT/HCPCS: 36415; 80053; 83735; 85025; 96361; 96365; 96366; 96367; 96375; 96415; 96417; J2405

== ENCOUNTER 2019-01-10 05:34 | Day surgery (SDC) | payer OTHER ==
[~2019-01-10 05:34] MED LIST changes: -BEVACIZUMAB IV ONE; +DEXAMETHASONE SODIUM PHOSPHATE 10 MG, ONDANSETRON INJECTION 8 MG in SODIUM CHLORIDE 100 ML IVPB ONE; +DEXTROSE 5% IVPB ONE; +FLUOROURACIL 500 MG/10 ML VIAL IVPUSH ONE; +LEUCOVORIN IVPB ONE; -SODIUM CHLORIDE IV ONE; +WATER IVPB ONE
[2019-01-10 09:33] LABS: BASO % 1.2 % (0-2.0); EOS % 5.1 % (0-4.5); HEMATOCRIT 30.9 % (35.4-49); HEMOGLOBIN 10.1 GM/dL (11.7-16.9); LYMPH % 15.1 % (8-40); MCH 29.7 pg (25.7-33.7); MCHC 32.7 g/dl (32.0-35.9); MEAN CELL VOLUME 90.7 fl (80-96); MEAN PLT VOLUME 7.8 fl (7.5-11.1); MONO % 14.7 % (3.8-10.2); NEUT % 63.9 % (42.8-82.8); PLATELET COUNT 303 K/MM3 (134-434); RBC 3.41 M/mm3 (4.00-5.60); RDW 20.9 % (11.9-15.9); WHITE BLOOD COUNT 4.7 K/mm3 (4.0-10.0)
[2019-01-10 09:51] LABS: BILIRUBIN,TOTAL 0.2 mg/dL (0.2-1); BLOOD UREA NITROGEN 32.7 mg/dL (7-18); CALCIUM 8.3 mg/dL (8.5-10.1); CREATININE 1.6 mg/dL (0.55-1.3); MAGNESIUM 2.1 mg/dL (1.8-2.4); POTASSIUM 4.4 mmol/L (3.5-5.1); TOT PROT 5.8 g/dl (6.4-8.2)
[2019-01-10] MEDS ORDERED: SODIUM CHLORIDE 250 ML IV ONE (10:00)
[2019-01-10] MEDS ORDERED: DEXAMETHASONE SODIUM PHOSPHATE 10 MG, ONDANSETRON INJECTION 8 MG in SODIUM CHLORIDE 100 ML IVPB ONE (10:00)
[2019-01-10] MEDS ORDERED: WATER IVPB ONE (10:30)
[2019-01-10] MEDS ORDERED: LEUCOVORIN IVPB ONE (10:30)
[2019-01-10] MEDS ORDERED: DEXTROSE 5% IVPB ONE (10:30)
[2019-01-10] MEDS ORDERED: FLUOROURACIL 500 MG/10 ML VIAL IVPUSH ONE (11:30)
[2019-01-10 12:55] LABS: ANISOCYTOSIS 2+; MACROCYTOSIS 1+; PLATELET ESTIMATE NORMAL
[2019-01-10 15:50] VITALS: TEMP 97.3
[2019-01-10 15:51] VITALS: BP 135/61; PULSE 53
== END 2019-01-10 14:15 | disposition home or self-care (01) ==
LOC: JONCCHEMO 05:34 → J7W 10:02 → JONCCHEMO 14:15
PROVIDERS: ATTEND Internal Medicine Hematology & Oncology
PROC: 3E043GC Introduction of Other Therapeutic Substance into Central Vein, Percutaneous Approach (ICD-10-PCS; principal; 2019-01-10)
PROC: 3E0337Z Introduction of Electrolytic and Water Balance Substance into Peripheral Vein, Percutaneous Approach (ICD-10-PCS; 2019-01-10)
DX: Z76.89 Persons encountering health services in other specified circumstances (principal); C18.2 Malignant neoplasm of ascending colon; I10 Essential (primary) hypertension; N40.0 Benign prostatic hyperplasia without lower urinary tract symptoms; E78.00 Pure hypercholesterolemia, unspecified
CPT/HCPCS: 36415; 80053; 83735; 85025; 96361; 96365; 96366; 96367; 96375; J2405; J9190

== ENCOUNTER 2019-01-18 07:27 | Day surgery (SDC) | payer OTHER ==
[2019-01-18 08:35] LABS: EOS % 4.1 % (0-4.5); HEMATOCRIT 31.8 % (35.4-49); HEMOGLOBIN 10.3 GM/dL (11.7-16.9); LYMPH % 13.8 % (8-40); MCH 29.5 pg (25.7-33.7); MCHC 32.4 g/dl (32.0-35.9); MEAN CELL VOLUME 90.9 fl (80-96); MEAN PLT VOLUME 7.7 fl (7.5-11.1); MONO % 10.5 % (3.8-10.2); NEUT % 70.6 % (42.8-82.8); PLATELET COUNT 320 K/MM3 (134-434)
[2019-01-18 09:08] LABS: ALBUMIN 3.2 g/dl (3.4-5.0); BILIRUBIN,TOTAL 0.2 mg/dL (0.2-1); BLOOD UREA NITROGEN 27.6 mg/dL (7-18); CALCIUM 8.5 mg/dL (8.5-10.1); CREATININE 1.5 mg/dL (0.55-1.3); MAGNESIUM 2.1 mg/dL (1.8-2.4); POTASSIUM 4.3 mmol/L (3.5-5.1)
[2019-01-18] MEDS: SODIUM CHLORIDE 250 ML IV ONE ×2 (09:43→13:18)
[2019-01-18] MEDS ORDERED: DEXAMETHASONE SODIUM PHOSPHATE 10 MG, ONDANSETRON INJECTION 8 MG in SODIUM CHLORIDE 100 ML IVPB ONE (10:00)
[2019-01-18] MEDS ORDERED: WATER IVPB ONE (10:30)
[2019-01-18] MEDS ORDERED: DEXTROSE 5% IVPB ONE (10:30)
[2019-01-18] MEDS ORDERED: LEUCOVORIN IVPB ONE (10:30)
[2019-01-18] MEDS ORDERED: FLUOROURACIL 2,500 MG/50 ML VIAL IVPUSH ONE (11:30)
[2019-01-18 12:25] LABS: ANISOCYTOSIS 1+; MACROCYTOSIS 0; PLATELET ESTIMATE NORMAL; TARGET CELLS 1+
[2019-01-18 14:58] VITALS: BP 154/76; PULSE 57; TEMP 98.5
[2019-01-18] MEDS ORDERED: PORTA CATH FLUSH 10 ML IVPUSH ONE (15:09)
== END 2019-01-18 13:30 | disposition home or self-care (01) ==
LOC: JONCCHEMO 07:27 → J7W 09:15 → JONCCHEMO 13:30
PROVIDERS: ATTEND Internal Medicine Hematology & Oncology
PROC: 3E04305 Introduction of Other Antineoplastic into Central Vein, Percutaneous Approach (ICD-10-PCS; principal; 2019-01-18)
PROC: 3E0437Z Introduction of Electrolytic and Water Balance Substance into Central Vein, Percutaneous Approach (ICD-10-PCS; 2019-01-18)
PROC: 3E0437Z Introduction of Electrolytic and Water Balance Substance into Central Vein, Percutaneous Approach (ICD-10-PCS; 2019-01-18)
DX: Z51.11 Encounter for antineoplastic chemotherapy (principal); C18.2 Malignant neoplasm of ascending colon
CPT/HCPCS: 36415; 80053; 83735; 85025; 96361; 96365; 96366; 96409

== ENCOUNTER 2019-01-25 05:24 | Day surgery (SDC) | payer OTHER ==
[2019-01-25 08:38] LABS: BASO % 0.8 % (0-2.0); EOS % 4.6 % (0-4.5); HEMATOCRIT 32.6 % (35.4-49); HEMOGLOBIN 10.6 GM/dL (11.7-16.9); LYMPH % 12.4 % (8-40); MCH 29.1 pg (25.7-33.7); MCHC 32.4 g/dl (32.0-35.9); MEAN CELL VOLUME 89.9 fl (80-96); MEAN PLT VOLUME 7.6 fl (7.5-11.1); MONO % 8.5 % (3.8-10.2); NEUT % 73.7 % (42.8-82.8); PLATELET COUNT 293 K/MM3 (134-434); RBC 3.62 M/mm3 (4.00-5.60); RDW 20.5 % (11.9-15.9); WHITE BLOOD COUNT 7.3 K/mm3 (4.0-10.0)
[2019-01-25 09:07] LABS: ALBUMIN 3.1 g/dl (3.4-5.0); BILIRUBIN,TOTAL 0.2 mg/dL (0.2-1); CALCIUM 8.5 mg/dL (8.5-10.1); CREATININE 1.5 mg/dL (0.55-1.3); MAGNESIUM 1.8 mg/dL (1.8-2.4); TOT PROT 5.9 g/dl (6.4-8.2)
[2019-01-25] MEDS ORDERED: DEXAMETHASONE SODIUM PHOSPHATE 10 MG, ONDANSETRON INJECTION 8 MG in SODIUM CHLORIDE 100 ML IVPB ONE (10:00)
[2019-01-25] MEDS ORDERED: FUROSEMIDE 40 MG/4 ML INJECTABLE VIAL IVPUSH PRN (10:04)
[2019-01-25] MEDS ORDERED: FUROSEMIDE 40 MG/4 ML INJECTABLE VIAL IVPUSH ONE (10:04)
[2019-01-25 10:27] LABS: ANISOCYTOSIS 1+; MACROCYTOSIS 1+; PLATELET ESTIMATE NORMAL
[2019-01-25] MEDS ORDERED: DEXTROSE 5% IVPB ONE (10:30)
[2019-01-25] MEDS ORDERED: WATER IVPB ONE (10:30)
[2019-01-25] MEDS ORDERED: LEUCOVORIN IVPB ONE (10:30)
[2019-01-25] MEDS ORDERED: FLUOROURACIL 2,500 MG/50 ML VIAL IVPUSH ONE (11:30)
[2019-01-25] MEDS ORDERED: SODIUM CHLORIDE 250 ML IV ONE (12:30)
[2019-01-25 16:50] VITALS: BP 130/66; PULSE 84; TEMP 97.8
[2019-01-25] MEDS ORDERED: PORTA CATH FLUSH 10 ML IVPUSH ONE (16:50)
== END 2019-01-25 16:30 | disposition home or self-care (01) ==
LOC: JONCCHEMO 05:24 → J7W 10:00 → JONCCHEMO 16:30
PROVIDERS: ATTEND Internal Medicine Hematology & Oncology
DX: Z51.11 Encounter for antineoplastic chemotherapy (principal); C18.2 Malignant neoplasm of ascending colon
CPT/HCPCS: 36415; 80053; 83735; 85025; 96361; 96365; 96366; 96409

== ENCOUNTER 2019-02-15 05:46 | Day surgery (SDC) | payer OTHER ==
[2019-02-15 08:56] LABS: BASO % 1.3 % (0-2.0); EOS % 5.3 % (0-4.5); HEMATOCRIT 32.7 % (35.4-49); HEMOGLOBIN 10.5 GM/dL (11.7-16.9); LYMPH % 13.3 % (8-40); MCH 28.7 pg (25.7-33.7); MCHC 32.2 g/dl (32.0-35.9); MEAN CELL VOLUME 89.1 fl (80-96); MEAN PLT VOLUME 7.3 fl (7.5-11.1); NEUT % 67.1 % (42.8-82.8); PLATELET COUNT 341 K/MM3 (134-434); RBC 3.67 M/mm3 (4.00-5.60); RDW 20.7 % (11.9-15.9); WHITE BLOOD COUNT 5.1 K/mm3 (4.0-10.0)
[2019-02-15 09:28] LABS: ALBUMIN 2.9 g/dl (3.4-5.0); BILIRUBIN,TOTAL 0.3 mg/dL (0.2-1); BLOOD UREA NITROGEN 23.3 mg/dL (7-18); CALCIUM 8.9 mg/dL (8.5-10.1); CREATININE 1.6 mg/dL (0.55-1.3); MAGNESIUM 2.2 mg/dL (1.8-2.4); POTASSIUM 4.3 mmol/L (3.5-5.1); TOT PROT 6.1 g/dl (6.4-8.2)
[2019-02-15] MEDS ORDERED: DEXAMETHASONE SODIUM PHOSPHATE 20 MG, ONDANSETRON INJECTION 8 MG in SODIUM CHLORIDE 100 ML IVPB ONE (09:30)
[2019-02-15] MEDS ORDERED: LEUCOVORIN IVPB ONE (10:00)
[2019-02-15] MEDS ORDERED: DEXTROSE 5% IVPB ONE (10:00)
[2019-02-15] MEDS ORDERED: WATER IVPB ONE (10:00)
[2019-02-15] MEDS ORDERED: FLUOROURACIL 500 MG/10 ML VIAL IVPUSH ONE (11:00)
[2019-02-15 11:52] LABS: ANISOCYTOSIS 2+; PLATELET ESTIMATE NORMAL
[2019-02-15] MEDS ORDERED: SODIUM CHLORIDE 250 ML IV ONE (12:00)
[2019-02-15 15:06] VITALS: TEMP 98.5
[2019-02-15] MEDS ORDERED: PORTA CATH FLUSH 10 ML IVPUSH ONE (15:11)
[2019-02-15 15:27] VITALS: BP 134/63; PULSE 84
== END 2019-02-15 14:50 | disposition home or self-care (01) ==
LOC: JONCCHEMO 05:46 → J7W 09:35 → JONCCHEMO 14:50
PROVIDERS: ATTEND Internal Medicine Hematology & Oncology
PROC: 3E04305 Introduction of Other Antineoplastic into Central Vein, Percutaneous Approach (ICD-10-PCS; principal; 2019-02-15)
PROC: 3E043GC Introduction of Other Therapeutic Substance into Central Vein, Percutaneous Approach (ICD-10-PCS; 2019-02-15)
PROC: 3E043GC Introduction of Other Therapeutic Substance into Central Vein, Percutaneous Approach (ICD-10-PCS; 2019-02-15)
DX: Z51.11 Encounter for antineoplastic chemotherapy (principal); C18.8 Malignant neoplasm of overlapping sites of colon
CPT/HCPCS: 36415; 80053; 83735; 85025; 96361; 96365; 96366; 96367; 96409; J2405; J9190

== ENCOUNTER 2019-02-22 07:09 | Day surgery (SDC) | payer OTHER ==
[2019-02-22 09:07] LABS: BASO % 0.7 % (0-2.0); EOS % 4.6 % (0-4.5); HEMATOCRIT 33.4 % (35.4-49); HEMOGLOBIN 10.7 GM/dL (11.7-16.9); LYMPH % 12.5 % (8-40); MCH 28.6 pg (25.7-33.7); MCHC 32.1 g/dl (32.0-35.9); MEAN CELL VOLUME 89.2 fl (80-96); MEAN PLT VOLUME 7.9 fl (7.5-11.1); MONO % 10.3 % (3.8-10.2); NEUT % 71.9 % (42.8-82.8); PLATELET COUNT 331 K/MM3 (134-434); RBC 3.74 M/mm3 (4.00-5.60); RDW 20.9 % (11.9-15.9); WHITE BLOOD COUNT 6.5 K/mm3 (4.0-10.0)
[2019-02-22] MEDS ORDERED: DEXAMETHASONE SODIUM PHOSPHATE 10 MG, ONDANSETRON INJECTION 8 MG in SODIUM CHLORIDE 100 ML IVPB ONE (09:30)
[2019-02-22 09:41] LABS: ALBUMIN 2.9 g/dl (3.4-5.0); BILIRUBIN,TOTAL 0.2 mg/dL (0.2-1); CALCIUM 8.8 mg/dL (8.5-10.1); CREATININE 1.5 mg/dL (0.55-1.3); MAGNESIUM 2.1 mg/dL (1.8-2.4)
[2019-02-22 10:00] LABS: ANISOCYTOSIS 2+; MACROCYTOSIS 0; PLATELET ESTIMATE NORMAL; TARGET CELLS 2+; TEAR DROP CELLS 1+
[2019-02-22] MEDS ORDERED: LEUCOVORIN IVPB ONE (10:00)
[2019-02-22] MEDS ORDERED: DEXTROSE 5% IVPB ONE (10:00)
[2019-02-22] MEDS ORDERED: WATER IVPB ONE (10:00)
[2019-02-22] MEDS ORDERED: FLUOROURACIL 500 MG/10 ML VIAL IVPUSH ONE (11:00)
[2019-02-22] MEDS ORDERED: SODIUM CHLORIDE 250 ML IV ONE (12:00)
[2019-02-22 15:18] VITALS: TEMP 97.8
[2019-02-22 15:20] VITALS: BP 143/72; PULSE 54
== END 2019-02-22 14:30 | disposition home or self-care (01) ==
LOC: JONCCHEMO 07:09 → J7W 10:04 → JONCCHEMO 14:30
PROVIDERS: ATTEND Internal Medicine Hematology & Oncology
PROC: 3E04305 Introduction of Other Antineoplastic into Central Vein, Percutaneous Approach (ICD-10-PCS; principal; 2019-02-22)
PROC: 3E043GC Introduction of Other Therapeutic Substance into Central Vein, Percutaneous Approach (ICD-10-PCS; 2019-02-22)
PROC: 3E043GC Introduction of Other Therapeutic Substance into Central Vein, Percutaneous Approach (ICD-10-PCS; 2019-02-22)
DX: Z51.11 Encounter for antineoplastic chemotherapy (principal); C18.2 Malignant neoplasm of ascending colon
CPT/HCPCS: 36415; 80053; 83735; 85025; 96361; 96365; 96366; 96367; 96409; J2405; J9190

== ENCOUNTER 2019-03-01 06:50 | Day surgery (SDC) | payer OTHER ==
[2019-03-01 09:01] LABS: BASO % 0.8 % (0-2.0); EOS % 3.8 % (0-4.5); HEMATOCRIT 32.3 % (35.4-49); HEMOGLOBIN 10.6 GM/dL (11.7-16.9); LYMPH % 11.4 % (8-40); MCH 29.2 pg (25.7-33.7); MCHC 32.9 g/dl (32.0-35.9); MEAN CELL VOLUME 88.5 fl (80-96); MEAN PLT VOLUME 7.8 fl (7.5-11.1); MONO % 7.7 % (3.8-10.2); NEUT % 76.3 % (42.8-82.8); PLATELET COUNT 291 K/MM3 (134-434); RBC 3.65 M/mm3 (4.00-5.60); RDW 20.7 % (11.9-15.9); WHITE BLOOD COUNT 7.4 K/mm3 (4.0-10.0)
[2019-03-01 09:18] LABS: ALBUMIN 2.9 g/dl (3.4-5.0); BILIRUBIN,TOTAL 0.3 mg/dL (0.2-1); BLOOD UREA NITROGEN 28.3 mg/dL (7-18); CALCIUM 8.4 mg/dL (8.5-10.1); CREATININE 1.6 mg/dL (0.55-1.3); POTASSIUM 3.8 mmol/L (3.5-5.1); TOT PROT 5.8 g/dl (6.4-8.2)
[2019-03-01] MEDS ORDERED: DEXAMETHASONE SODIUM PHOSPHATE 10 MG, ONDANSETRON INJECTION 8 MG in SODIUM CHLORIDE 100 ML IVPB ONE (09:30)
[2019-03-01] MEDS ORDERED: DEXTROSE 5% IVPB ONE (10:00)
[2019-03-01] MEDS ORDERED: LEUCOVORIN IVPB ONE (10:00)
[2019-03-01] MEDS ORDERED: WATER IVPB ONE (10:00)
[2019-03-01 10:15] LABS: ANISOCYTOSIS 2+; MACROCYTOSIS 0; OVALOCYTE 1+; PLATELET ESTIMATE NORMAL
[2019-03-01] MEDS ORDERED: FLUOROURACIL 500 MG/10 ML VIAL IVPUSH ONE (11:00)
[2019-03-01] MEDS ORDERED: SODIUM CHLORIDE 250 ML IV ONE (12:00)
[2019-03-01 14:23] VITALS: BP 147/59; PULSE 71; TEMP 98.1
[2019-03-01] MEDS ORDERED: PORTA CATH FLUSH 10 ML IVPUSH ONE (14:23)
== END 2019-03-01 14:25 | disposition home or self-care (01) ==
LOC: JONCCHEMO 06:50 → J7W 09:30 → JONCCHEMO 14:25
PROVIDERS: ATTEND Internal Medicine Hematology & Oncology
PROC: 3E043GC Introduction of Other Therapeutic Substance into Central Vein, Percutaneous Approach (ICD-10-PCS; principal; 2019-03-01)
PROC: 3E0437Z Introduction of Electrolytic and Water Balance Substance into Central Vein, Percutaneous Approach (ICD-10-PCS; 2019-03-01)
DX: Z76.89 Persons encountering health services in other specified circumstances (principal); C18.2 Malignant neoplasm of ascending colon
CPT/HCPCS: 36415; 80053; 83735; 85025; 96361; 96365; 96366; 96367; 96375; J2405; J9190

== ENCOUNTER 2019-03-22 05:53 | Day surgery (SDC) | payer OTHER ==
[2019-03-22 08:57] LABS: EOS % 4.9 % (0-4.5); HEMATOCRIT 32.6 % (35.4-49); HEMOGLOBIN 10.6 GM/dL (11.7-16.9); MCH 28.3 pg (25.7-33.7); MCHC 32.4 g/dl (32.0-35.9); MEAN CELL VOLUME 87.3 fl (80-96); MEAN PLT VOLUME 7.7 fl (7.5-11.1); MONO % 15.1 % (3.8-10.2); PLATELET COUNT 307 K/MM3 (134-434); RBC 3.74 M/mm3 (4.00-5.60); RDW 20.8 % (11.9-15.9); WHITE BLOOD COUNT 4.5 K/mm3 (4.0-10.0)
[2019-03-22 09:27] LABS: ALBUMIN 2.9 g/dl (3.4-5.0); BILIRUBIN,TOTAL 0.2 mg/dL (0.2-1); BLOOD UREA NITROGEN 26.4 mg/dL (7-18); CALCIUM 8.6 mg/dL (8.5-10.1); CREATININE 1.6 mg/dL (0.55-1.3); MAGNESIUM 2.3 mg/dL (1.8-2.4)
[2019-03-22] MEDS ORDERED: DEXAMETHASONE SODIUM PHOSPHATE 10 MG, ONDANSETRON INJECTION 8 MG in SODIUM CHLORIDE 100 ML IVPB ONE (10:00)
[2019-03-22 10:01] LABS: ANISOCYTOSIS 2+
[2019-03-22] MEDS ORDERED: WATER IVPB ONE (10:30)
[2019-03-22] MEDS ORDERED: DEXTROSE 5% IVPB ONE (10:30)
[2019-03-22] MEDS ORDERED: LEUCOVORIN IVPB ONE (10:30)
[2019-03-22] MEDS ORDERED: FLUOROURACIL 2,500 MG/50 ML VIAL IVPUSH ONE (11:30)
[2019-03-22] MEDS ORDERED: SODIUM CHLORIDE 250 ML IV ONE (12:30)
[2019-03-22 15:41] VITALS: BP 157/62; PULSE 84; TEMP 97.4
[2019-03-22] MEDS ORDERED: PORTA CATH FLUSH 10 ML IVPUSH ONE (15:41)
== END 2019-03-22 14:25 | disposition home or self-care (01) ==
LOC: JONCCHEMO 05:53 → J7W 09:37 → JONCCHEMO 14:25
PROVIDERS: ATTEND Internal Medicine Hematology & Oncology
PROC: 3E04305 Introduction of Other Antineoplastic into Central Vein, Percutaneous Approach (ICD-10-PCS; principal; 2019-03-22)
PROC: 3E043GC Introduction of Other Therapeutic Substance into Central Vein, Percutaneous Approach (ICD-10-PCS; 2019-03-22)
PROC: 3E043GC Introduction of Other Therapeutic Substance into Central Vein, Percutaneous Approach (ICD-10-PCS; 2019-03-22)
DX: Z51.11 Encounter for antineoplastic chemotherapy (principal); C18.9 Malignant neoplasm of colon, unspecified; C78.00 Secondary malignant neoplasm of unspecified lung
CPT/HCPCS: 36415; 80053; 83735; 85025; 96361; 96365; 96366; 96367; 96409

== ENCOUNTER 2019-03-29 05:53 | Day surgery (SDC) | payer OTHER ==
[2019-03-29 08:52] LABS: BASO % 1.7 % (0-2.0); EOS % 4.2 % (0-4.5); HEMATOCRIT 31.8 % (35.4-49); HEMOGLOBIN 10.4 GM/dL (11.7-16.9); LYMPH % 11.3 % (8-40); MCH 28.2 pg (25.7-33.7); MCHC 32.6 g/dl (32.0-35.9); MEAN CELL VOLUME 86.5 fl (80-96); MEAN PLT VOLUME 7.3 fl (7.5-11.1); MONO % 12.1 % (3.8-10.2); NEUT % 70.7 % (42.8-82.8); PLATELET COUNT 297 K/MM3 (134-434); RBC 3.68 M/mm3 (4.00-5.60); RDW 20.8 % (11.9-15.9); WHITE BLOOD COUNT 6.4 K/mm3 (4.0-10.0)
[2019-03-29 09:28] LABS: ALBUMIN 2.9 g/dl (3.4-5.0); BILIRUBIN,TOTAL 0.2 mg/dL (0.2-1); BLOOD UREA NITROGEN 34.1 mg/dL (7-18); CALCIUM 8.4 mg/dL (8.5-10.1); CREATININE 1.5 mg/dL (0.55-1.3); MAGNESIUM 2.1 mg/dL (1.8-2.4); POTASSIUM 3.9 mmol/L (3.5-5.1); TOT PROT 5.9 g/dl (6.4-8.2)
[2019-03-29] MEDS ORDERED: DEXAMETHASONE SODIUM PHOSPHATE 10 MG, ONDANSETRON INJECTION 8 MG in SODIUM CHLORIDE 100 ML IVPB ONE (10:00)
[2019-03-29] MEDS ORDERED: LEUCOVORIN IVPB ONE (10:30)
[2019-03-29] MEDS ORDERED: DEXTROSE 5% IVPB ONE (10:30)
[2019-03-29] MEDS ORDERED: WATER IVPB ONE (10:30)
[2019-03-29] MEDS ORDERED: FLUOROURACIL 2,500 MG/50 ML VIAL IVPUSH ONE (11:30)
[2019-03-29 11:48] LABS: ANISOCYTOSIS 2+; MACROCYTOSIS 0; OVALOCYTE 1+; PLATELET ESTIMATE NORMAL; TARGET CELLS 1+; TEAR DROP CELLS 1+
[2019-03-29] MEDS ORDERED: SODIUM CHLORIDE 250 ML IV ONE (12:30)
[2019-03-29 16:01] VITALS: TEMP 97.7
[2019-03-29 16:10] VITALS: BP 127/68; PULSE 95
[2019-03-29] MEDS ORDERED: PORTA CATH FLUSH 10 ML IVPUSH ONE (16:10)
== END 2019-03-29 14:15 | disposition home or self-care (01) ==
LOC: JONCCHEMO 05:53 → J7W 09:21 → JONCCHEMO 14:15
PROVIDERS: ATTEND Internal Medicine Hematology & Oncology
PROC: 3E04305 Introduction of Other Antineoplastic into Central Vein, Percutaneous Approach (ICD-10-PCS; principal; 2019-03-29)
PROC: 3E043GC Introduction of Other Therapeutic Substance into Central Vein, Percutaneous Approach (ICD-10-PCS; 2019-03-29)
DX: Z51.11 Encounter for antineoplastic chemotherapy (principal); C18.9 Malignant neoplasm of colon, unspecified; C78.00 Secondary malignant neoplasm of unspecified lung
CPT/HCPCS: 36415; 80053; 83735; 85025; 96365; 96366; 96409

== ENCOUNTER 2019-04-05 07:47 | Day surgery (SDC) | payer OTHER ==
[2019-04-05 09:09] LABS: BASO % 1.4 % (0-2.0); EOS % 3.3 % (0-4.5); HEMATOCRIT 33.2 % (35.4-49); HEMOGLOBIN 10.8 GM/dL (11.7-16.9); LYMPH % 11.9 % (8-40); MCH 28.4 pg (25.7-33.7); MCHC 32.4 g/dl (32.0-35.9); MEAN CELL VOLUME 87.9 fl (80-96); MEAN PLT VOLUME 7.6 fl (7.5-11.1); MONO % 8.7 % (3.8-10.2); NEUT % 74.7 % (42.8-82.8); PLATELET COUNT 311 K/MM3 (134-434); RBC 3.78 M/mm3 (4.00-5.60)
[2019-04-05] MEDS ORDERED: DEXAMETHASONE SODIUM PHOSPHATE 10 MG, ONDANSETRON INJECTION 8 MG in SODIUM CHLORIDE 100 ML IVPB ONE (09:30)
[2019-04-05 09:37] LABS: BLOOD UREA NITROGEN 29.1 mg/dL (7-18); CALCIUM 8.5 mg/dL (8.5-10.1); CREATININE 1.5 mg/dL (0.55-1.3)
[2019-04-05 09:39] LABS: ALBUMIN 2.9 g/dl (3.4-5.0); BILIRUBIN,DIRECT 0.2 mg/dL (0.0-0.2); BILIRUBIN,TOTAL 0.3 mg/dL (0.2-1); MAGNESIUM 1.7 mg/dL (1.8-2.4); TOT PROT 6.1 g/dl (6.4-8.2)
[2019-04-05] MEDS ORDERED: DEXTROSE 5% IVPB ONE (10:00)
[2019-04-05] MEDS ORDERED: WATER IVPB ONE (10:00)
[2019-04-05] MEDS ORDERED: LEUCOVORIN IVPB ONE (10:00)
[2019-04-05] MEDS ORDERED: FLUOROURACIL 500 MG/10 ML VIAL IVPUSH ONE (11:00)
[2019-04-05] MEDS ORDERED: SODIUM CHLORIDE 250 ML IV ONE (12:00)
[2019-04-05 14:20] VITALS: TEMP 98.2
[2019-04-05 14:30] VITALS: BP 138/64; PULSE 84
[2019-04-05] MEDS ORDERED: PORTA CATH FLUSH 10 ML IVPUSH ONE (14:30)
[2019-04-05 14:38] LABS: ANISOCYTOSIS 2+; MACROCYTOSIS 0; OVALOCYTE 1+; PLATELET ESTIMATE NORMAL; TARGET CELLS 1+
== END 2019-04-05 14:25 | disposition home or self-care (01) ==
LOC: JONCCHEMO 07:47 → J7W 09:38 → JONCCHEMO 14:25
PROVIDERS: ATTEND Internal Medicine Hematology & Oncology
PROC: 3E04305 Introduction of Other Antineoplastic into Central Vein, Percutaneous Approach (ICD-10-PCS; principal; 2019-04-05)
PROC: 3E043GC Introduction of Other Therapeutic Substance into Central Vein, Percutaneous Approach (ICD-10-PCS; 2019-04-05)
PROC: 3E043GC Introduction of Other Therapeutic Substance into Central Vein, Percutaneous Approach (ICD-10-PCS; 2019-04-05)
DX: Z51.11 Encounter for antineoplastic chemotherapy (principal); C18.9 Malignant neoplasm of colon, unspecified; C78.00 Secondary malignant neoplasm of unspecified lung
CPT/HCPCS: 36415; 80048; 80076; 83735; 85025; 96361; 96365; 96366; 96367; 96409; J2405; J9190

== ENCOUNTER 2019-04-19 05:48 | Day surgery (SDC) | payer OTHER ==
[2019-04-19 08:52] LABS: BASO % 2.1 % (0-2.0); EOS % 6.7 % (0-4.5); HEMATOCRIT 33.1 % (35.4-49); HEMOGLOBIN 10.8 GM/dL (11.7-16.9); MCH 28.3 pg (25.7-33.7); MCHC 32.5 g/dl (32.0-35.9); MEAN PLT VOLUME 7.8 fl (7.5-11.1); MONO % 13.6 % (3.8-10.2); NEUT % 64.6 % (42.8-82.8); PLATELET COUNT 327 K/MM3 (134-434); RBC 3.81 M/mm3 (4.00-5.60); RDW 21.5 % (11.9-15.9)
[2019-04-19 09:21] LABS: ALBUMIN 2.9 g/dl (3.4-5.0); BILIRUBIN,TOTAL 0.2 mg/dL (0.2-1); BLOOD UREA NITROGEN 25.9 mg/dL (7-18); CALCIUM 8.6 mg/dL (8.5-10.1); CREATININE 1.5 mg/dL (0.55-1.3); MAGNESIUM 2.1 mg/dL (1.8-2.4); POTASSIUM 4.2 mmol/L (3.5-5.1); TOT PROT 6.2 g/dl (6.4-8.2)
[2019-04-19] MEDS ORDERED: DEXAMETHASONE SODIUM PHOSPHATE 20 MG, ONDANSETRON INJECTION 8 MG in SODIUM CHLORIDE 100 ML IVPB ONE (09:30)
[2019-04-19] MEDS ORDERED: DEXTROSE 5% IVPB ONE (10:00)
[2019-04-19] MEDS ORDERED: WATER IVPB ONE (10:00)
[2019-04-19] MEDS ORDERED: LEUCOVORIN IVPB ONE (10:00)
[2019-04-19] MEDS: SODIUM CHLORIDE 250 ML IV ONE ×2 (10:19→14:15)
[2019-04-19] MEDS ORDERED: FLUOROURACIL 500 MG/10 ML VIAL IVPUSH ONE (11:00)
[2019-04-19 11:55] LABS: ANISOCYTOSIS 1+; MACROCYTOSIS 0; OVALOCYTE 1+; PLATELET ESTIMATE NORMAL; TARGET CELLS 1+; TEAR DROP CELLS 1+
[2019-04-19 16:58] VITALS: BP 146/67; PULSE 62; TEMP 97.5
[2019-04-19] MEDS ORDERED: PORTA CATH FLUSH 10 ML IVPUSH ONE (16:58)
== END 2019-04-19 14:30 | disposition home or self-care (01) ==
LOC: JONCCHEMO 05:48 → J7W 10:09 → JONCCHEMO 14:30
PROVIDERS: ATTEND Internal Medicine Hematology & Oncology
PROC: 3E04305 Introduction of Other Antineoplastic into Central Vein, Percutaneous Approach (ICD-10-PCS; principal; 2019-04-19)
PROC: 3E043GC Introduction of Other Therapeutic Substance into Central Vein, Percutaneous Approach (ICD-10-PCS; 2019-04-19)
PROC: 3E043GC Introduction of Other Therapeutic Substance into Central Vein, Percutaneous Approach (ICD-10-PCS; 2019-04-19)
DX: Z51.11 Encounter for antineoplastic chemotherapy (principal); C18.9 Malignant neoplasm of colon, unspecified; C78.00 Secondary malignant neoplasm of unspecified lung
CPT/HCPCS: 36415; 80053; 83735; 85025; 96361; 96365; 96366; 96409; J2405; J9190

== ENCOUNTER 2019-04-26 05:23 | Day surgery (SDC) | payer OTHER ==
[2019-04-26 08:51] LABS: BASO % 1.4 % (0-2.0); EOS % 7.1 % (0-4.5); HEMATOCRIT 32.1 % (35.4-49); HEMOGLOBIN 10.7 GM/dL (11.7-16.9); LYMPH % 14.8 % (8-40); MCH 29.1 pg (25.7-33.7); MCHC 33.2 g/dl (32.0-35.9); MEAN CELL VOLUME 87.8 fl (80-96); MEAN PLT VOLUME 7.4 fl (7.5-11.1); MONO % 13.5 % (3.8-10.2); NEUT % 63.2 % (42.8-82.8); PLATELET COUNT 334 K/MM3 (134-434); RBC 3.66 M/mm3 (4.00-5.60); RDW 21.4 % (11.9-15.9); WHITE BLOOD COUNT 5.7 K/mm3 (4.0-10.0)
[2019-04-26 09:18] LABS: ALBUMIN 2.9 g/dl (3.4-5.0); BILIRUBIN,TOTAL 0.4 mg/dL (0.2-1); BLOOD UREA NITROGEN 26.8 mg/dL (7-18); CALCIUM 8.6 mg/dL (8.5-10.1); CREATININE 1.5 mg/dL (0.55-1.3); POTASSIUM 4.3 mmol/L (3.5-5.1)
[2019-04-26] MEDS ORDERED: DEXAMETHASONE SODIUM PHOSPHATE 10 MG, ONDANSETRON INJECTION 8 MG in SODIUM CHLORIDE 100 ML IVPB ONE (09:30)
[2019-04-26] MEDS ORDERED: WATER IVPB ONE (10:00)
[2019-04-26] MEDS ORDERED: LEUCOVORIN CALCIUM IVPB ONE (10:00)
[2019-04-26] MEDS ORDERED: DEXTROSE 5% IVPB ONE (10:00)
[2019-04-26] MEDS ORDERED: FLUOROURACIL 500 MG/10 ML VIAL IVPUSH ONE (11:00)
[2019-04-26 11:42] LABS: ANISOCYTOSIS 1+; MACROCYTOSIS 2+; OVALOCYTE 1+; PLATELET ESTIMATE NORMAL; TARGET CELLS 1+
[2019-04-26] MEDS ORDERED: SODIUM CHLORIDE 250 ML IV ONE (12:00)
[2019-04-26 14:38] VITALS: BP 147/66; PULSE 70; TEMP 98.2
[2019-04-26] MEDS ORDERED: PORTA CATH FLUSH 10 ML IVPUSH ONE (14:38)
== END 2019-04-26 13:50 | disposition home or self-care (01) ==
LOC: JONCCHEMO 05:23 → J7W 09:51 → JONCCHEMO 13:50
PROVIDERS: ATTEND Internal Medicine Hematology & Oncology
PROC: 3E033GC Introduction of Other Therapeutic Substance into Peripheral Vein, Percutaneous Approach (ICD-10-PCS; principal; 2019-04-26)
PROC: 3E0337Z Introduction of Electrolytic and Water Balance Substance into Peripheral Vein, Percutaneous Approach (ICD-10-PCS; 2019-04-26)
DX: Z76.89 Persons encountering health services in other specified circumstances (principal); C18.2 Malignant neoplasm of ascending colon; I10 Essential (primary) hypertension; E78.00 Pure hypercholesterolemia, unspecified; N40.0 Benign prostatic hyperplasia without lower urinary tract symptoms
CPT/HCPCS: 36415; 80053; 83735; 85025; 96361; 96365; 96367; 96375; J2405; J9190

== ENCOUNTER 2019-05-03 05:40 | Day surgery (SDC) | payer OTHER ==
[2019-05-03 08:52] LABS: BASO % 1.4 % (0-2.0); EOS % 4.3 % (0-4.5); HEMATOCRIT 31.6 % (35.4-49); HEMOGLOBIN 10.3 GM/dL (11.7-16.9); LYMPH % 10.9 % (8-40); MCH 28.9 pg (25.7-33.7); MCHC 32.8 g/dl (32.0-35.9); MEAN CELL VOLUME 88.2 fl (80-96); MEAN PLT VOLUME 7.4 fl (7.5-11.1); NEUT % 74.4 % (42.8-82.8); PLATELET COUNT 304 K/MM3 (134-434); RBC 3.58 M/mm3 (4.00-5.60); RDW 21.4 % (11.9-15.9); WHITE BLOOD COUNT 6.9 K/mm3 (4.0-10.0)
[2019-05-03 09:24] LABS: ALBUMIN 2.9 g/dl (3.4-5.0); BILIRUBIN,TOTAL 0.4 mg/dL (0.2-1); BLOOD UREA NITROGEN 26.2 mg/dL (7-18); CALCIUM 8.3 mg/dL (8.5-10.1); CREATININE 1.4 mg/dL (0.55-1.3); MAGNESIUM 1.8 mg/dL (1.8-2.4); POTASSIUM 3.8 mmol/L (3.5-5.1); TOT PROT 5.8 g/dl (6.4-8.2)
[2019-05-03] MEDS ORDERED: DEXAMETHASONE SODIUM PHOSPHATE 10 MG, ONDANSETRON INJECTION 8 MG in SODIUM CHLORIDE 100 ML IVPB ONE (10:00)
[2019-05-03] MEDS ORDERED: LEUCOVORIN IVPB ONE (10:30)
[2019-05-03] MEDS ORDERED: WATER IVPB ONE (10:30)
[2019-05-03] MEDS ORDERED: DEXTROSE 5% IVPB ONE (10:30)
[2019-05-03] MEDS ORDERED: FLUOROURACIL 2,500 MG/50 ML VIAL IVPUSH ONE (11:30)
[2019-05-03 11:52] LABS: ANISOCYTOSIS 1+; MACROCYTOSIS 1+; OVALOCYTE 1+; PLATELET ESTIMATE NORMAL; TARGET CELLS 1+; TEAR DROP CELLS 1+
[2019-05-03] MEDS ORDERED: SODIUM CHLORIDE 250 ML IV ONE (12:30)
[2019-05-03 15:59] VITALS: TEMP 98.1
[2019-05-12 17:25] VITALS: BP 141/75; PULSE 55
== END 2019-05-03 15:10 | disposition home or self-care (01) ==
LOC: JONCCHEMO 05:40 → J7W 09:56 → JONCCHEMO 15:10
PROVIDERS: ATTEND Internal Medicine Hematology & Oncology
PROC: 3E04305 Introduction of Other Antineoplastic into Central Vein, Percutaneous Approach (ICD-10-PCS; principal; 2019-05-03)
PROC: 3E043GC Introduction of Other Therapeutic Substance into Central Vein, Percutaneous Approach (ICD-10-PCS; 2019-05-03)
PROC: 3E043GC Introduction of Other Therapeutic Substance into Central Vein, Percutaneous Approach (ICD-10-PCS; 2019-05-03)
DX: Z51.11 Encounter for antineoplastic chemotherapy (principal); C18.2 Malignant neoplasm of ascending colon; I10 Essential (primary) hypertension; E78.00 Pure hypercholesterolemia, unspecified
CPT/HCPCS: 36415; 80053; 83735; 85025; 96361; 96365; 96366; 96409

== ENCOUNTER 2019-05-10 17:58 | Emergency (ER) | payer OTHER ==
[2019-05-10 18:06] VITALS: BP 138/60; PULSE 62; TEMP 97.8; BMI 27.1
--- NOTE | 2019-05-10 18:15 | PDOC ---
Rapid Medical Evaluation Chief Complaint: Diarrhea Time Seen by Provider: 05/10/19 18:08 Medical Evaluation: Allergies Allergy/AdvReac Type Severity Reaction Status Date / Time No Known Allergies Allergy Verified 05/10/19 18:06 Vital Signs Temp Pulse Resp BP Pulse Ox 97.8 F 62 19 138/60 99 05/10/19 18:03 05/10/19 18:03 05/10/19 18:03 05/10/19 18:03 05/10/19 18:03 05/10/19 18:14 Pt c/o: diarrhea x 2 days, on chemo for colon ca, no other complaints Pt on brief exam: vss pt ordered for: labs and stool pt to proceed to the ED Discharge Disposition - Diagnosis Diarrhea - Discharge Dispostion Last Admission D/C Date: 11/20/18 - Referrals Referrals: Corazon Hawley MD [Primary Care Provider] - - Patient Instructions - Post Discharge Activity
[2019-05-10 18:36] LABS: EOS % 6.4 % (0-4.5); HEMATOCRIT 31.1 % (35.4-49); LYMPH % 15.1 % (8-40); MCH 28.6 pg (25.7-33.7); MCHC 32.2 g/dl (32.0-35.9); MEAN PLT VOLUME 7.8 fl (7.5-11.1); MONO % 11.1 % (3.8-10.2); NEUT % 65.9 % (42.8-82.8); PLATELET COUNT 294 K/MM3 (134-434); RBC 3.49 M/mm3 (4.00-5.60); RDW 22.2 % (11.9-15.9); WHITE BLOOD COUNT 5.5 K/mm3 (4.0-10.0)
[2019-05-10 18:37] LABS: BASO % 1.5 % (0-2.0)
[2019-05-10] MEDS ORDERED: SODIUM CHLORIDE 0.9% 500 ML INFUS.BAG IV ONE (18:42)
--- NOTE | 2019-05-10 18:48 | PDOC ---
History of Present Illness - General Chief Complaint: Diarrhea Stated Complaint: DIARRHEA, CHEMO LAST WEEK Time Seen by Provider: 05/10/19 18:08 History Source: Patient, Family (niece) Exam Limitations: No Limitations - History of Present Illness Initial Comments: 05/10/19 18:44 Pt is an 83 y/o male who presents to the ED with his niece for complaint of diarrhea intermittently for the last one week. The patient states he is currently on chemotherapy for colon CA. He has 3 weeks of treatment and then 2 weeks off. Last Thursday was his last treatment before his 2 week break. According to his niece, this has happened in the past after treatment. The patient denies any abdominal pain, sob, cp, fevers, chills. He states that his stool is partly firm and partly liquid. He admits to passing gas. He did have a partial colectomy 3 years ago. The patient also has a history of HTN. He has no allergies to medication. The patient has had a normal appetite without any nausea or vomiting. Past History - Past Medical History Allergies/Adverse Reactions: Allergies Allergy/AdvReac Type Severity Reaction Status Date / Time No Known Allergies Allergy Verified 05/10/19 18:06 Home Medications: Ambulatory Orders Amlodipine Besylate 10 mg PO DAILY 06/17/16 Labetalol HCl [Normodyne -] 200 mg PO BID 06/17/16 Tamsulosin HCl 0.4 mg PO HS 06/17/16 Simvastatin 20 mg PO HS 06/18/16 Ascorbic Acid [Vitamin C -] 500 mg PO ASDIR 07/29/16 Glucosamine/Methylsulfonylmeth [Sm Glucosamine & MSM Tablet] 1,500 tab PO BID Multivitamins [Multivit ([facility] Formulary)] 1 tab PO DAILY 07/29/16 Ferrous Sulfate, Dried [Iron] 64 mg PO DAILY 09/09/16 Edoxaban Tosylate [Savaysa] 60 mg PO DAILY 12/07/18 Anemia: Yes Cancer: Yes (colon) COPD: Yes GI Disorders: Yes (H/O ADENOMATOUS POLYP OF COLON) HTN: Yes Hypercholesterolemia: Yes - Surgical History Abdominal Surgery: Yes (inguinal hernia, colon resection) Cholecystectomy: Yes - Immunization History Immunization Up to Date: No - Psycho Social/Smoking Cessation Hx Smoking History: Never smoked Have you smoked in the past 12 months: No Number of Cigarettes Smoked Daily: 2 If you are a former smoker, when did you quit?: 5MONTHS AGO Information on smoking cessation initiated: No Hx Alcohol Use: No Drug/Substance Use Hx: No Substance Use Type: Alcohol Hx Substance Use Treatment: No Review of Systems - Review of Systems Comments:: 05/10/19 18:49 - Review of Systems Constitutional: No: Chills, Fever, Loss of Appetite, Malaise, Weakness HEENTM: No: Blurred Vision, Double Vision, Tinnitus, Nose Bleeding, Throat pain Respiratory: No: Cough, Shortness of Breath, Wheezing Cardiac (ROS): NO: Palpitations. No: Chest Pain, Edema, Irregular Heart Rate, Lightheadedness, Syncope, Chest Tightness ABD/GI: No: Constipated, Nausea, Vomiting, Abdominal cramping; Positive intermittent diarrhea Musculoskeletal: No: Back Pain, Neck Pain Integumentary: Yes: Flushing. No: Change in Color Neurological: No: Headache, Numbness, Tingling, Unsteady Gait, Dizziness *Physical Exam - Vital Signs Last Vital Signs Temp Pulse Resp BP Pulse Ox 97.8 F 62 19 138/60 99 05/10/19 18:03 05/10/19 18:03 05/10/19 18:03 05/10/19 18:03 05/10/19 18:03 - Physical Exam 05/10/19 18:50 - Physical Exam General Appearance: Yes: Nourished, Appropriately Dressed, No: Apparent Distress HEENT: EOMI, Hearing Grossly Normal. No Muffled/Hoarse voice; + Slightly dry oral mucosa Neck: Supple. No Rigidity, No Decreased range of motion Respiratory/Chest: Lungs Clear, Normal Breath Sounds. No Chest Tender, No Respiratory Distress, No Accessory Muscle Use, No Decreased Breath Sounds, No Rales/Rhonchi/Wheezing Cardiovascular: Regular Rhythm, Regular Rate, S1, S2, Gastrointestinal/Abdominal: Mild hyperactive Bowel Sounds. Non-tender, Soft, No Guarding, No Rebound, No reproducible Tenderness, No significant abdominal distention appreciated Musculoskeletal: Normal Inspection, No: Decreased Range of Motion Extremity: Normal Capillary Refill, Normal Inspection Integumentary: Normal Color, Dry, Warm Neurologic: [facility] II-XII NML intact, Fully Oriented, Alert, Normal Mood/Affect, Normal Response, Motor Strength /5 ED Treatment Course - LABORATORY CBC & Chemistry Diagram: 05/10/19 18:22 05/10/19 18:22 - ADDITIONAL ORDERS Additional order review: 05/10/19 18:22 RBC 3.49 L MCV 89.0 MCHC 32.2 RDW 22.2 H MPV 7.8 Neutrophils % 65.9 Lymphocytes % 15.1 D Monocytes % 11.1 H Eosinophils % 6.4 H Basophils % 1.5 Medical Decision Making - Medical Decision Making 05/10/19 18:52 Assessment: Pt is an 83 y/o male with intermittent diarrhea for the last 1 week. He is on chemotherapy for colon cancer. Plan: -labs ordered -NS 1 L bolus -Stool O&P, c.diff if patient able to have a BM -Will reassess 05/10/19 19:58 Of note: the niece just mentioned that the patient has still been taking his stool softners even while having diarrhea. I have made the patient aware that he should stop the stool softners while having diarrhea. The patient has been made aware that his labs are all stable and unchanged from previous. He has not been able to have a BM while in the ED despite eating while here. He will collect a stool sample if he goes while he is here. He get the remainder of his IV fluids and we will reassess. If he feels well, he will be discharged with f/u to his primary doctor within the next 2 days. 05/10/19 21:06 The patient was unable to have a BM in the ED. He will take home a container and collect a sample if he goes while at home. He has been encouraged to drink plenty of fluids and get plenty of rest. He has been advised to stop taking the stool softener until he no longer has diarrhea. He should follow up with his primary doctor within 1-2 days for repeat evaluation. He understands and agrees with this treatment and plan and he is stable for discharge. Discharge - Discharge Information Problems reviewed: Yes Clinical Impression/Diagnosis: Diarrhea Qualifiers: Diarrhea type: unspecified type Qualified Code(s): R19.7 - Diarrhea, unspecified Condition: Stable Disposition: HOME - Follow up/Referral Referrals: Corazon Hawley MD [Primary Care Provider] - 2 Days - Patient Discharge Instructions Patient Printed Discharge Instructions: DI for Diarrhea and Traveler's Diarrhea -- Adult Additional Instructions: Drink plenty of fluids. Eat a bland diet and avoid taking your stool softner until you no longer have diarrhea. Be sure to collect a stool sample and bring to your doctor for testing if you are able to have one. Follow up with your primary doctor or your oncologist within 1-2 days for repeat evaluation. - Post Discharge Activity
[2019-05-10 19:06] LABS: BILIRUBIN,TOTAL 0.3 mg/dL (0.2-1); CALCIUM 8.3 mg/dL (8.5-10.1); CREATININE 1.5 mg/dL (0.55-1.3); POTASSIUM 3.9 mmol/L (3.5-5.1); TOT PROT 5.9 g/dl (6.4-8.2)
[2019-05-10 20:30] LABS: ANISOCYTOSIS 3+; MACROCYTOSIS 2+
== END 2019-05-10 21:32 | disposition home or self-care (01) ==
LOC: JER 17:58
DX: R19.7 Diarrhea, unspecified (principal); C18.9 Malignant neoplasm of colon, unspecified; I10 Essential (primary) hypertension; D64.9 Anemia, unspecified; E78.00 Pure hypercholesterolemia, unspecified; J44.9 Chronic obstructive pulmonary disease, unspecified; Z87.19 Personal history of other diseases of the digestive system
CPT/HCPCS: 36415; 80053; 85025; 99283-25

== ENCOUNTER 2019-05-24 07:15 | Day surgery (SDC) | payer OTHER ==
[2019-05-24 09:18] LABS: BASO % 1.5 % (0-2.0); EOS % 5.1 % (0-4.5); HEMATOCRIT 30.4 % (35.4-49); LYMPH % 15.2 % (8-40); MCH 29.1 pg (25.7-33.7); MEAN CELL VOLUME 88.2 fl (80-96); MEAN PLT VOLUME 7.9 fl (7.5-11.1); MONO % 17.4 % (3.8-10.2); NEUT % 60.8 % (42.8-82.8); PLATELET COUNT 328 K/MM3 (134-434); RBC 3.45 M/mm3 (4.00-5.60); RDW 21.5 % (11.9-15.9)
[2019-05-24 09:54] LABS: ALBUMIN 2.9 g/dl (3.4-5.0); BILIRUBIN,TOTAL 0.3 mg/dL (0.2-1); BLOOD UREA NITROGEN 24.9 mg/dL (7-18); CALCIUM 8.7 mg/dL (8.5-10.1); CREATININE 1.8 mg/dL (0.55-1.3); MAGNESIUM 2.2 mg/dL (1.8-2.4); POTASSIUM 4.3 mmol/L (3.5-5.1)
[2019-05-24] MEDS ORDERED: DEXAMETHASONE SODIUM PHOSPHATE 10 MG, ONDANSETRON INJECTION 8 MG in SODIUM CHLORIDE 100 ML IVPB ONE (10:00)
[2019-05-24] MEDS ORDERED: FUROSEMIDE 40 MG/4 ML INJECTABLE VIAL IVPUSH ONE (10:30)
[2019-05-24] MEDS ORDERED: LEUCOVORIN IVPB ONE (10:30)
[2019-05-24] MEDS ORDERED: DEXTROSE 5% IVPB ONE (10:30)
[2019-05-24] MEDS ORDERED: WATER IVPB ONE (10:30)
[2019-05-24] MEDS ORDERED: SODIUM CHLORIDE 0.45% 500 ML IV ONE (10:42)
[2019-05-24] MEDS ORDERED: FLUOROURACIL 500 MG/10 ML VIAL IVPUSH ONE (11:30)
[2019-05-24 12:03] LABS: ANISOCYTOSIS 1+; MACROCYTOSIS 0; OVALOCYTE 1+; PLATELET ESTIMATE NORMAL; TARGET CELLS 1+; TEAR DROP CELLS 1+
[2019-05-24] MEDS ORDERED: SODIUM CHLORIDE 250 ML IV ONE (12:30)
[2019-05-24 16:28] VITALS: TEMP 97.5
[2019-05-24 17:08] VITALS: BP 141/82; PULSE 58
[2019-05-24] MEDS ORDERED: PORTA CATH FLUSH 10 ML IVPUSH ONE (17:08)
== END 2019-05-24 15:10 | disposition home or self-care (01) ==
LOC: JONCCHEMO 07:15 → J7W 10:11 → JONCCHEMO 15:10
PROVIDERS: ATTEND Nurse Practitioner Family
PROC: 3E04305 Introduction of Other Antineoplastic into Central Vein, Percutaneous Approach (ICD-10-PCS; principal; 2019-05-24)
PROC: 3E043GC Introduction of Other Therapeutic Substance into Central Vein, Percutaneous Approach (ICD-10-PCS; 2019-05-24)
PROC: 3E043GC Introduction of Other Therapeutic Substance into Central Vein, Percutaneous Approach (ICD-10-PCS; 2019-05-24)
DX: Z51.11 Encounter for antineoplastic chemotherapy (principal); C18.2 Malignant neoplasm of ascending colon; I10 Essential (primary) hypertension; E78.00 Pure hypercholesterolemia, unspecified
CPT/HCPCS: 36415; 80053; 83735; 85025; 96365; 96366; 96367; 96409; J9190

== ENCOUNTER 2019-05-31 09:14 | Day surgery (SDC) | payer OTHER ==
[2019-05-31 09:18] LABS: HEMATOCRIT 32.4 % (35.4-49); HEMOGLOBIN 10.5 GM/dL (11.7-16.9); MEAN CELL VOLUME 87.6 fl (80-96); RBC 3.69 M/mm3 (4.00-5.60); WHITE BLOOD COUNT 7.1 K/mm3 (4.0-10.0)
[2019-05-31 09:19] LABS: BASO % 0.9 % (0-2.0); LYMPH % 11.5 % (8-40); MCH 28.4 pg (25.7-33.7); MCHC 32.4 g/dl (32.0-35.9); MEAN PLT VOLUME 7.8 fl (7.5-11.1); MONO % 11.6 % (3.8-10.2); PLATELET COUNT 341 K/MM3 (134-434); RDW 21.4 % (11.9-15.9)
[2019-05-31] MEDS ORDERED: DEXAMETHASONE SODIUM PHOSPHATE 10 MG, ONDANSETRON INJECTION 8 MG in SODIUM CHLORIDE 100 ML IVPB ONE (09:30)
[2019-05-31] MEDS ORDERED: ACETAMINOPHEN 500 MG TABLET (FP) PO ONE (10:00)
[2019-05-31] MEDS ORDERED: SODIUM CHLORIDE 0.45% 250 ML IV ONE (10:00)
[2019-05-31] MEDS ORDERED: WATER IVPB ONE (10:00)
[2019-05-31] MEDS ORDERED: DEXTROSE 5% IVPB ONE (10:00)
[2019-05-31] MEDS ORDERED: LEUCOVORIN IVPB ONE (10:00)
[2019-05-31 10:51] LABS: BILIRUBIN,TOTAL 0.4 mg/dL (0.2-1); BLOOD UREA NITROGEN 26.5 mg/dL (7-18); CALCIUM 8.1 mg/dL (8.5-10.1); CREATININE 1.3 mg/dL (0.55-1.3); MAGNESIUM 1.9 mg/dL (1.8-2.4); POTASSIUM 4.4 mmol/L (3.5-5.1); TOT PROT 6.2 g/dl (6.4-8.2)
[2019-05-31] MEDS ORDERED: FLUOROURACIL 500 MG/10 ML VIAL IVPUSH ONE (11:00)
[2019-05-31] MEDS ORDERED: SODIUM CHLORIDE 250 ML IV ONE (12:00)
[2019-05-31 12:36] LABS: ANISOCYTOSIS 2+; HELMET CELLS 1+; MACROCYTOSIS 0; OVALOCYTE 1+; PLATELET ESTIMATE NORMAL; TARGET CELLS 1+; TEAR DROP CELLS 1+
[2019-05-31 14:54] VITALS: TEMP 97.6
[2019-05-31 15:29] VITALS: BP 141/67; PULSE 55
== END 2019-05-31 14:05 | disposition home or self-care (01) ==
LOC: JONCCHEMO 09:14 → J7W 09:15 → JONCCHEMO 14:05
PROVIDERS: ATTEND Nurse Practitioner Family
PROC: 3E04305 Introduction of Other Antineoplastic into Central Vein, Percutaneous Approach (ICD-10-PCS; principal; 2019-05-31)
PROC: 3E043GC Introduction of Other Therapeutic Substance into Central Vein, Percutaneous Approach (ICD-10-PCS; 2019-05-31)
PROC: 3E043GC Introduction of Other Therapeutic Substance into Central Vein, Percutaneous Approach (ICD-10-PCS; 2019-05-31)
DX: Z51.11 Encounter for antineoplastic chemotherapy (principal); C18.2 Malignant neoplasm of ascending colon
CPT/HCPCS: 36415; 80053; 83735; 85025; 96361; 96366; 96367; 96409; J2405; J9190

== ENCOUNTER 2019-09-07 05:48 | Day surgery (SDC) | payer OTHER ==
[2019-09-07] MEDS ORDERED: ATROPINE SO4 0.4 MG/1 ML VIAL SQ ONE (10:00)
[2019-09-07] MEDS ORDERED: DENOSUMAB 120 MG/1.7 ML VIAL SQ ONE (10:00)
[2019-09-07] MEDS ORDERED: PALONOSETRON HCL 0.25 MG/5 ML VIAL IVPUSH ONE (10:00)
[2019-09-07] MEDS ORDERED: DEXAMETHASONE SODIUM PHOSPHATE 10 MG in SODIUM CHLORIDE 50 ML IVPB ONE (10:00)
[2019-09-07] MEDS ORDERED: SODIUM CHLORIDE 500 ML IV ONE (10:00)
[2019-09-07] MEDS ORDERED: LEUCOVORIN INJECTION - 832 MG in DEXTROSE 5%-WATER - 250 ML IVPB ONE (10:30)
[2019-09-07 10:58] LABS: BASO % 1.1 % (0-2.0); EOS % 4.2 % (0-4.5); HEMATOCRIT 33.3 % (35.4-49); HEMOGLOBIN 10.6 GM/dL (11.7-16.9); LYMPH % 16.8 % (8-40); MCH 26.8 pg (25.7-33.7); MCHC 31.7 g/dl (32.0-35.9); MEAN CELL VOLUME 84.5 fl (80-96); MEAN PLT VOLUME 7.7 fl (7.5-11.1); MONO % 16.5 % (3.8-10.2); NEUT % 61.4 % (42.8-82.8); PLATELET COUNT 373 K/MM3 (134-434); RBC 3.94 M/mm3 (4.00-5.60); WHITE BLOOD COUNT 4.6 K/mm3 (4.0-10.0)
[2019-09-07] MEDS ORDERED: WATER IVPB ONE (11:00)
[2019-09-07] MEDS ORDERED: FLUOROURACIL 500 MG/10 ML VIAL IVPUSH ONE (11:00)
[2019-09-07] MEDS ORDERED: LEUCOVORIN IVPB ONE (11:00)
[2019-09-07] MEDS ORDERED: IRINOTECAN HCL 270 MG in DEXTROSE 5%-WATER - 500 ML IVPB ONE (11:00)
[2019-09-07] MEDS ORDERED: DEXTROSE 5% IVPB ONE (11:00)
[2019-09-07 11:28] LABS: ALBUMIN 3.2 g/dl (3.4-5.0); BILIRUBIN,DIRECT 0.1 mg/dL (0.0-0.2); BILIRUBIN,TOTAL 0.3 mg/dL (0.2-1); BLOOD UREA NITROGEN 25.5 mg/dL (7-18); CALCIUM 8.3 mg/dL (8.5-10.1); CREATININE 1.6 mg/dL (0.55-1.3); MAGNESIUM 2.4 mg/dL (1.8-2.4); POTASSIUM 4.3 mmol/L (3.5-5.1); TOT PROT 6.5 g/dl (6.4-8.2)
[2019-09-07] MEDS ORDERED: D5-1/2NS+20 MEQ KCL - 20 MEQ/1,000 ML INFUS.BAG IV ONE (12:00)
[2019-09-07] MEDS ORDERED: FLUOROURACIL 2,500 MG in SODIUM CHLORIDE 42 ML CP ONE (12:30)
[2019-09-07 16:57] VITALS: BP 137/74; PULSE 62; TEMP 97.5
== END 2019-09-07 15:45 | disposition home or self-care (01) ==
LOC: JONCCHEMO 05:48
PROVIDERS: ATTEND Nurse Practitioner Family
DX: Z51.11 Encounter for antineoplastic chemotherapy (principal); C18.9 Malignant neoplasm of colon, unspecified; I12.9 Hypertensive chronic kidney disease with stage 1 through stage 4 chronic kidney disease, or unspecified chronic kidney disease; N18.9 Chronic kidney disease, unspecified; R07.81 Pleurodynia
CPT/HCPCS: 36415; 80048; 80076; 83735; 85025; 96361; 96366; 96367; 96372; 96375; 96411; 96413; J0897; J2469; J9190; J9206

== ENCOUNTER 2019-09-28 07:15 | Day surgery (SDC) | payer OTHER ==
[2019-09-28] MEDS ORDERED: D5-1/2NS+20 MEQ KCL - 20 MEQ/1,000 ML INFUS.BAG IV ONE (09:00)
[2019-09-28] MEDS ORDERED: DEXAMETHASONE SODIUM PHOSPHATE 10 MG in SODIUM CHLORIDE 50 ML IVPB ONE (09:30)
[2019-09-28] MEDS ORDERED: ATROPINE SULFATE 1 MG/10 ML DISP.SYRIN IVPUSH ONE (09:30)
[2019-09-28] MEDS ORDERED: PALONOSETRON HCL 0.25 MG/5 ML VIAL IVPUSH ONE (09:30)
[2019-09-28 09:38] LABS: BASO % 1.2 % (0-2.0); EOS % 4.6 % (0-4.5); HEMATOCRIT 31.5 % (35.4-49); HEMOGLOBIN 10.1 GM/dL (11.7-16.9); LYMPH % 22.4 % (8-40); MCH 26.4 pg (25.7-33.7); MCHC 32.1 g/dl (32.0-35.9); MEAN CELL VOLUME 82.3 fl (80-96); MEAN PLT VOLUME 7.5 fl (7.5-11.1); MONO % 23.7 % (3.8-10.2); NEUT % 48.1 % (42.8-82.8); PLATELET COUNT 316 K/MM3 (134-434); RBC 3.83 M/mm3 (4.00-5.60); RDW 17.5 % (11.9-15.9); WHITE BLOOD COUNT 3.1 K/mm3 (4.0-10.0)
[2019-09-28] MEDS ORDERED: WATER IVPB ONE (10:00)
[2019-09-28] MEDS ORDERED: IRINOTECAN HCL 270 MG in DEXTROSE 5%-WATER - 500 ML IVPB ONE (10:00)
[2019-09-28] MEDS ORDERED: DEXTROSE 5% IVPB ONE (10:00)
[2019-09-28] MEDS ORDERED: LEUCOVORIN IVPB ONE (10:00)
[2019-09-28 10:28] LABS: ANISOCYTOSIS 1+; MACROCYTOSIS 0; PLATELET ESTIMATE NORMAL
[2019-09-28 10:55] LABS: ALBUMIN 3.2 g/dl (3.4-5.0); BILIRUBIN,DIRECT 0.1 mg/dL (0.0-0.2); BILIRUBIN,TOTAL 0.3 mg/dL (0.2-1); BLOOD UREA NITROGEN 30.2 mg/dL (7-18); CALCIUM 8.7 mg/dL (8.5-10.1); CREATININE 1.8 mg/dL (0.55-1.3); MAGNESIUM 2.4 mg/dL (1.8-2.4); POTASSIUM 4.3 mmol/L (3.5-5.1); TOT PROT 6.4 g/dl (6.4-8.2)
[2019-09-28 11:19] VITALS: TEMP 98.5
[2019-09-28] MEDS ORDERED: FLUOROURACIL 500 MG/10 ML VIAL IVPUSH ONE (11:30)
[2019-09-28 17:19] VITALS: BP 155/71; PULSE 48
[2019-09-28] MEDS ORDERED: PORTA CATH FLUSH 10 ML IVPUSH ONE (17:19)
== END 2019-09-28 16:20 | disposition home or self-care (01) ==
LOC: JONCCHEMO 07:15
PROVIDERS: ATTEND Nurse Practitioner Family
DX: Z51.11 Encounter for antineoplastic chemotherapy (principal); C18.9 Malignant neoplasm of colon, unspecified; I12.9 Hypertensive chronic kidney disease with stage 1 through stage 4 chronic kidney disease, or unspecified chronic kidney disease; R07.81 Pleurodynia
CPT/HCPCS: 36415; 80048; 80076; 82378; 83735; 85025; 96361; 96366; 96367; 96375; 96411; 96413; J2469; J9190; J9206

== ENCOUNTER 2019-10-06 07:17 | Day surgery (SDC) | payer OTHER ==
[2019-10-06] MEDS ORDERED: SODIUM CHLORIDE 500 ML IV ONE (09:00)
[2019-10-06] MEDS ORDERED: DEXAMETHASONE SOD PHOSPHATE 20 MG/5 ML VIAL IVPB ONE (09:50)
[2019-10-06] MEDS ORDERED: ONDANSETRON 4 MG/2 ML VIAL IVPB ONE (09:51)
[2019-10-06] MEDS ORDERED: SODIUM CHLORIDE 0.45% 500 ML IV ONE (10:00)
[2019-10-06] MEDS ORDERED: DENOSUMAB 120 MG/1.7 ML VIAL SQ ONE (10:00)
[2019-10-06 10:02] LABS: BASO % 0.9 % (0-2.0); EOS % 3.1 % (0-4.5); HEMATOCRIT 29.8 % (35.4-49); HEMOGLOBIN 9.9 GM/dL (11.7-16.9); LYMPH % 14.2 % (8-40); MCH 26.9 pg (25.7-33.7); MCHC 33.1 g/dl (32.0-35.9); MEAN CELL VOLUME 81.2 fl (80-96); MEAN PLT VOLUME 7.6 fl (7.5-11.1); MONO % 10.6 % (3.8-10.2); NEUT % 71.2 % (42.8-82.8); PLATELET COUNT 282 K/MM3 (134-434); RBC 3.66 M/mm3 (4.00-5.60); RDW 17.4 % (11.9-15.9); WHITE BLOOD COUNT 3.9 K/mm3 (4.0-10.0)
[2019-10-06] MEDS ORDERED: ONDANSETRON IVPB ONE (10:30)
[2019-10-06] MEDS ORDERED: SODIUM CHLORIDE IVPB ONE (10:30)
[2019-10-06] MEDS ORDERED: DEXAMETHASONE IVPB ONE (10:30)
[2019-10-06 12:00] LABS: MAGNESIUM 2.1 mg/dL (1.8-2.4)
[2019-10-06 12:02] LABS: ALBUMIN 3.1 g/dl (3.4-5.0); BILIRUBIN,DIRECT 0.1 mg/dL (0.0-0.2); BILIRUBIN,TOTAL 0.3 mg/dL (0.2-1); BLOOD UREA NITROGEN 26.9 mg/dL (7-18); CALCIUM 8.6 mg/dL (8.5-10.1); CREATININE 1.8 mg/dL (0.55-1.3); POTASSIUM 3.9 mmol/L (3.5-5.1); TOT PROT 6.2 g/dl (6.4-8.2)
[2019-10-06 14:39] VITALS: PULSE 60; TEMP 97.8
[2019-10-06 14:40] VITALS: BP 127/75
== END 2019-10-06 12:30 | disposition home or self-care (01) ==
LOC: JONCCHEMO 07:17
PROVIDERS: ATTEND Internal Medicine Hematology & Oncology
PROC: 3E013GC Introduction of Other Therapeutic Substance into Subcutaneous Tissue, Percutaneous Approach (ICD-10-PCS; principal; 2019-10-06)
PROC: 3E043GC Introduction of Other Therapeutic Substance into Central Vein, Percutaneous Approach (ICD-10-PCS; 2019-10-06)
PROC: 3E033GC Introduction of Other Therapeutic Substance into Peripheral Vein, Percutaneous Approach (ICD-10-PCS; 2019-10-06)
DX: C18.9 Malignant neoplasm of colon, unspecified (principal); Z76.89 Persons encountering health services in other specified circumstances
CPT/HCPCS: 36415; 80048; 80076; 82378; 83735; 85025; 96361; 96365; 96372; J0897; J1100

== ENCOUNTER 2019-11-30 07:10 | Day surgery (SDC) | payer OTHER ==
--- OUTSIDE RECORDS SUMMARY | 2019-11-30 07:13 | XMS ---
:1935 Author Organization [facility] Support Name Relationship Address Phone RE, RETIRED Unavailable Unavailable Unavailable RE Unavailable Unavailable Unavailable MATT URRUTIA [address] [place] [phone] Re-disclosure Warning The records that you are about to access may contain information from federally- assisted alcohol or drug abuse programs. If such information is present, then the following federally mandated warning applies: This information has been disclosed to you from records protected by federal confidentiality rules (42 CFR part 2). The federal rules prohibit you from making any further disclosure of this information unless further disclosure is expressly permitted by the written consent of the person to whom it pertains or as otherwise permitted by 42 CFR part 2. A general authorization for the release of medical or other information is NOT sufficient for this purpose. The Federal rules restrict any use of the information to criminally investigate or prosecute any alcohol or drug abuse patient.The records that you are about to access may contain highly sensitive health information, the redisclosure of which is protected by Article 27-F of the [place] Public Health law. If you continue you may haveaccess to information: Regarding HIV / AIDS; Provided by facilities licensed or operated by the [place] Office of Mental Health; or Provided by the [place] [facility] Office for People With Developmental Disabilities. If such information is present, then the following [place] [facility] mandated warning applies: This information has been disclosed to you from confidential records which are protected by state law. State law prohibits you from making any further disclosure of this information without the specific written consent of the person to whom it pertains, or as otherwise permitted by law. Any unauthorized further disclosure in violation of state law may result in a fine or group home sentence or both. A general authorization for the release of medical or other information is NOT sufficient authorization for further disclosure. 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
[2019-11-30] MEDS ORDERED: DENOSUMAB 120 MG/1.7 ML VIAL SQ ONE (09:00)
[2019-11-30] MEDS ORDERED: SODIUM CHLORIDE 0.45% 500 ML IV ONE (09:00)
[2019-11-30] MEDS ORDERED: PALONOSETRON HCL 0.25 MG/5 ML VIAL IVPUSH ONE (10:30)
[2019-11-30] MEDS ORDERED: ATROPINE SULFATE 1 MG/10 ML DISP.SYRIN IVPUSH ONE (10:30)
[2019-11-30] MEDS ORDERED: DEXAMETHASONE SODIUM PHOSPHATE 10 MG, DIPHENHYDRAMINE 50 MG in SODIUM CHLORIDE 100 ML IVPB ONE (10:30)
[2019-11-30 10:50] LABS: BASO % 0.9 % (0-2.0); EOS % 2.9 % (0-4.5); HEMATOCRIT 28.7 % (35.4-49); HEMOGLOBIN 9.3 GM/dL (11.7-16.9); LYMPH % 7.7 % (8-40); MCHC 32.6 g/dl (32.0-35.9); MEAN CELL VOLUME 79.9 fl (80-96); MEAN PLT VOLUME 7.7 fl (7.5-11.1); MONO % 12.3 % (3.8-10.2); NEUT % 76.2 % (42.8-82.8); PLATELET COUNT 396 K/MM3 (134-434); RBC 3.59 M/mm3 (4.00-5.60); RDW 19.2 % (11.9-15.9); WHITE BLOOD COUNT 6.5 K/mm3 (4.0-10.0)
[2019-11-30] MEDS ORDERED: IRINOTECAN HCL 260 MG in DEXTROSE 5%-WATER - 500 ML IVPB ONE (11:00)
[2019-11-30 11:47] LABS: ALBUMIN 2.9 g/dl (3.4-5.0); BILIRUBIN,DIRECT 0.1 mg/dL (0.0-0.2); BILIRUBIN,TOTAL 0.3 mg/dL (0.2-1); BLOOD UREA NITROGEN 17.8 mg/dL (7-18); CALCIUM 8.6 mg/dL (8.5-10.1); CREATININE 1.3 mg/dL (0.55-1.3); MAGNESIUM 1.5 mg/dL (1.8-2.4); POTASSIUM 4.4 mmol/L (3.5-5.1); TOT PROT 5.9 g/dl (6.4-8.2)
[2019-11-30] MEDS ORDERED: CETUXIMAB IVPB ONE (12:30)
[2019-11-30] MEDS ORDERED: MAGNESIUM SULFATE IN WATER 2 GM/50 ML IVPB IVPB ONE (14:00)
[2019-11-30 18:53] VITALS: TEMP 98.6
[2019-11-30 19:02] VITALS: BP 161/65; PULSE 68
[2019-11-30] MEDS ORDERED: PORTA CATH FLUSH 10 ML IVPUSH ONE (19:02)
== END 2019-11-30 18:15 | disposition home or self-care (01) ==
LOC: JONCCHEMO 07:10
PROVIDERS: ATTEND Internal Medicine Hematology & Oncology
PROC: 3E04305 Introduction of Other Antineoplastic into Central Vein, Percutaneous Approach (ICD-10-PCS; principal; 2019-11-30)
PROC: 3E013GC Introduction of Other Therapeutic Substance into Subcutaneous Tissue, Percutaneous Approach (ICD-10-PCS; 2019-11-30)
DX: Z51.11 Encounter for antineoplastic chemotherapy (principal); C18.2 Malignant neoplasm of ascending colon; C79.51 Secondary malignant neoplasm of bone; C78.2 Secondary malignant neoplasm of pleura; C78.00 Secondary malignant neoplasm of unspecified lung
CPT/HCPCS: 36415; 80048; 80076; 83735; 85025; 96361; 96367; 96372; 96375; 96413; 96417; J0897; J2469; J9055; J9206

== ENCOUNTER 2019-12-07 14:55 | Emergency (ER) | payer OTHER ==
[2019-12-07] MEDS ORDERED: ASPIRIN 325 MG TABLET PO ONE (15:00)
[2019-12-07 15:03] VITALS: BP 103/55; PULSE 78; BMI 21.2
--- NOTE | 2019-12-07 15:03 | PDOC ---
Rapid Medical Evaluation Chief Complaint: Shortness of Breath Time Seen by Provider: 12/07/19 14:59 Medical Evaluation: Allergies Allergy/AdvReac Type Severity Reaction Status Date / Time No Known Allergies Allergy Verified 05/10/19 18:06 12/07/19 15:01 HPI: SOB since last night; Currently on Chemotherapy for colon CA also c/o R arm swelling PE: No conversational dyspnia ORDERS: Labs, O2, CXR, EKG, Troponin; Main Er for evaluation 12/07/19 15:02 Discharge Disposition - Diagnosis Shortness of breath - Discharge Dispostion Condition at time of disposition: Stable - Referrals - Patient Instructions - Post Discharge Activity
--- NOTE | 2019-12-07 15:23 | PDOC ---
History of Present Illness - General Chief Complaint: Shortness of Breath Stated Complaint: SOB Time Seen by Provider: 12/07/19 14:59 - History of Present Illness Initial Comments: 84 YOM h/o colon cancer on chemotherapy presenting with SOB. Per patient he has had background sob for 2 months however this morning he presented to Dr. Newman for f/u and noticed that his right arm was swollen and that he was particularly short of breath. Reports that he was on blood thinners previously but d/c them recently due to blood vessel bursting in right eye. He denies chest pain, cough, fever, chills, recent sick contacts, recent travel, N/V/D, blood in stool or urine. Constitutional: No Weight Change, No Fever, No Chills, No Night Sweats, No Fatigue, No Malaise ENT/Mouth: No Hearing Changes, No Ear Pain, No Nasal Congestion, No Sinus Pain, No Hoarseness, No sore throat, No Rhinorrhea, No Swallowing Difficulty Eyes: No Eye Pain, No Swelling, No Redness, No Foreign Body, No Discharge, No Vision Changes Cardiovascular: No Chest Pain, + SOB, No PND, No Dyspnea on Exertion, No Orthopnea, No Claudication, + Edema, No Palpitations Respiratory: No Cough, No Sputum, No Wheezing, No Smoke Exposure, No Dyspnea Gastrointestinal: No Nausea, No Vomiting, No Diarrhea, No Constipation, No Pain, No Heartburn, No Anorexia, No Dysphagia, No Hematochezia, No Melena, No Flatulence, No Jaundice Genitourinary: No Dysmenorrhea, No DUB, No Dyspareunia, No Dysuria, No Urinary Frequency, No Hematuria, No Urinary Incontinence, No Urgency, No Flank Pain, No Urinary Flow Changes, No Hesitancy Musculoskeletal: No Arthralgias, No Myalgias, No Joint Swelling, No Joint Stiffness, No Back Pain, No Neck Pain, No Injury History Skin: No Skin Lesions, No Pruritis, No Hair Changes, No Breast/Skin Changes, No Nipple Discharge Neuro: No Weakness, No Numbness, No Paresthesias, No Loss of Consciousness, No Syncope, No Dizziness, No Headache, No Coordination Changes, No Recent Falls Psych: No Anxiety/Panic, No Depression, No Insomnia, No Personality Changes, No Delusions, No Rumination, No SI/HI/AH/VH, No Social Issues, No Memory Changes, No Violence/Abuse Hx., No Eating Concerns Heme/Lymph: No Bruising, No Bleeding, No Transfusions History, No Lymphadenopathy Endocrine: No Polyuria, No Polydipsia, No Temperature Intolerance Past History - Medical History Allergies/Adverse Reactions: Allergies Allergy/AdvReac Type Severity Reaction Status Date / Time No Known Allergies Allergy Verified 05/10/19 18:06 Home Medications: Ambulatory Orders Amlodipine Besylate 10 mg PO DAILY 06/17/16 Labetalol HCl [Normodyne -] 200 mg PO BID 06/17/16 Tamsulosin HCl 0.4 mg PO HS 06/17/16 Simvastatin 20 mg PO HS 06/18/16 Ascorbic Acid [Vitamin C -] 500 mg PO ASDIR 07/29/16 Glucosamine/Methylsulfonylmeth [Sm Glucosamine & MSM Tablet] 1,500 tab PO BID 07/29/16 Multivitamins [Multivit ([facility] Formul[facility])] 1 tab PO DAILY 07/29/16 Ferrous Sulfate, Dried [Iron] 64 mg PO DAILY 09/09/16 Edoxaban Tosylate [Savaysa] 60 mg PO DAILY 12/07/18 Anemia: Yes Cancer: Yes (colon) COPD: Yes GI Disorders: Yes (H/O ADENOMATOUS POLYP OF COLON) HTN: Yes Hypercholesterolemia: Yes Other medical history: subconjunctival hemorrage. - Surgical History Abdominal Surgery: Yes (inguinal hernia, colon resection) Cholecystectomy: Yes - Immunization History Immunization Up to Date: No - Psycho-Social/Smoking History Smoking History: Never smoked Have you smoked in the past 12 months: No Number of Cigarettes Smoked Daily: 2 If you are a former smoker, when did you quit?: 5MONTHS AGO Information on smoking cessation initiated: No - Substance Abuse Hx (Audit-C & DAST Scrn) How often the patient has a drink containing alcohol: Never Score: In Men: 4 or > Positive; In Women: 3 or > Positive: 0 Screen Result (Pos requires Nsg. Audit-10AR): Negative In the last yr the pt used illegal drug/Rx for NonMed reason: No Score: Yes response is considered Positive: 0 Screen Result (Positive result requires Nsg. DAST-10): Negative *Physical Exam - Vital Signs Last Vital Signs Temp Pulse Resp BP Pulse Ox 97.6 F 78 16 103/55 L 100 12/07/19 15:00 12/07/19 15:00 12/07/19 15:00 12/07/19 15:00 12/07/19 15:00 ED Treatment Course - LABORATORY CBC & Chemistry Diagram: 12/07/19 16:00 12/07/19 16:00 Medical Decision Making - Medical Decision Making 12/07/19 17:44 - Patient has creatinine of 1.6, cleared for contrast on the basis that he emergently requires imagining of pulmonary vasculature and we will hydrate following CT, discussed with patient, agrees with plan, understands risk. 12/07/19 18:03 - Patient signed out to night team 12/09/19 19:00 Discharge - Discharge Information Problems reviewed: Yes Clinical Impression/Diagnosis: Shortness of breath Pulmonary embolism Qualifiers: Pulmonary embolism type: multiple subsegmental (without acute cor pulmonale) Qualified Code(s): I26.94 - Multiple subsegmental pulmonary emboli without acute cor pulmonale Deep vein thrombosis, upper right extremity Qualifiers: Affected thrombotic vein of extremity: unspecified vein of extremity Chronicity: acute Qualified Code(s): I82.621 - Acute embolism and thrombosis of deep veins of right upper extremity Condition: Guarded Disposition: TRANSFER ACUTE CARE/OTHER HOSP - Follow up/Referral Referrals: Corby Roberts MD [Primary Care Provider] - - Patient Discharge Instructions - Post Discharge Activity
[2019-12-07] MEDS ORDERED: ASPIRIN 81 MG CHEWABLE TABLETS ONE (15:44)
--- NOTE | 2019-12-07 16:12 | PDOC ---
Documentation entered by Jo Ann Payne SCRIBE, acting as scribe for Mayte Gonzalez MD. Mayte Gonzalez MD: This documentation has been prepared by the Kerry mccall Xhesika, SCRIBE, under my direction and personally reviewed by me in its entirety. I confirm that the documentation accurately reflects all work, treatment, procedures, and medical decision making performed by me. Attending Attestation - Resident Resident Name: RoxHanselTyrell - ED Attending Attestation I have performed the following: I have examined & evaluated the patient, The case was reviewed & discussed with the resident, I agree w/resident's findings & plan - HPI HPI: 12/07/19 15:35 The patient is an 84 year old male with a significant past medical history of metastatic colon cancer (last chemo on 11/30/19), HTN, and HLD who presents to the emergency department, sent by Dr. Real, for evaluation of shortness of breath since last night and R arm swelling since this morning. The patient denies chest/abdominal/back pain, cough. Denies fever, chills, nausea, vomiting, and/or any GI symptoms. Denies any symptoms. Denies any other symptoms. Allergies: NKDA Social history: The patient reports he is a former smoker. Denies alcohol or illicit drug use. Surgical history: TURVP, colon resection and inguinal hernia. PCP: Dr. Rush Oncologist: Dr. Real Urologist: Dr. Griggs. - Physicial Exam PE: 12/07/19 15:37 Agree with the resident's HPI and PE as documented in the electronic medical record. NAD, well appearing, EOMI, PERRL, dry membranes, + Rt subconjunctival hemorrhage with limbic sparing, anicteric; neck supple. lungs clear, RRR, abdomen soft nontender. Back nontender. MOLINA x4, no focal neuro deficits. Rt arm non-pitting edema, nontender. no venous tortuosities. normal color for ethnicity, WWP. 12/07/19 16:15 12/08/19 07:22 - Medical Decision Making 12/07/19 16:08 Vital Signs Temp Pulse Resp BP Pulse Ox 97.6 F 78 16 103/55 L 100 12/07/19 15:00 12/07/19 15:00 12/07/19 15:00 12/07/19 15:00 12/07/19 15:00 vitals reviewed, wnl ddx. DVT, PE, arrhythmia, NSTEMI, ACS, anemia, electrolyte/metabolic derangements, infection, anemia. pt with known malignancy,,colon ca RUE swelling, no pain concern for DVT, check duplex CT angio chest to eval for PE given his SOB on an novel anticoagulant? Chest x-ray with hyperinflation pleural reaction at the right base and right pleural densities noted, now the driller density in the right lower lung field. There are multiple lung nodules and prior CT scan this is most likely related to his metastatic malignancy. basic labs and lytes/cardiac panel, anticipate admission for his symptoms, close monitoring and medical management, pending imaging as high risk for DVT/PE Dr Real will be updated 12/07/19 16:15 12/07/19 16:16 12/08/19 07:22 Heart Score/ECG Review #1 ECG reviewed & interpreted by me at: 15:15 General ECG Interpretation: Sinus Rhythm, Normal Rate, Normal Intervals 12/07/19 16:12 EKG normal sinus rhythm 62 bpm, no interval abnormalities, narrow QRS, ST and T wave segments and morphology normal. Nonspecific T wave abnormalities Discharge - Discharge Information Problems reviewed: Yes Clinical Impression/Diagnosis: Shortness of breath, Pulmonary embolism, Deep vein thrombosis, upper right extremity Condition: Guarded Disposition: TRANSFER ACUTE CARE/OTHER HOSP - Follow up/Referral Referrals: Corby Roberts MD [Primary Care Provider] - - Patient Discharge Instructions - Post Discharge Activity
[2019-12-07 16:34] LABS: BASO % 1.3 % (0-2.0); EOS % 3.8 % (0-4.5); HEMATOCRIT 27.6 % (35.4-49); HEMOGLOBIN 8.9 GM/dL (11.7-16.9); LYMPH % 10.7 % (8-40); MCH 26.2 pg (25.7-33.7); MCHC 32.3 g/dl (32.0-35.9); MEAN CELL VOLUME 80.9 fl (80-96); MEAN PLT VOLUME 8.2 fl (7.5-11.1); MONO % 12.2 % (3.8-10.2); PLATELET COUNT 312 K/MM3 (134-434); RBC 3.41 M/mm3 (4.00-5.60); RDW 19.5 % (11.9-15.9); WHITE BLOOD COUNT 4.7 K/mm3 (4.0-10.0)
[2019-12-07 16:42] LABS: INR 1.17 (0.83-1.09); PROTHROMBIN TIME (PATIENT) 13.8 SEC (9.7-13.0)
[2019-12-07 16:45] LABS: ACTIVATED PTT 26.8 SECONDS (25.2-36.5)
[2019-12-07 17:11] LABS: ALK PHOS 51 U/L (45-117); ANION GAP 8 MMOL/L (8-16); BILIRUBIN,TOTAL 0.4 mg/dL (0.2-1); BLOOD UREA NITROGEN 23.2 mg/dL (7-18); CALCIUM 9.1 mg/dL (8.5-10.1); CHLORIDE 106 mmol/L (98-107); CO2 30 mmol/L (21-32); CREATININE 1.6 mg/dL (0.55-1.3); GLUCOSE,RANDOM 89 mg/dL (74-106); MAGNESIUM 1.4 mg/dL (1.8-2.4); POTASSIUM 4.1 mmol/L (3.5-5.1); SGOT/AST 19 U/L (15-37); SGPT/ALT 24 U/L (13-61); SODIUM 145 mmol/L (136-145); TOT PROT 6.3 g/dl (6.4-8.2)
[2019-12-07] MEDS ORDERED: SODIUM CHLORIDE 500 ML IV STA (17:37)
--- NOTE | 2019-12-07 19:08 | PDOC ---
*Physical Exam - Vital Signs Last Vital Signs Temp Pulse Resp BP Pulse Ox 97.6 F 78 16 103/55 L 100 12/07/19 15:00 12/07/19 15:00 12/07/19 15:00 12/07/19 15:00 12/07/19 15:00 ED Treatment Course - LABORATORY CBC & Chemistry Diagram: 12/07/19 16:00 12/07/19 16:00 - ADDITIONAL ORDERS Additional order review: Laboratory Results 12/07/19 12/07/19 12/07/19 16:00 16:00 16:00 PT with INR 13.80 H INR 1.17 H PTT (Actin FS) 26.8 Sodium 145 Potassium 4.1 Chloride 106 Carbon Dioxide 30 Anion Gap 8 BUN 23.2 H Creatinine 1.6 H Est GFR (CKD-EPI)AfAm 45.18 Est GFR (CKD-EPI)NonAf 38.98 Random Glucose 89 Calcium 9.1 Magnesium 1.4 L Total Bilirubin 0.4 AST 19 ALT 24 Alkaline Phosphatase 51 Creatine Kinase 60 Troponin I < 0.02 Total Protein 6.3 L Albumin 3.0 L Blood Type O POSITIVE Antibody Screen Negative 12/07/19 16:00 RBC 3.41 L MCV 80.9 MCHC 32.3 RDW 19.5 H MPV 8.2 Neutrophils % 72.0 Lymphocytes % 10.7 D Monocytes % 12.2 H Eosinophils % 3.8 Basophils % 1.3 - Medications Given in the ED: ED Medications Discontinued Medications Generic Name Dose Route Start Last Admin Trade Name Freq PRN Reason Stop Dose Admin Aspirin 325 mg 12/07/19 15:00 12/07/19 16:04 Asa - PO 12/07/19 15:01 325 mg ONCE ONE Administration Sodium Chloride 500 mls @ 1,000 mls/hr 12/07/19 17:37 12/07/19 18:53 Normal Saline - IV 12/07/19 18:06 1,000 mls/hr ASDIR STA Administration Medical Decision Making - Medical Decision Making 12/07/19 19:[address] Estevez. Will f/u chest CTA read. Duplex of upper extremity shows R arm clot in brachial and axillary with extension into R internal jugular vein and R subclavian vein. Radial and ulnar veins are patent. Consider admit to ICU for AC vs transfer out if clot is around the port. Will discuss options with Dr. Real. Uncertain who insert port 3 years ago; may have been Dr. Power. 12/07/19 19:[address] Real, had b/l pulmonary embolism October 2018 and started on edoxaban at that time. Developed subconjunctival bleeding on and stopped edoxaban at that time, likely contributing to current clots. Port was placed with Dr. Power. Will discuss AC with him, heparin vs other option, admit to tele or ICU. Will f/u guaic to check for bleeding and CT head to ensure no metastasis or bleed. 12/07/19 19:55 Stool occult negative. Chest CTA: A right internal jugular venous catheter is seen with the catheter tip at the superior cavoatrial junction. The superior vena cava demonstrates no definite evidence of thrombosis allowing for mildly limited visualization due to mixing of opacified and unopacified blood. There is probable thrombus within the right brachiocephalic vein. Evaluation of the right brachiocephalic vein is limited due to contrast injection via the contralateral arm. The partially imaged lower aspect of the right internal jugular vein demonstrates a mildly expanded appearance as well as mild contiguous soft tissue stranding consistent with thrombosis identified on recently performed sonography. There is expansion of the right axillary and right brachial veins with contiguous soft tissue stranding also on the basis of known thrombosis. Several segmental and subsegmental emboli are noted within the posterior and lateral basal segments of the left lower lobe. Segmental and subsegmental emboli are also seen within the right middle lobe. A similar distribution of pulmonary embolism was also noted on a prior CT exam of 11/17/2018. Interval resolution of several right upper and lower lobe segmental emboli is noted. In comparison to CT performed on 06/10/2019 at a different facility note is made of interval development of a 0.7 x 0.4 cm nodule within the right pulmonary apex medially. Note is again made of multiple bilateral upper and lower lung field pulmonary nodules without definite interval change the most prominent measuring 2.3 cm in diameter. There is unchanged pleural thickening within the right lower chest posteriorly. 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 There is also increased neoplastic osteolysis of the head and neck of the right 12th rib. Increased size of a partially calcified mass lesion is noted within the posterior paraspinal musculature of the right lower chest currently measuring approximately 4.5 x 3.4 cm, previously 2.3 x 2 cm. There is unchanged osteolysis involving several left ventrolateral left ribs with associated subpleural thickening. Probable mild cardiomegaly. No pericardial effusion is seen. No definite intrathoracic lymphadenopathy is identified. Impression: Left lower lobe and right middle lobe segmental and subsegmental emboli are noted which are probably recurrent in nature in comparison to a prior contrast- enhanced CT exam of 11/17/2018. Given that the distribution of these emboli appears quite similar to the previous exam several of these emboli could conceivably be chronic in nature. A right internal jugular venous catheter is seen in place with the tip at the superior cavoatrial junction. There is no definite CT evidence of caval thrombosis within the limitations of the exam. Probable thrombosis of the right brachiocephalic vein is seen. As noted on recently performed sonography thrombus is identified within the ri ght internal jugular, subclavian, axillary and brachial veins. In comparison to a noncontrast CT study of 06/10/2019 interval development of a 0.7 x 0.4 cm right upper lobe pulmonary nodule is noted. Multiple additional unchanged bilateral upper and lower lung field pulmonary nodules are seen the most prominent measuring 2.3 cm in diameter. 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 These lesions appear mildly increased since the previous exam. There is increased size of a partially calcified soft tissue lesion within the p osterior paraspinal musculature of the right lower chest currently measuring 4.5 x 3.4 cm, previously 2.3 x 2 cm. Probable mild cardiomegaly. Awaiting call back from Dr. Power. 12/07/19 20:[address] Power, who suggest heparin and transfer to a tertiary care center. Patient preference is [facility]. Will begin heparin drip and transfer process. Discharge - Discharge Information Problems reviewed: Yes Clinical Impression/Diagnosis: Shortness of breath Pulmonary embolism Qualifiers: Pulmonary embolism type: multiple subsegmental (without acute cor pulmonale) Qualified Code(s): I26.94 - Multiple subsegmental pulmonary emboli without acute cor pulmonale Deep vein thrombosis, upper right extremity Qualifiers: Affected thrombotic vein of extremity: unspecified vein of extremity Chronicity: acute Qualified Code(s): I82.621 - Acute embolism and thrombosis of deep veins of right upper extremity Condition: Guarded Disposition: TRANSFER ACUTE CARE/OTHER HOSP - Follow up/Referral Referrals: Corby Roberts MD [Primary Care Provider] - - Patient Discharge Instructions - Post Discharge Activity
--- NOTE | 2019-12-07 19:40 | PDOC ---
*Physical Exam - Vital Signs Last Vital Signs Temp Pulse Resp BP Pulse Ox 97.6 F 78 16 103/55 L 100 12/07/19 15:00 12/07/19 15:00 12/07/19 15:00 12/07/19 15:00 12/07/19 15:00 ED Treatment Course - LABORATORY CBC & Chemistry Diagram: 12/07/19 16:00 12/07/19 16:00 - ADDITIONAL ORDERS Additional order review: Laboratory Results 12/07/19 12/07/19 12/07/19 16:00 16:00 16:00 PT with INR 13.80 H INR 1.17 H PTT (Actin FS) 26.8 Sodium 145 Potassium 4.1 Chloride 106 Carbon Dioxide 30 Anion Gap 8 BUN 23.2 H Creatinine 1.6 H Est GFR (CKD-EPI)AfAm 45.18 Est GFR (CKD-EPI)NonAf 38.98 Random Glucose 89 Calcium 9.1 Magnesium 1.4 L Total Bilirubin 0.4 AST 19 ALT 24 Alkaline Phosphatase 51 Creatine Kinase 60 Troponin I < 0.02 Total Protein 6.3 L Albumin 3.0 L Blood Type O POSITIVE Antibody Screen Negative 12/07/19 16:00 RBC 3.41 L MCV 80.9 MCHC 32.3 RDW 19.5 H MPV 8.2 Neutrophils % 72.0 Lymphocytes % 10.7 D Monocytes % 12.2 H Eosinophils % 3.8 Basophils % 1.3 - Medications Given in the ED: ED Medications Discontinued Medications Generic Name Dose Route Start Last Admin Trade Name Freq PRN Reason Stop Dose Admin Aspirin 325 mg 12/07/19 15:00 12/07/19 16:04 Asa - PO 12/07/19 15:01 325 mg ONCE ONE Administration Sodium Chloride 500 mls @ 1,000 mls/hr 12/07/19 17:37 12/07/19 18:53 Normal Saline - IV 12/07/19 18:06 1,000 mls/hr ASDIR STA Administration Medical Decision Making - Medical Decision Making 12/07/19 19:34 a/p: 84yo male signed out from the prior attending for eval of RUE dvt and poss pe -pt with hx of PE in the past, on edoxaban, which was stopped 5 days ago because of subconjunctival hematoma -pt with a dvt in the RUE -cta pending official read, but clot seen around the port a cath -port placed by DR. Power, call placed to Dr. Power -case discussed with Dr. Real who will see the patient in consult 12/07/19 19:59 acute and chronic pe/dvt seen no acute findings on head ct stool heme neg pending call back from Dr. Power 12/07/19 20:44 resident discussed the case with Dr. Power who recommends transfer to a tertiary care center family updated and pt decided on transfer to [facility] call placed to the transfer center 12/07/19 21:16 pt auto accepted to the [facility] ER for further eval pending call back from the vascular surgeon Discharge - Discharge Information Problems reviewed: Yes Clinical Impression/Diagnosis: Shortness of breath, Pulmonary embolism, Deep vein thrombosis, upper right extremity Condition: Guarded Disposition: TRANSFER ACUTE CARE/OTHER HOSP - Follow up/Referral Referrals: Corby Roberts MD [Primary Care Provider] - - Patient Discharge Instructions - Post Discharge Activity - Transfer to Acute Care Facility Receiving Facility Name: [facility]
--- OUTSIDE RECORDS SUMMARY | 2019-12-07 19:58 | XMS ---
:1935 Author Organization [facility] Support Name Relationship Address Phone RE, RETIRED Unavailable Unavailable Unavailable RE Unavailable Unavailable Unavailable MATT URRUTIA [address] [place] [id number] Re-disclosure Warning The records that you are [...] is protected by Article 27-F of the [facility] Public Health law. If you continue you may haveaccess to information: Regarding HIV / AIDS; Provided by facilities licensed or operated by the [facility] Office of Mental Health; or Provided by the [facility] Office for People With Developmental Disabilities. If such information is present, then the following [facility] mandated warning applies: This information has been [...] law may result in a fine or shelter sentence or both. A general authorization for the release of medical or other information is NOT sufficient authorization for further disclosure. Insurance Providers Payer name Policy type Policy ID Covered Covered democrat's Policy P marleny / Coverage democrat ID relationship to [employer] Inf ormation type leiva HIP MEDICARE [id number] SP [id number] VIP 1 HIP MEDICARE [id number] SP [id number] VIP 1 HIP SEARCH ENGINE [employer]IMIZATION SPECIALIST [id number] [employer] MEDICARE [id number]
[2019-12-07] MEDS ORDERED: LACTATED RINGERS SOLUTION 1,000 ML/1,000 ML INFUS.BAG IV STA (20:07)
[2019-12-07] MEDS ORDERED: LACTATED RINGERS SOLUTION 1,000 ML/1,000 ML INFUS.BAG IV SCH (20:15)
[2019-12-07] MEDS ORDERED: HEPARIN NA (PORCINE) 5,000 UNITS/ML 1ML VIAL IVPUSH ONE (20:20)
[2019-12-07] MEDS ORDERED: HEPARIN NA (PORCINE) 5,000 UNITS/ML 1ML VIAL IVPUSH PRN ×2 (20:25)
[2019-12-07] MEDS ORDERED: HEPARIN - 25,000 UNIT in SODIUM CHLORIDE 495 ML IV SCH (20:30)
[2019-12-07 20:57] VITALS: TEMP 97.8
[2019-12-07] MEDS ORDERED: HEPARIN INFUSION - 25,000 UNITS/500 ML INFUS.BAG IVPB ONE (21:14)
[2019-12-07] MEDS ORDERED: HEPARIN NA (PORCINE) 5,000 UNITS/ML 1ML VIAL ONE (21:16)
--- NOTE | 2019-12-08 14:05 | EKG ---
Test Reason : Blood Pressure : / mmHG Vent. Rate : 062 BPM Atrial Rate : 062 BPM P-R Int : 200 ms QRS Dur : 082 ms QT Int : 394 ms P-R-T Axes : 074 027 050 degrees QTc Int : 399 ms SINUS RHYTHM WITH PREMATURE ATRIAL COMPLEXES IN A PATTERN OF BIGEMINY OTHERWISE NORMAL ECG WHEN COMPARED WITH ECG OF 16-NOV-2018 22:01, NO SIGNIFICANT CHANGE WAS FOUND Confirmed by GALE DAO, SIENNA ([id number]) on 12/08/2019 2:04:50 PM Referred By: Confirmed By:SIENNA BEASLEY MD
== END 2019-12-07 22:49 | disposition short-term general hospital (02) ==
LOC: JER 14:55
PROC: 3E0337Z Introduction of Electrolytic and Water Balance Substance into Peripheral Vein, Percutaneous Approach (ICD-10-PCS; principal; 2019-12-07)
DX: R06.02 Shortness of breath (principal); I26.94 Multiple subsegmental thrombotic pulmonary emboli without acute cor pulmonale; I82.621 Acute embolism and thrombosis of deep veins of right upper extremity
CPT/HCPCS: 36415; 70450-TC; 71046-TC-FY; 71275-TC; 80053; 82272; 82550; 83735; 84484; 85025; 85610; 85730; 86850; 86900; 86901; 93005; 93010; 93971; 99285-25; J1644; U0003

== ENCOUNTER 2019-12-21 08:47 | Day surgery (SDC) | payer OTHER ==
--- OUTSIDE RECORDS SUMMARY | 2019-12-14 07:27 | XMS ---
:1935 Author Organization [facility] Care Team Providers Name Role Phone ALINA LOPEZ Unavailable Unavailable TORI BISHOP Unavailable Unavailable EMERGENCY SERVICE, X Unavailable Unavailable Re-disclosure Warning The records that you are [...] is protected by Article 27-F of the [facility] Public Health law. If you continue you may haveaccess to information: Regarding HIV / AIDS; Provided by facilities licensed or operated by the [facility] Office of Mental Health; or Provided by the [facility] Office for People With Developmental Disabilities. If such information is present, then the following [facility] mandated warning applies: This information has [...] law may result in a fine or usp sentence or both. A general authorization for the release of medical or other information is NOT sufficient authorization for further disclosure. Allergies and Adverse Reactions Type Description Substance Reaction Status Data Source(s ) Food allergy No Known Food No Known Food [facility] Allergies Allergies [facility] Drug allergy No Known Drug No Known Drug [facility] Allergies Allergies [facility] Drug allergy No Known Allergies No Known [facility] Allergies [facility] Encounters Encounter Providers Location Date Indications Data Source(s ) Inpatient Attender: JOHN, 12/09/2019 [facility] ERICAdmitter: DARIO, 04:29:00 PM [facility] EDT - [facility] 12/10/2019 04:20:00 PM EDT PE Outpatient Attender: JOHN, 12/08/2019 01:00:00 PE [facility] ERICAttender: DARIO, AM EDT [facility], Co rporation CHIKERE PE Emergency Attender: DARIO, 12[facility]07[facility], Corpor ation XAdmitter: EMERGENCY SERVICE, X TRANSFER AMB Medications Medication Brand Start Product Dose Route Administrative Pharmacy [facility] Indications Reaction Description Data Name Date Form Instructions Instructions Source(s) Heparin Hepari 999 UNK active Heparin Tuan tcheste Sodium n 2020 units Sodium r [facility] [address]89 Sodium 12:09: /hr 37298xftbu/2 [facility] [address]1242 32 AM 50mL (HIGH Care EDT DOSE Corporatio PROTOCOL) n 0.45% NaCl Drip Start at 18 units/kg/hr; IV Give 1000 units/hr Medication administered onsite ferrous sulfate Ferrous Sulfate completed Ryan 134 MG Oral Tablet [27 mg iron [facility] Ferrous Sulfate Tablet]: 2 Tablet Health Care [27 mg iron Oral DAILY Co rporation Tablet]: 2 Tablet Oral DAILY Lisinopril 40 MG Lisinopril [40 mg completed Ryan Oral Tablet Tablet]: 1 Tablet [facility] Lisinopril [40 mg Oral DAILY Health Care Tablet]: 1 Tablet Co rporation Oral DAILY Amlodipine 10 MG Norvas 999 oral completed [facility] Oral Tablet MG [facility] [[facility]] [employer] [facility] e [facility] edoxaban 60 MG edoxaban [60 mg completed Ryan Oral Tablet Tablet]: 0.5 [facility] edoxaban [60 mg Tablet Oral DAILY Health Care Tablet]: 0.5 Corpora tion Tablet Oral DAILY Lisinopril 40 MG lisinopril 999 oral completed lisinopri Ryan Oral Tablet MG l [facility] [Zestril] [facility] e lisinopril Corporati on Amlodipine 10 MG Amlodipine [10 mg completed Ryan Oral Tablet Tablet]: 1 Tablet [facility] Amlodipine [10 mg Oral DAILY Health Care Tablet]: 1 Tablet Co rporation Oral DAILY Hydrochlorothiazid Hydrochlorothiazid [facility] e 25 MG Oral e [25 mg Tablet]: County Tablet 1 Tablet Oral [facility] Hydrochlorothiazid DAILY Corporation e [25 mg Tablet]: 1 Tablet Oral DAILY Glucosamine Daily [id number] completed Ryan Complex [1,500 Count y mg-400 unit-100 mg H [facility] Care Tablet]: 1 Tablet Co rporation Oral DAILY Labetalol labetalol 999 oral completed labet alol Ryan hydrochloride 200 MG Co unty MG Oral Tablet [facility] [Labrocol] Corporati on labetalol Simvastatin 20 MG Simvastatin [20 mg complete d Ryan Oral Tablet Tablet]: 1 Tablet [facility] Simvastatin [20 mg Oral BEDTIME Health Care Tablet]: 1 Tablet Co rporation Oral BEDTIME Labetalol Labetalol [100 mg completed Ryan hydrochloride 100 Tablet]: 2 Tablet County MG Oral Tablet Oral 2 TIMES A DAY [facility] Care Labetalol [100 mg Co rporation Tablet]: 2 Tablet Oral 2 TIMES A DAY Tamsulosin [0.4 mg [id number] completed Ryan Capsule]: 1 County Capsule Oral [facility] Care BEDTIME Corporation Simvastatin 20 MG simvastatin 999 oral completed simvastat Ryan Oral Tablet MG in [facility] [Zocor] [facility] simvastatin Corporat ion Multivitamin [id number] completed Ryan [Tablet]: 1 Tablet C ounty Oral DAILY Health Ca Corporation Unable to Unable to 999 UNK discontinued Un able to Ryan Obtain/Drug Names Obtain/Drug Names MG Obtain/Dr [facility] Unknown Unknown ug Names [facility] Unknown Corporation Tamsulosin tamsulosin 999 oral completed reid sulosi Ryan hydrochloride 0.4 MG n Co unty MG Oral Capsule [facility] [Flomax] Corporation tamsulosin Ascorbic Acid 500 Vitamin C completed Ryan MG Oral Tablet (Ascorbic Acid) [facility] Vitamin C [500 mg Tablet]: 1 Health Care (Ascorbic Acid) Tablet Oral DAILY Corporation [500 mg Tablet]: 1 Tablet Oral DAILY Insurance Providers Payer name Policy type Policy ID Covered Covered libertarian's Policy P marleny / Coverage libertarian ID relationship to [employer] Inf ormation type leiva HIP MEDICARE [id number] SP [id number] VIP UNK [id number] HIP MEDICARE [id number] SP [id number] VIP HIP SPORTS APPAREL INTERNSHIP [id number] SP [id number] ZOILA MEDICARE [id number] SP [id number] Surgeries/Procedures Procedure Description Date Indications Data Source(s) Following Clinical Following Clinical 12/09/2019 [facility] Pathway Protocol Pathway Protocol 12:00:00 AM [employer] [facility] [employer] Domains Income Results ID Date Data Source [id number] 12/10/2019 06:30:00 AM EDT [facility] [id number] Corporation Name Value Range Interpretation Description Data Sup porting Code Source(s) Document(s ) Leukocytes 5.8 k/mm3 4.8-10 <td> 12/10/2019 Ryan [#/volume] in .8 06:30</td><td> [facility] Blood by k/mm3 WBC </td><td> [employer] Care Automated count Corporation 5.8
(4.8-10.8) k/mm3 </td> Erythrocytes 3.34 m/mm3 4.70-6 <td> 12/10/2019 [facility] [#/volume] in .10 06:30</td><td> [facility] Blood m/mm3 RBC Health Care </td><td><[employer] raph styleCode="Bold "> 3.34 L </paragraph>
(4.70-6.10) m/mm3 </td> Erythrocyte 19.1 % 11.5-1 <td> 12/10/2019 Ryan distribution 4.5 % 06:30</td><td> [facility] width [Entitic RDW Health Care volume] by </td><td><[employer] Automated count raph styleCode="Bold "> 19.1 H </paragraph>
(11.5-14.5) % </td> Hematocrit 27.4 % 40.8-4 <td> 12/10/2019 Ryan [Volume 6.9 % 06:30</td><td> County Fraction] of HCT Health Care Blood by </td><td><[employer] Automated count raph styleCode="Bold "> 27.4 L </paragraph>
(40.8-46.9) % </td> Hemoglobin 8.4 g/dL 14.0-1 <td> 12/10/2019 Ryan [Mass/volume] 8.0 06:30</td><td> County in Blood g/dL HGB Health Care </td><td><[employer] raph styleCode="Bold "> 8.4 L </paragraph>
(14.0-18.0) g/dL </td> Erythrocyte 82.0 fL 80.0-9 <td> 12/10/2019 Ryan mean 4.0 fL 06:30</td><td> [facility] corpuscular MCV </td><td> Health Care volume [[employer] Corporation volume] by 82.0 Automated count
(80.0-94.0) fL </td> Erythrocyte 25.1 pg 27.0-3 <td> 12/10/2019 Ryan mean 1.5 pg 06:30</td><td> [facility] corpuscular [facility] Health Care hemoglobin </td><td><[employer] [Entitic mass] raph by Automated styleCode="Bold count "> 25.1 L </paragraph>
(27.0-31.5) pg </td> Erythrocyte 30.7 % 32.0-3 <td> 12/10/2019 Ryan mean 6.0 % 06:30</td><td> [facility] corpuscular [facility] hemoglobin </td><td><[employer] concentration raph [Mass/volume] styleCode="Bold in Blood from "> Fetus by 30.7 Automated count L </paragraph>
(32.0-36.0) % </td> Glucose 82 mg/dL 70-105 <td> 12/10/2019 Ryan [Mass/volume] mg/dL 06:30</td><td> County in Blood Glucose-Serum Health Care </td><td> Domains Income 82
(70-105) mg/dL </td> Chloride 107 mEq/L 98-107 <td> 12/10/2019 Ryan [Moles/volume] mEq/L 06:30</td><td> County in Serum or Chloride Health Care Plasma </td><td> Domains Income 107
(98-107) mEq/L </td> Platelet mean 11.1 fL 9.8-12 <td> 12/10/2019 [facility] r volume [Entitic .8 fL 06:30</td><td> County volume] in MPV </td><td> Health Care Blood by Dom[employer] Income Automated count 11.1
(9.8-12.8) fL </td> Platelets 291 k/mm3 160-41 <td> 12/10/2019 Ryan [#/volume] in 0 06:30</td><td> [facility] Blood by k/mm3 Platelet Count [facility] Automated count </td><td> Domains Income 291
(160-410) k/mm3 </td> Potassium 4.0 mEq/L 3.5-5. <td> 12/10/2019 Ryan [Moles/volume] 1 06:30</td><td> County in Serum or mEq/L Potassium-Serum Health Care Plasma </td><td> Domains Income 4.0
(3.5-5.1) mEq/L </td> Sodium 137 mEq/L 135-14 <td> 12/10/2019 Ryan [Moles/volume] 5 06:30</td><td> County in Serum or mEq/L Sodium-Serum Health Care Plasma </td><td> Domains Income 137
(135-145) mEq/L </td> Anion gap in 5 mEq/L 7-13 <td> 12/10/2019 Ryan Serum or Plasma mEq/L 06:30</td><td> County Anion Gap Health Care </td><td><rocio Domains Income raph styleCode="Bold "> 5 L </paragraph>
(7-13) mEq/L </td> Urea nitrogen 16 mg/dL 6-22 <td> 12/10/2019 [facility] r [Mass/volume] mg/dL 06:30</td><td> County in Blood BUN </td><td> Health Care [facility] 16
(6-22) mg/dL </td> Carbon dioxide, 25 mEq/L 22-30 <td> 12/10/2019 [facility] total mEq/L 06:30</td><td> [facility] [Moles/volume] CO2 </td><td> Health Car e in Serum or Corporation Plasma 25
(22-30) mEq/L </td> Calcium 7.2 mg/dL 8.6-10 <td> 12/10/2019 Ryan [Mass/volume] .2 06:30</td><td> County in Blood mg/dL Calcium Health Care </td><td><[facility] raph styleCode="Bold "> 7.2 L </paragraph>
(8.6-10.2) mg/dL </td> Creatinine 0.98 mg/dL 0.72-1 <td> 12/10/2019 Ryan [Moles/volume] .25 06:30</td><td> County in Serum or mg/dL Creatinine. Health Care Plasma </td><td> Domains Income 0.98
(0.72-1.25) mg/dL </td> Icteric index Not <td> 12/10/2019 [facility] r of Serum or Icteric 06:30</td><td> [facility] Plasma Icteric Index Health Care </td><td> Domains Income Not Icteric
</td> Phosphate 2.5 mg/dL 2.3-4. <td> 12/10/2019 Ryan [Mass/volume] 7 06:30</td><td> County in Serum or mg/dL Inorganic Health Care Plasma Phosphorus [facility] </td><td> 2.5
(2.3-4.7) mg/dL </td> Prothrombin 13.2 secs 9.4-12 <td> 12/10/2019 Ryan time (PT) .5 06:30</td><td> [facility] secs Prothrombin Health Care Time. Corporation </td><td><rocio raph styleCode="Bold "> 13.2 H </paragraph>
(9.4-12.5) secs </td> aPTT panel - 72.1 secs 25.0-3 <td> 12/10/2019 Ryan Platelet poor 6.5 14:30</td><td> [facility] plasma secs Partial Health Care Thromboplastin Corporation Time </td><td><rocio raph styleCode="Bold "> 72.1 H </paragraph>
(25.0-36.5) secs
PLEASE NOTE: New reference range in effect October 03, 2019.

(25.0-36.5) secs </td> Hemolysis index No <td> 12/10/2019 [facility] of Serum or Hemolysis 06:30</td><td> [facility] Plasma Hemolysis Index [facility] </td><td> [facility] No Hemolysis
</td> Lipemic index No Lipemia <td> 12/10/2019 [facility] er of Serum or 06:30</td><td> [facility] Plasma Lipemia Index [facility] </td><td> [facility] No Lipemia
</td> Magnesium 1.7 mg/dL 1.6-2. <td> 12/10/2019 Ryan [Mass/volume] 6 06:30</td><td> [facility] in Serum or mg/dL Magnesium Level [facility] Plasma </td><td> [facility] 1.7
(1.6-2.6) mg/dL </td> ID Date Data Source [id number] 12/09/2019 05:53:00 PM EDT [facility] [id number] Corporation Name Value Range Interpretation Description Data Sup porting Code Source(s) Document(s ) Chest CT (PACSIMAGE <td> 12/09/2019 Ryan W 17:53</td><td> [facility] contrast ) Final Chest With Health Care IV Result Contrast-CT Corporation Name: JIN, </td><td><paragra CRISTIAN MRN: [id number] Sex: M styleCode="Italic : s">(PACSIMAGE 1935 Location: M )</paragraph><br/ Admitting >
Final Physician: Result ALINA LOPEZ

Requesting Name: JINCRISTIAN INIGUEZ Physician:
DONTRELL TERRY Exam: CT Sex: M THORAX C+
: 12/09/2019 1935 19:53 Location: M EXAM: CT chest
with contrast Admitting for suspected Physician: ALINA LOPEZ emboluss
CLINICAL Requesting INFORMATION: Physician: DONTRELL andujar. HARRISON History of PE,

on heparin.. Exam: CT THORAX TECHNIQUE: C+ 12/09/2019 CT scan of the 19:53 chest was

performed as a EXAM: CT chest CT angiogram with contrast for of the suspected pulmonary pulmonary arteries. emboluss Volumetric

imaging was CLINICAL performed from INFORMATION: the thoracic Chest pain. inlet to the History of PE, on level of the heparin.. diaphragmatic

domes through TECHNIQUE: CT the region of scan of the chest the pulmonary was performed as artery a CT angiogram segments.
Coronal and of the pulmonary sagittal arteries. reformatted Volumetric images were imaging was provided for performed from review along
with iodine the thoracic and spectral inlet to the images level of the CONTRAST: 100 diaphragmatic cc intravenous domes through Omnipaque 350
the region of the COMPARISON: pulmonary artery 12/07/[address] and sagittal (outside
study) reformatted FINDINGS: images were PULMONARY provided for ARTERIES: review along with Pulmonary iodine artery
and enhancement is spectral images excellent. No filling

defect CONTRAST: 100 cc suggestive of intravenous pulmonary Omnipaque 350 embolism. Normal size

central COMPARISON: pulmonary 12/07/[address] (outside LUNGS: study) Radiographical

ly mild FINDINGS: emphysema with

apical PULMONARY predominance. ARTERIES: Bilateral Pulmonary artery parenchymal enhancement is nodules are excellent. again evident,
No similar in filling defect size to the suggestive of prior study, pulmonary measuring up embolism. Normal to 15 mm in size the left upper
central lobe (image pulmonary [id number]) and arteries. 16 mm in the
right middle LUNGS: lobe (image Radiographically 402:205). mild emphysema There is a with apical pleural-based predominance. lesion seen
medially in Bilateral the right parenchymal lower lobe nodules are again suggestive of evident, similar rounded in size atelectasis
to the which is also prior study, stable.. measuring up to AIRWAYS: 15 mm in the left Patent. upper lobe MEDIASTINUM,
PRECIOUS AND LYMPH (image 402:138) NODES: No and 16 mm in the enlarged lymph right middle lobe nodes are (image 402:205). seen within
the chest. There is a Oval pleural-based visualized lesion seen thyroid. medially in the Normal right lower esophagus..
PLEURA: lobe suggestive Bilateral of rounded pleural atelectasis which thickening. No is also stable.. effusion.
HEART AND AIRWAYS: PERICARDIUM: Patent. Normal heart
size. Moderate MEDIASTINUM, PRECIOUS coronary AND LYMPH NODES: calcification. No enlarged lymph Trace nodes are pericardial
seen effusion. within the chest. VESSELS: Aorta Oval visualized is normal in thyroid. Normal caliber. esophagus.. Moderate
atheroscleroti PLEURA: Bilateral c pleural calcification. thickening. No SOFT effusion. TISSUES:
Asymmetric HEART AND edema is again PERICARDIUM: evident in the Normal heart right size. Moderate axilla. coronary Partially calcification. calcified soft
tissue masses Trace pericardial in the right effusion. paraspinal
musculature VESSELS: Aorta is which appear normal in distinct from caliber. Moderate bone atherosclerotic metastases,
stable calcification. (image
[id number], for SOFT TISSUES: example) Asymmetric edema UPPER ABDOMEN: is again evident No abnormality in the right noted.
BONES: axilla. Partially Expansile rib calcified soft metastases in tissue masses in the right the right fifth, sixth, paraspinal and eighth
lateral ribs musculature which and the right appear distinct 12th posterior from bone rib, invading metastases, the vertebral stable body.
(image Additional [id number], for lesions on the example) left, the
UPPER largest in ABDOMEN: No the fifth abnormality anterior rib. noted. There are
BONES: multiple small Expansile rib lytic foci metastases in the in the spine, right fifth, along with a sixth, and sclerotic
focus in T1. eighth lateral Additional ribs and the lytic foci in right 12th the proximal posterior rib, humeri. invading IMPRESSION:
the 1. No evidence vertebral body. of pulmonary Additional embolism. 2. lesions on the Bilateral lung left, the largest and bone
metastases, in the fifth stable over 2 anterior rib. days. 3. There are Presumed multiple small rounded lytic foci atelectasis in
in the right the spine, along lower lobe, with a sclerotic stable.. 4. focus in T1. Moderate Additional coronary
calcification. lytic foci in the proximal humeri. Resident Radiologist:

Attending IMPRESSION: Radiologist:
1. Barrett No evidence of Jody DAO pulmonary Finalizing embolism. Radiologist:
2. 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 19:52
3. Finalized Presumed rounded Date: atelectasis in 12/09/2019 the right lower 20:13 lobe, stable..
4. Moderate coronary calcification.

<b r/>

Resident Radiologist:
Attending Radiologist: Barrett Vera MD
Finalizing Radiologist: Barrett Vera MD
Transcribed Date: 12/09/2019 19:52
Finalized Date: 12/09/2019 20:13

</td> ID Date Data Source [id number] 12/08/2019 12:00:00 AM [facility] Name Value Range Interpretation Code Description Data Hope rce(s) Supporting Document(s ) SARS-COV-2 Ryan RNA RT-PCR [facility] This lab was ordered by [facility] and reported by [facility]. ID Date Data Source [id number] 12/07/2019 04:00:00 PM EDT [facility] Name Value Range Interpretation Description Data Sup porting Code Source(s) Document(s ) SARS [facility] coronavirus 2 RNA This lab was ordered by [facility] and reported by [facility]. Procedure Social History Code Duration Value Status Description Data Source(s ) Smoking Former smoker completed Former smoker [facility] Vital Signs ID Date Data Source UNK Name Value Range Interpretation Code Description Data Source(s) Diastolic blood 61 {} Normal (applies to 61 {} [place] pressure non-numeric results) [facility] Corpor[facility] on Systolic blood 120 {} Normal (applies to 120 {} [place] pressure non-numeric results) [facility] ty [facility] Corporati on First Respiration 16.0000 {} Normal (applies to 16.0000 {} Ryan rate Set non-numeric results) Coun ty [facility] Corporati on Heart rate 77.0000 {} Normal (applies to 77.0000 {} [facility] non-numeric results) [facility] ty [facility] Corpor[facility] on Body temperature 98.4000 {} Normal (applies to 98.4000 {} Ryan non-numeric results) Coun ty [facility] Corpor[facility] on Mean blood 90.0000 {} Normal (applies to 90.0000 {} [facility] [place] pressure non-numeric results) Coun ty [facility] Care Corporati on wt - obtain Normal (applies to {} [facility] [place] non-numeric results) [facility] ty [facility] Corporati on weight - kg 79.3000 {} Normal (applies to 79.3000 {} [facility] non-numeric results) Coun ty [facility] Care Corporati on Patient Treatment Plan of Care Planned Activity Planned Date Details Description Data Source (s) Heparin Sodium [id number] 12/08/2019 12:09:32 [facility] Health Care Cor poration
--- OUTSIDE RECORDS SUMMARY | 2019-12-20 06:56 | XMS ---
[...] is protected by Article 27-F of the [facility] Public Health law. If you continue you may haveaccess to information: Regarding HIV / AIDS; Provided by facilities licensed or operated by the [facility] Office of Mental Health; or Provided by the [facility] Office for People With Developmental Disabilities. If such information is present, then the following [facility] mandated warning applies: This information [...] law may result in a fine or senior care sentence or both. A general authorization for the release of medical or other information is NOT sufficient authorization for further disclosure. Allergies and Adverse Reactions Type Description Substance Reaction Status Data Source(s ) Food allergy No Known Food No Known Food [facility] Allergies Allergies [facility] Drug allergy No Known Drug No Known Drug [facility] Allergies Allergies [facility] Drug allergy No Known Allergies No Known [facility] Allergies [facility] Encounters Encounter Providers Location Date Indications Data Source(s ) Inpatient Attender: JOHN, 12/09/2019 [facility] ERICAdmitter: DARIO, 04:29:00 PM [facility] EDT - [facility] 12/10/2019 04:20:00 PM EDT PE Outpatient Attender: JOHN, 12/08/2019 01:00:00 PE [facility] ERICAttender: DARIO, AM EDT Healt [facility] CHIBANNEREAdmitter: DARIO, Co rporation CHIKERE PE Emergency Attender: DARIO, 12/07/2019 [facility] SERV[facility], Corpor ation XAdmitter: EMERGENCY SERVICE, X TRANSFER AMB Medications Medication Brand Start Product Dose Route Administrative Pharmacy [facility] Indications Reaction Description Data Name Date Form Instructions Instructions Source(s) Heparin Hepari 999 UNK active Heparin Tuan tcheste Sodium n 2020 units Sodium r [facility] 79237 Sodium 12:09: /hr 25102pvlii/2 [facility] 91184 32 AM 50mL (HIGH Care EDT DOSE Corporatio PROTOCOL) n 0.45% NaCl Drip Start at 18 units/kg/hr; IV Give 1000 units/hr Medication administered onsite ferrous sulfate Ferrous Sulfate completed [place] 134 MG Oral Tablet [27 mg iron [facility] Ferrous Sulfate Tablet]: 2 Tablet Health Care [27 mg iron Oral DAILY Co rporation Tablet]: 2 Tablet Oral DAILY Lisinopril 40 MG Lisinopril [40 mg completed [place] Oral Tablet Tablet]: 1 Tablet [facility] Lisinopril [40 mg Oral DAILY Health Care Tablet]: 1 Tablet Co rporation Oral DAILY Amlodipine 10 MG Norvas 999 oral completed [facility] Oral Tablet MG [facility] [[facility]] Blue Flame Data [facility] e [facility] edoxaban 60 MG edoxaban [60 mg completed [place] Oral Tablet Tablet]: 0.5 [facility] edoxaban [60 mg Tablet Oral DAILY Health Care Tablet]: 0.5 Corpora tion Tablet Oral DAILY Lisinopril 40 MG lisinopril 999 oral completed lisinopri [place] Oral Tablet MG l [facility] [Zestril] [facility] e lisinopril Corporati on Amlodipine 10 MG Amlodipine [10 mg completed [place] Oral Tablet Tablet]: 1 Tablet [facility] Amlodipine [10 mg Oral DAILY Health Care Tablet]: 1 Tablet Co rporation Oral DAILY Hydrochlorothiazid Hydrochlorothiazid [facility] e 25 MG Oral e [25 mg Tablet]: County Tablet 1 Tablet Oral [facility] Hydrochlorothiazid DAILY Corporation e [25 mg Tablet]: 1 Tablet Oral DAILY Glucosamine Daily [id number] completed [place] Complex [1,500 Count y mg-400 unit-100 mg H [facility] Care Tablet]: 1 Tablet Co rporation Oral DAILY Labetalol labetalol 999 oral completed labet alol [place] hydrochloride 200 MG Co unty MG Oral Tablet [facility] [Labrocol] Corporati on labetalol Simvastatin 20 MG Simvastatin [20 mg complete d [place] Oral Tablet Tablet]: 1 Tablet [facility] Simvastatin [20 mg Oral BEDTIME Health Care Tablet]: 1 Tablet Co rporation Oral BEDTIME Labetalol Labetalol [100 mg completed [place] hydrochloride 100 Tablet]: 2 Tablet County MG Oral Tablet Oral 2 TIMES A DAY [facility] Care Labetalol [100 mg Co rporation Tablet]: 2 Tablet Oral 2 TIMES A DAY Tamsulosin [0.4 mg [id number] completed [place] Capsule]: 1 County Capsule Oral [facility] Care BEDTIME Corporation Simvastatin 20 MG simvastatin 999 oral completed simvastat [place] Oral Tablet MG in [facility] [Zocor] [facility] simvastatin Corporat ion Multivitamin [id number] completed [place] [Tablet]: 1 Tablet C ounty Oral DAILY Health Ca Corporation Unable to Unable to 999 UNK discontinued Un able to [place] Obtain/Drug Names Obtain/Drug Names MG Obtain/Dr [facility] Unknown Unknown ug Names [facility] Unknown Corporation Tamsulosin tamsulosin 999 oral completed reid sulosi [place] hydrochloride 0.4 MG n Co unty MG Oral Capsule 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 [id number] SP [id number] ZOILA MEDICARE [id number] SP [id number] Problems, Conditions, and Diagnoses Code Display Name Description Problem Type Effective Data Sour ce(s) Dates Z87.891 Personal history PERSONAL HISTORY 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 EDT Care [employer] Z79.899 Other snf OTHER CUSTODIAL Diagnosis 12/10/2019 Sky shawn (current) drug (CURRENT) DRUG 04:20:00 PM [facility] Health therapy THERAPY EDT Care [employer] Z79.01 residential CUSTODIAL Diagnosis 12/10/2019 [place] (current) use of (CURRENT) USE OF 04:20:00 PM [facility] anticoagulants ANTICOAGULANTS EDT Care [employer] Z85.038 Personal history PERSONAL HISTORY Diagnosis 12/10/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 INTESTINE Corporation E78.5 Hyperlipidemia, HYPERLIPIDEMIA, Diagnosis 12/10/2019 [place] unspecified UNSPECIFIED 04:20:00 PM [facility] EDT Care [employer] N40.0 Benign prostatic BENIGN PROSTATIC Diagnosis 12/10/2019 Gabriel paredes hyperplasia HYPERPLASIA 04:20:00 PM [facility] without lower WITHOUT LOWER EDT Care urinary tract URINRY TRACT SYMP Marla oration symptoms Z20.828 Contact with and CONTACT W AND Diagnosis 12/10/2019 [place] natalie (suspected) EXPOSURE TO OTH 04:20:00 PM [facility] exposure to other VIRAL COMMUNICABLE EDT Care viral communicable DISEASES Corpor ation diseases H11.31 Conjunctival CONJUNCTIVAL Diagnosis 12/10/2019 [place] r hemorrhage, right HEMORRHAGE, RIGHT 04:20:00 PM [facility] eye EYE EDT Care Corporation I10 Essential ESSENTIAL Diagnosis 12/10/2019 [place] (primary) (PRIMARY) 04:20:00 PM [facility] hypertension HYPERTENSION EDT Care Corporation I82.A11 Acute embolism and ACUTE EMBOLISM AND Diagnosis 0 [place] thrombosis of THROMBOSIS OF 04:20:00 PM [facility] right axillary RIGHT AXILLARY EDT Care vein VEIN Corporation I82.B11 Acute embolism and ACUTE EMBOLISM AND Diagnosis 0 [place] thrombosis of THROMBOSIS OF 04:20:00 PM [facility] right subclavian RIGHT SUBCLAVIAN EDT Ca re vein [employer] I82.621 Acute embolism and ACUTE EMBOLISM AND Diagnosis 0 [place] thrombosis of deep THROMBOSIS OF DEEP 04:20:00 PM [facility] veins of right VEINS OF R UP EDT Care upper extremity EXTREM Corporati on 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 EDT Care [facility] 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:20:00 [facility] of left lung OF LEFT LUNG EDT Care [facility] 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 EDT Care Corporation I82.C11 Acute embolism and ACUTE EMBOLISM AND Diagnosis 0 [place] thrombosis of THROMBOSIS OF 04:29:00 [facility] right internal RIGHT INTERNAL EDT Care jugular vein JUGULAR VEIN Corporatio n Surgeries/Procedures Procedure Description Date Indications Data Source(s) Following Clinical Following Clinical 12/09/2019 [facility] Pathway Protocol Pathway Protocol 12:00:00 AM [facility] Dimple DoughT [employer] Results ID Date Data Source [id number] 12/10/2019 06:30:00 AM EDT [facility] [id number] Corporation Name Value Range Interpretation Description Data Sup porting Code Source(s) Document(s ) Leukocytes 5.8 k/mm3 4.8-10 <td> 12/10/2019 [place] [#/volume] in .8 06:30</td><td> [facility] Blood by k/mm3 WBC </td><td> [facility] Automated count [employer] 5.8
(4.8-10.8) k/mm3 </td> Erythrocytes 3.34 m/mm3 4.70-6 <td> 12/10/2019 [place] [#/volume] in .10 06:30</td><td> County Blood m/mm3 RBC Health Care </td><td><[employer] raph styleCode="Bold "> 3.34 L </paragraph>
(4.70-6.10) m/mm3 </td> Erythrocyte 19.1 % 11.5-1 <td> 12/10/2019 [place] distribution 4.5 % 06:30</td><td> County width [Entitic RDW Health Care volume] by </td><td><[employer] Automated count raph styleCode="Bold "> 19.1 H </paragraph>
(11.5-14.5) % </td> Hematocrit 27.4 % 40.8-4 <td> 12/10/2019 [place] [Volume 6.9 % 06:30</td><td> County Fraction] of HCT Health Care Blood by </td><td><[employer] Automated count raph styleCode="Bold "> 27.4 L </paragraph>
(40.8-46.9) % </td> Hemoglobin 8.4 g/dL 14.0-1 <td> 12/10/2019 [place] [Mass/volume] 8.0 06:30</td><td> County in Blood g/dL HGB Health Care </td><td><[employer] raph styleCode="Bold "> 8.4 L </paragraph>
(14.0-18.0) g/dL </td> Erythrocyte 82.0 fL 80.0-9 <td> 12/10/2019 [place] mean 4.0 fL 06:30</td><td> County corpuscular MCV </td><td> Health Care volume [[employer] Corporation volume] by 82.0 Automated count
(80.0-94.0) fL </td> Erythrocyte 25.1 pg 27.0-3 <td> 12/10/2019 [place] mean 1.5 pg 06:30</td><td> County corpuscular MCH [facility] Care hemoglobin </td><td><[employer] [Entitic mass] raph by Automated styleCode="Bold count "> 25.1 L </paragraph>
(27.0-31.5) pg </td> Erythrocyte 30.7 % 32.0-3 <td> 12/10/2019 [place] mean 6.0 % 06:30</td><td> [facility] corpuscular [facility] Health Care hemoglobin </td><td><[employer] concentration raph [Mass/volume] styleCode="Bold in Blood from "> Fetus by 30.7 Automated count L </paragraph>
(32.0-36.0) % </td> Glucose 82 mg/dL 70-105 <td> 12/10/2019 [place] [Mass/volume] mg/dL 06:30</td><td> County in Blood Glucose-Serum Health Care </td><td> [employer] 82
(70-105) mg/dL </td> Chloride 107 mEq/L 98-107 <td> 12/10/2019 [place] [Moles/volume] mEq/L 06:30</td><td> [facility] in Serum or Chloride Health Care Plasma </td><td> [employer] 107
(98-107) mEq/L </td> Platelet mean 11.1 fL 9.8-12 <td> 12/10/2019 [facility] r volume [Entitic .8 fL 06:30</td><td> County volume] in MPV </td><td> Health Care Blood by [employer] Automated count 11.1
(9.8-12.8) fL </td> Platelets 291 k/mm3 160-41 <td> 12/10/2019 [place] [#/volume] in 0 06:30</td><td> [facility] Blood by k/mm3 Platelet Count Health Care Automated count </td><td> [employer] 291
(160-410) k/mm3 </td> Potassium 4.0 mEq/L 3.5-5. <td> 12/10/2019 [place] [Moles/volume] 1 06:30</td><td> County in Serum or mEq/L Potassium-Serum Health Care Plasma </td><td> [employer] 4.0
(3.5-5.1) mEq/L </td> Sodium 137 mEq/L 135-14 <td> 12/10/2019 [place] [Moles/volume] 5 06:30</td><td> County in Serum or mEq/L Sodium-Serum Health Care Plasma </td><td> [employer] 137
(135-145) mEq/L </td> Anion gap in 5 mEq/L 7-13 <td> 12/10/2019 [place] Serum or Plasma mEq/L 06:30</td><td> County Anion Gap Health Care </td><td><[employer] raph styleCode="Bold "> 5 L </paragraph>
(7-13) mEq/L </td> Urea nitrogen 16 mg/dL 6-22 <td> 12/10/2019 [facility] r [Mass/volume] mg/dL 06:30</td><td> County in Blood BUN </td><td> Health Care Corporation 16
(6-22) mg/dL </td> Carbon dioxide, 25 mEq/L 22-30 <td> 12/10/2019 [facility] total mEq/L 06:30</td><td> [facility] [Moles/volume] CO2 </td><td> Health Car e in Serum or Corporation Plasma 25
(22-30) mEq/L </td> Calcium 7.2 mg/dL 8.6-10 <td> 12/10/2019 [place] [Mass/volume] .2 06:30</td><td> County in Blood mg/dL Calcium Health Care </td><td><[employer] raph styleCode="Bold "> 7.2 L </paragraph>
(8.6-10.2) mg/dL </td> Creatinine 0.98 mg/dL 0.72-1 <td> 12/10/2019 [place] [Moles/volume] .25 06:30</td><td> County in Serum or mg/dL Creatinine. Health Care Plasma </td><td> [employer] 0.98
(0.72-1.25) mg/dL </td> Icteric index Not <td> 12/10/2019 [facility] r of Serum or Icteric 06:30</td><td> [facility] Plasma Icteric Index Health [facility] </td><td> [facility] Not Icteric
</td> Phosphate 2.5 mg/dL 2.3-4. <td> 12/10/2019 [place] [Mass/volume] 7 06:30</td><td> [facility] in Serum or mg/dL Inorganic Health Care Plasma Phosphorus [facility] </td><td> 2.5
(2.3-4.7) mg/dL </td> Prothrombin 13.2 secs 9.4-12 <td> 12/10/2019 [place] time (PT) .5 06:30</td><td> [facility] secs Prothrombin [facility] Care Time. [facility] </td><td><rocio raph styleCode="Bold "> 13.2 H </paragraph>
(9.4-12.5) secs </td> aPTT panel - 72.1 secs 25.0-3 <td> 12/10/2019 [place] Platelet poor 6.5 14:30</td><td> [facility] plasma secs Partial [facility] Care Thromboplastin [facility] Time </td><td><rocio raph styleCode="Bold "> 72.1 H </paragraph>
(25.0-36.5) secs
PLEASE NOTE: New reference range in effect October 03, 2019.

(25.0-36.5) secs </td> Hemolysis index No <td> 12/10/[address] [facility] [address] of Serum or Hemolysis 06:30</td><td> [facility] Plasma Hemolysis Index Health [facility] </td><td> [facility] No Hemolysis
</td> Lipemic index No Lipemia <td> 12/10/2019 [facility] er of Serum or 06:30</td><td> [facility] Plasma Lipemia Index [facility] </td><td> [facility] No Lipemia
</td> Magnesium 1.7 mg/dL 1.6-2. <td> 12/10/2019 [place] [Mass/volume] 6 06:30</td><td> County in Serum or mg/dL Magnesium Level Health Care Plasma </td><td> [employer] 1.7
(1.6-2.6) mg/dL </td> ID Date Data Source [id number] 12/09/2019 05:53:00 PM EDT [facility] [id number] Corporation Name Value Range Interpretation Description Data Sup porting Code Source(s) Document(s ) Chest CT (PACSIMAGE <td> 12/09/2019 [place] W 17:53</td><td> [facility] contrast ) Final Chest With [facility] IV Result Contrast-CT Corporation Name: JIN </td><td>Dirkpaultheron FOSTER MRN: [id number] Sex: M styleCode="Italic : s">(PACSIMAGE 1935 Location: M )</paragraph><br/ Admitting >
Final Physician: Result ALINA LOPEZ

Requesting Name: CRISTIAN ABDI Physician:
DONTRELL TERRY Exam: CT Sex: M [...] 12/09/2019 20:13

</td> ID Date Data Source [id number] 12/08/2019 12:00:00 AM EDT [facility] Name Value Range Interpretation Code Description Data Hope rce(s) Supporting Document(s ) SARS-COV-2 [place] RNA RT-PCR [facility] This lab was ordered by [facility] and reported by [facility]. ID Date Data Source [id number] 12/07/2019 04:00:00 PM EDT [facility] Name Value Range Interpretation Description Data Sup porting Code Source(s) Document(s ) SARS [facility] coronavirus 2 RNA This lab was ordered by [facility] and reported by [facility]. Procedure Social History Code Duration Value Status Description Data Source(s ) Smoking Former smoker completed Former smoker [facility] Vital Signs ID Date Data Source UNK [...] 16.0000 {} Normal (applies to 16.0000 {} [place] rate Set non-numeric results) Coun ty [facility] Corporati on Heart rate 77.0000 {} Normal (applies to 77.0000 {} [place] kamar non-numeric results) Coun ty [facility] Corporati on Body temperature 98.4000 {} Normal (applies to 98.4000 {} [place] non-numeric results) Coun ty [facility] Corporati on Mean blood 90.0000 {} Normal (applies to 90.0000 {} [facility] kamar pressure non-numeric results) Coun ty Health Care Corporati on wt - obtain Normal (applies to {} [facility] estrada non-numeric results) Coun ty [facility] Care Corporati on weight - kg 79.3000 {} Normal (applies to 79.3000 {} [facility] estrada non-numeric results) Coun ty Health Care Corporati on Patient Treatment Plan of Care Planned Activity Planned Date Details Description Data Source (s) Heparin Sodium 16210 12/08/2019 12:09:32 [facility] Health Care Cor poration
[~2019-12-21 08:47] MED LIST changes: +ATROPINE SO4 0.4 MG/1 ML VIAL SQ ONE; +CETUXIMAB IVPB ONE; +DEXAMETHASONE IVPB ONE; -DEXAMETHASONE SODIUM PHOSPHATE 10 MG, ONDANSETRON INJECTION 8 MG in SODIUM CHLORIDE 100 ML IVPB ONE; -DEXTROSE 5% IVPB ONE; +DIPHENHYDRAMINE IVPB ONE; -FLUOROURACIL 500 MG/10 ML VIAL IVPUSH ONE; +IRINOTECAN HCL 250 MG in DEXTROSE 5%-WATER - 500 ML IVPB ONE; -LEUCOVORIN IVPB ONE; +PALONOSETRON HCL 0.25 MG/5 ML VIAL IVPUSH ONE; +SODIUM CHLORIDE 0.45% 500 ML IV ONE; -SODIUM CHLORIDE 250 ML IV ONE; +SODIUM CHLORIDE IVPB ONE; -WATER IVPB ONE
--- OUTSIDE RECORDS SUMMARY | 2019-12-21 08:56 | XMS ---
[...] is protected by Article 27-F of the [facility] Public Health law. If you continue you may haveaccess to information: Regarding HIV / AIDS; Provided by facilities licensed or operated by the [facility] Office of Mental Health; or Provided by the [facility] Office for People With Developmental Disabilities. If such information is present, then the following [facility] mandated warning applies: This information has [...] allergy No Known Food No Known Food [facility] Allergies Allergies [facility] [[email or web address] Drug allergy No Known Drug No Known Drug [facility] Allergies Allergies [facility] [[email or web address]] Drug allergy No Known Allergies No Known [facility] Allergies [facility] [[email or web address]] Encounters Encounter Providers Location Date Indications Data Source(s ) Inpatient Attender: JOHN, 12/09/2019 PE [facility] ERICAdmitter: DARIO, 04:29:00 PM [facility] EDT - [facility] 12/10/2019 04:20:00 PM EDT PE Outpatient Attender: JOHN, 12/08/2019 01:00:00 PE [facility] ERICAttender: DARIO, AM EDT [facility]alt [facility]IO, Co rporation CHIKERE PE Emergency Attender: DARIO, 12/07/2019 [facility], Corpor ation XAdmitter: EMERGENCY SERVICE, X TRANSFER AMB Medications Medication Brand Start Product Dose Route Administrative Pharmacy [facility] Indications Reaction Description Data Name Date Form Instructions Instructions Source(s) Heparin Hepari 999 UNK active Heparin Tuan tcheste Sodium n 2020 units Sodium r [facility] 68754 Sodium 12:09: /hr [id number] [facility] 52809 32 AM 50mL (HIGH Care EDT DOSE Corporatio PROTOCOL) n 0.45% NaCl Drip Start at 18 units/kg/hr; IV Give 1000 units/hr Medication administered onsite ferrous sulfate Ferrous Sulfate completed [place] 134 MG Oral Tablet [27 mg iron [facility] Ferrous Sulfate Tablet]: 2 Tablet Health Care [27 mg iron Oral DAILY Co rporation Tablet]: 2 Tablet Oral DAILY Lisinopril 40 MG Lisinopril [40 mg completed [place] Oral Tablet Tablet]: 1 Tablet [facility] Lisinopril [40 mg Oral DAILY Health Care Tablet]: 1 Tablet Co rporation Oral DAILY Amlodipine 10 MG Norvas 999 oral completed [facility] Oral Tablet MG [facility] [[facility]] [facility] [employer] [facility] e [facility] edoxaban 60 MG edoxaban [60 mg completed [place] Oral Tablet Tablet]: 0.5 [facility] edoxaban [60 mg Tablet Oral DAILY Health Care Tablet]: 0.5 Corpora tion Tablet Oral DAILY Lisinopril 40 MG lisinopril 999 oral completed lisinopri [place] Oral Tablet MG l [facility] [Zestril] [facility] e lisinopril Corporati on Amlodipine 10 MG Amlodipine [10 mg completed [place] Oral Tablet Tablet]: 1 Tablet [facility] Amlodipine [10 mg Oral DAILY Health Care Tablet]: 1 Tablet Co rporation Oral DAILY Hydrochlorothiazid Hydrochlorothiazid [facility] e 25 MG Oral e [25 mg Tablet]: County Tablet 1 Tablet Oral [facility] Hydrochlorothiazid DAILY Corporation e [25 mg Tablet]: 1 Tablet Oral DAILY Glucosamine Daily [id number] completed [place] Complex [1,500 Count y mg-400 unit-100 mg [facility] Care Tablet]: 1 Tablet Co rporation Oral DAILY Labetalol labetalol 999 oral completed labet alol [place] hydrochloride 200 MG Co unty MG Oral Tablet [facility] [Labrocol] Corporati on labetalol Simvastatin 20 MG Simvastatin [20 mg complete d [place] Oral Tablet Tablet]: 1 Tablet [facility] Simvastatin [20 mg Oral BEDTIME Health Care Tablet]: 1 Tablet Co rporation Oral BEDTIME Labetalol Labetalol [100 mg completed [place] hydrochloride 100 Tablet]: 2 Tablet County MG Oral Tablet Oral 2 TIMES A DAY [facility] Care Labetalol [100 mg Co rporation Tablet]: 2 Tablet Oral 2 TIMES A DAY Tamsulosin [0.4 mg [id number] completed [place] Capsule]: 1 County Capsule Oral [facility] Care BEDTIME Corporation Simvastatin 20 MG simvastatin 999 oral completed simvastat [place] Oral Tablet MG in [facility] [Zocor] [facility] simvastatin Corporat ion Multivitamin [id number] completed [place] [Tablet]: 1 Tablet C ounty Oral DAILY Health Ca Corporation Unable to Unable to 999 UNK discontinued Un able to [place] Obtain/Drug Names Obtain/Drug Names MG Obtain/Dr [facility] Unknown Unknown ug Names [facility] Unknown Corporation Tamsulosin tamsulosin 999 oral completed reid sulosi [place] hydrochloride 0.4 MG n Co unty MG Oral Capsule [facility] [Flomax] Corporation tamsulosin Ascorbic Acid 500 Vitamin C completed [place] MG Oral Tablet (Ascorbic Acid) [facility] Vitamin C [500 mg Tablet]: 1 Health Care (Ascorbic Acid) Tablet Oral DAILY Corporation [500 mg Tablet]: 1 Tablet Oral DAILY Insurance Providers Payer name Policy type Policy ID Covered Covered libertarian's Policy P marleny / Coverage libertarian ID relationship to Leiva Inf ormation type leiva HIP MEDICARE [id number] SP [id number] VIP UNK [id number] HIP MEDICARE [id number] SP [id number] VIP HIP JEWELRY DIPPER [id number] SP [id number] ZOILA MEDICARE [id number] [place] [id number] Problems, Conditions, and Diagnoses Code Display Name Description Problem Type Effective Data Sour ce(s) Dates Z87.891 Personal history PERSONAL HISTORY 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 Z79.899 Other snf OTHER SKILLED NURSING Diagnosis 12/10/2019 Sky shawn (current) drug (CURRENT) DRUG 04:20:00 PM Count y Health therapy THERAPY EDT Care [employer] Z79.01 snf SKILLED NURSING Diagnosis 12/10/2019 [place] (current) use of (CURRENT) USE OF 04:20:00 PM [facility] anticoagulants ANTICOAGULANTS EDT Care [employer] 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 N40.0 Benign prostatic BENIGN PROSTATIC Diagnosis 12/10/2019 Gabriel paredes hyperplasia HYPERPLASIA 04:20:00 PM [facility] without lower WITHOUT LOWER EDT Care urinary tract URINRY TRACT SYMP Marla oration symptoms Z20.828 Contact with and CONTACT W AND Diagnosis 12/10/2019 [place] natalie (suspected) EXPOSURE TO OTH 04:20:00 PM [facility] exposure to other VIRAL COMMUNICABLE EDT Care viral communicable DISEASES Corpor ation diseases H11.31 Conjunctival CONJUNCTIVAL Diagnosis 12/10/2019 [place] r hemorrhage, right HEMORRHAGE, RIGHT 04:20:00 PM [facility] eye EYE EDT Care Corporation I10 Essential ESSENTIAL Diagnosis 12/10/2019 [place] (primary) (PRIMARY) 04:20:00 PM [facility] hypertension HYPERTENSION EDT Care Corporation I82.A11 Acute embolism and ACUTE EMBOLISM AND Diagnosis 0 [place] thrombosis of THROMBOSIS OF 04:20:00 PM [facility] right axillary RIGHT AXILLARY EDT Care vein VE[employer] Corporation I82.B11 Acute embolism and ACUTE EMBOLISM AND Diagnosis 0 [place] thrombosis of THROMBOSIS OF 04:20:00 PM [facility] right subclavian RIGHT SUBCLAVIAN EDT Ca re vein [employer] I82.621 Acute embolism and ACUTE EMBOLISM AND Diagnosis 0 [place] thrombosis of deep THROMBOSIS OF DEEP 04:20:00 PM [facility] veins of right VEINS OF R UP EDT Care upper extremity EXTREM Corporati on 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 Results ID Date Data Source [id number] 12/10/2019 06:30:[address] [facility] [id number] Corporation Name Value Range Interpretation Description Data Sup porting Code Source(s) Document(s ) Leukocytes 5.8 k/mm3 4.8-10 <td> 12/10/2019 [place] [#/volume] in .8 06:30</td><td> [facility] Blood by k/mm3 WBC </td><td> [facility] Automated count [employer] 5.8
(4.8-10.8) k/mm3 </td> Erythrocytes 3.34 m/mm3 4.70-6 <td> 12/10/2019 [place] [#/volume] in .10 06:30</td><td> County Blood m/mm3 RBC Health Care </td><td><[email or web address] raph styleCode="Bold "> 3.34 L </paragraph>
(4.70-6.10) m/mm3 </td> Erythrocyte 19.1 % 11.5-1 <td> 12/10/2019 [place] distribution 4.5 % 06:30</td><td> County width [Entitic RDW Health Care volume] by </td><td><[email or web address] Automated count raph styleCode="Bold "> 19.1 H </paragraph>
(11.5-14.5) % </td> Hematocrit 27.4 % 40.8-4 <td> 12/10/2019 [place] [Volume 6.9 % 06:30</td><td> County Fraction] of HCT Health Care Blood by </td><td><[email or web address] Automated count raph styleCode="Bold "> 27.4 L </paragraph>
(40.8-46.9) % </td> Hemoglobin 8.4 g/dL 14.0-1 <td> 12/10/2019 [place] [Mass/volume] 8.0 06:30</td><td> County in Blood g/dL HGB Health Care </td><td><[email or web address] raph styleCode="Bold "> 8.4 L </paragraph>
(14.0-18.0) g/dL </td> Erythrocyte 82.0 fL 80.0-9 <td> 12/10/2019 [place] mean 4.0 fL 06:30</td><td> County corpuscular MCV </td><td> Health Care volume [[employer] Corporation volume] by 82.0 Automated count
(80.0-94.0) fL </td> Erythrocyte 25.1 pg 27.0-3 <td> 12/10/2019 [place] mean 1.5 pg 06:30</td><td> County corpuscular MCH [facility] hemoglobin </td><td><[employer] [Entitic mass] raph by Automated styleCode="Bold count "> 25.1 L </paragraph>
(27.0-31.5) pg </td> Erythrocyte 30.7 % 32.0-3 <td> 12/10/2019 [place] mean 6.0 % 06:30</td><td> [facility] corpuscular [facility] Health Care hemoglobin </td><td><[email or web address] concentration raph [Mass/volume] styleCode="Bold in Blood from "> Fetus by 30.7 Automated count L </paragraph>
(32.0-36.0) % </td> Glucose 82 mg/dL 70-105 <td> 12/10/2019 [place] [Mass/volume] mg/dL 06:30</td><td> County in Blood Glucose-Serum Health Care </td><td> [employer] 82
(70-105) mg/dL </td> Chloride 107 mEq/L 98-107 <td> 12/10/2019 [place] [Moles/volume] mEq/L 06:30</td><td> [facility] in Serum or Chloride Health Care Plasma </td><td> [employer] 107
(98-107) mEq/L </td> Platelet mean 11.1 fL 9.8-12 <td> 12/10/2019 [facility] r volume [Entitic .8 fL 06:30</td><td> County volume] in MPV </td><td> Health Care Blood by [employer] Automated count 11.1
(9.8-12.8) fL </td> Platelets 291 k/mm3 160-41 <td> 12/10/2019 [place] [#/volume] in 0 06:30</td><td> [facility] Blood by k/mm3 Platelet Count Health Care Automated count </td><td> [employer] 291
(160-410) k/mm3 </td> Potassium 4.0 mEq/L 3.5-5. <td> 12/10/2019 [place] [Moles/volume] 1 06:30</td><td> County in Serum or mEq/L Potassium-Serum Health Care Plasma </td><td> [employer] 4.0
(3.5-5.1) mEq/L </td> Sodium 137 mEq/L 135-14 <td> 12/10/2019 [place] [Moles/volume] 5 06:30</td><td> County in Serum or mEq/L Sodium-Serum Health Care Plasma </td><td> [employer] 137
(135-145) mEq/L </td> Anion gap in 5 mEq/L 7-13 <td> 12/10/2019 [place] Serum or Plasma mEq/L 06:30</td><td> County Anion Gap Health Care </td><td><[email or web address] raph styleCode="Bold "> 5 L </paragraph>
(7-13) mEq/L </td> Urea nitrogen 16 mg/dL 6-22 <td> 12/10/2019 [facility] r [Mass/volume] mg/dL 06:30</td><td> County in Blood BUN </td><td> Health Care Corporation 16
(6-22) mg/dL </td> Carbon dioxide, 25 mEq/L 22-30 <td> 12/10/2019 [facility] total mEq/L 06:30</td><td> [facility] [Moles/volume] CO2 </td><td> Health Car e in Serum or Corporation Plasma 25
(22-30) mEq/L </td> Calcium 7.2 mg/dL 8.6-10 <td> 12/10/2019 [place] [Mass/volume] .2 06:30</td><td> County in Blood mg/dL Calcium Health Care </td><td><[email or web address] raph styleCode="Bold "> 7.2 L </paragraph>
(8.6-10.2) mg/dL </td> Creatinine 0.98 mg/dL 0.72-1 <td> 12/10/2019 [place] [Moles/volume] .25 06:30</td><td> County in Serum or mg/dL Creatinine. Health Care Plasma </td><td> [employer] 0.98
(0.72-1.25) mg/dL </td> Icteric index Not <td> 12/10/2019 [facility] r of Serum or Icteric 06:30</td><td> [facility] Plasma Icteric Index Health [facility] </td><td> [facility] Not Icteric
</td> Phosphate 2.5 mg/dL 2.3-4. <td> 12/10/2019 [place] [Mass/volume] 7 06:30</td><td> [facility] in Serum or mg/dL Inorganic Health Care Plasma Phosphorus [facility] </td><td> 2.5
(2.3-4.7) mg/dL </td> Prothrombin 13.2 secs 9.4-12 <td> 12/10/2019 [place] time (PT) .5 06:30</td><td> [facility] secs Prothrombin [facility] Care Time. [facility] </td><td><rocio raph styleCode="Bold "> 13.2 H </paragraph>
(9.4-12.5) secs </td> aPTT panel - 72.1 secs 25.0-3 <td> 12/10/2019 [place] Platelet poor 6.5 14:30</td><td> [facility] plasma secs Partial [facility] Care Thromboplastin [facility] Time </td><td><rocio raph styleCode="Bold "> 72.1 H </paragraph>
(25.0-36.5) secs
PLEASE NOTE: New reference range in effect October 03, 2019.

(25.0-36.5) secs </td> Hemolysis index No <td> 12/10/[address] [facility] [address] of Serum or Hemolysis 06:30</td><td> [facility] Plasma Hemolysis Index Health [facility] </td><td> [facility] No Hemolysis
</td> Lipemic index No Lipemia <td> 12/10/2019 [facility] er of Serum or 06:30</td><td> [facility] Plasma Lipemia Index [facility] </td><td> [facility] No Lipemia
</td> Magnesium 1.7 mg/dL 1.6-2. <td> 12/10/2019 [place] [Mass/volume] 6 06:30</td><td> County in Serum or mg/dL Magnesium Level Health Care Plasma </td><td> [employer] 1.7
(1.6-2.6) mg/dL </td> ID Date Data Source [id number] 12/09/2019 05:53:[address] [facility] [id number] Corporation Name Value Range Interpretation Description Data Sup porting Code Source(s) Document(s ) Chest CT (PACSIMAGE <td> 12/09/2019 [place] W 17:53</td><td> [facility] contrast ) Final Chest With [facility] IV Result Contrast-CT Corporation Name: JIN </td><td>Dirkpaultheron FOSTER MRN: [id number] Sex: M styleCode="Italic : s">(PACSIMAGE 1935 Location: M )</paragraph><br/ Admitting >
Final Physician: Result ALINA LOPEZ

Requesting Name: CRISTIAN ABDI Physician:
DONTRELL TERRY Exam: CT Sex: M THORAX C+
: 12/09/2019 1935 19:53 Location: M EXAM: CT chest
with contrast Admitting for suspected Physician: ALINA LOPEZ emboluss
CLINICAL Requesting INFORMATION: Physician: DNOTRELL andujar. HARRISON History of PE,

on heparin.. [...] 12/09/2019 20:13

</td> ID Date Data Source [id number] 12/08/2019 12:00:00 AM EDT [facility] Name Value Range Interpretation Code Description Data Hope rce(s) Supporting Document(s ) SARS-COV-2 [place] RNA RT-PCR [facility] This lab was ordered by [facility] and reported by [facility]. ID Date Data Source [id number] 12/07/2019 04:00:00 PM EDT [facility] Name Value Range Interpretation Description Data Sup porting Code Source(s) Document(s ) SARS [facility] coronavirus 2 RNA This lab was ordered by [facility] and reported by [facility]. Procedure Social History Code Duration Value Status Description Data Source(s ) Smoking Former smoker completed Former smoker [facility] Vital Signs ID Date Data Source [...] 16.0000 {} Normal (applies to 16.0000 {} [place] rate Set non-numeric results) [facility] Corpor[facility] on Heart rate 77.0000 {} Normal (applies to 77.0000 {} [place] kamar non-numeric results) Coun ty [facility] Corporati on Body temperature 98.4000 {} Normal (applies to 98.4000 {} [place] non-numeric results) Coun ty [facility] Corporati on Mean blood 90.0000 {} Normal (applies to 90.0000 {} [facility] kamar pressure non-numeric results) Coun ty [facility] Care Corporati on wt - obtain Normal (applies to {} [facility] estrada non-numeric results) Coun ty [facility] Care Corporati on weight - kg 79.3000 {} Normal (applies to 79.3000 {} [facility] estrada non-numeric results) Coun ty Health Care Corporati on Patient Treatment Plan of Care Planned Activity Planned Date Details Description Data Source (s) Heparin Sodium [id number] 12/08/2019 12:09:32 [facility] Health Care Cor poration
[2019-12-21] MEDS ORDERED: DIPHENHYDRAMINE IVPB ONE (10:00)
[2019-12-21] MEDS ORDERED: PALONOSETRON HCL 0.25 MG/5 ML VIAL IVPUSH ONE (10:00)
[2019-12-21] MEDS ORDERED: SODIUM CHLORIDE IVPB ONE (10:00)
[2019-12-21] MEDS ORDERED: SODIUM CHLORIDE 0.45% 500 ML IV ONE (10:00)
[2019-12-21] MEDS ORDERED: ATROPINE SO4 0.4 MG/1 ML VIAL SQ ONE (10:00)
[2019-12-21] MEDS ORDERED: DEXAMETHASONE IVPB ONE (10:00)
[2019-12-21] MEDS ORDERED: FUROSEMIDE 40 MG/4 ML INJECTABLE VIAL IVPUSH ONE (10:16)
[2019-12-21] MEDS ORDERED: CETUXIMAB IVPB ONE (10:30)
[2019-12-21 11:28] LABS: BASO % 1.4 % (0-2.0); EOS % 4.5 % (0-4.5); HEMATOCRIT 25.5 % (35.4-49); HEMOGLOBIN 8.2 GM/dL (11.7-16.9); LYMPH % 5.8 % (8-40); MCH 25.8 pg (25.7-33.7); MCHC 32.3 g/dl (32.0-35.9); MEAN CELL VOLUME 79.9 fl (80-96); MEAN PLT VOLUME 7.5 fl (7.5-11.1); MONO % 16.6 % (3.8-10.2); NEUT % 71.7 % (42.8-82.8); PLATELET COUNT 415 K/MM3 (134-434); RBC 3.19 M/mm3 (4.00-5.60); RDW 19.9 % (11.9-15.9)
[2019-12-21] MEDS ORDERED: IRINOTECAN HCL 260 MG in DEXTROSE 5%-WATER - 500 ML IVPB ONE (11:30)
[2019-12-21 11:49] LABS: ALBUMIN 2.8 g/dl (3.4-5.0); BILIRUBIN,DIRECT 0.1 mg/dL (0.0-0.2); BILIRUBIN,TOTAL 0.3 mg/dL (0.2-1); BLOOD UREA NITROGEN 12.9 mg/dL (7-18); CALCIUM 7.4 mg/dL (8.5-10.1); CREATININE 1.2 mg/dL (0.55-1.3); MAGNESIUM 1.1 mg/dL (1.8-2.4); POTASSIUM 4.1 mmol/L (3.5-5.1); TOT PROT 5.9 g/dl (6.4-8.2)
[2019-12-21] MEDS ORDERED: MAGNESIUM 2GM/50ML STERILE WATER IVPB IVPB ONE ×2 (12:25→14:00)
[2019-12-21 16:07] VITALS: PULSE 83; TEMP 98
[2019-12-22 07:29] VITALS: BP 142/74
== END 2019-12-21 18:20 | disposition home or self-care (01) ==
LOC: JONCCHEMO 08:47
PROVIDERS: ATTEND Internal Medicine Hematology & Oncology
DX: Z51.11 Encounter for antineoplastic chemotherapy (principal); C18.2 Malignant neoplasm of ascending colon; C79.51 Secondary malignant neoplasm of bone; C78.2 Secondary malignant neoplasm of pleura; C78.00 Secondary malignant neoplasm of unspecified lung
CPT/HCPCS: 36415; 80048; 80076; 82728; 83540; 83550; 83735; 85025; 96361; 96366; 96367; 96375; 96413; 96415; 96417; J1100; J2469; J9055; J9206

== ENCOUNTER 2020-05-08 16:48 | Inpatient (IN) | payer OTHER ==
[2020-05-08] MEDS ORDERED: morphine CARPU-JECT 4 MG/1 ML DISP.SYRIN IVPUSH ONE (18:05)
[2020-05-08] MEDS ORDERED: morphine SULFATE 4 MG/ML VIAL ONE (18:11)
[2020-05-08] MEDS ORDERED: MORPHINE SULFATE 2 MG/ML VIAL IVPUSH PRN (19:06)
[2020-05-08 19:46] LABS: INR 1.18 (0.83-1.09); PROTHROMBIN TIME (PATIENT) 14.2 SEC (9.7-13.0)
[2020-05-08 19:47] LABS: BASO % 1.2 % (0-2.0); EOS % 4.1 % (0-4.5); HEMATOCRIT 33.9 % (35.4-49); HEMOGLOBIN 10.7 GM/dL (11.7-16.9); LYMPH % 12.7 % (8-40); MCH 21.8 pg (25.7-33.7); MCHC 31.6 g/dl (32.0-35.9); MEAN PLT VOLUME 7.9 fl (7.5-11.1); MONO % 13.5 % (3.8-10.2); NEUT % 68.5 % (42.8-82.8); PLATELET COUNT 492 K/MM3 (134-434); RBC 4.92 M/mm3 (4.00-5.60); RDW 20.7 % (11.9-15.9); WHITE BLOOD COUNT 6.8 K/mm3 (4.0-10.0)
[2020-05-08 19:49] LABS: ACTIVATED PTT 39.9 SECONDS (25.2-36.5)
[2020-05-08 20:33] LABS: POTASSIUM 5.3 mmol/L (3.5-5.1)
[2020-05-08 20:35] LABS: ALBUMIN 2.8 g/dl (3.4-5.0); BLOOD UREA NITROGEN 12.6 mg/dL (7-18); CALCIUM 8.9 mg/dL (8.5-10.1)
[2020-05-08 20:39] LABS: CREATININE 0.9 mg/dL (0.55-1.3)
[2020-05-08 20:40] LABS: BILIRUBIN,TOTAL 0.4 mg/dL (0.2-1); TOT PROT 7.7 g/dl (6.4-8.2)
[2020-05-08] MEDS ORDERED: LABETALOL HCL 200 MG TABLET (FP) PO SCH (22:00)
[2020-05-08] MEDS ORDERED: amLODIPine BESYLATE 5 MG TABLET (FP) ONE (23:32)
[2020-05-08] MEDS ORDERED: LABETALOL HCL 100 MG TABLET (FP) ONE (23:32)
[2020-05-08] MEDS ORDERED: HYDROCHLOROTHIAZIDE 25 MG TABLET (FP) ONE (23:33)
[2020-05-08] MEDS ORDERED: MORPHINE SULFATE 2 MG/ML VIAL ONE (23:54)
[2020-05-09] MEDS: HYDROCHLOROTHIAZIDE 25 MG TABLET (FP) PO SCH ×2 (00:04→10:50)
[2020-05-09] MEDS: amLODIPine BESYLATE 10 MG TABLET (FP) PO SCH ×2 (00:04→10:53)
[2020-05-09 02:29] VITALS: BMI 26.6
[2020-05-09 03:34] LABS: ANISOCYTOSIS 2+
[2020-05-09 03:35] LABS: PLATELET ESTIMATE ADEQUATE
[2020-05-09] MEDS ORDERED: PT OWN MED DRAWER 7, Y5N ONE (09:23)
[2020-05-09] MEDS ORDERED: EDOXABAN TOSYLATE 60 MG PO SCH (10:00)
[2020-05-09] MEDS: APIXABAN 5 MG TABLET PO SCH ×2 (10:50→21:23)
[2020-05-09] MEDS: ONDANSETRON 4 MG TABLET PO PRN (10:50)
[2020-05-09] MEDS: TAMSULOSIN HCL 0.4 MG CAP PO SCH (10:50)
[2020-05-09] MEDS: LABETALOL HCL 200 MG TABLET (FP) PO SCH ×2 (10:53→21:23)
[2020-05-10] MEDS ORDERED: morphine SULFATE IMMEDIATE RELEASE 30 MG TAB PO PRN (08:12)
[2020-05-10] MEDS: LABETALOL HCL 200 MG TABLET (FP) PO SCH ×3 (09:19→21:19)
[2020-05-10] MEDS: APIXABAN 5 MG TABLET PO SCH ×2 (09:20→21:19)
[2020-05-10] MEDS: amLODIPine BESYLATE 10 MG TABLET (FP) PO SCH (09:20)
[2020-05-10] MEDS: HYDROCHLOROTHIAZIDE 25 MG TABLET (FP) PO SCH (09:20)
[2020-05-10] MEDS: TAMSULOSIN HCL 0.4 MG CAP PO SCH (09:20)
[2020-05-10] MEDS: ONDANSETRON 4 MG TABLET PO PRN (09:20)
[2020-05-11] MEDS: TAMSULOSIN HCL 0.4 MG CAP PO SCH (09:05)
[2020-05-11] MEDS: ONDANSETRON 4 MG TABLET PO PRN (09:05)
[2020-05-11] MEDS: HYDROCHLOROTHIAZIDE 25 MG TABLET (FP) PO SCH (09:05)
[2020-05-11] MEDS: amLODIPine BESYLATE 10 MG TABLET (FP) PO SCH (09:05)
[2020-05-11] MEDS: APIXABAN 5 MG TABLET PO SCH (09:05)
[2020-05-11] MEDS: LABETALOL HCL 200 MG TABLET (FP) PO SCH (09:07)
[2020-05-11 13:55] VITALS: BP 126/61; PULSE 81; TEMP 98.3
== END 2020-05-11 16:07 | disposition home health service (06) | DRG 375 ==
LOC: JER 16:48 → JERBED 18:35 → J7W 05-09 01:35
PROVIDERS: ADMIT Internal Medicine; ATTEND Internal Medicine
DX: C18.2 Malignant neoplasm of ascending colon (principal); C78.00 Secondary malignant neoplasm of unspecified lung; R64 Cachexia; C78.2 Secondary malignant neoplasm of pleura; C79.51 Secondary malignant neoplasm of bone; E78.00 Pure hypercholesterolemia, unspecified; I10 Essential (primary) hypertension; N40.0 Benign prostatic hyperplasia without lower urinary tract symptoms; Z68.26 Body mass index [BMI] 26.0-26.9, adult; Z86.718 Personal history of other venous thrombosis and embolism
CPT/HCPCS: 36415; 71045-TC-FY; 80053; 82550; 84484; 85025; 85610; 85730; 93005; 93010; 97116-GP; 97161-GP; 99285-25; C9803; U0003